=== PATIENT | female | born 1955 | race Caucasian/White ===

== ENCOUNTER → 2018-02-02 11:31 | Outpatient (CLI) | payer MEDICAID, SELFPAY ==
[2018-02-02 12:10] LABS: INR 3.7 (1.0-3.5); Prothrombin Time 34.6 sec (9.3-10.8)
== END ==
PROVIDERS: Nurse Practitioner Primary Care; PCP Family Medicine; Visit Provider Family Medicine
DX: I26.99 Other pulmonary embolism without acute cor pulmonale (principal); Z79.01 Long term (current) use of anticoagulants
CPT/HCPCS: 36415; 85610

== ENCOUNTER 2018-02-02 16:42 | Emergency (ER) | payer MEDICAID, SELFPAY ==
[2018-02-02] VITALS (24 sets, daily range): BP systolic 128–148; BP diastolic 64–92; PULSE 78–86; RESP 11–26; TEMP 36.6–36.7; O2SAT 91–96
--- NOTE | 2018-02-02 16:59 | NUR.NOTE ---
pt reports that she is allergic to all antibiotics attempted to clarify but pt continues to states she is allergic to everything. Nursing Note:
--- NOTE | 2018-02-02 17:20 | DI.REPORT_ITS ---
SYMPTOM/DIAGNOSIS: CHEST PAIN AP AND LATERAL CHEST: The heart is normal in size. The lungs are clear. The mediastinal structures and pleura appear intact. CONCLUSION: Normal chest. No evidence of acute pulmonary disease
[2018-02-02 17:44] LABS: Abs Immature Grans 0.08 k/cumm (0.0-0.09); Absolute Basophil Count 0.05 k/cumm (0.0-0.2); Absolute Eosinophil Count 0.24 k/cumm (0.0-0.7); Absolute Lymphocyte Count 3.17 k/cumm (1.2-3.4); Absolute Monocyte Count 0.64 k/cumm (0.11-0.7); Absolute Neutrophil Count 5.36 k/cumm (1.2-6.7); Basophils % 0.5; Eosinophils % 2.5; HCT 42.2 % (36.0-46.0); HGB 14.2 g/dL (12.0-15.5); Immature Grans % 0.8; Lymphocytes % 33.2; Mean Corp. HGB Concentration 33.6 g/dL (32.0-36.0); Mean Corpuscular Hemoglobin 29.3 pg (27.0-33.0); Mean Corpuscular Volume 87.2 fL (80-95); Mean Platelet Volume 10.3 fL (8.0-11.0); Monocytes % 6.7; Neutrophils % 56.3; Platelet Count 302 x1000/uL (130-400); RBC 4.84 m/cumm (4.00-5.20); RBC Distribution Width 14.1 % (11.7-14.6); White Blood Cell Count 9.54 k/cumm (4.4-10.8)
[2018-02-02 18:00] LABS: ALT 39 U/L (12-78); AST 27 U/L (15-37); Albumin 3.8 g/dL (3.4-5.0); Alkaline Phosphatase 127 U/L (46-116); Anion Gap 13.5 mmol/L (3-11); BUN 19 mg/dL (7-18); Bilirubin, Total 0.3 mg/dL (0.2-1.0); CO2 23.5 mmol/L (21.0-32.0); CREATININE 0.79 mg/dL (0.55-1.02); Calcium 9.2 mg/dL (8.5-10.1); Chloride 103 mmol/L (98-107); Glucose 81 mg/dL (70-100); Potassium 3.8 mmol/L (3.5-5.1); Sodium 140 mmol/L (136-145); Total Protein 8.6 g/dL (6.4-8.2)
[2018-02-02 18:01] LABS: Troponin I < 0.02 ng/mL (0.00-0.06)
[2018-02-02 18:07] LABS: INR 3.7 (1.0-3.5); PTT Activated 50.7 sec (21.0-31.4); Prothrombin Time 34.7 sec (9.3-10.8)
--- NOTE | 2018-02-02 18:19 | DI.VRAD_ITS ---
EXAM: XR Chest, 2 Views EXAM DATE/TIME: 02/02/2018 6:03 PM CLINICAL HISTORY: 63 years old, female; Pain; Chest pain; Type not specified TECHNIQUE: XR of the chest, 2 views. COMPARISON: [facility] - CHEST ONE VIEW IN RAD DEPT 2017-11-12 22:57 FINDINGS: Lungs: Unremarkable. No consolidation. Pleural space: Unremarkable. No pleural effusion. No pneumothorax. Heart/Mediastinum: Unremarkable. No cardiomegaly. Bones/joints: Unremarkable for patient's age. IMPRESSION: Normal AP and lateral chest examination. Dictated and Authenticated by: Christian Dooley MD. Ordering:GABY ROMO MD
[2018-02-02 20:27] LABS: Troponin I < 0.02 ng/mL (0.00-0.06)
--- NOTE | 2018-02-02 20:42 | ED.GENADUL_ITS ---
Disposition Clinical Impression: SOB (shortness of breath), Leg pain, right Disposition: HOME Condition: Good Instructions: Dyspnea (ED), Leg Pain (ED) Additional Instructions: Please return tomorrow morning for your ultrasound of your right lower extremity. If you notice any worsening of your symptoms, or any new symptoms such as vomiting, diarrhea, fever, chills, shortness of breath, chest pain, numbness, weakness, or fainting , please return immediately to the emergency department for reevaluation. Please follow up with your primary care provider as soon as possible for reassessment and reevaluation. As always, it was a pleasure participating in your medical care today. Medical Decision Making - Lab Data Laboratory Tests 02/02/18 02/02/18 02/02/18 17:05 17:05 17:05 WBC 9.54 RBC 4.84 Hgb 14.2 Hct 42.2 MCV 87.2 MCH 29.3 MCHC 33.6 RDW 14.1 Plt Count 302 MPV 10.3 Immature Gran % 0.8 Neutrophils % 56.3 Lymphocytes % 33.2 Monocytes % 6.7 Eosinophils % 2.5 Basophils % 0.5 Absolute Neutrophils 5.36 Absolute Lymphocytes 3.17 Absolute Monocytes 0.64 Absolute Eosinophils 0.24 Absolute Basophils 0.05 PT 34.7 H INR 3.7 H APTT 50.7 H Sodium 140 Potassium 3.8 Chloride 103 Carbon Dioxide 23.5 Anion Gap 13.5 H BUN 19 H Creatinine 0.79 Estimated GFR/1.73 m2 >= 60.00 Glucose 81 Calcium 9.2 Total Bilirubin 0.3 AST 27 ALT 39 Alkaline Phosphatase 127 H Troponin I < 0.02 Total Protein 8.6 H Albumin 3.8 02/02/18 19:53 WBC RBC Hgb Hct MCV MCH MCHC RDW Plt Count MPV Immature Gran % Neutrophils % Lymphocytes % Monocytes % Eosinophils % Basophils % Absolute Neutrophils Absolute Lymphocytes Absolute Monocytes Absolute Eosinophils Absolute Basophils PT INR APTT Sodium Potassium Chloride Carbon Dioxide Anion Gap BUN Creatinine Estimated GFR/1.73 m2 Glucose Calcium Total Bilirubin AST ALT Alkaline Phosphatase Troponin I < 0.02 Total Protein Albumin - Medical Decision Making This is a pleasant 63-year-old female with a history of pulmonary embolisms for which she is on Coumadin. She presents today for evaluation of very mild shortness of breath, as well as right leg pain. She described the symptoms to her PCP who recommended that she come in for further evaluation. Her Coumadin/ INR level is actually slightly supratherapeutic greater than 3. I feel pulmonary embolism is unlikely. Vital signs demonstrate no evidence of tachycardia, no hypoxemia, normal blood pressure. She has no severe pleuritic chest pain. There is no exertional component, radiation to her arms or neck. Because of the time that the patient came in, there was no ultrasound available for evaluation of DVT. Because the patient's Coumadin is supratherapeutic I feel it reasonable for discharge with close follow-up tomorrow, ultrasound in the morning for evaluation of DVT. Chest x-ray from [facility] demonstrates normal AP and lateral chest examination no consolidation or abnormality. EKG demonstrates time of 16: 52 rate of 84, QRS of 110, QTc 440, DE of 202. No ST elevations or depressions. No S1 Q3 T3. No Q waves. No inverted T waves. Serial troponins are negative. Laboratory workup is otherwise benign. Patient will be discharged home with ultrasound tomorrow and close follow-up. I have extensively reviewed the treatment plan and discharge instructions with the patient. I have addressed all patient concerns at this time. The patient was made aware of what symptoms to monitor for that would warrant a return to the emergency department. Discussed the plan with the patient, they demonstrate verbal understanding and agreement with our assessment and plan at this time. 02/03/18 11 AM The patient's ultrasound has returned negative. She has been sent home with close follow-up with her primary care provider. History of Present Illness - General Chief complaint: SOB Stated complaint: CALEX Time Seen by Provider: 02/02/18 17:18 - History of Present Illness Initial comments: This is a pleasant 63-year-old female who presents for evaluation of right lower extremity pain and mild shortness of breath. Patient has a history of pulmonary embolisms back in October, which was a saddle pulmonary emboli at that time. She also has a history of diabetes, hypertension, high cholesterol. She is on Coumadin for her pulmonary embolisms. She was recently here 7 days ago, and had a CT angiogram that was negative at that time. She was low on her INR at that time. She was eventually discharged home with a negative echocardiogram , and improvement of her symptoms, and negative serial troponins. The patient states that over the last 24 hours she has had mild pain in her right calf. She is also developed very mild shortness of breath. She denies any chest pressure or significant chest pain. She denies any pleuritic chest pain. She states that this is not feel like her previous pulmonary emboli. She denies any cough, arm pain neck pain, numbness tingling or weakness. She denies any recent trauma. She has been taking her Coumadin as directed. She denies any vomiting, nausea or diarrhea. She has no other complaints at this time. She denies any IV or illicit drug use. She denies any recent surgeries. She denies any pertinent family history. - Related Data Lancets [Onetouch Delica] 1 each MC BID #200 each 05/19/16 Amlodipine Besylate [Norvasc] 1 tab PO DAILY #90 tab-cap 11/25/16 Albuterol Sulfate [Proair Hfa] 2 puff IH Q6H PRN #1 inhaler 02/09/17 Empagliflozin [Jardiance] 10 mg PO QAM #30 tab 06/04/17 Multivit with Calcium,Iron,Min [One Daily Women's] 1 each PO DAILY #90 tab 06/08 Blood Sugar Diagnostic [Onetouch Ultra Blue Test Strp] 1 each MC six times a day #300 strip 06/29/17 Gemfibrozil [Lopid] 1 tab PO BID #180 tab-cap 06/29/17 [place], Insulin Disposable [Bd Ultra-Fine Pen Needle] 1 each MC BID #200 each 06/29/17 Allopurinol [Zyloprim] 2 tab PO DAILY #180 tab-cap 07/06/17 Venlafaxine HCl [Venlafaxine HCl ER] 150 mg PO DAILY #90 tab-cap 08/06/17 Losartan Potassium [Cozaar] 1 tab PO QAM #90 tab-cap 08/18/17 Blood-Glucose Meter [Blood Glucose Meter] 1 each MC ONCE #1 each 10/12/17 Bacitracin 30 gm TP DAILY #1 oint...g. 12/20/17 Insulin Glargine [Lantus Solostar] 90 units SC DAILY #4 box 01/10/18 Insulin Aspart [NovoLOG Flexpen] 3 - 12 unit SC Sliding scale #1 box 01/14/18 Sterile Water 300 ml AD DAILY #36 01/14/18 Warfarin Sodium 5 mg PO DAILY #180 tab-cap 01/31/18 Allergies Allergy/AdvReac Type Severity Reaction Status Date / Time sitagliptin phosphate Allergy Intermediate throat Unverified 02/02/18 16:57 [From Lianguvangela] swelling,H/As amoxicillin Allergy Mild THRUSH, Unverified 02/02/18 16:57 THROAT CLOSES Review of Systems Other: 10 point review of systems was performed, pertinent positives and negatives are noted in the history of present illness. Past Medical History - Past Medical History Medical history: asthma, CVA/TIA, diabetes, DVT, hyperlipidemia, hypertension Surgical history: cholecystectomy, hysterectomy, other (Foot surgery) Family history: CAD/NH (FATHER), cancer (FATHER SISTER) - Social History Alcohol use: none Drug use: none General Exam - Other Other exam information: 1.Const: Well-nourished, Well-developed, appearing stated age, morbidly obese 2.Eyes: PERRL, no conjunctival injection, and symmetrical lids. 3.ENT: Atraumatic external nose and ears. Moist MM. Neck: Symmetric, trachea midline, No thyromegaly. 4.CVS: +S1/S2, No murmurs or gallops. Peripheral pulses 2+ and equal in all extremities. Brisk capillary refill in all extremities. 5.RESP: Unlabored respiratory effort. Clear to auscultation bilaterally. No wheezes rales or rhonchi 6.GI: Soft, Nontender/Nondistended, No hepatosplenomegaly. No guarding or rebound. Obese 7.MSK: Normocephalic/Atraumatic, Extremities w/o deformity or ttp No cyanosis or clubbing, Normal movement of all extremities. Subjective mild generalized tenderness in the right calf, no unilateral swelling. Both calves are very large secondary to morbid obesity. Capillary refill is brisk, dorsalis pedis is +2 bilaterally. No evidence of trauma. 8.Skin: Warm, Dry. No rashes or lesions. 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 Sensation grossly intact, no focal neurologic deficits. 10.Psych: (AAO) x3. Appropriate mood and affect Course Vital Signs - 24 hr 02/02/18 02/02/18 02/02/18 16:51 16:58 17:15 Temperature 36.6 C Pulse 83 86 Respiratory 16 18 18 Rate Blood Pressure 136/76 143/85 Pulse Oximetry 95 96 02/02/18 02/02/18 02/02/18 17:30 18:00 18:15 Temperature Pulse 80 84 79 Respiratory 18 16 Rate Blood Pressure 148/84 133/92 144/84 Pulse Oximetry 93 L 93 L 95 02/02/18 02/02/18 02/02/18 18:30 18:45 18:47 Temperature Pulse 80 79 Respiratory 18 18 22 Rate Blood Pressure 141/85 146/90 Pulse Oximetry 93 L 94 L 93 L 02/02/18 02/02/18 02/02/18 18:50 19:00 19:10 Temperature Pulse Respiratory 21 25 H 18 Rate Blood Pressure Pulse Oximetry 93 L 91 L 93 L 02/02/18 02/02/18 02/02/18 19:20 19:30 19:40 Temperature Pulse Respiratory 15 17 21 Rate Blood Pressure Pulse Oximetry 93 L 94 L 94 L 02/02/18 02/02/18 02/02/18 19:50 20:00 20:10 Temperature Pulse Respiratory 23 21 25 H Rate Blood Pressure Pulse Oximetry 95 93 L 94 L 02/02/18 20:20 Temperature Pulse Respiratory 19 Rate Blood Pressure Pulse Oximetry 94 L
== END 2018-02-02 21:08 | disposition home or self-care (01) ==
PROVIDERS: Emergency Provider Student in an Organized Health Care Education/Training Program; PCP Family Medicine
DX: R06.02 Shortness of breath (principal); M79.604 Pain in right leg; Z79.01 Long term (current) use of anticoagulants; Z86.711 Personal history of pulmonary embolism; I10 Essential (primary) hypertension; E11.9 Type 2 diabetes mellitus without complications; Z79.4 Long term (current) use of insulin
CPT/HCPCS: 36415; 80053; 93005; 99285; 71046; 84484; 85025; 85610; 85730; 93010; 99284

== ENCOUNTER → 2018-02-03 09:59 | Outpatient (CLI) | payer MEDICAID, SELFPAY ==
--- NOTE | 2018-02-03 10:40 | DI.REPORT_ITS ---
SYMPTOM/DIAGNOSIS: H/O CLOTS , ON COUMADIN, ? DVT, RT LEG PAIN, DYSPNEA, SOB RIGHT LEG ULTRASOUND: The study was carried out according to the usual protocol. The superficial, femoral, popliteal and proximal trifurcation in the superior portion of the leg are well seen. Good compressibility is noted throughout. Flow is demonstrated and flow augmentation was easily elicited with calf compression. SUMMARY: There is no evidence of DVT.
== END ==
PROVIDERS: PCP Family Medicine; Visit Provider Student in an Organized Health Care Education/Training Program
DX: M79.604 Pain in right leg (principal); R06.09 Other forms of dyspnea; R06.02 Shortness of breath; Z79.01 Long term (current) use of anticoagulants; Z86.718 Personal history of other venous thrombosis and embolism
CPT/HCPCS: 93971

== ENCOUNTER → 2018-02-04 11:41 | Outpatient (CLI) | payer MEDICAID, SELFPAY ==
[2018-02-04 12:52] LABS: INR 2.1 (1.0-3.5); Prothrombin Time 19.9 sec (9.3-10.8)
== END ==
PROVIDERS: PCP Family Medicine; Visit Provider Family Medicine
DX: I26.99 Other pulmonary embolism without acute cor pulmonale (principal); Z79.01 Long term (current) use of anticoagulants
CPT/HCPCS: 36415; 85610

== ENCOUNTER → 2018-02-08 10:52 | Outpatient (CLI) | payer MEDICAID, SELFPAY ==
[2018-02-08 12:56] LABS: INR 1.9 (1.0-3.5); Prothrombin Time 18.2 sec (9.3-10.8)
== END ==
PROVIDERS: PCP Family Medicine; Visit Provider Family Medicine
DX: I26.99 Other pulmonary embolism without acute cor pulmonale (principal); Z79.01 Long term (current) use of anticoagulants
CPT/HCPCS: 36415; 85610

== ENCOUNTER → 2018-02-15 11:25 | Outpatient (CLI) | payer MEDICAID, SELFPAY ==
[2018-02-15 12:01] LABS: INR 1.7 (1.0-3.5); Prothrombin Time 16.7 sec (9.3-10.8)
== END ==
PROVIDERS: PCP Family Medicine; Visit Provider Family Medicine
DX: I26.99 Other pulmonary embolism without acute cor pulmonale (principal); Z79.01 Long term (current) use of anticoagulants
CPT/HCPCS: 36415; 85610

== ENCOUNTER → 2018-02-22 12:21 | Outpatient (CLI) | payer MEDICAID, SELFPAY ==
[2018-02-22 14:47] LABS: INR 1.5 (1.0-3.5); Prothrombin Time 14.7 sec (9.3-10.8)
== END ==
PROVIDERS: PCP Family Medicine; Visit Provider Family Medicine
DX: I26.99 Other pulmonary embolism without acute cor pulmonale (principal); Z79.01 Long term (current) use of anticoagulants
CPT/HCPCS: 36415; 85610

== ENCOUNTER 2018-02-25 12:53 | Outpatient (CLI) | payer MEDICAID, SELFPAY ==
[2018-02-25 13:38] LABS: INR 1.9 (1.0-3.5); Prothrombin Time 18.3 sec (9.3-10.8)
== END 2018-02-25 12:54 ==
PROVIDERS: PCP Family Medicine; Visit Provider Family Medicine
DX: I26.90 Septic pulmonary embolism without acute cor pulmonale (principal); Z79.01 Long term (current) use of anticoagulants
CPT/HCPCS: 36415; 85610

== ENCOUNTER 2018-03-04 12:46 | Outpatient (CLI) | payer MEDICAID, SELFPAY ==
[2018-03-04 13:22] LABS: INR 2.9 (1.0-3.5); Prothrombin Time 26.9 sec (9.3-10.8)
== END 2018-03-04 13:06 ==
PROVIDERS: PCP Family Medicine; Visit Provider Family Medicine
DX: I26.99 Other pulmonary embolism without acute cor pulmonale (principal); Z79.01 Long term (current) use of anticoagulants
CPT/HCPCS: 36415; 85610

== ENCOUNTER 2018-03-11 11:52 | Outpatient (CLI) | payer MEDICAID, SELFPAY ==
[2018-03-11 12:39] LABS: Prothrombin Time 37.7 sec (9.3-10.8)
[2018-03-11 12:53] LABS: INR 4.1 (1.0-3.5)
== END 2018-03-11 12:12 ==
LOC: LBN 11:53 → LBO 11:56
PROVIDERS: PCP Family Medicine; Visit Provider Family Medicine
DX: I26.99 Other pulmonary embolism without acute cor pulmonale (principal); Z79.01 Long term (current) use of anticoagulants
CPT/HCPCS: 36415; 85610

== ENCOUNTER 2018-03-18 13:54 | Outpatient (CLI) | payer MEDICAID, SELFPAY ==
[2018-03-18 14:31] LABS: INR 2.6 (1.0-3.5); Prothrombin Time 24.3 sec (9.3-10.8)
== END 2018-03-18 14:14 ==
PROVIDERS: PCP Family Medicine; Visit Provider Family Medicine
DX: I26.99 Other pulmonary embolism without acute cor pulmonale (principal); Z79.01 Long term (current) use of anticoagulants
CPT/HCPCS: 36415; 85610

== ENCOUNTER 2018-04-01 13:19 | Outpatient (CLI) | payer MEDICAID, SELFPAY ==
[2018-04-01 14:06] LABS: Hemoglobin A1C 6.3 % (4.5-6.2)
[2018-04-01 14:29] LABS: INR 3.3 (1.0-3.5); Prothrombin Time 30.9 sec (9.3-10.8)
== END 2018-04-01 13:39 ==
PROVIDERS: PCP Family Medicine; Visit Provider Family Medicine
DX: E11.9 Type 2 diabetes mellitus without complications (principal); I26.99 Other pulmonary embolism without acute cor pulmonale; Z79.01 Long term (current) use of anticoagulants
CPT/HCPCS: 36415; 83036; 85610

== ENCOUNTER 2018-04-14 15:37 | Outpatient (CLI) | payer MEDICAID, SELFPAY ==
[2018-04-14 16:26] LABS: INR 2.5 (1.0-3.5); Prothrombin Time 23.3 sec (9.3-10.8)
== END 2018-04-14 15:57 ==
PROVIDERS: PCP Family Medicine; Visit Provider Family Medicine
DX: I26.99 Other pulmonary embolism without acute cor pulmonale (principal); Z79.01 Long term (current) use of anticoagulants
CPT/HCPCS: 36415; 85610

== ENCOUNTER 2018-05-03 12:05 | Outpatient (CLI) | payer MEDICAID, SELFPAY ==
[2018-05-03 12:52] LABS: INR 3.3 (1.0-3.5); Prothrombin Time 30.8 sec (9.3-10.8)
== END 2018-05-03 12:25 ==
PROVIDERS: PCP Family Medicine; Visit Provider Family Medicine
DX: I26.99 Other pulmonary embolism without acute cor pulmonale (principal); Z79.01 Long term (current) use of anticoagulants
CPT/HCPCS: 36415; 85610

== ENCOUNTER 2018-05-11 10:11 | Outpatient (CLI) | payer MEDICAID, SELFPAY ==
[2018-05-11 11:06] LABS: INR 2.6 (1.0-3.5); Prothrombin Time 24.5 sec (9.3-10.8)
== END 2018-05-11 10:31 ==
PROVIDERS: PCP Family Medicine; Visit Provider Family Medicine
DX: I26.99 Other pulmonary embolism without acute cor pulmonale (principal); Z79.01 Long term (current) use of anticoagulants
CPT/HCPCS: 36415; 85610

== ENCOUNTER 2018-05-18 09:38 | Outpatient (CLI) | payer MEDICAID, SELFPAY ==
[2018-05-18 10:20] LABS: INR 1.5 (1.0-3.5); Prothrombin Time 14.2 sec (9.3-10.8)
== END 2018-05-18 09:58 ==
PROVIDERS: PCP Family Medicine; Visit Provider Family Medicine
DX: I26.99 Other pulmonary embolism without acute cor pulmonale (principal); Z79.01 Long term (current) use of anticoagulants
CPT/HCPCS: 36415; 85610

== ENCOUNTER 2018-05-25 11:17 | Outpatient (CLI) | payer MEDICAID, SELFPAY | END 2018-05-25 11:37 | PROVIDERS: PCP Family Medicine; Visit Provider Family Medicine | DX: I26.99 Other pulmonary embolism without acute cor pulmonale (principal); Z79.01 Long term (current) use of anticoagulants | CPT/HCPCS: 36415; 85610 ==

== ENCOUNTER 2018-05-31 11:01 | Outpatient (CLI) | payer MEDICAID, SELFPAY ==
[2018-05-31 11:45] LABS: INR 1.4 (1.0-3.5); Prothrombin Time 13.3 sec (9.3-10.8)
== END 2018-05-31 11:21 ==
PROVIDERS: PCP Family Medicine; Visit Provider Family Medicine
DX: I26.99 Other pulmonary embolism without acute cor pulmonale (principal); Z79.01 Long term (current) use of anticoagulants
CPT/HCPCS: 36415; 85610

== ENCOUNTER 2018-06-08 14:18 | Outpatient (CLI) | payer MEDICAID, SELFPAY ==
[2018-06-08 15:01] LABS: INR 2.3 (1.0-3.5); Prothrombin Time 22.1 sec (9.3-10.8)
== END 2018-06-08 14:38 ==
PROVIDERS: PCP Family Medicine; Visit Provider Family Medicine
DX: I26.99 Other pulmonary embolism without acute cor pulmonale (principal); Z79.01 Long term (current) use of anticoagulants
CPT/HCPCS: 36415; 85610

== ENCOUNTER 2018-06-15 13:50 | Outpatient (CLI) | payer MEDICAID, SELFPAY ==
[2018-06-15 14:35] LABS: INR 2.1 (1.0-3.5); Prothrombin Time 20.8 sec (9.3-11.0)
== END 2018-06-15 14:10 ==
PROVIDERS: PCP Family Medicine; Visit Provider Family Medicine
DX: I26.99 Other pulmonary embolism without acute cor pulmonale (principal); Z79.01 Long term (current) use of anticoagulants
CPT/HCPCS: 36415; 85610

== ENCOUNTER 2018-07-01 15:15 | Outpatient (CLI) | payer MEDICAID, SELFPAY ==
[2018-07-01 16:38] LABS: Prothrombin Time 30.6 sec (9.3-11.0)
== END 2018-07-01 15:35 ==
PROVIDERS: PCP Family Medicine; Visit Provider Family Medicine
DX: I26.99 Other pulmonary embolism without acute cor pulmonale (principal); Z79.01 Long term (current) use of anticoagulants
CPT/HCPCS: 36415; 85610

== ENCOUNTER 2018-07-12 09:27 | Outpatient (CLI) | payer MEDICAID, SELFPAY ==
[2018-07-12 10:00] LABS: INR 2.3 (0.9-1.1); Prothrombin Time 22.7 sec (9.3-11.0)
== END 2018-07-12 09:47 ==
PROVIDERS: PCP Family Medicine; Visit Provider Family Medicine
DX: I26.99 Other pulmonary embolism without acute cor pulmonale (principal); Z79.01 Long term (current) use of anticoagulants
CPT/HCPCS: 36415; 85610

== ENCOUNTER 2018-07-27 10:29 | Outpatient (CLI) | payer MEDICAID, SELFPAY ==
[2018-07-27 11:53] LABS: Hemoglobin A1C 7.4 % (4.5-6.2)
== END 2018-07-27 10:49 ==
PROVIDERS: PCP Family Medicine; Visit Provider Family Medicine
DX: E11.9 Type 2 diabetes mellitus without complications (principal)
CPT/HCPCS: 36415; 83036

== ENCOUNTER 2018-08-16 15:08 | Outpatient (CLI) | payer MEDICAID, SELFPAY ==
[2018-08-16 15:51] LABS: INR 2.5 (0.9-1.1); Prothrombin Time 25.6 sec (9.3-11.0)
== END 2018-08-16 15:28 ==
PROVIDERS: PCP Family Medicine; Visit Provider Family Medicine
DX: I26.99 Other pulmonary embolism without acute cor pulmonale (principal); Z79.01 Long term (current) use of anticoagulants
CPT/HCPCS: 36415; 85610

== ENCOUNTER 2018-08-25 14:43 | Emergency (ER) | payer MEDICAID, SELFPAY ==
[2018-08-25 14:46] VITALS: BP 185/101; PULSE 93; RESP 18; TEMP 36.4; O2SAT 97
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
--- NOTE | 2018-08-25 15:10 | DI.CT_ITS ---
SYMPTOM/DIAGNOSIS: LLQ ABD PAIN, ? DIVERTICULITIS ABDOMEN AND PELVIC CT: Comparison is made with 03/19/17. Images were performed from the lung bases through the ischial tuberosities after IV and without oral contrast. Dependent changes are seen at the lung bases. The liver shows diffuse fatty infiltration. The patient is status post cholecystectomy. The spleen, adrenals, pancreas and kidneys are unremarkable. Diverticulosis is noted of the lower descending and sigmoid colon. There is severe inflammatory changes surrounding the sigmoid consistent with diverticulitis. There is no evidence of abscess or fluid collection. There is a small amount of adjacent fluid, non drainable. There is no abnormal bowel dilatation. The appendix appears normal. The patient is status post hysterectomy. The bladder is unremarkable. IMPRESSION: Sigmoid diverticulitis. No evidence of abscess.
[2018-08-25 15:23] LABS: Abs Immature Grans 0.04 k/cumm (0.0-0.09); Absolute Basophil Count 0.05 k/cumm (0.0-0.2); Absolute Eosinophil Count 0.12 k/cumm (0.0-0.7); Absolute Lymphocyte Count 2.61 k/cumm (1.2-3.4); Absolute Monocyte Count 0.57 k/cumm (0.11-0.7); Basophils % 0.5; Eosinophils % 1.1; HCT 40.6 % (36.0-46.0); HGB 13.8 g/dL (12.0-15.5); Immature Grans % 0.4; Lymphocytes % 24.2; Mean Corpuscular Hemoglobin 30.1 pg (27.0-33.0); Mean Corpuscular Volume 88.5 fL (80-95); Mean Platelet Volume 10.5 fL (8.0-11.0); Monocytes % 5.3; Neutrophils % 68.5; Platelet Count 277 x1000/uL (130-400); RBC 4.59 m/cumm (4.00-5.20); RBC Distribution Width 14.6 % (11.7-14.6); White Blood Cell Count 10.79 k/cumm (4.4-10.8)
[2018-08-25] MEDS: Normal Saline 250 ML 500 ML IV (15:23)
[2018-08-25 15:45] LABS: ALT 34 U/L (12-78); AST 33 U/L (15-37); Albumin 3.5 g/dL (3.4-5.0); Alkaline Phosphatase 120 U/L (46-116); Anion Gap 11.6 mmol/L (3-11); BUN 12 mg/dL (7-18); Bilirubin, Total 0.6 mg/dL (0.2-1.0); CO2 25.4 mmol/L (21.0-32.0); CREATININE 0.76 mg/dL (0.55-1.02); Chloride 101 mmol/L (98-107); Glucose 167 mg/dL (70-100); Lipase 97 U/L (73-393); Potassium 3.5 mmol/L (3.5-5.1); Sodium 138 mmol/L (136-145); Total Protein 7.8 g/dL (6.4-8.2)
[2018-08-25 15:57] LABS: INR 3.1 (0.9-1.1); PTT Activated 43.8 sec (21.0-31.4); Prothrombin Time 31.6 sec (9.3-11.0)
[2018-08-25] MEDS: Omnipaque 350 MG/ML 100 ML BTL IJ (16:10)
[2018-08-25] MEDS: Normal Saline Flush 10 ML SYR IVP (16:39)
--- NOTE | 2018-08-25 16:54 | DI.VRAD_ITS ---
EXAM: CT Abdomen and Pelvis With Contrast EXAM DATE/TIME: 08/25/2018 3:12 PM CLINICAL HISTORY: 63 years old, female; Pain; Abdominal pain; Other: Llq pain; R/O diverticulitis TECHNIQUE: Axial computed tomography images of the abdomen and pelvis with intravenous contrast. All CT scans at this facility use at least one of these dose optimization techniques: automated exposure control; mA and/or kV adjustment per patient size (includes targeted exams where dose is matched to clinical indication); or iterative reconstruction. Coronal and sagittal reformatted images were created and reviewed. CONTRAST: Contrast Material: 100 ml of omnipaque 350; Contrast Route: iv COMPARISON: CT ABD PELVIS WITH CONTRAST 03/19/2017 4:29 PM FINDINGS: Lower thorax: Dependent changes within the lung bases, likely atelectasis. ABDOMEN: Liver: Diffuse fatty infiltration of the liver. Gallbladder and bile ducts: Status post cholecystectomy. Pancreas: Unremarkable. No ductal dilation. Spleen: Unremarkable. No splenomegaly. Adrenals: Normal. No mass. Kidneys and ureters: Unremarkable. No stones. No hydronephrosis. Stomach and bowel: Numerous diverticuli throughout the descending and sigmoid colon. Acute diverticulitis of the mid sigmoid colon. Appendix: No evidence of appendicitis. PELVIS: Bladder: Unremarkable as visualized. Reproductive: Unremarkable as visualized. ABDOMEN and PELVIS: Intraperitoneal space: No diverticular abscess or free intraperitoneal air. Trace ascites within the lower pelvis. Bones/joints: No acute fracture. Soft tissues: Unremarkable. Vasculature: Unremarkable. No abdominal aortic aneurysm. Lymph nodes: Unremarkable. No enlarged lymph nodes. IMPRESSION: Acute sigmoid diverticulitis. Dictated and Authenticated by: Fhaad Ndiaye MD. Ordering:NORMA Ziegler MD
[2018-08-25] MEDS: Ondansetron 4 MG/2 ML VIAL IVP (17:17)
[2018-08-25] MEDS: metroNIDAZOLE 500 MG TAB PO ×2 (17:18→18:53)
[2018-08-25] MEDS: Meclizine 25 MG TAB PO (17:19)
[2018-08-25] MEDS: Ciprofloxacin 500 MG TAB PO (17:19)
[2018-08-25] MEDS: Diazepam 5 MG TAB PO (18:01)
[2018-08-25] MEDS: Ciprofloxacin 250 MG TAB 500 MG PO (18:53)
[2018-08-25 18:55] VITALS: BP 154/86; PULSE 80; RESP 18; TEMP 36.8; O2SAT 97
== END 2018-08-25 18:55 | disposition home or self-care (01) ==
PROVIDERS: Emergency Provider Physician Assistant; PCP Family Medicine
DX: K57.30 Diverticulosis of large intestine without perforation or abscess without bleeding (principal); R79.1 Abnormal coagulation profile; T45.515A Adverse effect of anticoagulants, initial encounter; Z79.01 Long term (current) use of anticoagulants
CPT/HCPCS: 36415; 80053; 83690; 96374; 99285; 74177; 85025; 85610; 85730; 99284; J2405; J3490

== ENCOUNTER 2018-08-26 15:58 | Outpatient (CLI) | payer MEDICAID, SELFPAY ==
[2018-08-26 16:48] LABS: INR 3.4 (0.9-1.1); Prothrombin Time 34.7 sec (9.3-11.0)
== END 2018-08-26 16:18 ==
PROVIDERS: PCP Family Medicine; Visit Provider Family Medicine
DX: I26.99 Other pulmonary embolism without acute cor pulmonale (principal); Z79.01 Long term (current) use of anticoagulants
CPT/HCPCS: 36415; 85610

== ENCOUNTER 2018-09-02 15:51 | Outpatient (CLI) | payer MEDICAID, SELFPAY ==
[2018-09-02 16:32] LABS: INR 2.1 (0.9-1.1); Prothrombin Time 20.8 sec (9.3-11.0)
== END 2018-09-02 16:11 ==
PROVIDERS: PCP Family Medicine; Visit Provider Family Medicine
DX: I26.99 Other pulmonary embolism without acute cor pulmonale (principal); Z79.01 Long term (current) use of anticoagulants
CPT/HCPCS: 36415; 85610

== ENCOUNTER 2018-09-08 06:44 | Outpatient (CLI) | payer MEDICAID, SELFPAY ==
--- NOTE | 2018-09-08 15:00 | DI.MAMMO_ITS ---
SYMPTOMS/DIAGNOSIS: SCREENING, Z12.31 MAMMOGRAMS: Mammograms were interpreted according to the usual protocol including computer analysis with CAD system, tomosynthesis and C view imaging. Comparison is with the prior examinations. No suspicious masses or microcalcifications are seen. There is no definite evidence of malignancy. IMPRESSION: Negative mammogram. Routine screening is recommended. Category 1, breast density B. MQSA ASSESSMENT OF FINDINGS: Negative. Category 1. Patient will receive a letter notifying them of these results. BI-RADS category B. There are scattered areas of fibroglandular density.
== END 2018-09-08 07:04 ==
PROVIDERS: PCP Family Medicine; Visit Provider Nurse Practitioner Family
DX: Z12.31 Encounter for screening mammogram for malignant neoplasm of breast (principal)
CPT/HCPCS: 77063; 77067

== ENCOUNTER 2018-09-23 16:19 | Outpatient (CLI) | payer MEDICAID, SELFPAY ==
[2018-09-23 17:05] LABS: Prothrombin Time 20.6 sec (9.3-11.0)
== END 2018-09-23 16:39 ==
PROVIDERS: PCP Family Medicine; Visit Provider Family Medicine
DX: Z79.01 Long term (current) use of anticoagulants (principal)
CPT/HCPCS: 36415; 85610

== ENCOUNTER 2018-10-18 15:07 | Outpatient (CLI) | payer MEDICAID, SELFPAY ==
--- NOTE | 2018-10-18 11:07 | DI.RAD_ITS ---
SYMPTOMS/DIAGNOSIS: HEMOPTYSIS, R04.2 PA AND LATERAL CHEST: Comparison is made with 8Aug18. The heart size is normal. The aorta is mildly tortuous. The lungs appear clear. No infiltrate, effusion or mass is identified. IMPRESSION: Negative chest x-ray.
== END 2018-10-18 15:27 ==
PROVIDERS: PCP Family Medicine; Visit Provider Family Medicine
DX: R04.2 Hemoptysis (principal)
CPT/HCPCS: 71046

== ENCOUNTER 2018-10-31 11:35 | Outpatient (CLI) | payer MEDICAID, SELFPAY ==
[2018-10-31 12:29] LABS: Prothrombin Time 20.2 sec (9.3-11.0)
== END 2018-10-31 11:55 ==
PROVIDERS: PCP Family Medicine; Visit Provider Family Medicine
DX: I26.99 Other pulmonary embolism without acute cor pulmonale (principal); Z79.01 Long term (current) use of anticoagulants
CPT/HCPCS: 36415; 85610

== ENCOUNTER 2018-11-11 15:05 | Emergency (ER) | payer MEDICAID, SELFPAY ==
[2018-11-11 15:20] VITALS: BP 142/78; PULSE 81; RESP 16; TEMP 36.4; O2SAT 97
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
[2018-11-11 15:43] VITALS: BP 142/78; PULSE 81; RESP 16; TEMP 36.4; O2SAT 97
== END 2018-11-11 15:45 | disposition home or self-care (01) ==
PROVIDERS: Emergency Provider Emergency Medicine; PCP Family Medicine
DX: K08.89 Other specified disorders of teeth and supporting structures (principal); I10 Essential (primary) hypertension; E11.40 Type 2 diabetes mellitus with diabetic neuropathy, unspecified; Z79.01 Long term (current) use of anticoagulants
CPT/HCPCS: 99283

== ENCOUNTER 2018-11-25 14:24 | Outpatient (CLI) | payer MEDICAID, SELFPAY ==
[2018-11-25 16:32] LABS: INR 1.9 (0.9-1.1); Prothrombin Time 19.4 sec (9.3-11.0)
== END 2018-11-25 14:44 ==
PROVIDERS: PCP Family Medicine; Visit Provider Family Medicine
DX: I26.99 Other pulmonary embolism without acute cor pulmonale (principal); Z79.01 Long term (current) use of anticoagulants
CPT/HCPCS: 36415; 85610

== ENCOUNTER 2018-11-28 09:47 | Outpatient (CLI) | payer MEDICAID, SELFPAY ==
--- NOTE | 2018-11-28 14:00 | NS.NUTBLAN_ITS ---
DESCRIPTION: Shani Morrison presents for nutrition consult for bariatric surgery preparation. Shani has the co-morbidity of diabetes and states at times her blood sugars ar 400mg/dl. She describes co-morbidities of vision changes and difficulty with coherence when blood sugars are not in contol. Weight today: 346.2 Height: 68 BMI 54 Shani states she eats high carbohydrate foods by the middle of the month because she is unable to afford anything else. She has difficulty chewing and is limited to eating softer foods.She pas pepanut butter and banana when she gets up mid-late morning. Her partner cooks supper of sweet potato and chicken with shake and bake. She describes her 'cheat' as shake and bake. She snacks on cheese or cottage cheese at 1-2AM. She is physically unable to walk independently. She loves the pool and has plans to swim, but finds it difficult to make it to the pool. NUTRITION DIAGNOSIS: Obesity as a result of excess calories and physical inactivity. INTERVENTION: Reviewed chart to record food and she voices understanding. Discussed food sources for second half of month. Reviewed paperwork for surgery. PLAN She will attempt to go to the pool at least once in the next week. She will return in 1 month for follow up to monitor food and physical activity as well as her weight.
== END 2018-11-28 10:07 ==
PROVIDERS: PCP Family Medicine; Visit Provider Dietitian, Registered
DX: E11.9 Type 2 diabetes mellitus without complications (principal); Z79.4 Long term (current) use of insulin; Z71.3 Dietary counseling and surveillance; E66.09 Other obesity due to excess calories; Z68.43 Body mass index [BMI] 50.0-59.9, adult
CPT/HCPCS: 97802

== ENCOUNTER 2018-12-06 15:20 | Outpatient (CLI) | payer MEDICAID, SELFPAY ==
[2018-12-06 15:52] LABS: INR 1.5 (0.9-1.1); Prothrombin Time 15.1 sec (9.3-11.0)
[2018-12-06 16:30] LABS: Hemoglobin A1C 6.9 % (4.5-6.2)
== END 2018-12-06 15:40 ==
PROVIDERS: PCP Family Medicine; Visit Provider Family Medicine
DX: E11.9 Type 2 diabetes mellitus without complications (principal); I26.99 Other pulmonary embolism without acute cor pulmonale; Z79.01 Long term (current) use of anticoagulants
CPT/HCPCS: 36415; 83036; 85610

== ENCOUNTER 2018-12-06 20:34 | Emergency (ER) | payer MEDICAID, SELFPAY ==
[2018-12-06 20:42] VITALS: BP 155/75; PULSE 89; RESP 24; TEMP 36.7; O2SAT 96
--- NOTE | 2018-12-06 20:54 | ED.GENADUL_ITS ---
Discharge Plan Disposition Patient Disposition: HOME Condition: Stable Discharge Details Chief Complaint: SOB Clinical Impression: Shortness of breath Primary Care Provider: Zak Guy ED Provider: Fran Akins Home Meds and New Rx's Prescriptions: No Action meclizine 12.5 mg tablet 12.5 mg PO TID PRN (Reason: dizziness) Qty: 30 RF: 3 nystatin 100,000 unit/gram powder 1 applic TP BID Qty: 60 RF: 3 nystatin 100,000 unit/gram cream 1 applic TP BID Qty: 60 RF: 3 Jardiance 10 mg tablet 10 mg PO QAM Qty: 90 RF: 4 gemfibrozil [Lopid] 600 mg tablet 600 mg PO BID Qty: 180 RF: 4 Lantus Solostar U-100 Insulin 100 unit/mL (3 mL) insulin pen 90 unit Sub-Q DAILY Qty: 4 RF: 4 losartan [Cozaar] 100 mg tablet 100 mg PO QAM Qty: 90 RF: 4 venlafaxine 150 mg capsule,extended release 24hr 150 mg PO DAILY Qty: 90 RF: 4 enoxaparin 80 mg/0.8 mL syringe 80 mg SC Q12H Qty: 8 RF: 3 lancets [OneTouch Delica Lancets] 1 EACH misc 1 ea Miscellaneous BID Qty: 200 RF: 4 blood-glucose meter 1 EACH misc 1 ea Miscellaneous ONCE Qty: 1 RF: 0 Novolog Flexpen U-100 Insulin 100 UNIT/1 ML insulin pen 3 - 12 unit Sub-Q Sliding scale Qty: 1 RF: 5 Sterile water bottle .ROUTE .MEDSUPPLY Qty: 1 RF: 5 amlodipine [Norvasc] 10 MG tablet 1 tab PO DAILY Qty: 90 RF: 4 allopurinol [Zyloprim] 100 mg tablet 200 mg PO DAILY Qty: 180 RF: 4 One Daily Women's 27-0.4 mg tablet 1 tab PO DAILY Qty: 90 RF: 4 OneTouch Ultra Test strip 1 ea Miscellaneous six times a day Qty: 300 RF: 4 pen needle, diabetic [BD Ultra-Fine Aida Pen Needle] 32 gauge x 5/32 needle 1 ea Miscellaneous BID Qty: 200 RF: 4 warfarin [Coumadin] 5 mg tablet 5 mg PO DAILY RF: 0 fluconazole 150 mg tablet 150 mg PO ONCE PRN (Reason: thrush) Qty: 3 RF: 0 Discharge Instructions Instructions: Dyspnea (ED) Additional Instructions: Your blood work, ecg and cat scan did not show any concerning findings follow up with your primary care provider within a week if you have severe worsening symptoms or feel more ill return to the emergency department Medical Decision Making 63 yo female with hx of PE on coumadin, HLD, , depression, asthma, anxiety, htn, t2dm, who comes in with several days of chest burning and also some shortness of breath with ambulation. Dneies radiation of the pain, diaphoresis or n/v. She is in no distress speaking in full sentence son exam laughing intermittently with clear lungs, no calf pain or leg edema. Denies recent travel or surgeries. Wells score is moderate, will obtain CTA to eval for PE and also less likely etiologies of pna vs ptx. Heart score is 3, will send troponin. Has no tearing chest pain and normal vascular exam so doubt dissection labs and imaging unremarkable, inr is 1.5 and she already spoke with her pcp on adjusting warfaring dose. given heart score of 3 and symptoms over 4 hours feel she can f/u with pcp for further w/u, return precautions given Differential Diagnosis Pe, acs, anemia, anxiety Medical Records Medical records reviewed: Yes I reviewed the patient's medical records. Imaging Data Radiologic Study: Attestation: I personally reviewed and interpreted this imaging study as follows: Imaging: CT Scan Radiologist's impression: no acute findings Lab Data Lab results reviewed: Yes I reviewed the patient's lab results. ECG Data Attestation: I personally reviewed and interpreted this ECG (s) as follows: Prior ECG tracings: available for review Interpretation: sinus rhythm, rate of 78, qtc 435, no acute st t wave changes HPI General Mode of arrival: ambulatory . Date/Time Provider Initiated Documentation: 12/06/18 20:37 . Limitations to Documentation: no limitations . Information obtained by: patient . History of Present Illness 63 year old F presents to the emergency department with the chief complaint of shortness of breath, described as moderate, Patient reports no radiation. Patient started experiencing this day(s) (2) and it has been intermittent. Rest improves symptom(s), Movement worsens symptoms . Patient notes chest pain. Patient did receive the following treatments prior to arrival, none Related Data Home Medications Medication Instructions Recorded Confirmed lancets [OneTouch Delica Lancets] #200 ea 05/19/16 11/03/18 blood-glucose meter #1 ea 10/12/17 11/03/18 Novolog Flexpen U-100 Insulin 3 - 12 unit SUB-Q Sliding scale #1 01/14/18 11/03/18 box amlodipine [Norvasc] 1 tab PO DAILY #90 tab-cap 02/08/18 11/03/18 meclizine 12.5 mg tablet 12.5 mg PO TID PRN #30 tab 05/12/18 11/03/18 allopurinol 100 mg tablet 200 mg PO DAILY #180 tab-cap 07/12/18 11/03/18 zbptbhkufhdc-Xf-lmrx-minerals 27 1 tab PO DAILY #90 tab 07/12/18 11/03/18 mg-0.4 mg tablet empagliflozin 10 mg tablet 10 mg PO QAM #90 tab 07/19/18 11/03/18 gemfibrozil 600 mg tablet 600 mg PO BID #180 tab-cap 07/19/18 11/03/18 insulin glargine (U-100) 100 90 unit SUB-Q DAILY #4 ml 07/19/18 11/03/18 unit/mL (3 mL) subcutaneous pen losartan 100 mg tablet 100 mg PO QAM #90 tab-cap 07/19/18 11/03/18 venlafaxine ER 150 mg 150 mg PO DAILY #90 tab-cap 07/19/18 11/03/18 capsule,extended release 24 hr blood sugar diagnostic strips #300 strip 08/24/18 11/03/18 pen needle, diabetic 32 gauge x #200 ea 08/24/18 11/03/18 5/32 warfarin 5 mg tablet 5 mg PO DAILY 09/23/18 11/03/18 nystatin 100,000 unit/gram topical 1 applic TP BID #60 gm 09/27/18 11/03/18 cream nystatin 100,000 unit/gram topical 1 applic TP BID #60 gm 09/27/18 11/03/18 powder fluconazole 150 mg PO ONCE PRN #3 tab 11/11/18 enoxaparin 80 mg/0.8 mL 80 mg SC Q12H #8 ml 12/06/18 12/06/18 subcutaneous syringe Previous Rx's Medication Instructions Recorded blood-glucose meter #1 ea 10/12/17 Novolog Flexpen U-100 Insulin 3 - 12 unit SUB-Q Sliding scale #1 01/14/18 box amlodipine [Norvasc] 1 tab PO DAILY #90 tab-cap 02/08/18 meclizine 12.5 mg tablet 12.5 mg PO TID PRN #30 tab 05/12/18 allopurinol 100 mg tablet 200 mg PO DAILY #180 tab-cap 07/12/18 laecrqigdaza-Gg-nakd-minerals 27 1 tab PO DAILY #90 tab 07/12/18 mg-0.4 mg tablet empagliflozin 10 mg tablet 10 mg PO QAM #90 tab 07/19/18 gemfibrozil 600 mg tablet 600 mg PO BID #180 tab-cap 07/19/18 insulin glargine (U-100) 100 90 unit SUB-Q DAILY #4 ml 07/19/18 unit/mL (3 mL) subcutaneous pen losartan 100 mg tablet 100 mg PO QAM #90 tab-cap 07/19/18 venlafaxine ER 150 mg 150 mg PO DAILY #90 tab-cap 07/19/18 capsule,extended release 24 hr blood sugar diagnostic strips #300 strip 08/24/18 pen needle, diabetic 32 gauge x #200 ea 08/24/18 nystatin 100,000 unit/gram topical 1 applic TP BID #60 gm 09/27/18 cream nystatin 100,000 unit/gram topical 1 applic TP BID #60 gm 09/27/18 powder fluconazole 150 mg PO ONCE PRN #3 tab 11/11/18 enoxaparin 80 mg/0.8 mL 80 mg SC Q12H #8 ml 12/06/18 subcutaneous syringe Allergies Allergy/AdvReac Type Severity Reaction Status Date / Time sitagliptin phosphate Allergy Intermediate throat Verified 12/06/18 13:23 [From Charissa] swelling,H/As amoxicillin Allergy Mild THRUSH, Verified 12/06/18 13:23 THROAT CLOSES General Stated Complaint: SOB DEMETRA: 2 Review of Systems Review of Systems All systems reviewed & are unremarkable except as noted in HPI and below Constitutional Denies chills, Denies fever(s) and Denies weakness ENT Denies change in voice Cardiovascular Denies chest pain Respiratory Denies cough Gastrointestinal Denies abdominal pain, Denies nausea and Denies vomiting Musculoskeletal Denies joint swelling Neurologic Denies weakness PFSH Social History Smoking/Tobacco Use Status: Former Tobacco Use Alcohol Intake: never Drug use: Never Substance use type: does not use Household members: other Details: 3 What type of physical activity do you participate in: none Shaina/Gnosticism: Mu-Ism Agree to transfusion: No Seatbelt use: never Do you feel safe at home: Yes Do you feel safe in your relationship?: Yes Exam Const General: no acute distress Orientation: alert HENMT Head: normal to inspection Ears: external ears normal General nose exam: external nose normal Mouth: moist mucous membranes Eyes General: appearance normal, both eyes and all related structures Neck Neck: normal visual inspection Resp Effort & Inspection: normal respiratory effort and able to speak in complete sentences Cardio Rate: regular rate Skin General skin exam: no rashes or lesions noted Neuro General: alert and oriented x3 Extrem General: normal to inspection Psych Mental Status: mental status grossly normal Course Vital Signs Temperature 36.7 C 12/06/18 20:42 Pulse 89 12/06/18 20:42 Respiratory Rate 12/06/18 20:42 Blood Pressure 155/75 H 12/06/18 20:42 Pulse Oximetry 96 12/06/18 20:42 Temperature 36.7 C 12/06/18 20:42 Temperature Source Tympanic 12/06/18 20:42 Pulse 89 12/06/18 20:42 Respiratory Rate 24 12/06/18 20:42 Blood Pressure 155/75 H 12/06/18 20:42 Blood Pressure Position Sitting 12/06/18 20:42 Pulse Oximetry 96 12/06/18 20:42 Oxygen Delivery Method Room Air 12/06/18 20:42 Oxygen Flow Rate 0 12/06/18 20:42 Pain Level 5 12/06/18 20:42
[2018-12-06 21:02] VITALS: RESP 26
[2018-12-06 21:19] LABS: Abs Immature Grans 0.03 k/cumm (0.0-0.09); Absolute Basophil Count 0.05 k/cumm (0.0-0.2); Absolute Eosinophil Count 0.12 k/cumm (0.0-0.7); Absolute Lymphocyte Count 2.62 k/cumm (1.2-3.4); Absolute Monocyte Count 0.45 k/cumm (0.11-0.7); Absolute Neutrophil Count 3.98 k/cumm (1.2-6.7); Basophils % 0.7; Eosinophils % 1.7; HCT 38.9 % (36.0-46.0); HGB 13.5 g/dL (12.0-15.5); Immature Grans % 0.4; Lymphocytes % 36.1; Mean Corp. HGB Concentration 34.7 g/dL (32.0-36.0); Mean Corpuscular Hemoglobin 30.9 pg (27.0-33.0); Mean Platelet Volume 10.7 fL (8.0-11.0); Monocytes % 6.2; Neutrophils % 54.9; Platelet Count 269 x1000/uL (130-400); RBC 4.37 m/cumm (4.00-5.20); White Blood Cell Count 7.25 k/cumm (4.4-10.8)
[2018-12-06 21:33] LABS: INR 1.5 (0.9-1.1); PTT Activated 27.8 sec (21.0-31.4); Prothrombin Time 15.5 sec (9.3-11.0)
[2018-12-06 21:42] LABS: ALT 35 U/L (12-78); AST 29 U/L (15-37); Albumin 3.5 g/dL (3.4-5.0); Alkaline Phosphatase 105 U/L (46-116); Anion Gap 12.9 mmol/L (3-11); BUN 18 mg/dL (7-18); Bilirubin, Total 0.4 mg/dL (0.2-1.0); CO2 24.1 mmol/L (21.0-32.0); CREATININE 1.03 mg/dL (0.55-1.02); Calcium 9.5 mg/dL (8.5-10.1); Chloride 103 mmol/L (98-107); Glucose 172 mg/dL (70-100); Magnesium 1.9 mg/dL (1.8-2.4); NT-proBNP 57 pg/mL; Potassium 3.3 mmol/L (3.5-5.1); Sodium 140 mmol/L (136-145); Total Protein 7.4 g/dL (6.4-8.2); Troponin I < 0.02 ng/mL (0.00-0.06)
--- NOTE | 2018-12-06 21:45 | DI.CT_ITS ---
SYMPTOM/DIAGNOSIS: H/O PE, SOB, CHEST PAIN PE CHEST CT: CT angiography was performed with multi slice acquisition and multi planar and 3D reconstruction. Routine examination was performed. Comparison examination is 01/26/18. There is no evidence of a pulmonary embolus. The thoracic aorta is intact. No evidence of thoracic aortic dissection or aneurysm. Heart size is within normal limits. No significant pericardial effusion is seen. No significant thoracic adenopathy, effusion or pneumothorax is identified. Dependent atelectatic changes are seen in the lungs. No focal consolidating infiltrates are seen. The tracheobronchial tree is unremarkable. Degenerative changes are seen in the spine. IMPRESSION: No evidence of a pulmonary embolus, thoracic aortic dissection or aneurysm.
[2018-12-06] MEDS: Omnipaque 350 MG/ML 100 ML BTL IJ (21:49)
--- NOTE | 2018-12-06 21:57 | DI.VRAD_ITS ---
EXAM: CT Angiography Chest With Contrast EXAM DATE/TIME: 12/06/2018 8:50 PM CLINICAL HISTORY: 63 years old, female; Signs and symptoms; Shortness of breath; Prior surgery; Surgery date: 6+ months; Surgery type: Gallbladder removed; Patient HX: SOB, HX of pes TECHNIQUE: Imaging protocol: Axial computed tomographic angiography images of the chest with intravenous contrast using CT angiography protocol. 3D rendering: MIP reconstructed images were created and reviewed. Radiation optimization: All CT scans at this facility use at least one of these dose optimization techniques: automated exposure control; mA and/or kV adjustment per patient size (includes targeted exams where dose is matched to clinical indication); or iterative reconstruction. Contrast material: OMNIPAQUE 350; Contrast volume: 100 ml; Contrast route: IV; COMPARISON: CT CHEST FOR PULMONARY EMBOLUS 01/26/2018 5:26 PM FINDINGS: Pulmonary arteries: Unremarkable. No obvious pulmonary emboli. Aorta: Unremarkable. No aortic aneurysm. No aortic dissection. Lungs: Unremarkable. No consolidation. No masses. No suspicious nodules. Pleural space: Unremarkable. No pneumothorax. No pleural effusion. Heart: Unremarkable. No pericardial effusion. No obvious heart strain. Lymph nodes: Unremarkable. No enlarged lymph nodes. Bones/joints: Unremarkable. No acute fracture. Soft tissues: Unremarkable. IMPRESSION: No acute findings. Dictated and Authenticated by: Yayo Robledo MD. Ordering:ALLEN Peters MD
[2018-12-06 22:12] VITALS: BP 155/75; PULSE 89; RESP 26; O2SAT 96
== END 2018-12-06 22:14 | disposition home or self-care (01) ==
PROVIDERS: Emergency Provider Emergency Medicine; PCP Family Medicine
DX: R06.02 Shortness of breath (principal); E11.40 Type 2 diabetes mellitus with diabetic neuropathy, unspecified; I10 Essential (primary) hypertension; Z79.4 Long term (current) use of insulin; I26.99 Other pulmonary embolism without acute cor pulmonale; Z79.01 Long term (current) use of anticoagulants; E11.9 Type 2 diabetes mellitus without complications
CPT/HCPCS: 36415; 71275; 80053; 93005; 99285; 83036; 83735; 83880; 84484; 85025; 85610; 85730; 93010; J3490

== ENCOUNTER 2018-12-14 11:09 | Outpatient (CLI) | payer MEDICAID, SELFPAY ==
[2018-12-14 12:08] LABS: INR 2.1 (0.9-1.1)
== END 2018-12-14 11:29 ==
PROVIDERS: PCP Family Medicine; Visit Provider Family Medicine
DX: I26.99 Other pulmonary embolism without acute cor pulmonale (principal); Z79.01 Long term (current) use of anticoagulants
CPT/HCPCS: 36415; 85610

== ENCOUNTER 2019-01-02 01:26 | Outpatient (CLI) | payer MEDICAID, SELFPAY ==
--- NOTE | 2019-01-02 13:00 | NS.NUTBLAN_ITS ---
DESCRIPTION: Shani Morrison presents for her second nutrition consult for obesity in preparation for bariatric surgery. Shani did not bring in her food log and has requested more copies be made for her. She states she frequently feels sick to her stomach; reports irritable bowel syndrome. She has eggs, oliver, cheese for breakfast and missed supper but did go to the fish place for poutine including indonesian fries, cheese, gravy. She denies hunger but states she needs crunch, hence loves chips which do give her diarrhea. Suggested Veggie Van Go again but she does not like the vegetables and has difficulty chewing raw vegetables. She drinks 10 16oz bottles of water daily. She remains able to ambulate with cane assistance and has braces that she does not wear here because of getting weighed. SHe did not get to the pool. WEIGHT TODAY: 345.2 HEIGHT 68 BMI 52.5 INTERVENTION: Shani reminds me she has few options for food and a stressful life. She does not express interest in discussing possible food options to decrease intensity of caloric food at this time. The conversation frequently diverts to current events in her life. SHe is engaged in the conversation and will return in 1 month for her 3rd visit preparing for Bariatric Surgery. PLAN: She will document her food for 1 week.
== END 2019-01-02 01:46 ==
PROVIDERS: PCP Family Medicine; Visit Provider Dietitian, Registered
DX: E66.01 Morbid (severe) obesity due to excess calories (principal); E11.9 Type 2 diabetes mellitus without complications; Z68.43 Body mass index [BMI] 50.0-59.9, adult; Z71.3 Dietary counseling and surveillance
CPT/HCPCS: 97802; 97803

== ENCOUNTER 2019-01-19 13:09 | Outpatient (CLI) | payer MEDICAID, SELFPAY ==
[2019-01-19 13:57] LABS: INR 2.9 (0.9-1.1); Prothrombin Time 29.2 sec (9.3-11.0)
== END 2019-01-19 13:29 ==
PROVIDERS: PCP Family Medicine; Visit Provider Family Medicine
DX: I26.99 Other pulmonary embolism without acute cor pulmonale (principal); Z79.01 Long term (current) use of anticoagulants
CPT/HCPCS: 36415; 85610

== ENCOUNTER 2019-01-27 12:37 | Observation (INO) | payer MEDICAID, SELFPAY ==
[2019-01-27] VITALS (57 sets, daily range): BP systolic 121–173; BP diastolic 56–95; PULSE 70–92; RESP 10–32; TEMP 37–37.3; O2SAT 81–98
[2019-01-27 13:16] LABS: Abs Immature Grans 0.03 k/cumm (0.0-0.09); Absolute Basophil Count 0.03 k/cumm (0.0-0.2); Absolute Eosinophil Count 0.14 k/cumm (0.0-0.7); Absolute Lymphocyte Count 2.25 k/cumm (1.2-3.4); Absolute Monocyte Count 0.34 k/cumm (0.11-0.7); Absolute Neutrophil Count 3.43 k/cumm (1.2-6.7); Basophils % 0.5; Eosinophils % 2.3; HCT 39.3 % (36.0-46.0); HGB 13.5 g/dL (12.0-15.5); Immature Grans % 0.5; Lymphocytes % 36.2; Mean Corp. HGB Concentration 34.4 g/dL (32.0-36.0); Mean Corpuscular Hemoglobin 30.3 pg (27.0-33.0); Mean Corpuscular Volume 88.1 fL (80-95); Mean Platelet Volume 10.6 fL (8.0-11.0); Monocytes % 5.5; Platelet Count 225 x1000/uL (130-400); RBC 4.46 m/cumm (4.00-5.20); RBC Distribution Width 13.9 % (11.7-14.6); White Blood Cell Count 6.22 k/cumm (4.4-10.8)
[2019-01-27 13:33] LABS: ALT 36 U/L (12-78); AST 39 U/L (15-37); Albumin 3.5 g/dL (3.4-5.0); Alkaline Phosphatase 108 U/L (46-116); Anion Gap 12.7 mmol/L (3-11); BUN 12 mg/dL (7-18); Bilirubin, Total 0.4 mg/dL (0.2-1.0); CO2 23.3 mmol/L (21.0-32.0); CREATININE 0.67 mg/dL (0.55-1.02); Calcium 8.8 mg/dL (8.5-10.1); Chloride 104 mmol/L (98-107); Glucose 191 mg/dL (70-100); Potassium 3.6 mmol/L (3.5-5.1); Sodium 140 mmol/L (136-145); Total Protein 7.6 g/dL (6.4-8.2); Troponin I < 0.05 ng/mL (0.00-0.06)
--- NOTE | 2019-01-27 14:10 | DI.CT_ITS ---
SYMPTOMS/DIAGNOSIS: SHORTNESS OF BREATH, PALPITATIONS, H/O PE CT ANGIOGRAPHY OF THE CHEST: CT angiography was performed with multi slice acquisition and multi planar and 3D reconstruction. There is a filling defect seen in a branch of the pulmonary artery to the right upper lobe consistent with a pulmonary embolus. The remaining pulmonary arteries are unremarkable. The thoracic aorta is intact. No evidence of a thoracic aortic aneurysm or dissection. The heart size is within normal limits. No significant pericardial effusion is seen. No evidence of right ventricular dysfunction is seen. No significant thoracic adenopathy, pleural effusion or pneumothorax is identified. No focal consolidating infiltrates are seen. The tracheobronchial tree is unremarkable. No acute findings are seen in the upper abdomen. IMPRESSION: Findings of a pulmonary embolus within branches of the right upper lobe. The findings were discussed with Dr. Darnell of the Emergency Department on the date of the examination.
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
[2019-01-27 14:43] LABS: INR 2.2 (0.9-1.1); PTT Activated 40.6 sec (21.0-31.4); Prothrombin Time 21.7 sec (9.3-11.0)
[2019-01-27] MEDS: Normal Saline 1,000 ML 1000 ML IV (14:55)
[2019-01-27] MEDS: Omnipaque 350 MG/ML 100 ML BTL IJ (15:12)
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
--- NOTE | 2019-01-27 19:21 | NUR.NOTE ---
Nursing Note: Pt to MS floor at 1859. VSS, A&Ox3. Ambulated independently to BR and bed from stretcher. Telemetry ordered. Report given to oncoming RN. Pt oriented to MS floor, call delatorre, BR, etc. Call delatorre within reach. RN will continue to monitor.
[2019-01-27] MEDS: Insulin Glargine 300 UNITS/3 ML PEN 90 UNITS SC (21:39)
[2019-01-27] MEDS: Nystatin CREAM 15 GM TUBE TP (21:41)
[2019-01-27] MEDS: WARFARIN 5 MG, WARFARIN 2.5 MG 7.5 MG PO (21:54)
[2019-01-28 01:15] VITALS: PULSE 64
[2019-01-28 03:26] VITALS: BP 131/74; PULSE 62; RESP 20; TEMP 36.8; O2SAT 96
[2019-01-28 07:12] LABS: INR 2.3 (0.9-1.1)
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
[2019-01-28] MEDS: Venlafaxine 150 MG CAPCR PO (08:23)
[2019-01-28] MEDS: Losartan 50 MG TAB 100 MG PO (08:23)
[2019-01-28] MEDS: Gemfibrozil 600 MG TAB PO (08:24)
[2019-01-28] MEDS: Allopurinol 100 MG TAB 200 MG PO (08:24)
[2019-01-28] MEDS: amLODIPine 10 MG TAB PO (08:24)
[2019-01-28] MEDS: Insulin Aspart 300 UNITS/3 ML PEN SC ×3 (08:28→12:04)
[2019-01-28 08:32] VITALS: BP 108/72; PULSE 63; RESP 20; TEMP 36.6; O2SAT 98
[2019-01-28] MEDS: Nystatin CREAM 30 GM TUBE TP (09:17)
[2019-01-28 09:40] VITALS: PULSE 61
[2019-01-28] MEDS: Magnesium Oxide 400 MG TAB PO (11:19)
[2019-01-28] MEDS: Potassium Chloride 20 MEQ TABCR 40 MEQ PO (11:19)
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
[2019-01-28 12:38] VITALS: BP 159/89; PULSE 78; RESP 19; TEMP 36.3; O2SAT 97
== END 2019-01-28 13:41 | disposition home or self-care (01) ==
LOC: ER 18:25 → MS 18:54
PROVIDERS: Admitting Provider Internal Medicine; Emergency Provider Physician Assistant; PCP Family Medicine; Visit Provider Internal Medicine
DX: I26.99 Other pulmonary embolism without acute cor pulmonale (principal); G47.33 Obstructive sleep apnea (adult) (pediatric); I10 Essential (primary) hypertension; E11.42 Type 2 diabetes mellitus with diabetic polyneuropathy; F32.9 Major depressive disorder, single episode, unspecified; Z86.711 Personal history of pulmonary embolism; E66.01 Morbid (severe) obesity due to excess calories; Z68.43 Body mass index [BMI] 50.0-59.9, adult; Z79.01 Long term (current) use of anticoagulants; I69.364 Other paralytic syndrome following cerebral infarction affecting left non-dominant side
CPT/HCPCS: 36415; 71275; 80053; 93005; 99220; 99239; 99285; 84484; 85025; 85610; 85730; 93010; 99217; G0378; J1650; J3490

== ENCOUNTER 2019-01-29 13:59 | Emergency (ER) | payer MEDICAID, SELFPAY ==
[2019-01-29] VITALS (35 sets, daily range): BP systolic 99–161; BP diastolic 62–81; PULSE 69–96; RESP 14–27; TEMP 36.7; O2SAT 92–100
--- NOTE | 2019-01-29 15:19 | DI.RAD_ITS ---
SYMPTOMS/DIAGNOSIS: SHORTNESS OF BREATH, ? ACUTE DISEASE PA AND LATERAL CHEST: Comparison is made with [id number]. The heart size is normal. The lungs are clear. No infiltrate or effusion is seen. IMPRESSION: Negative chest x-ray.
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
[2019-01-29 17:08] LABS: Abs Immature Grans 0.04 k/cumm (0.0-0.09); Absolute Basophil Count 0.05 k/cumm (0.0-0.2); Absolute Eosinophil Count 0.13 k/cumm (0.0-0.7); Absolute Lymphocyte Count 2.48 k/cumm (1.2-3.4); Absolute Monocyte Count 0.36 k/cumm (0.11-0.7); Absolute Neutrophil Count 3.03 k/cumm (1.2-6.7); Basophils % 0.8; Eosinophils % 2.1; HCT 43.1 % (36.0-46.0); HGB 14.8 g/dL (12.0-15.5); Immature Grans % 0.7; Lymphocytes % 40.7; Mean Corp. HGB Concentration 34.3 g/dL (32.0-36.0); Mean Corpuscular Volume 87.4 fL (80-95); Mean Platelet Volume 10.7 fL (8.0-11.0); Monocytes % 5.9; Neutrophils % 49.8; Platelet Count 235 x1000/uL (130-400); RBC 4.93 m/cumm (4.00-5.20); White Blood Cell Count 6.09 k/cumm (4.4-10.8)
[2019-01-29 17:14] LABS: INR 2.9 (0.9-1.1); PTT Activated 40.7 sec (21.0-31.4); Prothrombin Time 29.6 sec (9.3-11.0)
[2019-01-29 17:15] LABS: ALT 35 U/L (12-78); AST 47 U/L (15-37); Albumin 3.7 g/dL (3.4-5.0); Alkaline Phosphatase 117 U/L (46-116); Anion Gap 12.8 mmol/L (3-11); BUN 12 mg/dL (7-18); Bilirubin, Total 0.5 mg/dL (0.2-1.0); CO2 23.2 mmol/L (21.0-32.0); Calcium 9.1 mg/dL (8.5-10.1); Chloride 104 mmol/L (98-107); Glucose 139 mg/dL (70-100); Potassium 3.5 mmol/L (3.5-5.1); Sodium 140 mmol/L (136-145); Total Protein 8.1 g/dL (6.4-8.2)
[2019-01-29 17:17] LABS: Troponin I < 0.05 ng/mL (0.00-0.06)
--- NOTE | 2019-01-29 17:40 | DI.VRAD_ITS ---
EXAM: XR Chest, 2 Views EXAM DATE/TIME: 01/29/2019 3:20 PM CLINICAL HISTORY: 64 years old, female; Shortness of breath; Patient HX: SOB, cough. TECHNIQUE: Imaging protocol: XR of the chest, 2 views. COMPARISON: CR XR CHEST 2V PA LATERAL 18/10/2018 11:04 FINDINGS: Lungs: Prominent central pulmonary vasculature similar to prior study. No focal infiltrate. Pleural space: No effusion or pneumothorax. Heart/Mediastinum: Mild cardiomegaly. Bones/joints: Mild degenerative changes of the thoracic spine. IMPRESSION: No acute cardiopulmonary disease. Dictated and Authenticated by: Mary Kate Crowell MD. Ordering:NORMA Ziegler MD
[2019-01-29] MEDS: Levalbuterol 1.25 MG/3 ML UPD VIAL (17:47)
== END 2019-01-29 19:10 | disposition home or self-care (01) ==
PROVIDERS: Emergency Provider Physician Assistant; PCP Family Medicine
DX: I26.99 Other pulmonary embolism without acute cor pulmonale (principal); Z79.01 Long term (current) use of anticoagulants; J04.0 Acute laryngitis; I10 Essential (primary) hypertension; E11.40 Type 2 diabetes mellitus with diabetic neuropathy, unspecified; Z79.4 Long term (current) use of insulin
CPT/HCPCS: 36415; 80053; 94640; 99285; 71046; 83735; 84484; 85025; 85610; 85730; J7614

== ENCOUNTER 2019-02-01 13:04 | Outpatient (CLI) | payer MEDICAID, SELFPAY ==
[2019-02-01 14:16] LABS: Prothrombin Time 33.9 sec (9.3-11.0)
[2019-02-01 14:18] LABS: INR 3.3 (0.9-1.1)
== END 2019-02-01 13:24 ==
PROVIDERS: PCP Family Medicine; Visit Provider Family Medicine
DX: I26.99 Other pulmonary embolism without acute cor pulmonale (principal); Z79.01 Long term (current) use of anticoagulants
CPT/HCPCS: 36415; 85610

== ENCOUNTER 2019-02-23 08:38 | Outpatient (CLI) | payer MEDICAID, SELFPAY ==
[2019-02-23 09:51] LABS: INR 2.3 (0.9-1.1); Prothrombin Time 22.8 sec (9.3-11.0)
== END 2019-02-23 08:58 ==
PROVIDERS: PCP Nurse Practitioner Family; Visit Provider Family Medicine
DX: I26.99 Other pulmonary embolism without acute cor pulmonale (principal); Z79.01 Long term (current) use of anticoagulants
CPT/HCPCS: 36415; 85610

== ENCOUNTER 2019-03-16 19:18 | Emergency (ER) | payer MEDICAID, SELFPAY ==
[2019-03-16] VITALS (35 sets, daily range): BP systolic 113–164; BP diastolic 54–80; PULSE 62–82; RESP 10–24; TEMP 36.8; O2SAT 93–100
[2019-03-16 20:23] LABS: Abs Immature Grans 0.02 k/cumm (0.0-0.09); Absolute Basophil Count 0.04 k/cumm (0.0-0.2); Absolute Eosinophil Count 0.13 k/cumm (0.0-0.7); Absolute Lymphocyte Count 3.18 k/cumm (1.2-3.4); Absolute Monocyte Count 0.56 k/cumm (0.11-0.7); Absolute Neutrophil Count 4.27 k/cumm (1.2-6.7); Basophils % 0.5; Eosinophils % 1.6; HCT 37.7 % (36.0-46.0); HGB 12.8 g/dL (12.0-15.5); Immature Grans % 0.2; Lymphocytes % 38.8; Mean Corpuscular Volume 88.5 fL (80-95); Mean Platelet Volume 10.2 fL (8.0-11.0); Monocytes % 6.8; Neutrophils % 52.1; Platelet Count 279 x1000/uL (130-400); RBC 4.26 m/cumm (4.00-5.20)
[2019-03-16 20:37] LABS: ALT 28 U/L (14-59); AST 32 U/L (15-37); Albumin 3.6 g/dL (3.4-5.0); Alkaline Phosphatase 111 U/L (46-116); Anion Gap 12.5 mmol/L (3-11); BUN 26 mg/dL (7-18); Bilirubin, Total 0.5 mg/dL (0.2-1.0); CO2 24.5 mmol/L (21.0-32.0); CREATININE 0.97 mg/dL (0.55-1.02); Calcium 9.1 mg/dL (8.5-10.1); Chloride 104 mmol/L (98-107); Glucose 111 mg/dL (70-100); Potassium 3.2 mmol/L (3.5-5.1); Sodium 141 mmol/L (136-145); Total Protein 7.5 g/dL (6.4-8.2); Troponin I < 0.05 ng/mL (0.00-0.06)
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
--- NOTE | 2019-03-16 22:02 | DI.RAD_ITS ---
EXAM: XR CHEST 2V PA LATERAL INDICATION: trauma, fall. COMPARISON: XR CHEST 2V PA LATERAL from 01/29/2019 TECHNIQUE: 2D digital imaging was performed. FINDINGS: The lungs are well expanded and free of infiltrate. There is no pleural effusion. The heart is top l imits of normal in size. The bony structures are intact. IMPRESSION: No evidence of acute cardiopulmonary disease
[2019-03-16 22:09] LABS: INR 1.3 (0.9-1.1); Prothrombin Time 13.3 sec (9.3-11.0)
--- NOTE | 2019-03-16 22:10 | DI.CT_ITS ---
EXAM: CT HEAD CERVICAL SPINE WO CLINICAL HISTORY: fall, trauma. TECHNIQUE: A noncontrast cranial and cervical spine CT was performed according to the usual protocol . COMPARISON: HEAD AND CSPINE W/O CONTRAST from 11/12/2017 FINDINGS: C SPINE: THERE IS NORMAL LORDOTIC CURVATURE. THERE IS NO EVIDENCE OF A FRACTURE OR SUBLUXATION. DEGEN ERATIVE DISC DISEASE IS IDENTIFIED AT C5-C6, C 6-C7 AND C7-T1. THERE IS NO EVIDENCE OF A PROTRUSION. THERE IS NO EVIDENCE OF SPINAL CANAL STENOSIS OR SIGNIFICANT FORAMINAL IMPINGEMENT. POSTERIOR ELEMENT S ARE INTACT WITH NOTE MADE OF FACET JOINT DJD. THE ODONTOID IS WELL-MAINTAINED AND IS CLOSELY APPLIE D TO THE ANTERIOR ARCH OF C1. PREVERTEBRAL SOFT TISSUES UNREMARKABLE. HEAD: There is no evidence of an intra or extra-axial hemorrhage. There is a 2.5 x 1.6 cm CSF density prominence in the right anterior temporal fossa possibly representing an arachnoid cyst. The courtney-wh ite matter differentiation is maintained throughout. The posterior fossa is unremarkable. The ventric les are normal. There is no skull fracture. The soft tissues are unremarkable. Mucosal thickening inv olving the ethmoid sinus is identified. There is no evidence of an air-fluid level. There is no evide nce of a mastoid effusion. IMPRESSION: NO EVIDENCE OF A FRACTURE OR SUBLUXATION. No evidence of an acute intracranial abnormality. 2.5 x 1.6 cm CSF prominence is identified in the an terior temporal fossa, findings consistent with an arachnoid cyst.
--- NOTE | 2019-03-16 22:15 | DI.RAD_ITS ---
EXAM: XR KNEE LT 4V AP,LAT,LIBBY,PAT INDICATION: pain, fall, ttp anterior. COMPARISON: RIGHT KNEE 3 VIEWS from 11/12/2017 TECHNIQUE: 2D digital imaging was performed. FINDINGS: Mild degenerative changes are identified. There is no evidence of a fracture or dislocation.
--- NOTE | 2019-03-16 22:18 | DI.RAD_ITS ---
EXAM: XR FEMUR RT INDICATION: fall, pain, ttp mid femur. COMPARISON: LEFT FEMUR from 11/12/2017 TECHNIQUE: 2D digital imaging was performed. FINDINGS: No abnormality involving the right femur is identified.
[2019-03-16] MEDS: Normal Saline 500 ML 1000 ML IV (22:36)
[2019-03-16] MEDS: Potassium Chloride 20 MEQ TABCR 40 MEQ PO (22:36)
--- NOTE | 2019-03-16 22:46 | DI.VRAD_ITS ---
PROCEDURE INFORMATION: Exam: XR Chest, 2 Views Exam date and time: 03/16/2019 7:45 PM Clinical history: 64 years old, female; Shortness of breath TECHNIQUE: Imaging protocol: XR of the chest Views: 2 views. COMPARISON: CR XR CHEST 2V PA LATERAL 10/03/2018 17:18 FINDINGS: Lungs: Pulmonary vascular congestion with redistribution to the apices. Pleural space: No evidence for pleural effusion. Heart/Mediastinum: Cardiomegaly. Bones/joints: Unremarkable for patient's age. IMPRESSION: Cardiomegaly. Pulmonary vascular congestion. Dictated and Authenticated by: Mary Kate Crowell MD. Ordering:CHEN Sanon MD
--- NOTE | 2019-03-16 22:49 | DI.VRAD_ITS ---
PROCEDURE INFORMATION: Exam: XR Left Knee Exam date and time: 03/16/2019 7:45 PM Clinical history: 64 years old, female; Pain; Knee; Left TECHNIQUE: Imaging protocol: XR Left knee. Views: 4 or more views. COMPARISON: CR LEFT FEMUR 12/11/2017 22:57 FINDINGS: Bones/joints: Narrowing of the medial femoral tibial joint. No fracture or or dislocation. Degenerative changes of the patellofemoral joint. Soft tissues: Unremarkable. IMPRESSION: Degenerative changes left knee. No evidence for acute bony injury. Dictated and Authenticated by: Mary Kate Crowell MD. Ordering:CHEN Sanon MD
--- NOTE | 2019-03-16 22:51 | DI.VRAD_ITS ---
PROCEDURE INFORMATION: Exam: XR Right Femur Exam date and time: 03/16/2019 7:45 PM Clinical history: 64 years old, female; Pain; Thigh; Right TECHNIQUE: Imaging protocol: XR Right femur. Views: 2 views. COMPARISON: CR RIGHT KNEE 3 VIEWS 12/11/2017 22:57 FINDINGS: Bones/joints: No fracture or dislocation. Soft tissues: Unremarkable. IMPRESSION: No acute findings. Dictated and Authenticated by: Mary Kate Crowell MD. Ordering:CHEN Sanon MD
--- NOTE | 2019-03-16 23:24 | DI.VRAD_ITS ---
PROCEDURE INFORMATION: Exam: CT Cervical Spine Without Contrast Exam date and time: 03/16/2019 10:18 PM Clinical history: 64 years old, female; Injury or trauma; Fall; Initial encounter; Blunt trauma (contusions or hematomas); Consciousness not specified; Injury date: 03/16/19 TECHNIQUE: Imaging protocol: Computed tomography images of the cervical spine without contrast. Radiation optimization: All CT scans at this facility use at least one of these dose optimization techniques: automated exposure control; mA and/or kV adjustment per patient size (includes targeted exams where dose is matched to clinical indication); or iterative reconstruction. COMPARISON: US CAROTID ULTRASOUND 05/28/2015 16:41 FINDINGS: Vertebrae: Straightening of the cervical curvature. C2-C3: No disc herniation. No spinal stenosis. No neural foraminal narrowing. C3-C4: Mild degenerative changes of the endplates. Asymmetric narrowing of the left neural foramen secondary to left uncovertebral joint degenerative changes. C4-C5: No disc herniation. No spinal stenosis. No neural foraminal narrowing. C5-C6: Disc space narrowing and degenerative changes of the endplates. Degenerative changes of the uncovertebral joints and facets with bilateral neural foraminal stenosis. C6-C7: Disc space narrowing and degenerative changes of the endplates. Next no C7-T1: No disc herniation. No spinal stenosis. No neural foraminal narrowing. Soft tissues: Unremarkable. Prevertebral Space: Prevertebral soft tissue swelling anterior to C4-5, C5-6, and C6-7. Lymph nodes: Cervical lymphadenopathy. Lungs: Lung apices are normal. IMPRESSION: Prominent prevertebral soft tissue anterior from C4 to C7. No evidence for acute bony injury. Multilevel degenerative changes of the cervical spine. Dictated and Authenticated by: Mary Kate Crowell MD. Ordering:CHEN Sanon MD
[2019-03-17 00:14] LABS: Troponin I < 0.05 ng/mL (0.00-0.06)
[2019-03-17 00:24] VITALS: BP 138/73; PULSE 75; RESP 15; O2SAT 97
[2019-03-17 00:25] VITALS: PULSE 74; RESP 14; O2SAT 96
[2019-03-17 00:30] VITALS: PULSE 74; RESP 19; O2SAT 96
[2019-03-17 00:31] VITALS: BP 135/81; PULSE 71; PULSE 75; RESP 16; O2SAT 96
[2019-03-17] MEDS: WARFARIN 5 MG, WARFARIN 2.5 MG 7.5 MG PO (00:39)
--- NOTE | 2019-03-17 02:56 | NUR.NOTE ---
03/17/19 @ 0100- per Dr Martinez, pt is ready for discharge. pt requires RTC for ride home with dispatch stating no waste collection driver will be available until approximately 0500. Pt advised that she is technically discharged but may remain in the exam room in the ED until 0500 when transportation will be available with pt voicing verbal understanding. aware and approved. Nursing Note:
--- NOTE | 2019-03-17 03:10 | NUR.NOTE ---
03/17/19 @ 0105-C collar cleared/removed by Dr Thomson Nursing Note:
[2019-03-17 05:04] VITALS: BP 129/54; PULSE 71; RESP 18; TEMP 36.8; O2SAT 96
== END 2019-03-17 05:15 | disposition home or self-care (01) ==
PROVIDERS: Emergency Provider Student in an Organized Health Care Education/Training Program; PCP Nurse Practitioner Family
DX: R51 Headache (principal); R07.81 Pleurodynia; M25.562 Pain in left knee; M79.651 Pain in right thigh; W01.0XXA Fall on same level from slipping, tripping and stumbling without subsequent striking against object, initial encounter; R79.1 Abnormal coagulation profile; T45.515A Adverse effect of anticoagulants, initial encounter; E87.2 Acidosis; E87.6 Hypokalemia; F41.9 Anxiety disorder, unspecified; I10 Essential (primary) hypertension; E11.40 Type 2 diabetes mellitus with diabetic neuropathy, unspecified; Z79.4 Long term (current) use of insulin
CPT/HCPCS: 36415; 73552; 80053; 93005; 96372; 99285; 70450; 71046; 72125; 73564; 84484; 85025; 85610; 93010; J1650; L0172

== ENCOUNTER 2019-03-17 12:47 | Emergency (ER) | payer MEDICAID, SELFPAY ==
[2019-03-17] VITALS (9 sets, daily range): BP systolic 134–153; BP diastolic 56–132; PULSE 66–73; RESP 17–30; TEMP 36.2–36.4; O2SAT 96–99
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
[2019-03-17] MEDS: Omnipaque 350 MG/ML 100 ML BTL IJ (13:54)
[2019-03-17] MEDS: Omnipaque 350 MG/ML 50 ML BTL 25 ML IJ (13:55)
[2019-03-17 13:56] LABS: ALT 32 U/L (14-59); AST 50 U/L (15-37); Albumin 3.2 g/dL (3.4-5.0); Alkaline Phosphatase 105 U/L (46-116); Anion Gap 11.1 mmol/L (3-11); BUN 16 mg/dL (7-18); Bilirubin, Total 0.4 mg/dL (0.2-1.0); CO2 22.9 mmol/L (21.0-32.0); CREATININE 0.78 mg/dL (0.55-1.02); Calcium 8.3 mg/dL (8.5-10.1); Chloride 108 mmol/L (98-107); Glucose 179 mg/dL (70-100); Potassium 3.3 mmol/L (3.5-5.1); Sodium 142 mmol/L (136-145); Total Protein 7.1 g/dL (6.4-8.2)
--- NOTE | 2019-03-17 14:00 | DI.CT_ITS ---
EXAM: CT CHEST PE CTA CLINICAL HISTORY: hx PE's, sub theraputic on INR, CP/SOB. TECHNIQUE: The CTA of the chest was carried out according to the usual protocol with intravenous adm inistration of 125 cc of Omnipaque 350. COMPARISON: CT CHEST PE CTA from 01/27/2019 FINDINGS: There is no evidence of pulmonary emboli. No pulmonary infiltrates are demonstrated. There is no ev idence of a pneumothorax or pleural effusion. The heart is enlarged. There is no pericardial effusio n. The aorta is unremarkable. . IMPRESSION: No evidence of pulmonary embolic disease. No evidence of acute cardiopulmonary disease
[2019-03-17 14:02] LABS: INR 1.5 (0.9-1.1); PTT Activated 31.6 sec (21.0-31.4); Prothrombin Time 14.8 sec (9.3-11.0)
[2019-03-17 14:18] LABS: Abs Immature Grans 0.01 k/cumm (0.0-0.09); Absolute Basophil Count 0.03 k/cumm (0.0-0.2); Absolute Lymphocyte Count 2.15 k/cumm (1.2-3.4); Absolute Monocyte Count 0.33 k/cumm (0.11-0.7); Absolute Neutrophil Count 2.97 k/cumm (1.2-6.7); Basophils % 0.5; Eosinophils % 1.8; HCT 38.3 % (36.0-46.0); HGB 12.8 g/dL (12.0-15.5); Immature Grans % 0.2; Lymphocytes % 38.5; Mean Corp. HGB Concentration 33.4 g/dL (32.0-36.0); Mean Corpuscular Hemoglobin 29.5 pg (27.0-33.0); Mean Corpuscular Volume 88.2 fL (80-95); Mean Platelet Volume 10.5 fL (8.0-11.0); Monocytes % 5.9; Neutrophils % 53.1; Platelet Count 252 x1000/uL (130-400); RBC 4.34 m/cumm (4.00-5.20); RBC Distribution Width 13.8 % (11.7-14.6); White Blood Cell Count 5.59 k/cumm (4.4-10.8)
[2019-03-17 14:27] LABS: NT-proBNP 66 pg/mL
[2019-03-17 14:28] LABS: Troponin I < 0.05 ng/mL (0.00-0.06)
[2019-03-17] MEDS: Normal Saline 500 ML 1000 ML IV (14:57)
== END 2019-03-17 15:56 | disposition home or self-care (01) ==
PROVIDERS: Emergency Provider Student in an Organized Health Care Education/Training Program; PCP Nurse Practitioner Family
DX: R07.89 Other chest pain (principal); R79.1 Abnormal coagulation profile; T45.515A Adverse effect of anticoagulants, initial encounter; Z79.01 Long term (current) use of anticoagulants
CPT/HCPCS: 71275; 80053; 93005; 96372; 99285; 83880; 84484; 85025; 85610; 85730; 93010; J1650; J3490; Q9967

== ENCOUNTER 2019-03-20 11:03 | Outpatient (REF) | payer MEDICAID, SELFPAY ==
[2019-03-20 18:21] LABS: Anion Gap 11.9 mmol/L (3-11); BUN 12 mg/dL (7-18); CO2 23.1 mmol/L (21.0-32.0); Calcium 8.4 mg/dL (8.5-10.1); Chloride 106 mmol/L (98-107); Glucose 161 mg/dL (70-100); Potassium 3.6 mmol/L (3.5-5.1); Sodium 141 mmol/L (136-145)
== END 2019-03-20 11:23 ==
LOC: NCHCN 11:03
PROVIDERS: PCP Nurse Practitioner Family; Visit Provider Nurse Practitioner Family
DX: E11.9 Type 2 diabetes mellitus without complications (principal)
CPT/HCPCS: 80048

== ENCOUNTER 2019-04-03 02:50 | Outpatient (CLI) | payer MEDICAID, SELFPAY ==
--- NOTE | 2019-04-03 | PFT_ITS ---
PULMONARY FUNCTION TEST REPORT Patient - Shani Morrison DATE OF SERVICE April 03, 2019 REQUESTING PROVIDER Reynaldo Welch NP INTERPRETATION OF STUDY Spirometry shows no evidence of obstructive airways disease. No bronchodilator testing was carried out. LUNG VOLUMES - Lung volumes show no evidence of restriction. DIFFUSION CAPACITY- Normal. AIRWAY RESISTANCE Normal. IMPRESSION Normal pulmonary function study. Clinical correlation recommended. When this study was compared to previous one from 08/02/2008 and 08/13/2010, the patient has an initial drop of 500 cc in FVC, but has been stable from 2010. FEV1 has had a gradual decline of an overall 460 cc and a total of 190 cc from 2010. Devorah Alvarez M.D. WILLIAM/ T- 04/05/2019
== END 2019-04-03 03:10 ==
PROVIDERS: PCP Nurse Practitioner Family; Visit Provider Nurse Practitioner Family
DX: R06.09 Other forms of dyspnea (principal); J45.909 Unspecified asthma, uncomplicated; Z86.711 Personal history of pulmonary embolism
CPT/HCPCS: 94150; 94726; 94729; 94010

== ENCOUNTER 2019-04-06 14:38 | Outpatient (CLI) | payer MEDICAID, SELFPAY ==
--- NOTE | 2019-04-06 15:15 | DI.RAD_ITS ---
EXAM: XR ABDOMEN FLAT UPRIGHT INDICATION: ABDOMINAL PAIN R10.84. COMPARISON: No exams were available for comparison TECHNIQUE: 2D digital imaging was performed. FINDINGS: Three views were obtained. The bowel gas pattern is unremarkable except for fairly large quantity of fecal material in a nondistended colon. There are multiple vascular clips in the right upper quadra nt consistent with prior cholecystectomy. No free air seen. IMPRESSION: Findings consistent with constipation.
== END 2019-04-06 14:58 ==
PROVIDERS: PCP Nurse Practitioner Family; Visit Provider Nurse Practitioner Family
DX: R10.11 Right upper quadrant pain (principal); K59.00 Constipation, unspecified; Z90.49 Acquired absence of other specified parts of digestive tract
CPT/HCPCS: 74019

== ENCOUNTER 2019-04-06 14:41 | Outpatient (REF) | payer MEDICAID, SELFPAY ==
[2019-04-06 18:51] LABS: Anion Gap 12.6 mmol/L (3-11); BUN 17 mg/dL (7-18); CO2 24.4 mmol/L (21.0-32.0); CREATININE 0.77 mg/dL (0.55-1.02); Chloride 105 mmol/L (98-107); Glucose 86 mg/dL (70-100); Potassium 3.4 mmol/L (3.5-5.1); Sodium 142 mmol/L (136-145)
[2019-04-06 18:53] LABS: Abs Immature Grans 0.01 k/cumm (0.0-0.09); Absolute Basophil Count 0.04 k/cumm (0.0-0.2); Absolute Eosinophil Count 0.13 k/cumm (0.0-0.7); Absolute Lymphocyte Count 2.04 k/cumm (1.2-3.4); Absolute Monocyte Count 0.42 k/cumm (0.11-0.7); Absolute Neutrophil Count 3.93 k/cumm (1.2-6.7); Basophils % 0.6; HCT 39.2 % (36.0-46.0); HGB 13.4 g/dL (12.0-15.5); Immature Grans % 0.2; Lymphocytes % 31.1; Mean Corp. HGB Concentration 34.2 g/dL (32.0-36.0); Mean Corpuscular Volume 87.7 fL (80-95); Mean Platelet Volume 10.8 fL (8.0-11.0); Monocytes % 6.4; Neutrophils % 59.7; Platelet Count 349 x1000/uL (130-400); RBC 4.47 m/cumm (4.00-5.20); RBC Distribution Width 13.7 % (11.7-14.6); White Blood Cell Count 6.57 k/cumm (4.4-10.8)
[2019-04-06 19:10] LABS: Bilirubin Negative (Negative); Blood Negative (Negative); Clarity Clear (Clear); Glucose Negative (Negative); Ketones Trace mg/dL (Negative); Leukocyte Esterase Negative (Negative); Nitrite Negative (Negative); Urobilinogen 0.2 EU/dL (Up TO 0.2); pH 5.5 (5-8)
[2019-04-06 20:14] LABS: Bacteria Negative HPF (Negative); Crystals Many Calcium Oxalate HPF (Negative); Epithelial Cells Few HPF (Negative); Mucus Negative (Negative); Other Cells Few Renal (Negative); RBC Negative (0-2); WBC 0-2 HPF (0-5)
[2019-04-06 20:15] LABS: C & S Indicated? No; Casts Negative LPF (Negative)
== END 2019-04-06 15:01 ==
LOC: NCHCN 14:41
PROVIDERS: PCP Nurse Practitioner Family; Visit Provider Nurse Practitioner Family
DX: E11.9 Type 2 diabetes mellitus without complications (principal); M54.5 Low back pain; K59.00 Constipation, unspecified; Z79.01 Long term (current) use of anticoagulants
CPT/HCPCS: 80048; 81003; 81015; 85025

== ENCOUNTER 2019-04-25 19:15 | Outpatient (REF) | payer MEDICAID, SELFPAY ==
[2019-04-25 20:07] LABS: Abs Immature Grans 0.01 k/cumm (0.0-0.09); Absolute Basophil Count 0.02 k/cumm (0.0-0.2); Absolute Eosinophil Count 0.12 k/cumm (0.0-0.7); Absolute Lymphocyte Count 1.38 k/cumm (1.2-3.4); Basophils % 0.4; Eosinophils % 2.4; HCT 38.8 % (36.0-46.0); HGB 12.9 g/dL (12.0-15.5); Immature Grans % 0.2; Lymphocytes % 27.4; Mean Corp. HGB Concentration 33.2 g/dL (32.0-36.0); Mean Corpuscular Hemoglobin 29.5 pg (27.0-33.0); Mean Corpuscular Volume 88.6 fL (80-95); Mean Platelet Volume 11.2 fL (8.0-11.0); Neutrophils % 61.6; Platelet Count 232 x1000/uL (130-400); RBC 4.38 m/cumm (4.00-5.20); RBC Distribution Width 13.5 % (11.7-14.6); White Blood Cell Count 5.03 k/cumm (4.4-10.8)
== END 2019-04-25 19:35 ==
LOC: NCHCN 19:15
PROVIDERS: PCP Nurse Practitioner Family; Visit Provider Nurse Practitioner Family
DX: E11.9 Type 2 diabetes mellitus without complications (principal)
CPT/HCPCS: 85025

== ENCOUNTER 2019-06-08 13:07 | Emergency (ER) | payer MEDICAID, SELFPAY ==
[2019-06-08 13:10] VITALS: BP 117/81; PULSE 82; RESP 16; RESP 20; TEMP 36.3
[2019-06-08 13:32] VITALS: PULSE 72; RESP 20
[2019-06-08 13:33] VITALS: PULSE 71; RESP 17
--- NOTE | 2019-06-08 13:37 | NUR.NOTE ---
Nursing Note: co2 level is 1 here. aware.
[2019-06-08 13:40] VITALS: PULSE 71; RESP 23
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
== END 2019-06-08 13:54 | disposition home or self-care (01) ==
PROVIDERS: Emergency Provider Student in an Organized Health Care Education/Training Program; PCP Nurse Practitioner Family
DX: Z76.89 Persons encountering health services in other specified circumstances (principal); Z86.711 Personal history of pulmonary embolism; Z79.01 Long term (current) use of anticoagulants; E11.9 Type 2 diabetes mellitus without complications; Z79.4 Long term (current) use of insulin
CPT/HCPCS: 93005; 99283; 82374; 93010

== ENCOUNTER 2019-09-07 02:05 | Outpatient (CLI) | payer MEDICAID, SELFPAY ==
--- NOTE | 2019-09-07 08:45 | DI.MRI_ITS ---
EXAM: MR BRAIN WO CLINICAL HISTORY: FREQUENT FALLS, R29.6, CVA, I63.9, HEADACHE PERSISTENT, R51. TECHNIQUE: Multiplanar multisequence MRI of the brain was performed. CONTRAST MATERIAL: Noncontrast COMPARISON: CT HEAD CERVICAL SPINE WO from 03/16/2019 FINDINGS: VENTRICLES AND EXTRA AXIAL SPACES: Ventricles normal in size and morphology for the patient's age. A gain noted is a right anterior temporal fossa arachnoid cyst. There is no evidence of mass-effect in this location. HEMORRHAGE: None. CEREBRAL PARENCHYMA: No focus of restricted diffusion to suggest acute infarct. No space-occupying le carlo identified. There are scattered foci of high signal in the white matter consistent with microva scular changes. MIDLINE SHIFT: None. BRAINSTEM/CEREBELLUM: Normal. The orbits and pituitary are unremarkable. VISUALIZED PARANASAL SINUSES/MASTOIDS: Clear. Vascular flow voids appear intact. IMPRESSION: Unremarkable MRI of the brain. DATA REPOSITORY:
== END 2019-09-07 02:25 ==
PROVIDERS: PCP Nurse Practitioner Family; Visit Provider Nurse Practitioner Family
DX: R51 Headache (principal); I63.89 Other cerebral infarction; R29.6 Repeated falls
CPT/HCPCS: 70551

== ENCOUNTER 2019-12-18 13:03 | Outpatient (REF) | payer MEDICAID, SELFPAY ==
[2019-12-18 17:02] LABS: Hemoglobin A1C 7.4 % (3.8-5.6)
[2019-12-18 17:11] LABS: ALT 40 U/L (14-59); AST 41 U/L (15-37); Albumin 3.9 g/dL (3.4-5.0); Alkaline Phosphatase 128 U/L (46-116); Anion Gap 15.8 mmol/L (3-11); BUN 18 mg/dL (7-18); Bilirubin, Total 0.5 mg/dL (0.2-1.0); CO2 21.2 mmol/L (21.0-32.0); CREATININE 0.96 mg/dL (0.55-1.02); Calcium 9.3 mg/dL (8.5-10.1); Chloride 102 mmol/L (98-107); Cholesterol 186 mg/dL (<200); Glucose 228 mg/dL (74-106); HDL Cholesterol 31 mg/dL (40-60); Sodium 139 mmol/L (136-145); Total Protein 7.7 g/dL (6.4-8.2); Triglyceride 560 mg/dL (<150)
[2019-12-18 17:22] LABS: LDL CHOLESTEROL 73 mg/dL (<100)
[2019-12-18 17:30] LABS: Uric Acid 7.7 mg/dL (2.6-6.0)
== END 2019-12-18 13:23 ==
LOC: NCHCN 13:03
PROVIDERS: PCP Nurse Practitioner Family; Visit Provider Nurse Practitioner Family
DX: E11.9 Type 2 diabetes mellitus without complications (principal); E78.00 Pure hypercholesterolemia, unspecified; M10.9 Gout, unspecified
CPT/HCPCS: 80053; 80061; 83721; 83036; 84550

== ENCOUNTER 2019-12-28 00:14 | Outpatient (CLI) | payer MEDICAID, SELFPAY ==
--- NOTE | 2019-12-28 11:30 | DI.MAMMO_ITS ---
EXAM: MG MAMMO SCREENING CLINICAL HISTORY: screening TECHNIQUE: Bilateral full field digital CC and MLO mammographic images were obtained with 3D tomosyn thesis and utilizing computer aided detection (CAD). COMPARISON: Available for comparison. FINDINGS: Masses/Architectural Distortion: There is a new small asymmetric density in the upper posterior right breast seen on the mediolateral oblique view. Microcalcifications: No suspicious pleomorphic-type are seen. Skin Thickening/Nipple Retraction: None. IMPRESSION: 1. Small asymmetric density in the upper posterior right breast on the MLO view. 2. Additional views and a right breast ultrasound are requested for further evaluation. BI-RADS Category 0 - Assessment Incomplete: Need additional imaging evaluation Breast Density - Category B - Scattered areas of fibroglandular density A negative radiographic report should not delay biopsy if a dominant or clinically suspicious mass is present. Up to ten percent of cancers are not identified on mammography. A negative report may reinforce clinical impression. Adenosis and dense breasts may obscure an underlying neoplasm. False positive reports average 6 to 10%. Patient will receive a letter notifying them of these results.
== END 2019-12-28 00:34 ==
PROVIDERS: PCP Nurse Practitioner Family; Visit Provider Nurse Practitioner Family
DX: Z12.31 Encounter for screening mammogram for malignant neoplasm of breast (principal); R92.8 Other abnormal and inconclusive findings on diagnostic imaging of breast
CPT/HCPCS: 77063; 77067

== ENCOUNTER 2020-01-09 00:57 | Outpatient (CLI) | payer MEDICAID, SELFPAY ==
--- NOTE | 2020-01-09 | DI.US_ITS ---
EXAM: MG MAMMO SCREEN CALL BACK UNI CLINICAL HISTORY: F/U ABNL MAMMO, ASYMMETRIC DENSITY UPPER POSTERIOR RT BREAST ON MLO TECHNIQUE: Mammograms were interpreted according to the usual protocol including computer analysis w ith CAD system, tomosynthesis and C-view imaging. COMPARISON: FINDINGS: Additional mammographic views of the right breast and right breast ultrasound are interpreted in conj unction. These examinations were obtained to evaluate a small focal area of questionable nodularity or asymmetric density of the upper outer quadrant of the right breast seen recent mammogram. Additio nal mammographic views fail to show a discrete mass. Breast ultrasound shows no evidence of a mass o r cyst. IMPRESSION: No specific evidence of malignancy at this time. Follow-up unilateral right breast mammogram recomme nded in 6 months. BI-RADS Category 3 - 6 month - Probably Benign Finding: Recommend follow-up mammography in 6 months Breast Density - Category B - Scattered areas of fibroglandular density
== END 2020-01-09 01:17 ==
PROVIDERS: PCP Nurse Practitioner Family; Visit Provider Nurse Practitioner Family
DX: Z12.31 Encounter for screening mammogram for malignant neoplasm of breast (principal); R92.8 Other abnormal and inconclusive findings on diagnostic imaging of breast; N64.59 Other signs and symptoms in breast
CPT/HCPCS: 76642; 77063; 77067

== ENCOUNTER 2020-07-16 00:43 | Outpatient (CLI) | payer MEDICAID, SELFPAY ==
--- NOTE | 2020-07-16 08:45 | DI.MAMMO_ITS ---
EXAM: MG MAMMO DIAGNOSTIC UNI CLINICAL HISTORY: F/U right breast mammogram,R92.8. TECHNIQUE: Craniocaudal and mediolateral oblique Full Field Digital Mammography views of the right b reast with Computer Aided Diagnosis followed by Tomosynthesis. COMPARISON: Priors available for comparison. FINDINGS: Mammography/Tomosynthesis: Masses/Architectural Distortion: None seen. Microcalcifictions: No suspicious pleomorphic-type are seen. Skin Thickening/Nipple Retraction: None. IMPRESSION: 1. No evidence of malignancy is noted. 2. Unless there is more urgent need, follow-up screening mammography is recommended, as per [employer] guidelines. 3. The findings were discussed with the patient on the date of the examination. BI-RADS Category 1 - Negative Breast Density - Category B - Scattered areas of fibroglandular density A negative radiographic report should not delay biopsy if a dominant or clinically suspicious mass is present. Up to ten percent of cancers are not identified on mammography. A negative report may reinforce clinical impression. Adenosis and dense breasts may obscure an underlying neoplasm. False positive reports average 6 to 10%. Patient will receive a letter notifying them of these results.
== END 2020-07-16 01:03 ==
PROVIDERS: PCP Nurse Practitioner Family; Visit Provider Nurse Practitioner Family
DX: R92.8 Other abnormal and inconclusive findings on diagnostic imaging of breast (principal)
CPT/HCPCS: 77061; 77065; G0279

== ENCOUNTER 2020-08-07 11:59 | Observation (INO) | payer MEDICAID, SELFPAY ==
[2020-08-07] VITALS (37 sets, daily range): BP systolic 112–144; BP diastolic 53–90; PULSE 68–93; RESP 12–27; TEMP 36.5–36.8; O2SAT 96–99
--- NOTE | 2020-08-07 07:00 | HOME_ITS ---
Home Ventilator Equipment Home care company Reason: Obstructive Sleep Apnea Make: Respironics Model: Dreamstation Mask type: Face mask Mask size: Medium Mode: BiPAP Settings: Auto-Bipap max IPAP 18/ min EPAP 12 PS min/max4 Oxygen bleed in (lpm): Condition: Good Date last checked: 08/07/20 Year of last sleep study: Compliance Daily Comments: machine on RA
--- NOTE | 2020-08-07 12:00 | RT.EKG_ITS ---
APPROVED REPORT Exam: Resting ECG Patient Location: E HR:86 bpm ECG Measurements Heart Rate [address] 206 P 4 QRSd 104 QRS -12 QT 376 T 25 QTc 451 Conclusion Sinus rhythm...normal P axis, V-rate 60- 99 I have reviewed and interpreted ECG and agree with software generated interpretation.
--- NOTE | 2020-08-07 12:15 | DI.CT_ITS ---
EXAM: CT CHEST PE CTA CLINICAL HISTORY: hx of PE, right leg pain, shortness of breath. TECHNIQUE: Imaging Protocol: Axial CT angiography was performed with multi-slice acquisition and mu lti-planar and/or 3D reconstructions. CONTRAST MATERIAL: Intravenous: Omnipaque 350 Contrast volume:100 ml COMPARISON: CT CT CHEST PE CTA from 01/27/[address] CHEST PE CTA from 01/27/[address] CHEST PE CTA from 03/17/2019 FINDINGS: The exam is is somewhat limited by patient body habitus, streak artifact and mild motion. Pulmonary Arteries: In a similar location seen on the as on seen on the previous CTs, there are fill ing defects a subsegmental right upper lobe pulmonary artery branch. There is mild dilatation of the main pulmonary arteries which appears unchanged. The right ventricle is not dilated. There is no s eptal bowing. The lungs appear clear. The aorta appears intact. Heart size appears normal. There are mild coronary artery calcifications. There are mild aortic calcifications. IMPRESSION: Findings consistent with chronic right upper lobe pulmonary embolism. No acute abnormality is identi fied. RADIATION DOSE DELIVERED: 695.82mGy.cm Total DLP DATA REPOSITORY: All CT scans at this facility are submitted to the National Radiology Data Registry (NRDR) Dose Index Registry (DIR) with the [employer] [place] [employer] (A[employer]). RADIATION OPTIMIZATION: All CT scans at this facility use at least one of these dose optimization te chniques: automated exposure control; mA and/or kV adjustment per patient size (includes targeted exa ms where dose is matched to clinical indication); or iterative reconstruction.
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
[2020-08-07 12:47] LABS: Abs Immature Grans 0.02 10^3/uL (0.0-0.06); Absolute Basophil Count 0.05 10^3/uL (0.0-0.2); Absolute Eosinophil Count 0.14 10^3/uL (0.0-0.7); Absolute Lymphocyte Count 2.13 10^3/uL (1.2-3.4); Absolute Monocyte Count 0.34 10^3/uL (0.1-0.8); Absolute Neutrophil Count 4.37 10^3/uL (1.2-6.7); Basophils % 0.7; HCT 33.7 % (36.0-46.0); HGB 11.4 g/dL (11.2-15.7); Immature Grans % 0.3; Lymphocytes % 30.2; MCH 30.2 pg (27.0-33.0); MCHC 33.8 % (32.0-36.0); MCV 89.2 fL (80-95); MPV 10.7 fL (8.0-11.0); Monocytes % 4.8; Nucleated RBC 0 %; Platelet Count 297 10^3/uL (130-400); RBC 3.78 10^6/uL (3.93-5.22); RDW 13.2 % (11.7-14.6); RDW-SD 42.8 fL; WBC 7.05 10^3/uL (4.4-10.8)
[2020-08-07 12:56] LABS: INR 2.3 (0.9-1.1)
[2020-08-07 12:58] LABS: ALT 23 U/L (14-59); AST 30 U/L (15-37); Albumin 3.3 g/dL (3.4-5.0); Alkaline Phosphatase 137 U/L (46-116); Anion Gap 11.7 mmol/L (3-11); BUN 20 mg/dL (7-18); Bilirubin, Total 0.6 mg/dL (0.2-1.0); CO2 26.3 mmol/L (21.0-32.0); Calcium 9.1 mg/dL (8.5-10.1); Chloride 102 mmol/L (98-107); Estimated GFR 55.82 (mL/min/1.73m2); Glucose 193 mg/dL (74-106); Potassium 3.6 mmol/L (3.5-5.1); Sodium 140 mmol/L (136-145); Total Protein 7.6 g/dL (6.4-8.2)
[2020-08-07 13:00] LABS: Troponin I < 0.05 ng/mL (<0.06)
[2020-08-07 13:05] LABS: NT-proBNP 55 pg/mL (<300)
[2020-08-07] MEDS: Omnipaque 350 MG/ML 100 ML BTL IJ (13:38)
--- NOTE | 2020-08-07 14:30 | DI.US_ITS ---
EXAM: US LOWER EXTREMITY VENOUS RT CLINICAL HISTORY: right leg swelling and tenderness. TECHNIQUE: Lower extremity venous ultrasound performed using grayscale, color-flow, and spectral Do ppler analysis. COMPARISON: No exams were available for comparison FINDINGS: The common femoral, femoral and popliteal veins demonstrate normal compressibility, augmentation, and color Doppler. The posterior tibial veins are patent. No saphenous vein thrombosis or other superfi cial venous thrombosis is seen. No hematoma or Mcdonnell's cyst is seen. IMPRESSION: Negative lower extremity ultrasound. No evidence of DVT. DATA REPOSITORY:
[2020-08-07 15:03] LABS: PTT Activated 42.9 sec (21.0-27.5)
[2020-08-07] MEDS: Normal Saline 1,000 ML 75 ML IV (15:39)
[2020-08-07 16:54] LABS: Troponin I < 0.05 ng/mL (<0.06)
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
[2020-08-07] MEDS: Aspirin 325 MG TAB PO (17:25)
[2020-08-07] MEDS: Gemfibrozil 600 MG TAB PO (19:53)
[2020-08-07] MEDS: amLODIPine 10 MG TAB PO (19:54)
[2020-08-07] MEDS: Allopurinol 100 MG TAB 200 MG PO (19:54)
[2020-08-07] MEDS: Insulin Glargine 300 UNITS/3 ML PEN 90 UNITS SC (22:06)
[2020-08-08] VITALS (9 sets, daily range): BP systolic 100–124; BP diastolic 60–76; PULSE 61–97; RESP 16–22; TEMP 36.3–36.8; O2SAT 94–98
--- NOTE | 2020-08-08 | DI.US_ITS ---
APPROVED REPORT EXAM: Comprehensive 2D, Doppler, and color-flow Echocardiogram Conclusion This is a technically limited study. Left Ventricle : The left ventricle is normal size. The left ventricular systolic function is normal. The left ventricular ejection fraction is within the normal range. There is normal left ventricular wall thickness. There is normal LV segmental wall motion. LVEF is 55-60%. Right Ventricle : The right ventricle appears normal in size and function. Atria: Both atria appear normal in size. Valves: There are no hemodynamically significant valvular lesions. Great Vessels : The aortic root is normal in size. The ascending aorta is mildly enlarged (3.8 cm) Es timated RVSP is 24 mmHg. Please see remainder of study for further details. Wall motion Left Ventricle The left ventricle is normal size. The left ventricular systolic function is normal. The left ventric ular ejection fraction is within the normal range. There is normal left ventricular wall thickness. T here is normal LV segmental wall motion. LVEF is 55-60%. Right Ventricle The right ventricle is not well visualized but appears normal in size The right ventricular systolic function appears normal. Atria The left atrium size is normal. The right atrium size is normal. Aortic Valve The aortic valve appears normal in structure. There is no aortic valvular stenosis. No aortic regurgi tation is present. Mitral Valve The mitral valve is normal in structure. No evidence of mitral valve stenosis. There is no mitral verónica ve regurgitation noted. Tricuspid Valve Tricuspid valves not well visualized Pulmonic Valve The pulmonic valve is not well-visualized Great Vessels The aortic root is normal in size. Estimated RVSP is 24 mmHg. The ascending aorta is mildly enlarged (3.8 cm) 2D Dimensions IVSD d PLAX 1.17 cm F: 0.6-1.0 LV Vol A2C d MOD 90.8 mL LVPW d PLAX 1.16 cm F: 0.6 - 1.0 LV Vol A4C d MOD 119.3 mL LVID d PLAX 5.43 cm F: 3.8 - 5.2 LA vol/ BSA A4C s A-L 20.0 mL/m2 LVDs 3.90 cm F: 2.2 - 3.5 LA Area A4C s MOD 19.02 cm2 Ao Root d 3.31 cm F: 2.7 - 3.3 LV EF A4C MOD 56.7 % Ao Asc Diam d 3.89 cm F: 2.3 - 3.1 LV EF A2C MOD 61.4 % LV EF Teichholz 54.0 % LV EF Biplane MOD 58.2 % LVEF (Conrad's) 58.22 % F: 54 - 74 SV 61.30 mL LV Volume 73.63 mL F: 46 - 106 SV Index 24.43 mL/m2 LV Volume Index 29.33 mL/m2 F: 29 - 61 LV Vol Biplane MOD 105.3 mL FS 28.20 % M-Mode TAPSE 2.41 cm (M/F) >1.7 LV Diastology MV E' medial 0.076 (>0.07 m/s) E/A Ratio 0.8 LV E/e MED 11.65 (<14) MV E Vmax 0.88 (0.4-1.3 m/s) MV E' lateral 0.101 (>0.1 m/s) MV A Vmax 1.15 (0.4-1.3 m/s) LV E/e LAT 8.70 (<14) MV E/A Ratio 0.75 MV E/E' medial 11.66 MV E/E' lateral 8.71 Aortic Valve LVOT Area 3.80 cm2 AoV Area Vmax 3.13 cm2 LVOT Vmax 1.39 m/s AoV Area/ BSA (Vmax) 1.25 cm2/m2 LVOT Mean Tato. 0.86 m/s RAUL Mean Tato. 2.92 cm2 LVOT Peak Grad 7.7 mmHg RAUL Mean Tato. Index 1.17 cm2/m2 LVOT Mean Grad 3.6 mmHg LVOT VTI 0.265 m LVOT Diam s 2.15 cm AoV Vmax 1.69 m/s Velocity Ratio 0.82 AoV Mean Tato. 1.12 m/s AoV Peak Grad 11.4 mmHg LVOT SV 100.78 mL AoV Mean Grad 5.8 mmHg AoV VTI 0.291 m AoV Area VTI 3.46 cm2 AoV Area/ BSA (VTI) 1.38 cm/m2 Mitral Valve MV DT 325 (160-240 msec) MV PHT 94 msec MV Area PHT 2.34 cm2 MV VTI 0.271 m MV Area VTI 3.72 (4.0-6.0 cm2) Pulmonary Valve PV Vmax 1.24 (0.5-1.5 m/s) RVOT Peak Gr. 3.15 mmHg PV Peak Grad 6.2 mmHg RVOT Mean Gr. 1.60 mmHg PV Mean Grad 3.3 mmHg RVOT VTI 0.175 m PV VTI 0.237 m RVOT Vmax 0.89 m/s Tricuspid Valve TR Peak Grad 21.1 mmHg TR Vmax 2.30 m/s RA Pressure 3.00 mmHg RVSP (TR) 24.1 mmHg
[2020-08-08 01:42] LABS: COVID-19 RT-PCR UVMMC Result Negative (Negative)
[2020-08-08 07:13] LABS: Abs Immature Grans 0.04 10^3/uL (0.0-0.06); Absolute Basophil Count 0.05 10^3/uL (0.0-0.2); Absolute Lymphocyte Count 3.16 10^3/uL (1.2-3.4); Absolute Neutrophil Count 3.27 10^3/uL (1.2-6.7); Basophils % 0.7; Eosinophils % 2.8; HCT 34.1 % (36.0-46.0); HGB 11.7 g/dL (11.2-15.7); Immature Grans % 0.6; Lymphocytes % 44.4; MCH 30.2 pg (27.0-33.0); MCHC 34.3 % (32.0-36.0); MCV 88.1 fL (80-95); MPV 11.3 fL (8.0-11.0); Monocytes % 5.6; Neutrophils % 45.9; Nucleated RBC 0 %; Platelet Count 265 10^3/uL (130-400); RBC 3.87 10^6/uL (3.93-5.22); RDW 13.6 % (11.7-14.6); RDW-SD 43.8 fL; WBC 7.12 10^3/uL (4.4-10.8)
[2020-08-08 07:20] LABS: Anion Gap 12.2 mmol/L (3-11); BUN 21 mg/dL (7-18); CO2 24.8 mmol/L (21.0-32.0); CREATININE 0.9 mg/dL (0.55-1.02); Calcium 9.3 mg/dL (8.5-10.1); Chloride 102 mmol/L (98-107); Glucose 95 mg/dL (74-106); Potassium 3.2 mmol/L (3.5-5.1); Sodium 139 mmol/L (136-145)
[2020-08-08 07:37] LABS: Cholesterol 159 mg/dL (<200); HDL Cholesterol 29 mg/dL (40-60); Triglyceride 426 mg/dL (<150)
[2020-08-08 07:47] LABS: LDL CHOLESTEROL 69 mg/dL (<100)
[2020-08-08 08:07] LABS: Procalcitonin < 0.1 ng/mL
[2020-08-08] MEDS: Gemfibrozil 600 MG TAB PO (09:01)
[2020-08-08] MEDS: Aspirin E.C. 81 MG TABEC PO (09:01)
[2020-08-08] MEDS: Venlafaxine 150 MG CAPCR PO (09:02)
[2020-08-08] MEDS: Normal Saline Flush 10 ML SYR IVP (09:13)
[2020-08-08 09:38] LABS: Hemoglobin A1C 6.3 % (<5.7)
[2020-08-08] MEDS: Potassium Chloride 20 MEQ TABCR 40 MEQ PO (11:13)
--- NOTE | 2020-08-08 11:15 | RT.EKG_ITS ---
APPROVED REPORT Exam: Resting ECG Patient Location: I HR:74 bpm ECG Measurements Heart Rate 74 AXIS IA 221 P 3 QRSd 103 QRS -5 QT 403 T 32 QTc 448 Conclusion Sinus rhythm...normal P axis, V-rate 60- 99 Prolonged IA interval...IA >220, V-rate 50- 90
[2020-08-08 11:29] LABS: Troponin I < 0.05 ng/mL (<0.06)
[2020-08-08 12:23] LABS: Troponin I < 0.05 ng/mL (<0.06)
--- NOTE | 2020-08-08 14:18 | CHAPLAIN ---
Shani and I remembered meeting the last time she was hospitalized. She told me about having chest pains at night which are scary for her because she lives alone. She has Reynaldo Welch, JOSE, as her PCP and very much like and trusts Reynaldo. Shani shared some personal history, telling me about her medical issues and diagnosis of Lupus. 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 I'll continue to visit.
[2020-08-08 15:18] LABS: Troponin I < 0.05 ng/mL (<0.06)
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
--- NOTE | 2020-08-08 18:49 | PDOC.CMDIS ---
- If Service Date Differs Date of service: 08/08/20 Time of Service: 18:49 LACE Index Scoring Tool - Questions: Length of Stay (in days): 2 Acuity (Admit via E.D.?): Yes Comorbidities: Diabetes w/o Complication E.D. Visits: 1 - Answers: Total Score: 7 Risk of Readmission: Low Risk Care Management Discharge Reason for Hospitalization: PE, Acute DVT Discharge Plan: Shani will return home with no additional services at this time. CM coordinated transportation home via [facility] private vehicle. She will follow up with her PCP and discharge plan of care. Patient/Family Education Needs: Review discharge instructions regarding activity levels and medications, discussion of self care needs including ask me three. Services Needed at Discharge: Transportation ([facility])
[2020-08-08 21:06] LABS: C Diff PCR Negative (Negative)
--- NOTE | 2020-08-09 11:13 | CMPROGNOTE_ITS ---
- If Service Date Differs Date of service: 08/09/20 Time of Service: 11:13 Care Management Progress Note VIVIANE was informed that when Shani was discharged late last evening (7:15pm) from /s, she was not given her home medications. CM discussed the delivery of her medications with Katarzyna and [facility] [employer], who did not have staff to send. VIVIANE then discussed it with Noemi Mederos, who recommended that CM call [email or web address] to ask for a med delivery. CM called [facility], who delivers medications for local pharmacies, and they were willing to deliver the meds. CM called Shani and left a voicemail stating that the medications will be delivered by 11am. VIVIANE later got a call from MICHELE Meier from [facility], who reported that Shani had called [facility] and was very upset. VIVIANE discussed Shani's hospital course with her RN, who then reached out to Shani.
--- NOTE | 2020-08-29 08:39 | W.ZIOMONITOR ---
Date of service: 08/29/20 Time of Service: 08:39 14 Day Database Marketing Specialist Referring Provider:: Cindy Indications:: Chest pain Note: This is a 14-day monitor ordered for indication of chest pain. The patient was in normal sinus rhythm for the majority of the recording with an average heart rate of 77 bpm. There were 7 episodes of SVT with the longest lasting 7 beats. There were rare PACs. There were no episodes of atrial fibrillation, no pauses greater than 3 seconds and no evidence of high degree heart block. There were no episodes of ventricular tachycardia and no PVCs. There were no patient triggered events.
== END 2020-08-08 19:20 | disposition home or self-care (01) ==
LOC: ER 15:37 → MS 16:25
PROVIDERS: Admitting Provider Internal Medicine; Emergency Provider Physician Assistant; PCP Nurse Practitioner Family; Visit Provider Internal Medicine
DX: R07.9 Chest pain, unspecified (principal); Z86.718 Personal history of other venous thrombosis and embolism; Z79.01 Long term (current) use of anticoagulants; I69.354 Hemiplegia and hemiparesis following cerebral infarction affecting left non-dominant side; I10 Essential (primary) hypertension; G47.33 Obstructive sleep apnea (adult) (pediatric); Z68.42 Body mass index [BMI] 45.0-49.9, adult; J45.20 Mild intermittent asthma, uncomplicated; E11.42 Type 2 diabetes mellitus with diabetic polyneuropathy; E78.00 Pure hypercholesterolemia, unspecified; E66.01 Morbid (severe) obesity due to excess calories; D68.62 Lupus anticoagulant syndrome; F41.9 Anxiety disorder, unspecified; E87.6 Hypokalemia; Z20.828 Contact with and (suspected) exposure to other viral communicable diseases; R19.7 Diarrhea, unspecified; Z86.711 Personal history of pulmonary embolism
CPT/HCPCS: 36415; 71275; 80048; 80053; 80061; 83721; 84145; 87493; 93005; 93246; 96372; 99217; 99220; 99285; U0003; 83036; 83735; 83880; 84484; 85025; 85610; 85730; 86140; 93010; 93306; 93971; G0378; J1650; J3490

== ENCOUNTER 2020-08-09 11:54 | Emergency (ER) | payer MEDICAID, SELFPAY ==
[2020-08-09 12:02] VITALS: BP 120/82; PULSE 96; RESP 18; TEMP 36.2; O2SAT 98
--- NOTE | 2020-08-09 12:30 | DI.RAD_ITS ---
EXAM: XR CHEST 2V PA LATERAL CLINICAL HISTORY: SOB, hx of PE TECHNIQUE: 2D digital imaging was performed. COMPARISON: CR,XR XR CHEST 2V PA LATERAL from 03/16/2019 FINDINGS: MEDIASTINUM: Normal. HEART: Normal. PULMONARY VASCULATURE: Normal. LUNGS: Clear. PLEURAL SPACE: No pleural effusion or pneumothorax. BONE:Normal. OTHER FINDINGS:Normal. IMPRESSION: No acute pulmonary findings. DATA REPOSITORY: RADIATION DOSE DELIVERED:
--- NOTE | 2020-08-09 12:30 | DI.US_ITS ---
EXAM: US LOWER EXTREMITY VENOUS RT CLINICAL HISTORY: swelling, hx DVTs. TECHNIQUE: Lower extremity venous ultrasound performed using grayscale, color-flow, and spectral Do ppler analysis. COMPARISON: No exams were available for comparison FINDINGS: The common femoral, femoral and popliteal veins demonstrate normal compressibility, augmentation, and color Doppler. The posterior tibial veins are patent. No saphenous vein thrombosis or other superfi cial venous thrombosis is seen. No hematoma or Mcdonnell's cyst is seen. IMPRESSION: Negative right lower extremity ultrasound. No evidence of DVT. DATA REPOSITORY:
--- NOTE | 2020-08-09 12:30 | DI.CT_ITS ---
EXAM: CT HEAD WO CLINICAL HISTORY: headache, R leg weakness. TECHNIQUE: Imaging Protocol: Axial computed tomography images with coronal and sagittal reformatted images were created and reviewed COMPARISON: MR MRI - BRAIN WO CONTRAST from 02/11/2012 MR MRI - BRAIN WO CONTRAST from 02/11/[address] HEAD CERVICAL SPINE WO from 03/16/2019 FINDINGS: Ventricles and Extra axial spaces: Normal in size and morphology for the patient's age. Stable CSF at tenuation areas in the anterior temporal fossa. Hemorrhage: None. Cerebral parenchyma: Normal. No evidence of acute infarct or mass. Midline shift: None. Brainstem/Cerebellum: Normal. Calvarium: Normal. Visualized Paranasal sinuses/Mastoids: Clear. Soft Tissues: Unremarkable. IMPRESSION: No acute intracranial process. RADIATION DOSE DELIVERED: 723.66mGy.cm Total DLP DATA REPOSITORY: All CT scans at this facility are submitted to the National Radiology Data Registry (NRDR) Dose Index Registry (DIR) with the [employer] (A[employer]). RADIATION OPTIMIZATION: All CT scans at this facility use at least one of these dose optimization te chniques: automated exposure control; mA and/or kV adjustment per patient size (includes targeted exa ms where dose is matched to clinical indication); or iterative reconstruction.
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
[2020-08-09 13:12] LABS: ALT 24 U/L (14-59); AST 27 U/L (15-37); Albumin 3.6 g/dL (3.4-5.0); Alkaline Phosphatase 149 U/L (46-116); BUN 21 mg/dL (7-18); Bilirubin, Total 0.6 mg/dL (0.2-1.0); Calcium 9.6 mg/dL (8.5-10.1); Chloride 101 mmol/L (98-107); Estimated GFR 55.82 (mL/min/1.73m2); Glucose 139 mg/dL (74-106); Potassium 3.6 mmol/L (3.5-5.1); Sodium 138 mmol/L (136-145); Total Protein 8.4 g/dL (6.4-8.2)
[2020-08-09 13:17] LABS: INR 1.8 (0.9-1.1); Prothrombin Time 17.9 sec (9.3-11.0)
[2020-08-09 13:18] LABS: Abs Immature Grans 0.03 10^3/uL (0.0-0.06); Absolute Basophil Count 0.04 10^3/uL (0.0-0.2); Absolute Eosinophil Count 0.12 10^3/uL (0.0-0.7); Absolute Lymphocyte Count 1.89 10^3/uL (1.2-3.4); Absolute Monocyte Count 0.37 10^3/uL (0.1-0.8); Absolute Neutrophil Count 3.95 10^3/uL (1.2-6.7); Basophils % 0.6; Eosinophils % 1.9; HCT 34.9 % (36.0-46.0); HGB 11.8 g/dL (11.2-15.7); Immature Grans % 0.5; Lymphocytes % 29.5; MCHC 33.8 % (32.0-36.0); MCV 88.8 fL (80-95); MPV 10.6 fL (8.0-11.0); Monocytes % 5.8; Neutrophils % 61.7; Nucleated RBC 0 %; Platelet Count 301 10^3/uL (130-400); RBC 3.93 10^6/uL (3.93-5.22); RDW 13.3 % (11.7-14.6); RDW-SD 43.5 fL
--- NOTE | 2020-08-09 15:30 | NUR.NOTE ---
Nursing Note: referal sent to [facility] to set [place] [facility] [place] [place] in two weeks ...crystal 08/09/20
[2020-08-09 15:32] VITALS: BP 129/71; PULSE 70; RESP 18; TEMP 36.6; O2SAT 98
--- NOTE | 2020-08-09 16:20 | NUR.NOTE ---
Nursing Note:Case Management to arrange for Home Health/PT.
--- NOTE | 2020-08-09 16:30 | PDOC.ERCMPRO ---
- If Service Date Differs Date of service: 08/09/20 Time of Service: 16:30 Care Management Progress Note Shani was seen in the ED today after being discharged from m/s yesterday. Per ED provider, she will benefit from services. VIVIANE sent a referral to for PT/OT. VIVIANE talked to CASSIE Nevarez, who reported that she would begin services on Wednesday, due to their schedule restrictions. VIVIANE coordinated transport home via [facility] private vehicle.
--- NOTE | 2020-08-13 14:12 | CMPROGNOTE_ITS ---
- If Service Date Differs Date of service: 08/13/20 Time of Service: 14:12 Care Management Progress Note Shani is seen in the ED on 08/09/2020 for right leg weakness and lymphedema. At the request of Dr. Dent, ED provider, VIVIANE coordinates a referral to [facility] [place] [facility] to assist Shani in obtaining an appointment. VIVIANE also contacts [facility], Shani's PCP's office, and confirms that Shani has a scheduled follow up appointment with her PCP, Reynaldo Welch, on 08/15/2020 at 11:00 am.
== END 2020-08-09 16:45 | disposition home or self-care (01) ==
PROVIDERS: Emergency Provider Emergency Medicine; PCP Nurse Practitioner Family
DX: I89.0 Lymphedema, not elsewhere classified (principal); Z86.711 Personal history of pulmonary embolism; E11.42 Type 2 diabetes mellitus with diabetic polyneuropathy; Z79.4 Long term (current) use of insulin; I10 Essential (primary) hypertension
CPT/HCPCS: 80053; 99284; 70450; 71046; 85025; 85610; 93971

== ENCOUNTER 2020-09-04 14:34 | Outpatient (REF) | payer MEDICAID, SELFPAY ==
[2020-09-05 17:27] LABS: COVID-19 RT-PCR Result Not Detected ((See Note))
== END 2020-09-04 14:35 | disposition home or self-care (01) ==
LOC: LBN 14:34
PROVIDERS: PCP Nurse Practitioner Family; Visit Provider Nurse Practitioner Adult Health
DX: Z20.822 Contact with and (suspected) exposure to COVID-19 (principal)
CPT/HCPCS: U0003

== ENCOUNTER 2020-09-09 14:10 | Outpatient (REF) | payer MEDICAID, SELFPAY ==
--- OUTSIDE RECORDS SUMMARY | 2020-09-10 14:17 | XMS_ITS ---
:1955 Author Organization [facility] Address [address] [place] [address] Care Team Providers Name Role Phone Loreaber Unavailable Unavailable PROBLEMS Type Condition ICD9-CM QPQ19-CT Onset Condition SNOMED Cod e Code Code Dates Status Problem Hammertoe of left M20.42 Active 10 [id number] foot Problem Non-pressure L97.509 Active 9182385 08 chronic ulcer of other part of unspecified foot with unspecified severity Problem Non-pressure L97.521 Active chronic ulcer of other part of left foot limited to breakdown of skin Problem Diabetic E11.42 Active 941421665 polyneuropathy associated with type 2 diabetes mellitus Problem Left foot pain M79.672 Active 74029 [id number] Problem Cellulitis of toe L03.032 Active 10 [id number] of left foot Problem Cellulitis of toe L03.031 Active 10 [id number] of right foot Problem Foot drop, left M21.372 Active 6077 001 Problem Ankle instability M25.373 Active 81 3001 Problem Diabetic E11.40 Active 1404117477 48005 neuropathy associated with type 2 diabetes mellitus Problem Pre-ulcerative L84 Active 76474 0000 calluses Problem Diabetic toe ulcer E11.621 Active Problem Difficulty walking R26.2 Active 2 64828127 due to ankle and foot joint Problem Blister of toe of S90.425A Active 54 984656 left foot Problem Hammertoe of M20.41 Active 1430511 854972129 second toe of right foot Problem Hammertoe M20.40 Active 554560991 Problem Toe ulcer due to E11.621 Active 152 5368860363 DM Problem Skin fissure R23.4 Active 6693826 9 Problem Encounter for E11.9 Active 305430 004 diabetic foot exam ALLERGIES Substance Reaction Event Type Date Status Bactrim DS stomach upset Drug Allergy Jan, Active Amoxicillin thrush, throat closes Drug Allergy Jan, Acti ve Augmentin Unknown Drug Allergy Jan, Active Ampicillin Unknown Drug Allergy Jan, Active ENCOUNTERS Encounter Location Date Diagnosis [facility] [address] Jan, [place] [address] exam E11.9 ; Diabetic toe ulcer E11.621 ; Cellulitis of toe of left f oot L03.032 and Blister of t oe of left foot S90.425A [facility] [address] Jan, Encounter [place] [address] exam E11.9 ; Diabetic toe ulcer E11.621 ; Cellulitis of toe of left f oot L03.032 and Blister of t oe of left foot S90.425A [facility] [address] 30 Dec, 2019 Encounter [place] [address] exam E11.9 ; Diabetic toe ulcer E11.621 ; Cellulitis of toe of left f oot L03.032 and Blister of t oe of left foot S90.425A [facility] [address] Dec, Encounter [place] [address] exam E11.9 ; Diabetic toe ulcer E11.621 an d Cellulitis of to e of left foot L03.032 [facility] [address] 16 Dec, 2019 Encounter [place] [address] exam E11.9 ; Diabetic toe ulcer E11.621 an d Cellulitis of to e of left foot L03.032 [facility] [address] Dec, Encounter [place] [address] exam E11.9 ; Diabetic toe ulcer E11.621 an d Cellulitis of to e of left foot L03.032 [facility] [address] Dec, Encounter [place] [address] exam E11.9 ; Diabetic toe ulcer E11.621 an d Cellulitis of to e of left foot L03.032 [facility] [address] Sep, [place] [address] [facility] [address] 07 Jul, 2019 Toe ulcer due to DM E11.621 [place] [address] ; Encounter for diabetic foot exam E11.9 ; Skin fissure R23.4 an d Diabetic neuropathy assoc iated with type 2 diabetes mellitus E11.40 [facility] [address] 16 Jun, 2019 Toe ulcer due to DM E11.621 [place] [address] ; Skin fiss ure R23.4 and Diabetic neuropa thy associated with type 2 diabetes mellitu s E11.40 [facility] [address] 07 Jun, 2019 Toe ulcer due to DM E11.621 [place] [address] ; Skin fiss ure R23.4 and Diabetic neuropa thy associated with type 2 diabetes mellitu s E11.40 [facility] [address] May, [place] [address] [facility] [address] Apr, Toe ulcer due to DM E11.621 [place] [address] ; Pre-ulcer ative calluses L84 ; Hammertoe M20.40 and Diabetic neuropa thy associated with type 2 diabetes mellitu s E11.40 [facility] [address] 15 Apr, 2019 Toe ulcer due to DM E11.621 [place] [address] ; Pre-ulcer ative calluses L84 ; Hammertoe M20.40 and Diabetic neuropa thy associated with type 2 diabetes mellitu s E11.40 [facility] [address] 12 Apr, 2019 [place] [address] [facility] [address] 04 Apr, 2019 Toe ulcer due to DM E11.621 [place] [address] ; Pre-ulcer ative calluses L84 ; Hammertoe M20.40 and Diabetic neuropa thy associated with type 2 diabetes mellitu s E11.40 [facility] [address] Mar, [place] [address] [facility] [address] Mar, [place] [address] [facility] [address] Mar, Toe ulcer due to DM E11.621 [place] [address] ; Pre-ulcer ative calluses L84 ; Hammertoe M20.40 and Diabetic neuropa thy associated with type 2 diabetes mellitu s E11.40 [facility] [address] Mar, [place] [address] [facility] [address] 30 Feb, 2019 Type 2 [place] [address] with foot u lcer E11.621 ; Encounter for di abetic foot exam E11.9 ; Luz betic polyneuropathy a ssociated with type 2 diab etes mellitus E11.42 ; Ankle instability M25. 373 and Difficulty walki ng due to ankle and foot j oint R26.2 [facility] [address] [facility] Aug, Type 2 diabet es mellitus [address], with foot ul cer E11.621 ; [place] [address] Encounter for di abetic foot exam E11.9 and D iabetic polyneuropathy a ssociated with type 2 diab etes mellitus E11.42 [facility] [address] [facility] May, [place] [address] [facility] [address] [facility] May, Type 2 diabet es mellitus [address], with foot ul cer E11.621 ; [place] [address] Encounter for di abetic foot exam E11.9 and D iabetic polyneuropathy a ssociated with type 2 diab etes mellitus E11.42 [facility] [address] Feb, Type 2 diabetes mellitus [facility] [place] [address] with foot u lcer E11.621 and Diabetic polyneu ropathy associated with type 2 diabetes mellitu s E11.42 [facility] [address] Feb, [facility] [address] [facility] [facility] [address] [facility] Jan, OFFICE [place] [address] [facility] Jan, [place] [address] [facility] Jan, [place] [address] [facility] [address] [facility] Jan, Chest disc omfort R07.89 [place] [address] [facility] Jan, [place] [address] [facility] [address] Dec, [place] [address] [facility] [facility] [address] [facility] Dec, OFFICE [place] [address] [facility] Dec, [place] [address] [facility] Dec, [place] [address] [facility] Dec, Anticoagula sri on Coumadin [place] Z51.81 [facility] Dec, [place] [address] [facility] [address] [facility] Dec, [place] [address] [facility] Nov, [place] [address] [facility] Nov, [place] [address] CASE MANAG[facility] Nov, [place] [address] [facility] Nov, [place] [address] xxEMERGENCY ROOM [address] [facility] Nov, [place] [address] [facility] Nov, Type 2 [place] [address] with foot ul cer E11.621 [facility] [address] [facility] Nov, Type 2 [place] [address] with foot ul cer E11.621 [facility] [address] Nov, [place] [address] xxOFFICE NON CLINICAL [address] [facility] Nov, [place] [address] [facility] [address] October, [place] [address] [facility] October, Non-pressure chronic ulcer [address], of other par [place] [address] unspecified foot with unspecified kolby rity L97.509 ; Encoun ter for diabetic foot ex am E11.9 ; Type 2 diabetes mellitus with foot ulcer E11.621 ; Diabetic polyneu ropathy associated with type 2 diabetes mellitu s E11.42 ; Hammertoe of sec ond toe of right foot M20.4 1 and Cellulitis of to e of right foot L03.031 [facility] [address] [facility] Sep, Encounter for diabetic foot [address], exam E11.9 ; [place] [address] chronic ulcer of other part of unspecified f oot with unspecified kolby rity L97.509 ; Type 2 diabetes mellitus with fo ot ulcer E11.621 ; Diabet ic polyneuropathy a ssociated with type 2 diab etes mellitus E11.42 ; Hammertoe of second toe of right foot M20.41 and Cellu litis of toe of right delicia t L03.031 [facility] [address] [facility] Sep, Non-pressure chronic ulcer [address], of other par [place] [address] unspecified foot with unspecified kolby rity L97.509 ; Type 2 diabetes mellitus with fo ot ulcer E11.621 ; Diabet ic polyneuropathy a ssociated with type 2 diab etes mellitus E11.42 ; Hammertoe of second toe of right foot M20.41 and Cellu litis of toe of right delicia t L03.031 [facility] [address] Sep, Non-[place] [address] of other pa rt of unspecified foot with unspecified kolby rity L97.509 ; Type 2 diabetes mellitus with fo ot ulcer E11.621 ; Diabet ic polyneuropathy a ssociated with type 2 diab etes mellitus E11.42 ; Hammertoe of second toe of right foot M20.41 and Cellu litis of toe of right delicia t L03.031 [facility] [address] [facility] Sep, [place] [address] [facility] [address] Dec, Non-[place] [address] of other pa rt of unspecified foot with unspecified kolby rity L97.509 ; Type 2 diabetes mellitus with fo ot ulcer E11.621 ; Cellul itis of toe of left foot L03 .032 ; Diabetic polyneu ropathy associated with type 2 diabetes mellitu s E11.42 ; Hammertoe of lef t foot M20.42 and Foot drop, left M21.372 [facility] [address] Nov, [place] [address] [facility] Sep, Non-pressure chronic ulcer [address], [place] [address] unspecified foot with unspecified kolby rity L97.509 ; Type 2 diabetes mellitus with fo ot ulcer E11.621 ; Cellul itis of toe of left foot L03 .032 ; Diabetic polyneu ropathy associated with type 2 diabetes mellitu s E11.42 and Hammertoe of left foot M20.42 [facility] [address] Sep, [place] [address] of other pa rt of unspecified foot with unspecified kolby rity L97.509 ; Type 2 diabetes mellitus with fo ot ulcer E11.621 ; Cellul itis of toe of left foot L03 .032 ; Diabetic polyneu ropathy associated with type 2 diabetes mellitu s E11.42 and Hammertoe of left foot M20.42 [facility] [address] 13 Sep, 2016 [place] [address] [facility] [address] Sep, Cellulitis of to e of left [facility] [place] [address] foot L03.03 2 [facility] [address] 10 Sep, 2016 Type 2 [place] [address] with foot u lcer E11.621 ; Non-pressure chr onic ulcer of other part of left foot limited to break down of skin L97.521 ; C ellulitis of toe of left f oot L03.032 ; Left foot pain M79.672 and Foot drop, l eft M21.372 [facility] [address] Sep, Type 2 [place] [address] with foot u lcer E11.621 ; Non-pressure chr onic ulcer of other part of left foot limited to break down of skin L97.521 ; H ammertoe of left foot M20.42 and Diabetic polyneu ropathy associated with type 2 diabetes mellitu s E11.42 [facility] [address] Sep, [place] [address] of other pa rt of unspecified foot with unspecified kolby rity L97.509 ; Type 2 diabetes mellitus with fo ot ulcer E11.621 ; Cellul itis of toe of left foot L03 .032 ; Diabetic polyneu ropathy associated with type 2 diabetes mellitu s E11.42 and Hammertoe of left foot M20.42 [facility] [address] Aug, Non-[place] [address] of other pa rt of unspecified foot with unspecified kolby rity L97.509 ; Type 2 diabetes mellitus with fo ot ulcer E11.621 ; Cellul itis of toe of left foot L03 .032 ; Diabetic polyneu ropathy associated with type 2 diabetes mellitu s E11.42 and Hammertoe of left foot M20.42 [facility] [address] Aug, [facility] [place] [address] [facility] [address] Aug, [place] [address] [facility] [address] Aug, Non-[place] [address] of other pa rt of unspecified foot with unspecified kolby rity L97.509 ; Type 2 diabetes mellitus with fo ot ulcer E11.621 ; Cellul itis of toe of left foot L03 .032 ; Diabetic polyneu ropathy associated with type 2 diabetes mellitu s E11.42 and Hammertoe of left foot M20.42 [facility] [address] Aug, [place] [address] [facility] [address] [address] Feb, Hyperkeratosis 7 01.1 ; [place] [address] Onychodystr ophy 703.8 ; Foot drop, left 736.79 ; Controlled type 2 diabetes with neuropathy 250.60 ; Toe ulcer 707.15 and Contusion toe 92 4.3 [facility] [address] [place] [address] Jan, [place] [address] [address] Jan, Hyperkeratosis 7 01.1 ; [place] [address] Onychodystr ophy 703.8 ; Foot drop, left 736.79 ; Controlled type 2 diabetes with neuropathy 250.60 ; Toe ulcer 707.15 and Contusion toe 92 4.3 [facility] [address] [address] Nov, Abscess of toe N OS 681.10 ; [place] [address] Hyperkerato sis 701.1 ; Onychodystrophy 703.8 ; Foot drop, left 736.79 ; Controlled type 2 diabetes with neuropathy 250.60 and Toe ulcer 707.15 [facility] October, Abscess of to e NOS 681.10 ; [address], Hyperkeratos is 701.1 ; [place] [address] Onychodystrophy 703.8 ; Foot drop, left 736.79 ; Controlled type 2 diabetes with neuropathy 250.60 and Toe ulcer 707.15 [facility] Sep, Abscess of to e NOS 681.10 ; [address], Hyperkeratos is 701.1 ; [place] [address] Cellulitis and a bscess of foot 682.7 ; Onychodystrophy 703.8 ; Foot drop, left 736.79 and Controlled type 2 diabetes with neuropathy 250.60 [facility] [address] [address] Sep, [place] [address] [facility] [place] Aug, Abscess of toe N OS 681.10 ; [place] [address] Hyperkerato sis 701.1 ; Cellulitis and a bscess of foot 682.7 ; Onychodystrophy 703.8 and Foot drop, left 736.79 [facility] 24 Jul, 2014 Abscess of to e NOS 681.10 ; [address], Hyperkeratos is 701.1 ; [place] [address] Cellulitis and a bscess of foot 682.7 ; Onychodystrophy 703.8 and Foot drop, left 736.79 IMMUNIZATIONS No Known Immunizations SOCIAL HISTORY Qualifiers Date Never Smoker REASON FOR REFERRAL FUNCTIONAL STATUS PLAN OF CARE Activity Details Follow Up prn Reason: Future Test PT/INR 20180109 Future Test X Foot R 3V [id number] VITAL SIGNS Height 68.5 in 2020-02-15 Weight 338.8 lbs 2020-02-15 BMI 50.76 kg/m2 2020-02-15 Temperature 98.2 degrees Fahrenheit 2020-02-15 Heart Rate 93 /min 2020-02-15 Respiratory Rate 20 /min 2020-02-15 Oximetry 97 % 2020-02-15 Blood pressure systolic 118 mm Hg 2020-02-15 Blood pressure diastolic 66 mm Hg 2020-02-15 MEDICATIONS Medication Instructions Dosage Frequency Start End Duration Statu s Date Date Warfarin Sodium orally once a 1 tab(s) 24h 30 day(s) Active 5 mg day AmLODIPine orally once a 1 tab(s) 24h Active Besylate 10 mg day WALKER Active HM Medicated Externally 1 pad to 12h Active Cooling 50 % Twice a day affected area OneTouch Ultra Active Mini Bactrim DS Orally Twice a 1 tablet 12h 10 day(s) Not -Taki 800-160 MG day ng Nystatin - as directed Active Venlafaxine HCl Orally Once a 1 tablet with 24h 30 d ay(s) Active ER 150 MG day food ProAir Inhalation 2 puffs as 6h Active RespiClick 108 every 6 hrs needed (90 Base) MCG/ACT Diflucan 200 MG Orally 1 1 tablet Mar, 1 days Active 2019 NOVASUS Not-Taki ng Meclizine HCl Orally Once a 2 tablets as 24h 30 day( s) Active 12.5 MG day needed Venlafaxine HCl Orally Once a 1 capsule with 24h 30 day(s) Active ER 75 MG day food MetFORMIN HCl Orally Once a 1 tablet with 24h 30 day (s) Active 500 MG day a meal NOVOLIN N 0 Not-Taki PENFILL human ng recombinant 100 units/mL Womens One as directed Active Daily - Analpram HC Rectal Three 1 application 8h 30 day(s) Active 2.5-1 % times a day to affected area PredniSONE 20 Orally Once a 2 tablets 24h Ac tive MG day OneTouch Ultra as directed Activ e Blue - VENLAFAXINE 150 orally once a 1 tab(s) 24h N ot-Taki mg day ng BD Pen Needle Active Aida U/F Doxycycline Orally every 12 1 tablet 12h 10 day(s) A ctive Hyclate 50 MG hrs LANCETS Not-Taki ng Mupirocin 2 % Externally 1 application 12h Apr, 14 days A ctive Twice a day 2018 Meclizine HCl orally 3 times 1 tab(s) 8h No t-Taki 25 mg a day ng Lantus 100 0 Active units/mL Gemfibrozil 600 orally 1 times 1 tab(s) Active mg a day Allopurinol 100 orally once a 2 tab(s) 24h A ctive mg day Losartan orally once a 1 tab(s) 24h Active Potassium 100 day mg MULTIVITAMIN orally once a 1 tab(s) 24h Not- Taki Multiple day ng Vitamins Jardiance 10 mg orally once a 1 tab(s) N ot-Taki day (in the ng morning) OneTouch Delica as directed Acti ve Lancets Fine - NovoLOG FlexPen 3-12 units Activ e 100 UNIT/ML Minocycline HCl Orally every 12 1 capsule 12h Mar, day (s) Active 100 MG hrs 2019 PROCEDURES Procedure Date Ordered Result Body Site zzPREV: DIABETES foot exam 2017-10-19 See progress notes RESULTS Name Result Date Reference Range HEMOGLOBIN A1C 2019-12-18 HGA1C 7.4 CALC. MEAN GLUC HB2 reviously reported u CBC WITH AUTO DIFF 2019-04-25 CORRECT ANC WBC 5.03 HGB 12.9 HCT 38.8 PLATELET 232 RBC 4.38 MCV 88.6 MCH 29.5 MCHC 33.2 RDW MPV 11.2 ANC 3.10 #IG #LYMPH 1.38 #EOS 0.12 #MONO 0.40 #BASO 0.02 NEUTROPHIL % IG% 0.2 LYMPHOCYTE % 27.4 MONOCYTE % 8.0 EOSINOPHIL % 2.4 BASOPHIL % 0.4 ATYP LYMPH PLT MORPH PROMYELO MACRO MICRO NRBC HYPO BLAST ANISO BAND BASO EOS LYMPH META MONO MYELO POIK RBC MORPH SEG MANUAL DIFF #IMM GRAN %IMM GRAN HEMOGLOBIN A1C 2018-07-27 HGA1C 7.4 CALC. MEAN GLUC HB2 reviously reported u EKG #1-IN OFFICE TODAY 2018-01-26 D-DIMER 2018-01-26 DDIM 698 <=500 GLUCOSE POINT OF CARE 2018-01-07 GLUCOSE 79 74-118 COMMENT1 GLUCOSE POINT OF CARE 2018-01-07 GLUCOSE 103 74-118 COMMENT1 PT/INR 2018-01-07 PT 16.0 9.3-11.4 INR 1.6 GLUCOSE POINT OF CARE 2018-01-06 GLUCOSE 144 74-118 COMMENT1 GLUCOSE POINT OF CARE 2018-01-06 GLUCOSE 95 74-118 COMMENT1 Notify Nurse GLUCOSE POINT OF CARE 2018-01-06 GLUCOSE 143 74-118 COMMENT1 Notify Nurse PT/INR 2018-01-06 PT 15.8 9.3-11.4 INR 1.6 GLUCOSE POINT OF CARE 2018-01-06 GLUCOSE 94 74-118 COMMENT1 Notify Nurse GLUCOSE POINT OF CARE 2018-01-05 GLUCOSE 109 74-118 COMMENT1 GLUCOSE POINT OF CARE 2018-01-05 GLUCOSE 101 74-118 COMMENT1 Notify Nurse GLUCOSE POINT OF CARE 2018-01-05 GLUCOSE 135 74-118 COMMENT1 GLUCOSE POINT OF CARE 2018-01-05 GLUCOSE 97 74-118 COMMENT1 Notify Nurse GLUCOSE POINT OF CARE 2018-01-05 GLUCOSE 91 74-118 COMMENT1 Notify Nurse GLUCOSE POINT OF CARE 2018-01-04 GLUCOSE 95 74-118 COMMENT1 Notify Nurse GLUCOSE POINT OF CARE 2018-01-04 GLUCOSE 79 74-118 COMMENT1 Notify Nurse GLUCOSE POINT OF CARE 2018-01-04 GLUCOSE 91 74-118 COMMENT1 Notify Nurse GLUCOSE POINT OF CARE 2018-01-04 GLUCOSE 89 74-118 COMMENT1 Notify Nurse GLUCOSE POINT OF CARE 2018-01-03 GLUCOSE 105 74-118 COMMENT1 Notify Nurse GLUCOSE POINT OF CARE 2018-01-03 GLUCOSE 99 74-118 COMMENT1 GLUCOSE POINT OF CARE 2018-01-03 GLUCOSE 92 74-118 COMMENT1 GLUCOSE POINT OF CARE 2018-01-03 GLUCOSE 95 74-118 COMMENT1 PT/INR 2018-01-03 PT 17.2 9.3-11.4 INR 1.7 GLUCOSE POINT OF CARE 2018-01-03 GLUCOSE 110 74-118 COMMENT1 GLUCOSE POINT OF CARE 2018-01-02 GLUCOSE 116 74-118 COMMENT1 GLUCOSE POINT OF CARE 2018-01-02 GLUCOSE 90 74-118 COMMENT1 Notify Nurse GLUCOSE POINT OF CARE 2018-01-02 GLUCOSE 106 74-118 COMMENT1 Notify Nurse GLUCOSE POINT OF CARE 2018-01-02 GLUCOSE 95 74-118 COMMENT1 Notify Nurse GLUCOSE POINT OF CARE 2018-01-01 GLUCOSE 129 74-118 COMMENT1 GLUCOSE POINT OF CARE 2018-01-01 GLUCOSE 93 74-118 COMMENT1 GLUCOSE POINT OF CARE 2018-01-01 GLUCOSE 118 74-118 COMMENT1 VANCOMYCIN TROUGH 2018-01-01 VANCT 22 5-10 GLUCOSE POINT OF CARE 2018-01-01 GLUCOSE 112 74-118 COMMENT1 Notify Nurse GLUCOSE POINT OF CARE 2017-12-31 GLUCOSE 105 74-118 COMMENT1 GLUCOSE POINT OF CARE 2017-12-31 GLUCOSE 106 74-118 COMMENT1 Notify Nurse GLUCOSE POINT OF CARE 2017-12-31 GLUCOSE 93 74-118 COMMENT1 Notify Nurse PT/INR 2017-12-31 PT 20.0 9.3-11.4 INR 2.0 GLUCOSE POINT OF CARE 2017-12-31 GLUCOSE 90 74-118 COMMENT1 Notify Nurse GLUCOSE POINT OF CARE 2017-12-30 GLUCOSE 101 74-118 COMMENT1 GLUCOSE POINT OF CARE 2017-12-30 GLUCOSE 92 74-118 COMMENT1 Notify Nurse GLUCOSE POINT OF CARE 2017-12-30 GLUCOSE 119 74-118 COMMENT1 Notify Nurse CBC WITH AUTO DIFF 2017-12-30 WBC 7.3 4.0-12.0 RBC 4.5 4.5-6.0 HGB 13.1 12.5-16.0 HCT 39.8 37.0-47.0 MCV 89 78-100 MCH 29.4 27.0-32.0 MCHC 32.9 32.0-36.0 RDW 14.0 11.0-14.0 PLT 307 140-440 MPV 10.4 7.4-11.0 ANC# 4.0 1.4-7.9 IG# 0.0 0.0-0.1 LY# 2.6 1.5-4.0 MO# 0.5 0.2-0.8 EO# 0.2 0.0-0.7 BA# 0.0 0.0-0.2 NE% 54.5 IG% 0.5 0.0-1.0 LY% 35.2 MO% 6.8 EO% 3.0 BA% 0.5 PT/INR 2017-12-30 PT 20.0 9.3-11.4 INR 2.0 GLUCOSE POINT OF CARE 2017-12-30 GLUCOSE 94 74-118 COMMENT1 Notify Nurse GLUCOSE POINT OF CARE 2017-12-29 GLUCOSE 100 74-118 COMMENT1 GLUCOSE POINT OF CARE 2017-12-29 GLUCOSE 86 74-118 COMMENT1 Notify Nurse GLUCOSE POINT OF CARE 2017-12-29 GLUCOSE 116 74-118 COMMENT1 Notify Nurse CBC WITH AUTO DIFF 2017-12-29 WBC 6.4 4.0-12.0 RBC 4.4 4.5-6.0 HGB 13.1 12.5-16.0 HCT 39.4 37.0-47.0 MCV 89 78-100 MCH 29.5 27.0-32.0 MCHC 33.2 32.0-36.0 RDW 14.0 11.0-14.0 PLT 286 140-440 MPV 9.8 7.4-11.0 ANC# 3.7 1.4-7.9 IG# 0.0 0.0-0.1 LY# 2.1 1.5-4.0 MO# 0.4 0.2-0.8 EO# 0.2 0.0-0.7 BA# 0.0 0.0-0.2 NE% 57.9 IG% 0.5 0.0-1.0 LY% 33.4 MO% 5.5 EO% 2.7 BA% 0.5 VANCOMYCIN TROUGH 2017-12-29 VANCT 18 5-10 PT/INR 2017-12-29 PT 19.8 9.3-11.4 INR 2.0 GLUCOSE POINT OF CARE 2017-12-29 GLUCOSE 104 74-118 COMMENT1 Notify Nurse GLUCOSE POINT OF CARE 2017-12-28 GLUCOSE 108 74-118 COMMENT1 Notify Nurse GLUCOSE POINT OF CARE 2017-12-28 GLUCOSE 115 74-118 COMMENT1 GLUCOSE POINT OF CARE 2017-12-28 GLUCOSE 110 74-118 COMMENT1 Notify Nurse CBC WITH AUTO DIFF 2017-12-28 WBC 7.7 4.0-12.0 RBC 4.3 4.5-6.0 HGB 12.7 12.5-16.0 HCT 39.0 37.0-47.0 MCV 90 78-100 MCH 29.4 27.0-32.0 MCHC 32.6 32.0-36.0 RDW 14.0 11.0-14.0 PLT 310 140-440 MPV 10.9 7.4-11.0 ANC# 4.1 1.4-7.9 IG# 0.0 0.0-0.1 LY# 2.9 1.5-4.0 MO# 0.5 0.2-0.8 EO# 0.2 0.0-0.7 BA# 0.0 0.0-0.2 NE% 52.5 IG% 0.5 0.0-1.0 LY% 37.7 MO% 6.8 EO% 2.6 BA% 0.4 PT/INR 2017-12-28 PT 19.7 9.3-11.4 INR 2.0 GLUCOSE POINT OF CARE 2017-12-28 GLUCOSE 109 74-118 COMMENT1 GLUCOSE POINT OF CARE 2017-12-27 GLUCOSE 130 74-118 COMMENT1 GLUCOSE POINT OF CARE 2017-12-27 GLUCOSE 102 74-118 COMMENT1 GLUCOSE POINT OF CARE 2017-12-27 GLUCOSE 160 74-118 COMMENT1 CBC WITH AUTO DIFF 2017-12-27 WBC 6.8 4.0-12.0 RBC 4.4 4.5-6.0 HGB 13.1 12.5-16.0 HCT 39.3 37.0-47.0 MCV 90 78-100 MCH 29.8 27.0-32.0 MCHC 33.3 32.0-36.0 RDW 14.0 11.0-14.0 PLT 300 140-440 MPV 9.9 7.4-11.0 ANC# 3.5 1.4-7.9 IG# 0.0 0.0-0.1 LY# 2.5 1.5-4.0 MO# 0.4 0.2-0.8 EO# 0.2 0.0-0.7 BA# 0.0 0.0-0.2 NE% 51.8 IG% 0.6 0.0-1.0 LY% 37.6 MO% 6.4 EO% 3.6 BA% 0.6 VANCOMYCIN TROUGH 2017-12-27 VANCT 21 5-10 PT/INR 2017-12-27 PT 21.2 9.3-11.4 INR 2.1 GLUCOSE POINT OF CARE 2017-12-27 GLUCOSE 107 74-118 COMMENT1 GLUCOSE POINT OF CARE 2017-12-26 GLUCOSE 135 74-118 COMMENT1 GLUCOSE POINT OF CARE 2017-12-26 GLUCOSE 100 74-118 COMMENT1 Notify Nurse GLUCOSE POINT OF CARE 2017-12-26 GLUCOSE 176 74-118 COMMENT1 Notify Nurse CBC WITH AUTO DIFF 2017-12-26 WBC 7.3 4.0-12.0 RBC 4.4 4.5-6.0 HGB 12.8 12.5-16.0 HCT 39.0 37.0-47.0 MCV 89 78-100 MCH 29.4 27.0-32.0 MCHC 32.8 32.0-36.0 RDW 14.2 11.0-14.0 PLT 295 140-440 MPV 10.4 7.4-11.0 ANC# 3.7 1.4-7.9 IG# 0.0 0.0-0.1 LY# 2.8 1.5-4.0 MO# 0.5 0.2-0.8 EO# 0.2 0.0-0.7 BA# 0.1 0.0-0.2 NE% 50.7 IG% 0.5 0.0-1.0 LY% 38.0 MO% 7.3 EO% 3.3 BA% 0.7 PT/INR 2017-12-26 PT 22.7 9.3-11.4 INR 2.3 GLUCOSE POINT OF CARE 2017-12-26 GLUCOSE 107 74-118 COMMENT1 Notify Nurse GLUCOSE POINT OF CARE 2017-12-25 GLUCOSE 122 74-118 COMMENT1 GLUCOSE POINT OF CARE 2017-12-25 GLUCOSE 123 74-118 COMMENT1 Notify Nurse GLUCOSE POINT OF CARE 2017-12-25 GLUCOSE 117 74-118 COMMENT1 GLUCOSE POINT OF CARE 2017-12-25 GLUCOSE 136 74-118 COMMENT1 Notify Nurse CBC WITH AUTO DIFF 2017-12-25 WBC 6.5 4.0-12.0 RBC 4.4 4.5-6.0 HGB 13.1 12.5-16.0 HCT 39.7 37.0-47.0 MCV 89 78-100 MCH 29.5 27.0-32.0 MCHC 33.0 32.0-36.0 RDW 14.1 11.0-14.0 PLT 324 140-440 MPV 10.1 7.4-11.0 ANC# 3.2 1.4-7.9 IG# 0.0 0.0-0.1 LY# 2.6 1.5-4.0 MO# 0.4 0.2-0.8 EO# 0.2 0.0-0.7 BA# 0.1 0.0-0.2 NE% 49.3 IG% 0.5 0.0-1.0 LY% 40.2 MO% 6.6 EO% 3.1 BA% 0.8 PT/INR 2017-12-25 PT 30.4 9.3-11.4 INR 3.1 GLUCOSE POINT OF CARE 2017-12-25 GLUCOSE 134 74-118 COMMENT1 GLUCOSE POINT OF CARE 2017-12-24 GLUCOSE 123 74-118 COMMENT1 Notify Nurse GLUCOSE POINT OF CARE 2017-12-24 GLUCOSE 105 74-118 COMMENT1 GLUCOSE POINT OF CARE 2017-12-24 GLUCOSE 132 74-118 COMMENT1 VANCOMYCIN TROUGH 2017-12-24 VANCT 18 5-10 PT/INR 2017-12-24 PT 26.3 9.3-11.4 INR 2.7 GLUCOSE POINT OF CARE 2017-12-24 GLUCOSE 129 74-118 COMMENT1 GLUCOSE POINT OF CARE 2017-12-23 GLUCOSE 131 74-118 COMMENT1 GLUCOSE POINT OF CARE 2017-12-23 GLUCOSE 114 74-118 COMMENT1 Notify Nurse GLUCOSE POINT OF CARE 2017-12-23 GLUCOSE 135 74-118 COMMENT1 Notify Nurse BASEMET 2017-12-23 GLUC 124 74-106 BUN 13 7-25 CREATS 0.61 0.60-1.20 EGFR >60 >=60 NA 135 136-144 K+ 3.5 3.5-5.1 CL 103 98-108 CO2 20 22-32 CA 9.2 8.6-10.3 CBC WITH AUTO DIFF 2017-12-23 WBC 6.8 4.0-12.0 RBC 4.4 4.5-6.0 HGB 13.0 12.5-16.0 HCT 39.3 37.0-47.0 MCV 90 78-100 MCH 29.6 27.0-32.0 MCHC 33.1 32.0-36.0 RDW 14.2 11.0-14.0 PLT 280 140-440 MPV 10.3 7.4-11.0 ANC# 3.5 1.4-7.9 IG# 0.0 0.0-0.1 LY# 2.7 1.5-4.0 MO# 0.3 0.2-0.8 EO# 0.2 0.0-0.7 BA# 0.1 0.0-0.2 NE% 52.0 IG% 0.6 0.0-1.0 LY% 38.9 MO% 5.0 EO% 3.4 BA%

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
[2020-09-11 14:07] LABS: COVID-19 RT-PCR Result Not Detected ((See Note))
== END 2020-09-09 14:11 | disposition home or self-care (01) ==
LOC: LBN 14:10
PROVIDERS: PCP Nurse Practitioner Family; Visit Provider Nurse Practitioner Adult Health
DX: Z20.822 Contact with and (suspected) exposure to COVID-19 (principal)
CPT/HCPCS: U0003

== ENCOUNTER → 2021-02-03 13:00 | Outpatient (BNVA) | payer MEDICARE, MEDICAID, SELFPAY | PROVIDERS: PCP Nurse Practitioner Family; Referring Provider Nurse Practitioner Family; Visit Provider Surgery | DX: K59.00 Constipation, unspecified (principal); E66.01 Morbid (severe) obesity due to excess calories; K52.9 Noninfective gastroenteritis and colitis, unspecified; G47.33 Obstructive sleep apnea (adult) (pediatric); E11.40 Type 2 diabetes mellitus with diabetic neuropathy, unspecified; Z79.4 Long term (current) use of insulin; R63.4 Abnormal weight loss | CPT/HCPCS: 99213 ==

== ENCOUNTER → 2021-02-24 08:11 | Outpatient (BNVA) | payer MEDICARE, MEDICAID, SELFPAY | PROVIDERS: PCP Physician Assistant; Referring Provider Nurse Practitioner Family; Visit Provider Psychiatry & Neurology Neurology | DX: R41.3 Other amnesia (principal); E11.40 Type 2 diabetes mellitus with diabetic neuropathy, unspecified; Z79.4 Long term (current) use of insulin | CPT/HCPCS: 99215; G2212 ==

== ENCOUNTER 2021-03-14 09:48 | Emergency (ER) | payer MEDICARE, MEDICAID, SELFPAY ==
[2021-03-14 10:00] VITALS: BP 139/57; PULSE 70; RESP 18; TEMP 36.7; O2SAT 99
--- NOTE | 2021-03-14 10:00 | DI.CT_ITS ---
Exam(s) CT HEAD WO EXAM: CT HEAD WO CLINICAL HISTORY: fall, on coumadin. TECHNIQUE: Imaging Protocol: Axial computed tomography images with coronal and sagittal reformatted images were created and reviewed COMPARISON: CT CT HEAD WO from 08/09/2020 FINDINGS: Ventricles and Extra axial spaces: Normal in size and morphology for the patient's age. Hemorrhage: None. Cerebral parenchyma: Normal. Midline shift: None. Brainstem/Cerebellum: Normal. Calvarium: Normal. Visualized Paranasal sinuses/Mastoids: Clear. Soft Tissues: Unremarkable. IMPRESSION: 1. No acute intracranial process. 2. Results of this exam have been verbally communicated with provider. RADIATION DOSE DELIVERED: 744.18mGy.cm Total DLP DATA REPOSITORY: All CT scans at this facility are submitted to the National Radiology Data Registry (NRDR) Dose Index Registry (DIR) with the [employer] (ACR). RADIATION OPTIMIZATION: All CT scans at this facility use at least one of these dose optimization te chniques: automated exposure control; mA and/or kV adjustment per patient size (includes targeted exa ms where dose is matched to clinical indication); or iterative reconstruction.
--- NOTE | 2021-03-14 10:00 | DI.RAD_ITS ---
Exam(s) XR TIB/FIB LT EXAM: XR TIB/FIB LT CLINICAL HISTORY: pain s/p fall. TECHNIQUE: 2D digital imaging was performed of the tibia and fibula. Four images were obtained. AP and lateral views were obtained. COMPARISON: No exams were available for comparison FINDINGS: BONES: No acute fracture is present. No bony destructive lesion is seen. Visualized portion of knee a nd ankle joints are unremarkable. There is a moderate calcaneal spur at the plantar surface. There is a small enthesophyte at the posterior calcaneus. SOFT TISSUE: Normal. IMPRESSION: No acute fracture or dislocation. DATA REPOSITORY: RADIATION DOSE DELIVERED:
--- NOTE | 2021-03-14 10:00 | DI.RAD_ITS ---
Exam(s) XR SACRUM COCCYX EXAM: XR SACRUM COCCYX CLINICAL HISTORY: pain s/p fall. TECHNIQUE: 2D digital imaging was performed. COMPARISON: No exams were available for comparison FINDINGS: BONES: No acute fracture is present. No bony destructive lesion is seen. JOINTS: No dislocation present. SOFT TISSUE: Normal. IMPRESSION: No acute fracture or dislocation. DATA REPOSITORY: RADIATION DOSE DELIVERED:
--- NOTE | 2021-03-14 10:00 | DI.RAD_ITS ---
Exam(s) XR WRIST RT COMPLETE EXAM: XR WRIST RT COMPLETE CLINICAL HISTORY: pain s/p fall. TECHNIQUE: 2D digital imaging was performed of the right wrist. Three views were obtained. PA, lat eral and oblique views were obtained. COMPARISON: No exams were available for comparison FINDINGS: BONES: No acute fracture is present. No bony destructive lesion is seen. JOINTS: The carpal bones are normally aligned. SOFT TISSUE: Normal. IMPRESSION: No acute fracture or dislocation. DATA REPOSITORY: RADIATION DOSE DELIVERED:
--- NOTE | 2021-03-14 10:00 | DI.RAD_ITS ---
Exam(s) XR WRIST LT COMPLETE EXAM: XR WRIST LT COMPLETE CLINICAL HISTORY: pain s/p fall. TECHNIQUE: 2D digital imaging was performed of the left wrist. Five image were obtained. PA, obliq ue and lateral views were obtained. COMPARISON: No exams were available for comparison FINDINGS: BONES: No acute fracture is present. No bony destructive lesion is seen. JOINTS: The carpal bones are normally aligned. SOFT TISSUE: Normal. IMPRESSION: No acute fracture or dislocation. DATA REPOSITORY: RADIATION DOSE DELIVERED:
--- NOTE | 2021-03-14 10:00 | DI.RAD_ITS ---
Exam(s) XR ELBOW LT COMPLETE EXAM: XR ELBOW LT COMPLETE CLINICAL HISTORY: pain s/p fall. TECHNIQUE: 2D digital imaging was performed of the left elbow. Three views were obtained. AP, late ral and oblique views were obtained. COMPARISON: No exams were available for comparison FINDINGS: BONES: No acute fracture is present. No bony destructive lesion is seen. JOINTS: The elbow is normally aligned. No joint effusion is seen. SOFT TISSUE: Normal. IMPRESSION: No acute fracture or dislocation. DATA REPOSITORY: RADIATION DOSE DELIVERED:
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
[2021-03-14 11:59] VITALS: BP 122/59; PULSE 65; TEMP 36.8; O2SAT 99
[2021-03-14 14:22] VITALS: BP 130/61; PULSE 71; RESP 17; TEMP 36.3; O2SAT 100
== END 2021-03-14 14:10 | disposition home or self-care (01) ==
PROVIDERS: Emergency Provider Emergency Medicine; PCP Physician Assistant
DX: S30.0XXA Contusion of lower back and pelvis, initial encounter (principal); S80.12XA Contusion of left lower leg, initial encounter; S63.592A Other specified sprain of left wrist, initial encounter; S63.591A Other specified sprain of right wrist, initial encounter; S09.8XXA Other specified injuries of head, initial encounter; W01.198A Fall on same level from slipping, tripping and stumbling with subsequent striking against other object, initial encounter; Z79.01 Long term (current) use of anticoagulants
CPT/HCPCS: 99284; 70450; 72220; 73080; 73110; 73590; 99285

== ENCOUNTER 2021-04-04 11:25 | Emergency (ER) | payer MEDICARE, MEDICAID, SELFPAY ==
--- NOTE | 2021-04-04 11:30 | RT.EKG_ITS ---
APPROVED REPORT Exam: Resting ECG Reason for Exam: sob Patient Location: E HR:72 bpm ECG Measurements Heart Rate 72 AXIS MT 213 P 27 QRSd 110 QRS 3 QT 408 T 25 QTc 448 Conclusion Sinus rhythm...normal P axis, V-rate 60- 99 Borderline prolonged MT interval.
[2021-04-04 11:33] VITALS: BP 157/74; PULSE 86; RESP 18; TEMP 35.8; O2SAT 96
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
[2021-04-04 11:45] VITALS: BP 136/77; PULSE 81; RESP 21; O2SAT 96
--- NOTE | 2021-04-04 11:45 | DI.CT_ITS ---
Exam(s) CT HEAD WO EXAM: CT HEAD WO CLINICAL HISTORY: fall injury, anticoagulated. TECHNIQUE: Imaging Protocol: Axial computed tomography images with coronal and sagittal reformatted images were created and reviewed COMPARISON: MR MR BRAIN WO from 09/07/[address] HEAD WO from 03/14/2021 FINDINGS: There is mild generalized cerebral atrophy and there is apparent atrophy of the frontal aspects of b oth temporal lobes. Alternatively, this finding could be due to middle fossa arachnoid cyst. Prior MR study of August 2019 showed similar findings, the findings were thought to be due to arachnoid cyst a t that time. No evidence of acute intracranial hemorrhage, mass effect, or midline shift. The orbital structures are unremarkable. The temporal bone structures appear intact. Calvarium: Normal. Visualized Paranasal sinuses/Mastoids: Clear. IMPRESSION: No evidence of acute intracranial process. RADIATION DOSE DELIVERED: 803.05mGy.cm Total DLP 803.05mGy.cm Total DLP CTDIvol DATA REPOSITORY: All CT scans at this facility are submitted to the National Radiology Data Registry (NRDR) Dose Index Registry (DIR) with the [employer] (A[employer]). RADIATION OPTIMIZATION: All CT scans at this facility use at least one of these dose optimization te chniques: automated exposure control; mA and/or kV adjustment per patient size (includes targeted exa ms where dose is matched to clinical indication); or iterative reconstruction.
[2021-04-04 12:00] VITALS: BP 146/56; PULSE 75; RESP 17; O2SAT 96
[2021-04-04 12:15] LABS: Source Nasal/Nares
[2021-04-04 12:37] LABS: Abs Immature Grans 0.03 10^3/uL (0.0-0.06); Absolute Basophil Count 0.06 10^3/uL (0.0-0.2); Absolute Eosinophil Count 0.13 10^3/uL (0.0-0.7); Absolute Lymphocyte Count 2.35 10^3/uL (1.2-3.4); Absolute Neutrophil Count 4.82 10^3/uL (1.2-6.7); Basophils % 0.8; Eosinophils % 1.7; HGB 11.2 g/dL (11.2-15.7); Immature Grans % 0.4; Lymphocytes % 30.2; MCH 29.9 pg (27.0-33.0); MCHC 33.9 % (32.0-36.0); MCV 88.2 fL (80-95); MPV 10.7 fL (8.0-11.0); Monocytes % 5.1; Neutrophils % 61.8; Nucleated RBC 0 %; Platelet Count 210 10^3/uL (130-400); RBC 3.74 10^6/uL (3.93-5.22); RDW 13.5 % (11.7-14.6); RDW-SD 43.9 fL; WBC 7.79 10^3/uL (4.4-10.8)
[2021-04-04 12:54] LABS: ALT 38 U/L (14-59); AST 26 U/L (15-37); Albumin 3.3 g/dL (3.4-5.0); Alkaline Phosphatase 154 U/L (46-116); Anion Gap 8.5 mmol/L (3-11); BUN 15 mg/dL (7-18); Bilirubin, Total 0.5 mg/dL (0.2-1.0); CO2 27.5 mmol/L (21.0-32.0); Calcium 8.4 mg/dL (8.5-10.1); Chloride 103 mmol/L (98-107); Estimated GFR 55.64 (mL/min/1.73m2); Glucose 199 mg/dL (74-106); Potassium 3.2 mmol/L (3.5-5.1); Sodium 139 mmol/L (136-145); Total Protein 7.1 g/dL (6.4-8.2)
[2021-04-04 12:55] LABS: Troponin I < 0.05 ng/mL (<0.06)
[2021-04-04 13:00] LABS: Magnesium 1.6 mg/dL (1.8-2.4); NT-proBNP 93 pg/mL (<300)
[2021-04-04 13:06] LABS: INR 2.3 (0.9-1.1); PTT Activated 36.5 sec (21.0-27.5); Prothrombin Time 22.6 sec (9.3-11.0)
[2021-04-04 13:07] LABS: COVID-19 PCR Negative (Negative)
--- NOTE | 2021-04-04 13:41 | DI.CT_ITS ---
Exam(s) CT CHEST PE CTA EXAM: CT CHEST PE CTA CLINICAL HISTORY: sob, hx of pe. TECHNIQUE: Imaging Protocol: Axial CT angiography was performed with multi-slice acquisition and mu lti-planar and/or 3D reconstructions. CONTRAST MATERIAL: Intravenous: Omnipaque 350 Contrast volume:structured data in ml COMPARISON: CT CT CHEST PE CTA from 08/07/2020 FINDINGS: CT angiography of the chest was performed with intravenous infusion of 100 cc of Omnipaque 350. The lungs are clear. No pleural effusion. Tracheobronchial tree appears intact. There is limited visualization of branch pulmonary arterial circulation secondary to motion artifact. However no major pulmonary embolism is identified. Thoracic aorta is of normal diameter, no thorac ic aortic aneurysm or dissection, major branch vessels appear intact. No mediastinal or hilar adenopathy. Images obtained through the upper abdomen show unremarkable appearance of the visualized portions of the liver, or spleen. IMPRESSION: Somewhat limited scan shows no evidence of pulmonary embolic disease. RADIATION DOSE DELIVERED: 677.07mGy.cm Total DLP 677.07mGy.cm Total DLP CTDIvol DATA REPOSITORY: All CT scans at this facility are submitted to the National Radiology Data Registry (NRDR) Dose Index Registry (DIR) with the [employer] (ACR). RADIATION OPTIMIZATION: All CT scans at this facility use at least one of these dose optimization te chniques: automated exposure control; mA and/or kV adjustment per patient size (includes targeted exa ms where dose is matched to clinical indication); or iterative reconstruction.
[2021-04-04] MEDS: Normal Saline - Diluent 50 ML VIAL IV (13:46)
[2021-04-04] MEDS: Omnipaque 350 MG/ML 100 ML BTL IJ (13:47)
[2021-04-04] MEDS: MAGNESIUM SULFATE 1 GM/100 ML BAG IVPB (13:49)
[2021-04-04] MEDS: Potassium Chloride 20 MEQ TABCR 40 MEQ PO (13:50)
== END 2021-04-04 14:53 | disposition home or self-care (01) ==
PROVIDERS: Emergency Provider Physician Assistant; PCP Physician Assistant
DX: R06.00 Dyspnea, unspecified (principal); E87.6 Hypokalemia; E83.42 Hypomagnesemia; R06.02 Shortness of breath
CPT/HCPCS: 36415; 71275; 80053; 87635; 93005; 96365; 99285; 70450; 83735; 83880; 84484; 85025; 85610; 85730; 93010; 99284; J3475; J3490

== ENCOUNTER 2021-04-18 01:03 | Outpatient (CLI) | payer MEDICARE, MEDICAID, SELFPAY ==
--- NOTE | 2021-04-18 | DI.RAD_ITS ---
Exam(s) XR HIP RT COMPLETE AP PELVIS EXAM: XR HIP RT COMPLETE AP PELVIS CLINICAL HISTORY: RT HIP PAIN, M25.551. TECHNIQUE: 2D digital imaging was performed of the right hip. Three images were obtained. AP pelvis and lateral right hip views were obtained. COMPARISON: No exams were available for comparison FINDINGS: BONES: No acute fracture is present. No bony destructive lesion is seen. JOINTS: No dislocation present. There are mild degenerative changes of the right hip with periarticul ar spurring and joint space narrowing. The sacroiliac joints and symphysis pubis are unremarkable. SOFT TISSUE: Normal. IMPRESSION: Mild degenerative changes of the right hip. DATA REPOSITORY: RADIATION DOSE DELIVERED:
== END 2021-04-18 01:23 ==
PROVIDERS: PCP Physician Assistant; Visit Provider Physician Assistant
DX: M25.551 Pain in right hip (principal); M16.11 Unilateral primary osteoarthritis, right hip
CPT/HCPCS: 73502

== ENCOUNTER 2021-05-09 13:08 | Outpatient (REF) | payer MEDICARE, MEDICAID, SELFPAY ==
[2021-05-09 15:15] LABS: HCT 35.9 % (36.0-46.0); HGB 12.2 g/dL (11.2-15.7); MCH 29.7 pg (27.0-33.0); MCV 87.3 fL (80-95); MPV 11.7 fL (8.0-11.0); Platelet Count 272 10^3/uL (130-400); RBC 4.11 10^6/uL (3.93-5.22); RDW 13.5 % (11.7-14.6); RDW-SD 43.3 fL; WBC 8.53 10^3/uL (4.4-10.8)
[2021-05-09 16:08] LABS: BUN 16 mg/dL (7-18); CREATININE 0.9 mg/dL (0.55-1.02); Calcium 8.4 mg/dL (8.5-10.1); Glucose 178 mg/dL (74-106)
[2021-05-09 16:09] LABS: ALT 40 U/L (14-59); AST 36 U/L (15-37); Albumin 3.7 g/dL (3.4-5.0); Alkaline Phosphatase 143 U/L (46-116); Bilirubin, Total 0.4 mg/dL (0.2-1.0); Chloride 103 mmol/L (98-107); Cholesterol 146 mg/dL (<200); HDL Cholesterol 29 mg/dL (40-60); Potassium 3.5 mmol/L (3.5-5.1); Sodium 140 mmol/L (136-145); Total Protein 7.1 g/dL (6.4-8.2); Triglyceride 675 mg/dL (<150)
[2021-05-09 17:00] LABS: LDL CHOLESTEROL 38 mg/dL (<100)
[2021-05-09 17:01] LABS: COMMENT (LAB VIEW ONLY) 193.71 mg/dL; Microalb ug/mg Crea 160.3 ug/mg Cr
== END 2021-05-09 13:09 | disposition home or self-care (01) ==
LOC: NCHCN 13:08
PROVIDERS: PCP Physician Assistant; Visit Provider Physician Assistant
DX: E11.9 Type 2 diabetes mellitus without complications (principal); Z51.81 Encounter for therapeutic drug level monitoring
CPT/HCPCS: 80053; 80061; 83721; 85027; 82043; 82570; 83036

== ENCOUNTER 2021-07-03 18:37 | Outpatient (REF) | payer MEDICARE, MEDICAID, SELFPAY ==
[2021-07-03 15:39] LABS: INR 2.3 (0.9-1.1); Prothrombin Time 22.5 sec (9.3-11.0)
== END 2021-07-03 18:38 | disposition home or self-care (01) ==
LOC: NCHCN 18:37
PROVIDERS: PCP Physician Assistant; Visit Provider Family Medicine
DX: Z51.81 Encounter for therapeutic drug level monitoring (principal)
CPT/HCPCS: 85610

== ENCOUNTER 2021-07-10 10:09 | Outpatient (CLI) | payer MEDICARE, MEDICAID, SELFPAY ==
--- NOTE | 2021-07-10 10:00 | RT.EKG_ITS ---
APPROVED REPORT Exam: Resting ECG Reason for Exam: Patient Location: O HR:90 bpm ECG Measurements Heart Rate 90 AXIS TN 191 P -1 QRSd 101 QRS -16 QT 383 T 8 QTc 469 Conclusion Sinus rhythm...normal P axis, V-rate 50- 99 Left atrial enlargement...P, P'>60mS, <-0.15mV V1 Late transition
== END 2021-07-10 10:10 | disposition home or self-care (01) ==
LOC: DI.CARD 10:10
PROVIDERS: PCP Physician Assistant; Visit Provider Internal Medicine Cardiovascular Disease
DX: R07.9 Chest pain, unspecified (principal); I51.7 Cardiomegaly
CPT/HCPCS: 93010

== ENCOUNTER → 2021-07-10 13:37 | Outpatient (BNVA) | payer MEDICARE, MEDICAID, SELFPAY | PROVIDERS: PCP Physician Assistant; Referring Provider Physician Assistant; Visit Provider Internal Medicine Cardiovascular Disease | DX: R07.9 Chest pain, unspecified (principal); Z79.01 Long term (current) use of anticoagulants; Z86.711 Personal history of pulmonary embolism; R22.41 Localized swelling, mass and lump, right lower limb; E11.40 Type 2 diabetes mellitus with diabetic neuropathy, unspecified; Z79.4 Long term (current) use of insulin; G47.33 Obstructive sleep apnea (adult) (pediatric); I26.99 Other pulmonary embolism without acute cor pulmonale; E78.1 Pure hyperglyceridemia; I10 Essential (primary) hypertension | CPT/HCPCS: 36415; 80048; 80061; 85027; 93005; 99205; 99215; 82607; 84439; 84443; 85610; 85730 ==

== ENCOUNTER 2021-07-10 14:59 | Outpatient (CLI) | payer MEDICARE, MEDICAID, SELFPAY ==
[2021-07-10 14:53] LABS: HGB 12.4 g/dL (11.2-15.7); MCHC 34.4 % (32.0-36.0); MPV 10.4 fL (8.0-11.0); Platelet Count 224 10^3/uL (130-400); RBC 4.14 10^6/uL (3.93-5.22); RDW 13.5 % (11.7-14.6); RDW-SD 42.6 fL; WBC 6.18 10^3/uL (4.4-10.8)
[2021-07-10 15:07] LABS: PTT Activated 30.1 sec (21.0-27.5); Prothrombin Time 14.4 sec (9.3-11.0)
[2021-07-10 15:08] LABS: INR 1.4 (0.9-1.1)
[2021-07-10 16:35] LABS: Anion Gap 15.6 mmol/L (3-11); BUN 13 mg/dL (7-18); CO2 21.4 mmol/L (21.0-32.0); CREATININE 0.9 mg/dL (0.55-1.02); Calcium 8.3 mg/dL (8.5-10.1); Calculated LDL 0 mg/dL (<100); Chloride 99 mmol/L (98-107); Cholesterol 104 mg/dL (<200); Glucose 184 mg/dL (74-106); HDL Cholesterol 30 mg/dL (40-60); Potassium 3.7 mmol/L (3.5-5.1); Sodium 136 mmol/L (136-145); Triglyceride 372 mg/dL (<150)
[2021-07-10 16:50] LABS: Vitamin B12 303 pg/mL (193-986)
[2021-07-10 16:52] LABS: FREE T4 0.98 ng/dL (0.76-1.46)
== END 2021-07-10 15:00 | disposition home or self-care (01) ==
LOC: LBO 15:07
PROVIDERS: Psychiatry & Neurology Neurology; PCP Physician Assistant; Visit Provider Internal Medicine Cardiovascular Disease
DX: R22.41 Localized swelling, mass and lump, right lower limb (principal); M47.816 Spondylosis without myelopathy or radiculopathy, lumbar region; Z79.01 Long term (current) use of anticoagulants; Z86.711 Personal history of pulmonary embolism; E11.40 Type 2 diabetes mellitus with diabetic neuropathy, unspecified; Z79.4 Long term (current) use of insulin; G62.9 Polyneuropathy, unspecified; R41.3 Other amnesia
CPT/HCPCS: 36415; 80048; 80061; 85027; 82607; 84439; 84443; 85610; 85730

== ENCOUNTER 2021-07-17 15:38 | Emergency (ER) | payer MEDICARE, MEDICAID, SELFPAY ==
[2021-07-17] VITALS (32 sets, daily range): BP systolic 127–154; BP diastolic 45–126; PULSE 68–98; RESP 15–25; TEMP 36.4–37; O2SAT 92–97
--- NOTE | 2021-07-17 15:45 | RT.EKG_ITS ---
APPROVED REPORT Exam: Resting ECG Reason for Exam: chest discomfort Patient Location: E HR:89 bpm ECG Measurements Heart Rate 89 AXIS WV 205 P 8 QRSd 107 QRS 6 QT 380 T 12 QTc 464 Conclusion Sinus rhythm...normal P axis, V-rate 60- 99
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
[2021-07-17] MEDS: Normal Saline 250 ML 30 ML IV (17:04)
[2021-07-17 17:06] LABS: Abs Immature Grans 0.02 10^3/uL (0.0-0.06); Absolute Basophil Count 0.03 10^3/uL (0.0-0.2); Absolute Lymphocyte Count 2.56 10^3/uL (1.2-3.4); Absolute Monocyte Count 0.36 10^3/uL (0.1-0.8); Absolute Neutrophil Count 3.36 10^3/uL (1.2-6.7); Basophils % 0.5; Eosinophils % 1.6; HCT 37.2 % (36.0-46.0); HGB 12.5 g/dL (11.2-15.7); Immature Grans % 0.3; Lymphocytes % 39.8; MCH 29.5 pg (27.0-33.0); MCHC 33.6 % (32.0-36.0); MCV 87.7 fL (80-95); MPV 10.6 fL (8.0-11.0); Monocytes % 5.6; Neutrophils % 52.2; Nucleated RBC 0 %; Platelet Count 230 10^3/uL (130-400); RBC 4.24 10^6/uL (3.93-5.22); RDW 13.3 % (11.7-14.6); RDW-SD 42.8 fL; WBC 6.43 10^3/uL (4.4-10.8)
[2021-07-17] MEDS: WARFARIN 5 MG, WARFARIN 2.5 MG 7.5 MG PO (17:17)
[2021-07-17 17:23] LABS: ALT 32 U/L (14-59); AST 34 U/L (15-37); Albumin 3.4 g/dL (3.4-5.0); Alkaline Phosphatase 165 U/L (46-116); Anion Gap 13.7 mmol/L (3-11); BUN 21 mg/dL (7-18); Bilirubin, Total 0.5 mg/dL (0.2-1.0); CO2 22.3 mmol/L (21.0-32.0); Chloride 104 mmol/L (98-107); Estimated GFR 55.64 (mL/min/1.73m2); Glucose 180 mg/dL (74-106); Magnesium 1.7 mg/dL (1.8-2.4); Sodium 140 mmol/L (136-145); Total Protein 7.6 g/dL (6.4-8.2); Troponin I < 50 ng/L (<or=60)
[2021-07-17] MEDS: Potassium Chloride 20 MEQ TABCR PO (17:56)
== END 2021-07-17 19:15 | disposition home or self-care (01) ==
PROVIDERS: Emergency Provider Emergency Medicine; PCP Physician Assistant
DX: U07.1 COVID-19 (principal); E87.6 Hypokalemia; Z86.711 Personal history of pulmonary embolism; Z90.11 Acquired absence of right breast and nipple
CPT/HCPCS: 80053; 93005; 96360; 96361; 96365; 99284; Q0047; 83735; 84484; 85025; 93010

== ENCOUNTER → 2021-08-12 13:57 | Outpatient (BNVA) | payer MEDICARE, MEDICAID, SELFPAY | PROVIDERS: PCP Physician Assistant; Referring Provider Physician Assistant; Visit Provider Internal Medicine Cardiovascular Disease | DX: G47.33 Obstructive sleep apnea (adult) (pediatric) (principal); I10 Essential (primary) hypertension; Z51.81 Encounter for therapeutic drug level monitoring; Z79.01 Long term (current) use of anticoagulants; R07.9 Chest pain, unspecified; E66.9 Obesity, unspecified | CPT/HCPCS: 99213 ==

== ENCOUNTER 2021-09-12 10:14 | Emergency (ER) | payer MEDICARE, MEDICAID, SELFPAY ==
[2021-09-12] VITALS (47 sets, daily range): BP systolic 105–159; BP diastolic 51–96; PULSE 71–110; RESP 11–34; TEMP 36.7; O2SAT 92–99
--- NOTE | 2021-09-12 10:00 | RT.EKG_ITS ---
APPROVED REPORT Exam: Resting ECG Reason for Exam: chest pressure Patient Location: E HR:77 bpm ECG Measurements Heart Rate 77 AXIS ND 210 P 0 QRSd 107 QRS 15 QT 402 T 48 QTc 456 Conclusion Sinus rhythm...normal P axis, V-rate 60- 99 normal sinus rhythm, normal axis, non ischemic
--- NOTE | 2021-09-12 10:30 | DI.RAD_ITS ---
Exam(s) XR PORTABLE CHEST AP EXAM: XR PORTABLE CHEST AP CLINICAL HISTORY: cough, recent cardiac cath. TECHNIQUE: 2D digital imaging was performed. COMPARISON: CR XR CHEST 2V PA LATERAL from 08/09/2020 FINDINGS: LUNGS: Clear. No pleural abnormality seen. HEART: Normal. MEDIASTINUM: Normal. OTHER FINDINGS: None. IMPRESSION: No acute pulmonary findings. DATA REPOSITORY: RADIATION DOSE DELIVERED: Total DLP
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
[2021-09-12] MEDS: Aspirin 325 MG TAB PO (11:01)
[2021-09-12] MEDS: Dexamethasone 10 MG/ML VIAL IVP (11:03)
[2021-09-12] MEDS: Albuterol 2.5 MG/3 ML INH SOLN VIAL UPD (11:13)
[2021-09-12 11:19] LABS: Source Nasal/Nares
[2021-09-12 11:22] LABS: Abs Immature Grans 0.03 10^3/uL (0.0-0.06); Absolute Basophil Count 0.06 10^3/uL (0.0-0.2); Absolute Eosinophil Count 0.15 10^3/uL (0.0-0.7); Absolute Lymphocyte Count 2.52 10^3/uL (1.2-3.4); Absolute Neutrophil Count 4.43 10^3/uL (1.2-6.7); Basophils % 0.8; HCT 37.2 % (36.0-46.0); HGB 12.6 g/dL (11.2-15.7); Immature Grans % 0.4; Lymphocytes % 33.2; MCH 29.3 pg (27.0-33.0); MCHC 33.9 % (32.0-36.0); MCV 86.5 fL (80-95); MPV 10.5 fL (8.0-11.0); Monocytes % 5.3; Neutrophils % 58.3; Nucleated RBC 0 %; Platelet Count 260 10^3/uL (130-400); RDW 13.2 % (11.7-14.6); RDW-SD 41.2 fL; WBC 7.59 10^3/uL (4.4-10.8)
[2021-09-12 11:34] LABS: INR 1.2 (0.9-1.1); PTT Activated 25.9 sec (21.0-27.5)
[2021-09-12 11:43] LABS: ALT 37 U/L (14-59); AST 34 U/L (15-37); Albumin 3.5 g/dL (3.4-5.0); Alkaline Phosphatase 141 U/L (46-116); Anion Gap 13.5 mmol/L (3-11); BUN 16 mg/dL (7-18); Bilirubin, Total 0.6 mg/dL (0.2-1.0); CO2 25.5 mmol/L (21.0-32.0); CREATININE 0.9 mg/dL (0.55-1.02); Calcium 8.9 mg/dL (8.5-10.1); Chloride 103 mmol/L (98-107); Glucose 186 mg/dL (74-106); NT-proBNP 95 pg/mL (<300); Potassium 3.1 mmol/L (3.5-5.1); Sodium 142 mmol/L (136-145); Total Protein 7.7 g/dL (6.4-8.2); Troponin I < 50 ng/L (<or=60)
[2021-09-12 12:25] LABS: BE (Venous) 2 mmol/L (-2-3); HCO3 (Venous) 26 mmol/L (23-28); O2 Sat (Venous) 87 %; TCO2 (Venous) 24 mmol/L (24-29); pCO2 (Venous) 41 mmHg (41-51); pH (Venous) 7.41 (7.31-7.41); pO2 (Venous) 49 mmHg
[2021-09-12 13:45] LABS: COVID-19 PCR Negative (Negative)
[2021-09-12 14:07] LABS: Troponin I < 50 ng/L (<or=60)
--- NOTE | 2021-09-12 16:35 | NUR.NOTE ---
I agree with George Clark's assessment, treatment and documentation
== END 2021-09-12 14:42 | disposition home or self-care (01) ==
PROVIDERS: Emergency Provider Emergency Medicine; PCP Physician Assistant
DX: R05.1 Acute cough (principal); R07.9 Chest pain, unspecified; R07.89 Other chest pain; I10 Essential (primary) hypertension; Z79.01 Long term (current) use of anticoagulants; R06.00 Dyspnea, unspecified; Z20.822 Contact with and (suspected) exposure to COVID-19
CPT/HCPCS: 36415; 36416; 80053; 82805; 82962; 87635; 93005; 96374; 99284; U0005; 71045; 83880; 84484; 85025; 85610; 85730; 93010; J1100; J7613

== ENCOUNTER 2022-01-30 13:50 | Emergency (ER) | payer MEDICARE, MEDICAID, SELFPAY ==
--- NOTE | 2022-01-30 13:45 | RT.EKG_ITS ---
APPROVED REPORT Exam: Resting ECG Reason for Exam: SOB Patient Location: E HR:80 bpm ECG Measurements Heart Rate 80 AXIS MI 222 P 16 QRSd 106 QRS -5 QT 419 T 30 QTc 484 Conclusion Sinus rhythm...normal P axis, V-rate 60- 99 Prolonged MI interval...MI >220, V-rate 50- 90 Probable left atrial enlargement...P >50mS, <-0.10mV V1. Sinus. No STEMI. I have reviewed and interpreted ECG and agree with software generated interpretation.
[2022-01-30 14:26] VITALS: BP 139/85; PULSE 74; TEMP 36.6; O2SAT 96
--- NOTE | 2022-01-30 14:30 | DI.CT_ITS ---
Exam(s) CT CHEST PE CTA EXAM: CT CHEST PE CTA CLINICAL HISTORY: Shortness of breath, low INR, history of PE. TECHNIQUE: Imaging Protocol: Axial CT angiography was performed with multi-slice acquisition and mu lti-planar and/or 3D reconstructions. CONTRAST MATERIAL: Intravenous: Omnipaque 350 contrast volume:100 mL COMPARISON: CT CT CHEST PE CTA from 04/04/2021 FINDINGS: Tracheobronchial tree: Patent where visualized. Pulmonary parenchyma: No consolidation or dominant measurable mass. No architectural distortion. Pulmonary Arteries: There is suboptimal opacification of the peripheral pulmonary arteries. No large central pulmonary embolus is identified. Mediastinum and Myla: No dominant adenopathy or fluid collection. The esophagus is unremarkable. Visualized thyroid gland: Unremarkable. Pleura: No effusion or pneumothorax. Heart: Mild cardiomegaly. Mild coronary artery calcification. No evidence of right heart strain. N o pericardial effusion. Aorta: Thoracic aorta non-dilated. No evidence of dissection. Upper abdomen: Unremarkable. Soft tissues: Unremarkable. Bones: Within normal limits for the patient's age. IMPRESSION: 1. Examination is suboptimal for pulmonary emboli evaluation due to poor opacification. No large emb olus is seen in the main or right or left pulmonary arteries. If there is continued concern, a repea t examination should be considered. 2. No evidence of thoracic aortic aneurysm or dissection. 3. No evidence of right heart strain. 4. Results of this exam have been verbally communicated with provider. RADIATION DOSE DELIVERED: 612.5mGy.cm Total DLP DATA REPOSITORY: All CT scans at this facility are submitted to the National Radiology Data Registry (NRDR) Dose Index Registry (DIR) with the [employer] (A[employer]). RADIATION OPTIMIZATION: All CT scans at this facility use at least one of these dose optimization te chniques: automated exposure control; mA and/or kV adjustment per patient size (includes targeted exa ms where dose is matched to clinical indication); or iterative reconstruction.
--- NOTE | 2022-01-30 14:30 | DI.US_ITS ---
Exam(s) US EXTREMITY VENOUS BI EXAM: US EXTREMITY VENOUS BI CLINICAL HISTORY: arm pain hx of PE. TECHNIQUE: Ultrasound examination of the Bilateral upper extremity venous system(s) is performed usi ng grayscale, color-flow, and spectral Doppler analysis. COMPARISON: No exams were available for comparison FINDINGS: The Bilateral internal jugular, axillary, subclavian, cephalic, basilic, brachial, radial, median cub ital and ulnar veins are patent without evidence of thrombosis. IMPRESSION: 1. Right: Negative for DVT. 2. Left: Negative for DVT. 3. Results of this exam have been verbally communicated with provider. DATA REPOSITORY:
--- NOTE | 2022-01-30 14:30 | DI.US_ITS ---
Exam(s) US LOWER EXTREMITY VENOUS LT EXAM: US LOWER EXTREMITY VENOUS LT CLINICAL HISTORY: calf pain TECHNIQUE: Left lower extremity venous ultrasound performed using grayscale, color-flow, and spectra l Doppler analysis. COMPARISON: No exams were available for comparison FINDINGS: The left common femoral, femoral and popliteal veins demonstrate normal compressibility, augmentation , and color Doppler. The posterior tibial veins are patent. The saphenofemoral junction is unremarka ble. There is no evidence of a Mcdonnell cyst. The soft tissues are unremarkable. IMPRESSION: 1. No evidence of a left lower extremity DVT. 2. Results of this exam have been verbally communicated with provider. DATA REPOSITORY:
[2022-01-30 14:53] LABS: Abs Immature Grans 0.02 10^3/uL (0.0-0.06); Absolute Eosinophil Count 0.13 10^3/uL (0.0-0.7); Absolute Lymphocyte Count 2.35 10^3/uL (1.2-3.4); Absolute Monocyte Count 0.35 10^3/uL (0.1-0.8); Absolute Neutrophil Count 3.77 10^3/uL (1.2-6.7); Basophils % 1.5; Eosinophils % 1.9; HCT 38.5 % (36.0-46.0); HGB 13.2 g/dL (11.2-15.7); Immature Grans % 0.3; MCH 29.5 pg (27.0-33.0); MCHC 34.3 % (32.0-36.0); MCV 86 fL (80-95); MPV 10.8 fL (8.0-11.0); Monocytes % 5.2; Neutrophils % 56.1; Platelet Count 220 10^3/uL (130-400); RBC 4.47 10^6/uL (3.93-5.22); RDW-SD 40.3 fL; WBC 6.72 10^3/uL (4.4-10.8)
[2022-01-30 15:07] LABS: INR 2.2 (0.9-1.1); PTT Activated 34.3 sec (21.0-27.5); Prothrombin Time 20.7 sec (9.3-11.0)
[2022-01-30 15:15] LABS: ALT 38 U/L (14-59); AST 37 U/L (15-37); Albumin 3.6 g/dL (3.4-5.0); Alkaline Phosphatase 123 U/L (46-116); Anion Gap 12.2 mmol/L (3-11); BUN 16 mg/dL (7-18); Bilirubin, Total 0.6 mg/dL (0.2-1.0); CO2 25.8 mmol/L (21.0-32.0); Calcium 8.8 mg/dL (8.5-10.1); Chloride 101 mmol/L (98-107); Estimated GFR 55.47 (mL/min/1.73m2); Glucose 159 mg/dL (74-106); Magnesium 1.7 mg/dL (1.8-2.4); NT-proBNP 129 pg/mL (<300); Potassium 3.2 mmol/L (3.5-5.1); Sodium 139 mmol/L (136-145); Total Protein 7.5 g/dL (6.4-8.2); Troponin I < 50 ng/L (<or=60)
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
[2022-01-30] MEDS: Omnipaque 350 MG/ML 100 ML BTL IJ (16:23)
[2022-01-30] MEDS: POTASSIUM CHLORIDE 20 MEQ, POTASSIUM CHLORIDE 10 MEQ 30 MEQ PO (16:36)
[2022-01-30] MEDS: Magnesium Oxide 400 MG TAB PO (16:36)
[2022-01-30 16:38] LABS: Source Nasal/Nares
[2022-01-30 17:30] LABS: COVID-19 PCR Negative (Negative)
[2022-01-30] MEDS: Albuterol HFA 8 GM 60 PUFF INH IH (17:35)
[2022-01-30 17:55] VITALS: BP 142/94; PULSE 74; RESP 18; TEMP 36.5; O2SAT 94
== END 2022-01-30 17:56 | disposition home or self-care (01) ==
PROVIDERS: Nurse Practitioner Family; Emergency Provider Physician Assistant; PCP Physician Assistant
DX: R06.00 Dyspnea, unspecified (principal); R79.1 Abnormal coagulation profile; E66.01 Morbid (severe) obesity due to excess calories; E87.6 Hypokalemia; E83.42 Hypomagnesemia; E11.9 Type 2 diabetes mellitus without complications; G47.00 Insomnia, unspecified; Z20.822 Contact with and (suspected) exposure to COVID-19; Z68.43 Body mass index [BMI] 50.0-59.9, adult; Z79.4 Long term (current) use of insulin; Z86.73 Personal history of transient ischemic attack (TIA), and cerebral infarction without residual deficits; Z86.711 Personal history of pulmonary embolism; Z87.891 Personal history of nicotine dependence; Z79.01 Long term (current) use of anticoagulants
CPT/HCPCS: 36415; 71275; 80053; 87635; 93005; 99285; 83735; 83880; 84484; 85025; 85610; 85730; 87081; 93010; 93970; 93971; J3490

== ENCOUNTER 2022-02-05 15:52 | Outpatient (REF) | payer MEDICARE, MEDICAID, SELFPAY ==
[2022-02-05 16:55] LABS: ALT 37 U/L (14-59); AST 45 U/L (15-37); Albumin 3.8 g/dL (3.4-5.0); Alkaline Phosphatase 129 U/L (46-116); Anion Gap 10.9 mmol/L (3-11); BUN 18 mg/dL (7-18); Bilirubin, Total 0.7 mg/dL (0.2-1.0); CO2 26.1 mmol/L (21.0-32.0); CREATININE 0.9 mg/dL (0.55-1.02); Calcium 9.4 mg/dL (8.5-10.1); Chloride 103 mmol/L (98-107); Glucose 159 mg/dL (74-106); Potassium 3.5 mmol/L (3.5-5.1); Sodium 140 mmol/L (136-145)
[2022-02-05 17:20] LABS: D-Dimer 186 ng/mlFEU (<500)
== END 2022-02-05 15:53 | disposition home or self-care (01) ==
LOC: NCHCN 15:52
PROVIDERS: PCP Physician Assistant; Visit Provider Nurse Practitioner Family
DX: R06.09 Other forms of dyspnea (principal); Z86.711 Personal history of pulmonary embolism
CPT/HCPCS: 80053; 85379

== ENCOUNTER 2022-02-16 09:23 | Emergency (ER) | payer MEDICARE, MEDICAID, SELFPAY ==
[2022-02-16] VITALS (16 sets, daily range): BP systolic 164; BP diastolic 104; PULSE 85; RESP 16; TEMP 36; O2SAT 95–97
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
[2022-02-16 10:08] LABS: Abs Immature Grans 0.02 10^3/uL (0.0-0.06); Absolute Basophil Count 0.06 10^3/uL (0.0-0.2); Absolute Eosinophil Count 0.11 10^3/uL (0.0-0.7); Absolute Monocyte Count 0.36 10^3/uL (0.1-0.8); Absolute Neutrophil Count 3.11 10^3/uL (1.2-6.7); Basophils % 1.1; Eosinophils % 1.9; HCT 39.6 % (36.0-46.0); HGB 13.5 g/dL (11.2-15.7); Immature Grans % 0.4; Lymphocytes % 35.3; MCH 29.5 pg (27.0-33.0); MCHC 34.1 % (32.0-36.0); MCV 87 fL (80-95); MPV 10.8 fL (8.0-11.0); Monocytes % 6.4; Neutrophils % 54.9; Platelet Count 209 10^3/uL (130-400); RBC 4.58 10^6/uL (3.93-5.22); RDW 13.2 % (11.7-14.6); WBC 5.66 10^3/uL (4.4-10.8)
[2022-02-16 10:22] LABS: ALT 33 U/L (14-59); AST 35 U/L (15-37); Albumin 3.4 g/dL (3.4-5.0); Alkaline Phosphatase 118 U/L (46-116); Anion Gap 13.4 mmol/L (3-11); BUN 15 mg/dL (7-18); Bilirubin, Total 0.7 mg/dL (0.2-1.0); CO2 23.6 mmol/L (21.0-32.0); Calcium 8.3 mg/dL (8.5-10.1); Chloride 103 mmol/L (98-107); Estimated GFR 55.47 (mL/min/1.73m2); Glucose 196 mg/dL (74-106); Magnesium 1.6 mg/dL (1.8-2.4); Potassium 3.1 mmol/L (3.5-5.1); Sodium 140 mmol/L (136-145); Total Protein 7.5 g/dL (6.4-8.2)
[2022-02-16 10:24] LABS: INR 2.8 (0.9-1.1); PTT Activated 39.9 sec (21.0-27.5); Prothrombin Time 26.7 sec (9.3-11.0)
[2022-02-16 10:42] LABS: D-Dimer 251 ng/mlFEU (<500)
[2022-02-16] MEDS: Potassium Chloride Liquid 20 MEQ PKT PO (10:54)
--- NOTE | 2022-02-16 11:00 | DI.RAD_ITS ---
Exam(s) XR CHEST 1V IN DI DEPT EXAM: XR CHEST 1V IN DI DEPT CLINICAL HISTORY: Cough TECHNIQUE: 2D digital imaging was performed of the chest. One image was obtained. An AP view was ob tained. COMPARISON: CR XR PORTABLE CHEST AP from 09/12/2021 FINDINGS: MEDIASTINUM: Normal. HEART: Normal. PULMONARY VASCULATURE: Normal. LUNGS: Clear. PLEURAL SPACE: No pleural effusion or pneumothorax. BONE:Within normal limits for the patient's age. OTHER FINDINGS:Normal. IMPRESSION: No acute pulmonary findings. DATA REPOSITORY: RADIATION DOSE DELIVERED:
--- NOTE | 2022-02-16 11:35 | NUR.NOTE ---
Nursing Note: patient informed provider that she will have her daughter get the restaurant district manager to amanda if she dies of a P.E. if we do not work her up for one.
--- NOTE | 2022-02-16 11:52 | DI.CT_ITS ---
Exam(s) CT HEAD WO EXAM: CT HEAD WO CLINICAL HISTORY: HEadache, forgetful. TECHNIQUE: Imaging Protocol: Axial computed tomography images with coronal and sagittal reformatted images were created and reviewed COMPARISON: CT CT HEAD WO from 04/04/2021 FINDINGS: Ventricles and Extra axial spaces: Normal in size and morphology for the patient's age. Hemorrhage: None. Cerebral parenchyma: Normal. Stable appearance of the middle cranial fossa bilaterally. These areas may represent small unchanged arachnoid cysts. Midline shift: None. Brainstem/Cerebellum: Normal. Calvarium: Normal. Visualized Paranasal sinuses/Mastoids: Clear. Soft Tissues: Unremarkable. IMPRESSION: 1. No acute intracranial process. 2. Results of this exam have been verbally communicated with provider. RADIATION DOSE DELIVERED: 796.13mGy.cm Total DLP DATA REPOSITORY: All CT scans at this facility are submitted to the National Radiology Data Registry (NRDR) Dose Index Registry (DIR) with the [employer] (ACR). RADIATION OPTIMIZATION: All CT scans at this facility use at least one of these dose optimization te chniques: automated exposure control; mA and/or kV adjustment per patient size (includes targeted exa ms where dose is matched to clinical indication); or iterative reconstruction.
--- NOTE | 2022-02-16 13:07 | NUR.NOTE ---
Nursing Note: Referral faxed to [facility] for hoarseness voice for weeks; to be seen in 3 to 4 weeks.
--- NOTE | 2022-02-17 09:09 | PDOC.ERCMACT ---
- If Service Date Differs Date of service: 02/17/22 Time of Service: 09:09 Care Management Activity Note Shani is seen in the ED for voice hoarseness. At the request of ED provider, VIVIANE coordinates a referral to otolaryngology to assist Shani in obtaining a follow up visit in 3 - 4 weeks for further evaluation and treatment.
[2022-02-18 15:09] LABS: COVID-19 RT-PCR UVMMC Result Presumptive Positive (Negative)
== END 2022-02-16 13:30 | disposition home or self-care (01) ==
PROVIDERS: Emergency Provider Emergency Medicine; PCP Physician Assistant
DX: R49.0 Dysphonia (principal); U07.1 COVID-19; R51.9 Headache, unspecified; I26.99 Other pulmonary embolism without acute cor pulmonale; E87.6 Hypokalemia; E11.9 Type 2 diabetes mellitus without complications; Z79.4 Long term (current) use of insulin; Z86.73 Personal history of transient ischemic attack (TIA), and cerebral infarction without residual deficits; Z87.891 Personal history of nicotine dependence
CPT/HCPCS: 80053; 99284; U0003; 70450; 71045; 83735; 85025; 85379; 85610; 85730; 87081

== ENCOUNTER 2022-05-26 13:47 | Outpatient (REF) | payer MEDICARE, MEDICAID, SELFPAY ==
[2022-05-26 15:43] LABS: Anion Gap 13.3 mmol/L (3-11); BUN 17 mg/dL (7-18); CO2 22.7 mmol/L (21.0-32.0); Calcium 8.7 mg/dL (8.5-10.1); Chloride 100 mmol/L (98-107); Estimated GFR 62.13 (mL/min/1.73m2); Glucose 170 mg/dL (74-106); Magnesium 1.7 mg/dL (1.8-2.4); Potassium 3.4 mmol/L (3.5-5.1); Sodium 136 mmol/L (136-145)
== END 2022-05-26 13:48 | disposition home or self-care (01) ==
LOC: NCHCN 13:47
PROVIDERS: PCP Physician Assistant; Visit Provider Physician Assistant
DX: I10 Essential (primary) hypertension (principal); E87.6 Hypokalemia
CPT/HCPCS: 80048; 83735

== ENCOUNTER 2022-06-30 12:16 | Emergency (ER) | payer MEDICARE, MEDICAID, SELFPAY ==
[2022-06-30] VITALS (57 sets, daily range): BP systolic 111–163; BP diastolic 77–138; PULSE 66–95; RESP 13–27; TEMP 36.7; O2SAT 92–98
--- NOTE | 2022-06-30 12:15 | DI.RAD_ITS ---
Exam(s) XR PORTABLE CHEST AP EXAM: XR PORTABLE CHEST AP CLINICAL HISTORY: chest pain/sob. TECHNIQUE: 2D digital imaging was performed. COMPARISON: CR XR CHEST 1V IN DI DEPT from 02/16/2022 FINDINGS: Single AP portable view. Heart size is upper normal. The mediastinum is not widened. Lungs are clear. No infiltrates nor obvious pleural effusions. IMPRESSION: No acute pulmonary findings on this single AP portable view of the chest. DATA REPOSITORY: RADIATION DOSE DELIVERED:
--- NOTE | 2022-06-30 12:15 | RT.EKG_ITS ---
APPROVED REPORT Exam: Resting ECG Reason for Exam: chest pain Patient Location: E HR:82 bpm ECG Measurements Heart Rate 82 AXIS ID 202 P 6 QRSd 106 QRS -1 QT 393 T 32 QTc 459 Conclusion Sinus rhythm...normal P axis, V-rate 60- 99
[2022-06-30 12:57] LABS: Abs Immature Grans 0.01 10^3/uL (0.0-0.06); Absolute Basophil Count 0.08 10^3/uL (0.0-0.2); Absolute Eosinophil Count 0.14 10^3/uL (0.0-0.7); Absolute Lymphocyte Count 2.51 10^3/uL (1.2-3.4); Absolute Monocyte Count 0.34 10^3/uL (0.1-0.8); Absolute Neutrophil Count 4.27 10^3/uL (1.2-6.7); Basophils % 1.1; Eosinophils % 1.9; HCT 45.2 % (36.0-46.0); HGB 15.5 g/dL (11.2-15.7); Immature Grans % 0.1; Lymphocytes % 34.1; MCH 29.8 pg (27.0-33.0); MCHC 34.3 % (32.0-36.0); MCV 87 fL (80-95); MPV 10.2 fL (8.0-11.0); Monocytes % 4.6; Neutrophils % 58.2; Platelet Count 263 10^3/uL (130-400); RBC 5.21 10^6/uL (3.93-5.22); RDW 13.4 % (11.7-14.6); RDW-SD 42.5 fL; WBC 7.35 10^3/uL (4.4-10.8)
[2022-06-30] MEDS: Normal Saline Flush 10 ML SYR IVP (12:57)
[2022-06-30 13:18] LABS: ALT 45 U/L (14-59); AST 44 U/L (15-37); Albumin 4.1 g/dL (3.4-5.0); Alkaline Phosphatase 168 U/L (46-116); Anion Gap 8.3 mmol/L (3-11); BUN 14 mg/dL (7-18); Bilirubin, Total 0.7 mg/dL (0.2-1.0); CO2 24.7 mmol/L (21.0-32.0); CREATININE 1.1 mg/dL (0.55-1.02); Calcium 9.1 mg/dL (8.5-10.1); Chloride 105 mmol/L (98-107); Estimated GFR 55.42 (mL/min/1.73m2); Glucose 185 mg/dL (74-106); Magnesium 1.9 mg/dL (1.8-2.4); NT-proBNP 44 pg/mL (<300); Sodium 138 mmol/L (136-145); Total Protein 8.6 g/dL (6.4-8.2); Troponin I < 50 ng/L (<or=60)
[2022-06-30 13:24] LABS: PTT Activated 47.3 sec (21.0-27.5); Prothrombin Time 40.2 sec (9.3-11.0)
[2022-06-30 13:40] LABS: INR 4.4 (0.9-1.1)
--- NOTE | 2022-06-30 13:45 | RT.EKG_ITS ---
APPROVED REPORT Exam: Resting ECG Reason for Exam: chest pain Patient Location: E HR:81 bpm ECG Measurements Heart Rate 81 AXIS CO 210 P -5 QRSd 108 QRS -13 QT 404 T 17 QTc 468 Conclusion Sinus rhythm. Probable left ventricular hypertrophy
[2022-06-30 14:02] LABS: COVID-19 PCR Negative (Negative); Influenza A PCR Negative (Negative); Influenza B PCR Negative (Negative); RSV PCR Negative (Negative)
[2022-06-30 14:03] LABS: Source Nasopharynx
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
[2022-06-30 14:21] LABS: D-Dimer 185 ng/mlFEU (<500)
[2022-06-30 16:38] LABS: Troponin I < 50 ng/L (<or=60)
== END 2022-06-30 18:24 | disposition home or self-care (01) ==
PROVIDERS: Nurse Practitioner Family; Emergency Provider Physician Assistant; PCP Physician Assistant
DX: R07.9 Chest pain, unspecified (principal); R06.02 Shortness of breath; R79.89 Other specified abnormal findings of blood chemistry; E11.9 Type 2 diabetes mellitus without complications; Z86.73 Personal history of transient ischemic attack (TIA), and cerebral infarction without residual deficits; Z86.711 Personal history of pulmonary embolism; Z79.01 Long term (current) use of anticoagulants; Z79.4 Long term (current) use of insulin; Z20.822 Contact with and (suspected) exposure to COVID-19
CPT/HCPCS: 80053; 87637; 93005; 94640; 99283; 99284; 71045; 83735; 83880; 84484; 85025; 85379; 85610; 85730; 93010; J3490

== ENCOUNTER 2022-07-10 00:46 | Outpatient (CLI) | payer MEDICARE, MEDICAID, SELFPAY ==
--- NOTE | 2022-07-10 | DI.MAMMO_ITS ---
Exam(s) MAMMO SCREENING EXAM: MAMMO SCREENING CLINICAL HISTORY: SCREENING, Z12.39 TECHNIQUE: Bilateral full field digital CC and MLO mammographic images were obtained with 3D tomosyn thesis and utilizing computer aided detection (CAD). COMPARISON: Available for comparison. FINDINGS: Masses/Architectural Distortion: None seen. Microcalcifications: No suspicious pleomorphic-type are seen. Skin Thickening/Nipple Retraction: None. IMPRESSION: 1. No significant interval change with no specific features of malignancy noted. 2. Unless there is more urgent need, screening mammography is recommended, as per [employer] guidelines. BI-RADS Category 1 - Negative Breast Density - Category B - Scattered areas of fibroglandular density Breast density category C or D implies that the patient has dense breast tissue. Dense breast tissue is very common and is not abnormal but dense breast tissue can make it harder to find cancer on a ma mmogram. Also, dense breast tissue may increase their breast cancer risk. This information about the result of the mammogram report was provided to the patient to raise their awareness. Use this report when you speak with the patient about their risks for breast cancer, which includes their family hist ory. At that time, you may recommend for more screening tests (Ultrasound or MRI) as they might be us eful based on their risk. A negative radiographic report should not delay biopsy if a dominant or clinically suspicious mass is present. Up to ten percent of cancers are not identified on mammography. A negative report may reinforce clinical impression. Adenosis and dense breasts may obscure an underlying neoplasm. False positive reports average 6 to 10%. Patient will receive a letter notifying them of these results.
--- OUTSIDE RECORDS SUMMARY | 2022-07-10 00:50 | XMS_ITS ---
:1955 Author Organization [facility] Address [address] [place] [address] Care Team Providers Name Role Phone Thomas Mejia Unavailable Unavailable PROBLEMS Type Condition ICD9-CM [id number] Onset Condition SNOMED Cod e Code Code Dates Status Problem Hammertoe of left M20.42 Active 10 [id number] foot Problem Non-pressure L97.509 Active 3347995 08 chronic ulcer of other part of unspecified foot with unspecified severity Problem Non-pressure L97.521 Active chronic ulcer of other part of left foot limited to breakdown of skin Problem Diabetic E11.42 Active 274991779 polyneuropathy associated with type 2 diabetes mellitus Problem Left foot pain M79.672 Active 41581 3023197201 Problem Cellulitis of toe L03.032 Active 10 [id number] of left foot Problem Cellulitis of toe L03.031 Active 10 [id number] of right foot Problem Foot drop, left M21.372 Active 6077 001 Problem Ankle instability M25.373 Active 81 3001 Problem Diabetic E11.40 Active 4536339543 35935 neuropathy associated with type 2 diabetes mellitus Problem Pre-ulcerative L84 Active 02257 0000 calluses Problem Diabetic toe ulcer E11.621 Active Problem Difficulty walking R26.2 Active 2 09628547 due to ankle and foot joint Problem Blister of toe of S90.425A Active 54 591454 left foot Problem Hammertoe of M20.41 Active 4604565 346581264 second toe of right foot Problem Hammertoe M20.40 Active 513101377 Problem Toe ulcer due to E11.621 Active 152 0784364915 DM Problem Skin fissure R23.4 Active 9339305 9 Problem Encounter for E11.9 Active 801536 004 diabetic foot exam ALLERGIES Substance Reaction Event Type Date Status Bactrim DS stomach upset Drug Allergy Jan, Active Ampicillin Unknown Drug Allergy Jan, Active Augmentin Unknown Drug Allergy Jan, Active Amoxicillin thrush, throat closes Drug Allergy Jan, Acti ve ENCOUNTERS Encounter Location Date Diagnosis [facility] [address] Jan, [place] [address] exam E11.9 ; Diabetic toe ulcer E11.621 ; Cellulitis of toe of left f oot L03.032 and Blister of t oe of left foot S90.425A [facility] [address] Jan, [place] [address] exam E11.9 ; Diabetic toe ulcer E11.621 ; Cellulitis of toe of left f oot L03.032 and Blister of t oe of left foot S90.425A [facility] [address] Dec, [place] [address] exam E11.9 ; Diabetic toe ulcer E11.621 ; Cellulitis of toe of left f oot L03.032 and Blister of t oe of left foot S90.425A [facility] [address] Dec, [place] [address] exam E11.9 ; Diabetic toe ulcer E11.621 an d Cellulitis of to e of left foot L03.032 [facility] [address] Dec, [place] [address] exam E11.9 ; Diabetic toe ulcer E11.621 an d Cellulitis of to e of left foot L03.032 [facility] [address] Dec, [place]counter [place] [address] exam E11.9 ; Diabetic toe ulcer E11.621 an d Cellulitis of to e of left foot L03.032 [facility] [address] Dec, [place]counter [place] [address] exam E11.9 ; Diabetic toe ulcer E11.621 an d Cellulitis of to e of left foot L03.032 [facility] [address] Sep, [place] [address] [facility] [address] 07 Jul, 2019 Toe ulcer due to DM E11.621 [place] [address] ; Encounter for diabetic foot exam E11.9 ; Skin fissure R23.4 an d Diabetic neuropathy assoc iated with type 2 diabetes mellitus E11.40 [facility] [address] 16 Jun, 2019 Toe ulcer due to DM E11.621 [place] [address] ; Skin fiss ure R23.4 and Diabetic neuropa thy associated with type 2 diabetes mellitu s E11.40 [facility] [address] 07 Jun, 2019 Toe ulcer due to DM E11.621 [place] [address] ; Skin fiss ure R23.4 and Diabetic neuropa thy associated with type 2 diabetes mellitu s E11.40 [facility] [address] May, [place] [address] [facility] [address] Apr, Toe ulcer due to DM E11.621 [place] [address] ; Pre-ulcer ative calluses L84 ; Hammertoe M20.40 and Diabetic neuropa thy associated with type 2 diabetes mellitu s E11.40 [facility] [address] 15 Apr, 2019 Toe ulcer due to DM E11.621 [place] [address] ; Pre-ulcer ative calluses L84 ; Hammertoe M20.40 and Diabetic neuropa thy associated with type 2 diabetes mellitu s E11.40 [facility] [address] 12 Apr, 2019 [place] [address] [facility] [address] 04 Apr, 2019 Toe ulcer due to DM E11.621 [place] [address] ; Pre-ulcer ative calluses L84 ; Hammertoe M20.40 and Diabetic neuropa thy associated with type 2 diabetes mellitu s E11.40 [facility] [address] Mar, [place] [address] [facility] [address] Mar, [place] [address] [facility] [address] Mar, Toe ulcer due to DM E11.621 [place] [address] ; Pre-ulcer ative calluses L84 ; Hammertoe M20.40 and Diabetic neuropa thy associated with type 2 diabetes mellitu s E11.40 [facility] [address] Mar, [place] [address] [facility] [address] 30 Feb, 2019 Type 2 [place] [address] with foot u lcer E11.621 ; Encounter for di abetic foot exam E11.9 ; Luz betic polyneuropathy a ssociated with type 2 diab etes mellitus E11.42 ; Ankle instability M25. 373 and Difficulty walki due to ankle and foot j oint R26.2 [facility] Aug, Type 2 diabet es mellitus [address] [place] with foot ulcer E11.621 ; [address] Encounter for di abetic foot exam E11.9 and D iabetic polyneuropathy a ssociated with type 2 diab etes mellitus E11.42 [facility] [address] [facility] May, [place] [id number] [facility] [address] [facility] May, Type 2 diabet es mellitus [address] [place] with foot ulcer E11.621 ; [address] Encounter for di abetic foot exam E11.9 and D iabetic polyneuropathy a ssociated with type 2 diab etes mellitus E11.42 [facility] [address] Feb, Type 2 [place] [address] with foot u lcer E11.621 and Diabetic polyneu ropathy associated with type 2 diabetes mellitu s E11.42 [facility] [address] Feb, [place] [id number] [place] [facility] [address] [facility] Jan, [place] [id number] [facility] Jan, [place] [id number] [facility] Jan, [place] [id number] [facility] [facility] [address] [facility] Jan, Chest disc omfort R07.89 [place] [id number] [facility] Jan, [place] [id number] [facility] [address] Dec, [facility] [place] [id number] [address] [facility] [place] [place], [place] [id number] [facility] [address] [facility] Dec, [place] [id number] [facility] Dec, [place] [id number] [facility] [address] [facility] Dec, [place] [id number] Z51.81 [facility] [address] [facility] Dec, [place] [address] [facility] [address] [facility] Dec, [place] [address] [facility] Nov, [place] [id number] [facility] Nov, [place] [id number] CASE MANAGEMENT [address] [facility] Nov[place] [id number] [facility] Nov, [place] [id number] xxEMERGENCY ROOM [address] [facility] Nov, [place] [id number] [facility] [address] [facility] Nov, Type 2 [place] [address] with foot ul cer E11.621 [facility] Nov, Type 2 [place] [address] with foot ul cer E11.621 [facility] [address] Nov, [place] [address] xxOFFICE NON CLINICAL [address] [facility] Nov, [place] [id number] [facility] [address] October, [place] [address] [facility] October, Non-pressure chronic ulcer [address] [place] [address] unspecified foot with unspecified kolby rity L97.509 ; Encoun ter for diabetic foot ex am E11.9 ; Type 2 diabetes mellitus with foot ulcer E11.621 ; Diabetic polyneu ropathy associated with type 2 diabetes mellitu s E11.42 ; Hammertoe of sec ond toe of right foot M20.4 1 and Cellulitis of to e of right foot L03.031 [facility] Sep, Encounter for diabetic foot [address] [place] exam E11.9 ; Non-pressure [address] chronic ulcer of other part of unspecified f oot with unspecified kolby rity L97.509 ; Type 2 diabetes mellitus with fo ot ulcer E11.621 ; Diabet ic polyneuropathy a ssociated with type 2 diab etes mellitus E11.42 ; Hammertoe of second toe of right foot M20.41 and Cellu litis of toe of right delicia t L03.031 [facility] Sep, Non-pressure chronic ulcer [address] [place] [address] unspecified foot with unspecified kolby rity L97.509 ; Type 2 diabetes mellitus with fo ot ulcer E11.621 ; Diabet ic polyneuropathy a ssociated with type 2 diab etes mellitus E11.42 ; Hammertoe of second toe of right foot M20.41 and Cellu litis of toe of right delicia t L03.031 [facility] [address] Sep, [place] [address] of other pa rt of unspecified foot with unspecified kolby rity L97.509 ; Type 2 diabetes mellitus with fo ot ulcer E11.621 ; Diabet ic polyneuropathy a ssociated with type 2 diab etes mellitus E11.42 ; Hammertoe of second toe of right foot M20.41 and Cellu litis of toe of right delicia t L03.031 [place] [facility] [address] [facility] Sep, [place] [address] [facility] [address] Dec, [place] [address] of other pa rt of unspecified foot with unspecified kolby rity L97.509 ; Type 2 diabetes mellitus with fo ot ulcer E11.621 ; Cellul itis of toe of left foot L03 .032 ; Diabetic polyneu ropathy associated with type 2 diabetes mellitu s E11.42 ; Hammertoe of lef t foot M20.42 and Foot drop, left M21.372 [facility] [address] Nov, [place] [address] [facility] Sep, Non-pressure chronic ulcer [address] [place] [address] unspecified foot with unspecified kolby rity L97.509 ; Type 2 diabetes mellitus with fo ot ulcer E11.621 ; Cellul itis of toe of left foot L03 .032 ; Diabetic polyneu ropathy associated with type 2 diabetes mellitu s E11.42 and Hammertoe of left foot M20.42 [facility] [address] Sep, [place] [address] of other pa rt of unspecified foot with unspecified kolby rity L97.509 ; Type 2 diabetes mellitus with fo ot ulcer E11.621 ; Cellul itis of toe of left foot L03 .032 ; Diabetic polyneu ropathy associated with type 2 diabetes mellitu s E11.42 and Hammertoe of left foot M20.42 [facility] [address] 13 Sep, 2016 [place] [id number] [facility] [address] Sep, Cellulitis [place] [id number] foot L03.03 2 [facility] [address] 10 Sep, 2016 Type 2 [place] [address] with foot u lcer E11.621 ; Non-pressure chr onic ulcer of other part of left foot limited to break down of skin L97.521 ; C ellulitis of toe of left f oot L03.032 ; Left foot pain M79.672 and Foot drop, l eft M21.372 [facility] [address] Sep, Type 2 [place] [address] with foot u lcer E11.621 ; Non-pressure chr onic ulcer of other part of left foot limited to break down of skin L97.521 ; H ammertoe of left foot M20.42 and Diabetic polyneu ropathy associated with type 2 diabetes mellitu s E11.42 [facility] [address] Sep, [place] [address] of other pa rt of unspecified foot with unspecified kolby rity L97.509 ; Type 2 diabetes mellitus with fo ot ulcer E11.621 ; Cellul itis of toe of left foot L03 .032 ; Diabetic polyneu ropathy associated with type 2 diabetes mellitu s E11.42 and Hammertoe of left foot M20.42 [facility] [address] Aug, [place] [address] of other pa rt of unspecified foot with unspecified kolby rity L97.509 ; Type 2 diabetes mellitus with fo ot ulcer E11.621 ; Cellul itis of toe of left foot L03 .032 ; Diabetic polyneu ropathy associated with type 2 diabetes mellitu s E11.42 and Hammertoe of left foot M20.42 [facility] [address] Aug, [place] [id number] [facility] [address] Aug, [place] [address] [facility] [address] Aug, [place] [address] of other pa rt of unspecified foot with unspecified kolby rity L97.509 ; Type 2 diabetes mellitus with fo ot ulcer E11.621 ; Cellul itis of toe of left foot L03 .032 ; Diabetic polyneu ropathy associated with type 2 diabetes mellitu s E11.42 and Hammertoe of left foot M20.42 [facility] [address] [address] Aug, [place] [address] [facility] [place] Feb, Hyperkeratosis 7 01.1 ; [place] [address] Onychodystr ophy 703.8 ; Foot drop, left 736.79 ; Controlled type 2 diabetes with neuropathy 250.60 ; Toe ulcer 707.15 and Contusion toe 92 4.3 [facility] [facility] [address] [place] [address] Jan, [place] [address] [facility] Jan, Hyperkeratosis 7 01.1 ; [place] [address] Onychodystr ophy 703.8 ; Foot drop, left 736.79 ; Controlled type 2 diabetes with neuropathy 250.60 ; Toe ulcer 707.15 and Contusion toe 92 4.3 [facility] [place] Nov, Abscess of toe N OS 681.10 ; [place] [address] Hyperkerato sis 701.1 ; Onychodystrophy 703.8 ; Foot drop, left 736.79 ; Controlled type 2 diabetes with neuropathy 250.60 and Toe ulcer 707.15 [facility] October, Abscess of to e NOS 681.10 ; [place] Hyperkerat osis 701.1 ; [address] Onychodystrophy 703.8 ; Foot drop, left 736.79 ; Controlled type 2 diabetes with neuropathy 250.60 and Toe ulcer 707.15 [facility] Sep, Abscess of to e NOS 681.10 ; [place], [place] Hyperkerat osis 701.1 ; [address] Cellulitis and a bscess of foot 682.7 ; Onychodystrophy 703.8 ; Foot drop, left 736.79 and Controlled type 2 diabetes with neuropathy 250.60 [facility] [place] Sep, [place] [address] [facility] [address] [address] Aug, 2014 Abscess of toe N OS 681.10 ; [place] [address] Hyperkerato sis 701.1 ; Cellulitis and a bscess of foot 682.7 ; Onychodystrophy 703.8 and Foot drop, left 736.79 [facility] [address] [facility] 24 Jul, 2014 Abscess of to e NOS 681.10 ; [address] [place] Hyperkerat osis 701.1 ; [address] Cellulitis and a bscess of foot 682.7 ; Onychodystrophy 703.8 and Foot drop, left 736.79 IMMUNIZATIONS No Known Immunizations SOCIAL HISTORY Qualifiers Date Never Smoker REASON FOR REFERRAL FUNCTIONAL STATUS PLAN OF CARE Activity Details Follow Up prn Reason: Future Test PT/INR 20180109 Future Test X Foot R 3V [id number] VITAL SIGNS Height 68.5 in 2020-02-15 Height 68.5 in 2020-02-01 Height 68.5 in 2020-01-25 Height 68.5 in 2020-01-18 Height 68.5 in 2020 Height 68.5 in 2020-01-04 Height 68.5 in 2019-12-28 Height 68.5 in 2019-08-04 Height 68.5 in 2019-07-13 Height 68.5 in 2019-07-04 Height 68.5 in 2019-05-18 Height 68.5 in 2019-05-12 Height 68.5 in 2019-05-01 Height 68.5 in 2019-04-20 Height 68.5 in 2019-03-27 Height 68.5 in 2018-09-06 Height 68.5 in 2018-06-07 Height 68.5 in 2018-03-21 Height 68.5 in 2018-01-26 Height 68.5 in 2017-12-21 Height 68.5 in 2017-10-19 Height 68.5 in 2017-10-05 Height 68.5 in 2017-09-30 Height 68.5 in 2017-01-18 Height 68.5 in 2016-10-20 Height 68.5 in 2016-10-15 Height 68.5 in 2016-10-05 Height 68.5 in 2016-10-01 Height 68.5 in 2016-09-29 Height 68.5 in 2016-09-15 Height 68.5 in 2016-08-31 Height 68.5 in 2015-03-27 Height 68.5 in 2015-02-20 Height 68.5 in 2014-12-25 Height 68.5 in 2014-11-20 Height 68.5 in 2014-10-09 Height 68.5 in 2014-08-28 Height 68.5 in 2014-08-21 Weight 338.8 lbs 2020-02-15 Weight 338 lbs 2020-02-01 Weight 340.0 lbs 2020-01-18 Weight 340 lbs 2020 Weight 341.0 lbs 2019-08-04 Weight 336 lbs 2019-07-04 Weight 340 lbs 2019-05-18 Weight 334.6 lbs 2019-05-12 Weight 338.0 lbs 2019-05-01 Weight 334.5 lbs 2019-04-20 Weight 344.2 lbs 2019-03-27 Weight 346.0 lbs 2018-09-06 Weight 347.6 lbs 2018-06-07 Weight 356 lbs 2018-01-26 Weight 354.4 lbs 2017-12-21 Weight 352 lbs 2017-10-19 Weight 344 lbs 2017-10-05 Weight 344 lbs 2016-10-20 Weight 343 lbs 2016-09-15 Weight 348 lbs 2015-03-27 Weight 349.8 lbs 2015-02-20 Weight 352.8 lbs 2014-12-25 Weight 352.3 lbs 2014-11-20 Weight 352.5 lbs 2014-10-09 Weight 352.2 lbs 2014-08-21 BMI 50.76 kg/m2 2020-02-15 BMI 50.64 kg/m2 2020-02-01 BMI 50.94 kg/m2 2020-01-18 BMI 50.94 kg/m2 2020 BMI 51.09 kg/m2 2019-08-04 BMI 50.34 kg/m2 2019-07-04 BMI 50.94 kg/m2 2019-05-18 BMI 50.13 kg/m2 2019-05-12 BMI 50.64 kg/m2 2019-05-01 BMI 50.12 kg/m2 2019-04-20 BMI 51.57 kg/m2 2019-03-27 BMI 51.84 kg/m2 2018-09-06 BMI 52.08 kg/m2 2018-06-07 BMI 53.34 kg/m2 2018-01-26 BMI 53.10 kg/m2 2017-12-21 BMI 52.74 kg/m2 2017-10-19 BMI 51.54 kg/m2 2017-10-05 BMI 51.54 kg/m2 2016-10-20 BMI 51.39 kg/m2 2016-09-15 BMI 52.14 kg/m2 2015-03-27 BMI 52.41 kg/m2 2015-02-20 BMI 52.86 kg/m2 2014-12-25 BMI 52.78 kg/m2 2014-11-20 BMI 52.81 kg/m2 2014-10-09 BMI 52.77 kg/m2 2014-08-21 Temperature 98.2 degrees Fahrenheit 2020-02-15 Temperature 97.2 degrees Fahrenheit 2020-02-01 Temperature 96.4 degrees Fahrenheit 2020-01-25 Temperature 97.5 degrees Fahrenheit 2020-01-18 Temperature 97.0 degrees Fahrenheit 2020 Temperature 96.9 degrees Fahrenheit 2020-01-04 Temperature 98.0 degrees Fahrenheit 2019-12-28 Temperature 97.5 degrees Fahrenheit 2019-08-04 Temperature 99.0 degrees Fahrenheit 2019-07-13 Temperature 97.9 degrees Fahrenheit 2019-07-04 Temperature 97.7 degrees Fahrenheit 2019-05-18 Temperature 98.2 degrees Fahrenheit 2019-05-12 Temperature 97.7 degrees Fahrenheit 2019-04-20 Temperature 97.6 degrees Fahrenheit 2019-03-27 Temperature 96.9 degrees Fahrenheit 2018-09-06 Temperature 97.5 degrees Fahrenheit 2018-06-07 Temperature 98.1 degrees Fahrenheit 2018-03-21 Temperature 98.8 degrees Fahrenheit 2018-01-26 Temperature 97.8 degrees Fahrenheit 2017-12-21 Temperature 98 degrees Fahrenheit 2017-10-19 Temperature 99.2 degrees Fahrenheit 2017-10-05 Temperature 97.9 degrees Fahrenheit 2017-09-30 Temperature 97.8 degrees Fahrenheit 2017-01-18 Temperature 97.9 degrees Fahrenheit 2016-10-20 Temperature 97.7 degrees Fahrenheit 2016-10-15 Temperature 97.8 degrees Fahrenheit 2016-10-05 Temperature 98.2 degrees Fahrenheit 2016-10-01 Temperature 97.1 degrees Fahrenheit 2016-09-29 Temperature 98.3 degrees Fahrenheit 2016-09-15 Temperature 97.9 degrees Fahrenheit 2016-08-31 Temperature 98.6 degrees Fahrenheit 2015-03-27 Temperature 98.2 degrees Fahrenheit 2015-02-20 Temperature 99.9 degrees Fahrenheit 2014-12-25 Temperature 98.6 degrees Fahrenheit 2014-11-20 Temperature 99.1 degrees Fahrenheit 2014-10-09 Temperature 101.1 degrees Fahrenheit 2014-08-28 Temperature 99.9 degrees Fahrenheit 2014-08-21 Heart Rate 93 /min 2020-02-15 Heart Rate 97 /min 2020-02-01 Heart Rate 80 /min 2020-01-25 Heart Rate 86 /min 2020-01-18 Heart Rate 97 /min 2020 Heart Rate 97 /min 2020-01-04 Heart Rate 96 /min 2019-12-28 Heart Rate 66 /min 2019-08-04 Heart Rate 67 /min 2019-07-13 Heart Rate 80 /min 2019-07-04 Heart Rate 84 /min 2019-05-18 Heart Rate 82 /min 2019-05-12 Heart Rate 70 /min 2019-05-01 Heart Rate 77 /min 2019-04-20 Heart Rate 78 /min 2019-03-27 Heart Rate 93 /min 2018-09-06 Heart Rate 95 /min 2018-06-07 Heart Rate 94 /min 2018-03-21 Heart Rate 78 /min 2018-01-26 Heart Rate 94 /min 2017-12-21 Heart Rate 89 /min 2017-10-19 Heart Rate 90 /min 2017-10-05 Heart Rate 84 /min 2017-09-30 Heart Rate 86 /min 2017-01-18 Heart Rate 88 /min 2016-10-15 Heart Rate 76 /min 2016-10-05 Heart Rate 86 /min 2016-10-01 Heart Rate 89 /min 2016-09-29 Heart Rate 84 /min 2016-09-15 Heart Rate 81 /min 2016-08-31 Heart Rate 96 /min 2015-03-27 Heart Rate 88 /min 2015-02-20 Heart Rate 88 /min 2014-12-25 Heart Rate 84 /min 2014-11-20 Heart Rate 104 /min 2014-10-09 Heart Rate 85 /min 2014-08-28 Heart Rate 96 /min 2014-08-21 Respiratory Rate 20 /min 2020-02-15 Respiratory Rate 20 /min 2020-02-01 Respiratory Rate 20 /min 2020-01-25 Respiratory Rate 18 /min 2020-01-18 Respiratory Rate 20 /min 2020 Respiratory Rate 20 /min 2020-01-04 Respiratory Rate 18 /min 2019-12-28 Respiratory Rate 18 /min 2019-08-04 Respiratory Rate 18 /min 2019-07-13 Respiratory Rate 18 /min 2019-07-04 Respiratory Rate 18 /min 2019-05-18 Respiratory Rate 18 /min 2019-05-12 Respiratory Rate 18 /min 2019-05-01 Respiratory Rate 18 /min 2019-04-20 Respiratory Rate 18 /min 2019-03-27 Respiratory Rate 18 /min 2018-09-06 Respiratory Rate 18 /min 2018-06-07 Respiratory Rate 20 /min 2018-03-21 Respiratory Rate 18 /min 2018-01-26 Respiratory Rate 18 /min 2017-12-21 Respiratory Rate 17 /min 2017-10-19 Respiratory Rate 20 /min 2017-10-05 Respiratory Rate 18 /min 2017-09-30 Respiratory Rate 20 /min 2017-01-18 Respiratory Rate 20 /min 2016-10-20 Respiratory Rate 20 /min 2016-10-15 Respiratory Rate 16 /min 2016-10-05 Respiratory Rate 20 /min 2016-10-01 Respiratory Rate 18 /min 2016-09-29 Respiratory Rate 20 /min 2016-09-15 Respiratory Rate 16 /min 2016-08-31 Respiratory Rate 18 /min 2015-03-27 Respiratory Rate 18 /min 2015-02-20 Respiratory Rate 18 /min 2014-12-25 Respiratory Rate 18 /min 2014-11-20 Respiratory Rate 20 /min 2014-10-09 Respiratory Rate 18 /min 2014-08-28 Respiratory Rate 18 /min 2014-08-21 Oximetry 97 % 2020-02-15 Oximetry 96 % 2020-02-01 Oximetry 97 % 2020-01-25 Oximetry 98 % 2020-01-18 Oximetry 98 % 2020 Oximetry 96 % 2020-01-04 Oximetry 92 % 2019-12-28 Oximetry 96 % 2019-08-04 Oximetry 97 % 2019-07-13 Oximetry 93 % 2019-07-04 Oximetry 96 % 2019-05-18 Oximetry 95 % 2019-05-12 Oximetry 97 % 2019-05-01 Oximetry 97 % 2019-04-20 Oximetry 97 % 2019-03-27 Oximetry 97 % 2018-09-06 Oximetry 95 % 2018-06-07 Oximetry 98 % 2018-03-21 Oximetry 98 % 2018-01-26 Oximetry 94 % 2017-12-21 Oximetry 95 % 2017-10-19 Oximetry 97 % 2017-10-05 Oximetry 96 % 2017-09-30 Oximetry 96 % 2017-01-18 Oximetry 98 % 2016-10-15 Oximetry 98 % 2016-10-05 Oximetry 97 % 2016-10-01 Oximetry 97 % 2016-09-29 Oximetry 96 % 2016-09-15 Oximetry 98 % 2016-08-31 Oximetry 96 % 2015-03-27 Oximetry 97 % 2015-02-20 Oximetry 96 % 2014-12-25 Oximetry 95 % 2014-11-20 Oximetry 98 % 2014-10-09 Oximetry 98 % 2014-08-28 Oximetry 96 % 2014-08-21 Blood pressure systolic 118 mm Hg 2020-02-15 Blood pressure diastolic 66 mm Hg 2020-02-15 MEDICATIONS Medication Instructions Dosage Frequency Start End Duration Statu s Date Date Lantus 100 0 Active units/mL MULTIVITAMIN orally once a 1 tab(s) 24h Not- Taki Multiple day ng Vitamins OneTouch Ultra Active Mini Venlafaxine HCl Orally Once a 1 tablet with 24h 30 d ay(s) Active ER 150 MG day food VENLAFAXINE 150 orally once a 1 tab(s) 24h N ot-Taki mg day ng Womens One as directed Active Daily - NOVASUS Not-Taki ng Warfarin Sodium orally once a 1 tab(s) 24h 30 day(s) Active 5 mg day Venlafaxine HCl Orally Once a 1 capsule with 24h 30 day(s) Active ER 75 MG day food Jardiance 10 mg orally once a 1 tab(s) N ot-Taki day (in the morning) Minocycline HCl Orally every 12 1 capsule 12h Mar, day (s) Active 100 MG hrs 2018 Meclizine HCl orally 3 times 1 tab(s) 8h No t-Taki 25 mg a day ng OneTouch Delica as directed Acti ve Lancets Fine - BD Pen Needle Active Aida U/F Losartan orally once a 1 tab(s) 24h Active Potassium 100 day mg HM Medicated Externally 1 pad to 12h Active Cooling 50 % Twice a day affected area Allopurinol 100 orally once a 2 tab(s) 24h A ctive mg day ProAir Inhalation 2 puffs as 6h Active RespiClick 108 every 6 hrs needed (90 Base) MCG/ACT predniSONE 20 Orally Once a 2 tablets 24h Ac tive MG day amLODIPine orally once a 1 tab(s) 24h Active Besylate 10 mg day Gemfibrozil 600 orally 1 times 1 tab(s) Active mg a day Analpram HC Rectal Three 1 application 8h 30 day(s) Active 2.5-1 % times a day to affected area Meclizine HCl Orally Once a 2 tablets as 24h 30 day( s) Active 12.5 MG day needed LANCETS Not-Taki ng Mupirocin 2 % Externally 1 application 12h Apr, 14 days A ctive Twice a day 2019 Doxycycline Orally every 12 1 tablet 12h 10 day(s) A ctive Hyclate 50 MG hrs Bactrim DS Orally Twice a 1 tablet 12h 10 day(s) Not -Taki 800-160 MG day ng metFORMIN HCl Orally Once a 1 tablet with 24h 30 day (s) Active 500 MG day a meal WALKER Active Nystatin - as directed Active OneTouch Ultra as directed Activ e Blue - NOVOLIN N 0 Not-Taki PENFILL human ng recombinant 100 units/mL Diflucan 200 MG Orally 1 1 tablet Mar, 1 days Active 2019 NovoLOG FlexPen 3-12 units Activ e 100 UNIT/ML PROCEDURES Procedure Date Ordered Result Body Site INTERP TOE(S), MIN 2 VIEWS September 30, 2017 MEPILEX BORDER,3X3,4X4,6X6(12103) December 21, 2017 INCISION OF TOE TENDON October 15, 2016 AIRCAST WALKER ([id number]) October 05, 2016 COBAN TAPE ([id number]) October 01, 2016 POD-xray foot, 3 views October 05, 2016 POD-xray toe(s), 2 views Mar 21, 2018 SURGICAL SHOE ([id number]) Aug 21, 2014 STERILE TRAY October 01, 2016 POD-xray toe(s), 2 views September 30, 2017 Iodosorb (Cadexomer Iodine) [id number] May 12, 2019 INCISION OF TOE TENDON May 12, 2019 CONFORM,2in sterile,(38527) December 21, 2017 INCISION OF TOE TENDON Apr 20, 2019 SURGICAL SHOE ([id number]) August 31, 2016 zzPREV: DIABETES foot exam 2017-10-19 See progress notes COBAN TAPE ([id number]) October 15, 2016 STERILE TRAY May 12, 2019 I&D ABCESS/ERIK.CYST(01887) Aug 21, 2014 INCISION OF TOE TENDON September 30, 2017 SURGICAL SHOE ([id number]) August 28, 2014 INTERP TOE(S), MIN 2 VIEWS Mar 21, 2018 COBAN TAPE ([id number]) May 12, 2019 STERILE TRAY Apr 20, 2019 DEBRIDE NAIL, 1-5 Feb 20, 2015 INCISION OF TOE TENDON October 01, 2016 STERILE TRAY October 15, 2016 INTERP FOOT, 3 VIEWS October 05, 2016 RESULTS Name Result Date Reference Range HEMOGLOBIN [...] OF CARE 2018-01-03 GLUCOSE 95 74-118 COMMENT1 GLUCOSE POINT OF CARE 2018-01-03 GLUCOSE 110 74-118 COMMENT1 PT/INR 2018-01-03 PT 17.2 9.3-11.4 INR 1.7 GLUCOSE POINT OF CARE 2018-01-02 GLUCOSE 116 [...] 2017-12-30 GLUCOSE 119 74-118 COMMENT1 Notify Nurse PT/INR 2017-12-30 PT 20.0 9.3-11.4 INR 2.0 GLUCOSE POINT OF CARE 2017-12-30 GLUCOSE 94 74-118 COMMENT1 Notify Nurse CBC WITH AUTO [...] 35.2 MO% 6.8 EO% 3.0 BA% 0.5 GLUCOSE POINT OF CARE 2017-12-29 GLUCOSE 100 [...] OF CARE 2017-12-27 GLUCOSE 160 74-118 COMMENT1 GLUCOSE POINT OF CARE 2017-12-27 GLUCOSE 107 74-118 COMMENT1 VANCOMYCIN TROUGH 2017-12-27 VANCT 21 5-10 CBC WITH AUTO DIFF 2017-12-27 WBC 6.8 [...] 37.6 MO% 6.4 EO% 3.6 BA% 0.6 PT/INR 2017-12-27 PT 21.2 9.3-11.4 INR 2.1 GLUCOSE POINT OF CARE 2017-12-26 GLUCOSE 135 [...] KG - scheduled 07/03 watch for PM 1/2, toe ulcer f/u, referral done, 2 WK F/U, referral done, patient last seen by WS on 05/12/2019 for flexor tenotomy 4th right toe - cp, pt states she is here for f/u flexor tenotomy 4th right toe, pt states she has a blister or bubble on one of her toes she had the same procedure on , pt statesone of her other toes is still swollen that she had the same procedure on, L foot issues, referral done, last seen by WS on 04/20/19 for Dm toe ulcer-KG, flexor tenotomy done at last visit, pt last seen on 05/01/19 toe ulcer right foot due to DM mrr, pt states that she has three toes on the right footthat are bleeding , pt states that she [...] seen by WS on 03/27/19 for Dm footcare-KG, AFO braces ordered at last visit, pt states that she is here lacerations on her toes , chart update, DM footcare f/u, referral done, pt states that [...] about area between 4th + 5th toes, Kt , wound clin est, wound clin est, sent from hospital, Wound CTR-follow up, Mechanical lounger chair, dressing change frequency, Wound CTR-follow up, Wound CTR-follow up, Not doing well at home, Wound CTR-follow up, Wound CTR-follow up, F/U, Per AR last note: was seen at [facility] for wounds ofboth feet, lateral aspect at base of fifth metatarsals, and for cellulitis , Refused to take Cephalexin 500mg because of loose stools. , Still waiting on information from PCP. AB requested them 12/23 ,Inpatient, Inpatient consult, D/C Planning, consult, Positive Blood Cx, FYI , blood draw, ER f/u, referral done. Seen [facility] 12/20/2017., DM neuropathy pain under toes., DFU bilateral noticed 12/20. Patient states feet were swollen and she walked around the store and noticed ulcers., Patient was discharged from [facility] 12/01/17 for rehab from [facility] admission for fall and PE., ER f/u, appt with WS, In Rehab, 2 week f/u , Pt last seen by WS 11/02/17, Per last note- Xrays today R foot [id number] toe elevated- Check with WS to make sure. , No need for DM template- Done at last visit, 2 week follow up , R 2nd toe f/u , Pt states she noticed Wednesday the toe was red and swollen, Pt states shetried to clean the toe , pt wanted to be called if appt became available in the am, left message asked pt to call with which appt she would marisa , 2 week f/u, Referral Done, pt states she had to stop bactrim due to dry dry heave and nausea, pt states things are going better with her 2nd R toe , took dressing off. , follow up , pt is here for a flexor tenotomy f/u 2nd right toe, New problem with foot,referral pending, pt states last A1C: 5.7, drawn in August, [facility], Pt states this happend 2 weeks ago, pt states two toe nails have fallen off, one on each foot., Pts states right second toe has no feeling, problem with toe/foot, middle toe on left foot referral done, Pt states here for nailcare, Third toe on left foot toenail has a black spot from toenail split , middle toeon left foot , toe injury, F/U Flexor [...] fall down 2 steps today, pt having painup the middle part of her L foot., [...] Inputting information, ER f/u, Referral Done, Pt states she was seen in [facility] ED last week, Pt states she thought she had black lint on her toe. She went to pick it off and her skin came off with it, Pt states her sugar levels have been in the 390's , ER f/u, 3mo f/u, referral done, 1 month f/u., Referral Done, she states that her right 2nd toe nail is still black but has no fallen off yet, she [...] today and is a diabetic Insurance Providers [facility] Health Member Patient Patient Patient Patient Patient Subscriber Subscriber Subscriber Group Insurance Plan Plan Plan Plan ID Relationship Address Phone Name Date of ID Name Date of No Type Insurance Insurance Insurance Coverage to Subscriber Address Phone Name Dates SELF PAY [address] ST[address] SELF PAY self LANA [id number] NO [employer] NO EVERLY INSURANCE MEDICAID EDS MEDICAID self [place]NA [id number] [facility] [id number] MEDICAID EDS MEDICAID self LANA [id number] [facility] [id number]
== END 2022-07-10 01:06 ==
LOC: DI 00:46
PROVIDERS: PCP Physician Assistant; Visit Provider Physician Assistant
DX: Z12.31 Encounter for screening mammogram for malignant neoplasm of breast (principal)
CPT/HCPCS: 77063; 77067

== ENCOUNTER 2022-11-05 01:14 | Outpatient (CLI) | payer MEDICARE, MEDICAID, SELFPAY ==
--- NOTE | 2022-11-05 09:00 | DI.DEXA_ITS ---
Exam(s) XR DEXA BONE DENSITY W/WO JOSE EXAM: XR DEXA BONE DENSITY W/WO JOSE CLINICAL HISTORY: POSTMENOPAUSAL STATE, Z78.0 TECHNIQUE: Routine DEXA evaluation of the lumbar spine, hip, or forearm. COMPARISON: No exams were available for comparison FINDINGS: Performed on a Hologic unit. Lateral image: No compression fracture evident. Lumbar Spine total T-score: -0.6 Hip total T-score:-0.4 Independent reading at the level of the femoral neck yields T-score of -1.0 Forearm total T-score: -1.4 IMPRESSION: Bone mineral density measures in the osteopenia range. Fracture risk is moderate. Note: Any spine fracture indicates 5x risk for subsequent spine fracture and 2x risk for subsequent h ip fracture. World Health Organization criteria for BMD interpretation classify patients: Normal...... T- Score at or above -1.0 Osteopenic... T- Score between -1.0 and -2.5 Osteoporosis... T-Score at or below -2.5
== END 2022-11-05 01:34 ==
LOC: DI 01:14
PROVIDERS: PCP Physician Assistant; Visit Provider Physician Assistant
DX: Z78.0 Asymptomatic menopausal state (principal); M81.0 Age-related osteoporosis without current pathological fracture
CPT/HCPCS: 77080

== ENCOUNTER 2022-12-30 16:49 | Outpatient (REF) | payer MEDICARE, MEDICAID, SELFPAY ==
[2022-12-30 15:59] LABS: Prothrombin Time 20.1 sec (9.3-11.0)
[2022-12-30 16:09] LABS: Hemoglobin A1C 6.3 % (<5.7)
[2022-12-30 16:18] LABS: ALT 34 U/L (14-59); AST 30 U/L (15-37); Albumin 3.7 g/dL (3.4-5.0); Alkaline Phosphatase 147 U/L (46-116); BUN 16 mg/dL (7-18); Bilirubin, Total 0.9 mg/dL (0.2-1.0); CREATININE 0.9 mg/dL (0.55-1.02); Calcium 8.8 mg/dL (8.5-10.1); Calculated LDL 36 mg/dL (<100); Chloride 107 mmol/L (98-107); Cholesterol 149 mg/dL (<200); Estimated GFR 70.51 (mL/min/1.73m2); Glucose 144 mg/dL (74-106); HDL Cholesterol 36 mg/dL (40-60); Magnesium 1.7 mg/dL (1.8-2.4); Potassium 3.3 mmol/L (3.5-5.1); Sodium 144 mmol/L (136-145); TSH 1.81 uIU/mL (0.36-3.74); Total Protein 7.2 g/dL (6.4-8.2); Triglyceride 387 mg/dL (<150)
[2022-12-30 16:27] LABS: Vitamin D 25 Total 22.2 ng/mL (30-100)
[2022-12-30 17:12] LABS: FREE T4 0.85 ng/dL (0.76-1.46)
== END 2022-12-30 16:50 | disposition home or self-care (01) ==
LOC: NCHCN 16:49
PROVIDERS: PCP Physician Assistant; Visit Provider Physician Assistant
DX: E11.9 Type 2 diabetes mellitus without complications (principal); E55.9 Vitamin D deficiency, unspecified
CPT/HCPCS: 80053; 80061; 82306; 83036; 83735; 84439; 84443; 85610

== ENCOUNTER 2022-12-31 13:27 | Emergency (ER) | payer MEDICARE, MEDICAID, SELFPAY ==
[2022-12-31] VITALS (10 sets, daily range): BP systolic 143–174; BP diastolic 87–109; PULSE 64–78; RESP 12–26; TEMP 36.6; O2SAT 98
--- OUTSIDE RECORDS SUMMARY | 2022-12-31 13:49 | XMS_ITS ---
Author Name Thomas Mejia Address [address] [place] [address] Organization [facility] Address [address] [place] [address] Care Team Providers Care Underwriting Service Representative Name Role Phone MarilynnngaThomas huang Unavailable [phone] PROBLEMS Type Condition ICD9-CM Code SPG26-II Code Onset Dates Condition Status SNOMED Code Problem Hammertoe of left foot M20.42 Active 444911919822474 3 Problem Non-pressure chronic ulcer of other part of unspecified foot with unspecified severity L97.509 Active 568433402 Problem Non-pressure chronic ulcer of other part of left foot limited to breakdown of skin L97.521 Active Problem Diabetic polyneuropathy associated with type 2 diabetes mellitus E11.42 Active 897020262 Problem Left foot pain M79.672 Active 407716205 371373 Problem Cellulitis of toe of left foot L03.032 Active 084143692574741 05 Problem Cellulitis of toe of right foot L03.031 Active 95689955441930 106 Problem Foot drop, left M21.372 Active 1692215 Problem Ankle instability M25.373 Active 591237 Problem Diabetic neuropathy associated with type 2 diabetes mellitus E11.40 Active 529359204072824 Problem Pre-ulcerative calluses L84 Active 702909139 Problem Diabetic toe ulcer E11.621 Active Problem Difficulty walking due to ankle and foot joint R26.2 Active 034924419 Problem Blister of toe of left foot S90.425A Active 06580564 Problem Hammertoe of second toe of right foot M20.41 Active 447111489348558 5 Problem Hammertoe M20.40 Active 370206908 Problem Toe ulcer due to DM E11.621 Active 4104514954735 Problem Skin fissure R23.4 Active 19133000 Problem Encounter for diabetic foot exam E11.9 Active 481199956 ALLERGIES Substance Reaction Event Type Date Status Bactrim DS stomach upset Drug Allergy Jan, Active Ampicillin Unknown Drug Allergy Jan, Active Augmentin Unknown Drug Allergy Jan, Active Amoxicillin thrush, throat closes Drug Allergy Jan, 020 Active ENCOUNTERS Encounter Location Date Diagnosis [facility] [address] Jan, Encounter for diabetic foot exam E11.9 ; Diabetic toe ulcer E11.621 ; Cellulitis of toe of left foot L03.032 and Blister of toe of left foot S90.425A [facility] [address] Jan, Encounter for diabetic foot exam E11.9 ; Diabetic toe ulcer E11.621 ; Cellulitis of toe of left foot L03.032 and Blister of toe of left foot S90.425A [facility] [address] Dec, Encounter for diabetic foot exam E11.9 ; Diabetic toe ulcer E11.621 ; Cellulitis of toe of left foot L03.032 and Blister of toe of left foot S90.425A [facility] [address] Dec, Encounter for diabetic foot exam E11.9 ; Diabetic toe ulcer E11.621 and Cellulitis of toe of left foot L03.032 [facility] [address] 16 Dec, 2019 Encounter for diabetic foot exam E11.9 ; Diabetic toe ulcer E11.621 and Cellulitis of toe of left foot L03.032 [facility] [address] 09 Dec, 2019 Encounter for diabetic foot exam E11.9 ; Diabetic toe ulcer E11.621 and Cellulitis of toe of left foot L03.032 [facility] [address] Dec, Encounter for diabetic foot exam E11.9 ; Diabetic toe ulcer E11.621 and Cellulitis of toe of left foot L03.032 [facility] [place] [address] 09 Sep, [address] [facility] [address] 07 Jul, 2019 Toe ulcer due to DM E11.621 ; Encounter for diabetic foot exam E11.9 ; Skin fissure R23.4 and Diabetic neuropathy associated with type 2 diabetes mellitus E11.[address] [address] 16 Jun, 2019 Toe ulcer due to DM E11.621 ; Skin fissure R23.4 and Diabetic neuropathy associated with type 2 diabetes mellitus E11.40 [facility] [address] 07 Jun, 2019 Toe ulcer due to DM E11.621 ; Skin fissure R23.4 and Diabetic neuropathy associated with type 2 diabetes mellitus E11.40 [facility] [address] May, [facility] [address] Apr, Toe ulcer due to DM E11.621 ; Pre-ulcerative calluses L84 ; Hammertoe M20.40 and Diabetic neuropathy associated with type 2 diabetes mellitus E11.40 [facility] [address] 15 Apr, 2019 Toe ulcer due to DM E11.621 ; Pre-ulcerative calluses L84 ; Hammertoe M20.40 and Diabetic neuropathy associated with type 2 diabetes mellitus E11.40 [facility] [address] Apr, [facility] [address] Apr, Toe ulcer due to DM E11.621 ; Pre-ulcerative calluses L84 ; Hammertoe M20.40 and Diabetic neuropathy associated with type 2 diabetes mellitus E11.40 [facility] [address] Mar, [facility] [address] Mar, [facility] [address] Mar, Toe ulcer due to DM E11.621 ; Pre-ulcerative calluses L84 ; Hammertoe M20.40 and Diabetic neuropathy associated with type 2 diabetes mellitus E11.40 [facility] [address] Mar, [facility] [address] Feb, Type 2 diabetes mellitus with foot ulcer E11.621 ; Encounter for diabetic foot exam E11.9 ; Diabetic polyneuropathy associated with type 2 diabetes mellitus E11.42 ; Ankle instability M25.373 and Difficulty walking due to ankle and foot joint R26.2 [facility] [address] [place] [address] Aug, Type 2 diabetes mellitus with foot ulcer E11.621 ; Encounter for diabetic foot exam E11.9 and Diabetic polyneuropathy associated with type 2 diabetes mellitus E11.42 [facility] [address] [place] [address] May, [facility] [address] [place] [address] May, Type 2 diabetes mellitus with foot ulcer E11.621 ; Encounter for diabetic foot exam E11.9 and Diabetic polyneuropathy associated with type 2 diabetes mellitus E11.42 [facility] [address] [place] [address] Feb, Type 2 diabetes mellitus with foot ulcer E11.621 and Diabetic polyneuropathy associated with type 2 diabetes mellitus E11.42 [facility] [address] [place] [address] Feb, [facility] [address] [place] [address] Jan, [facility] [address] [place] [address] Jan, [facility] [address] [place] [address] Jan, [facility] [address] [place] [address] Jan, Chest discomfort R07.89 [facility] [address] [place] [address] Jan, [facility] [address] [place] [address] Dec, [facility] [address] [place] [address] Dec, [facility] [address] [place] [address] Dec, [facility] [address] [place] [address] Dec, [facility] [address] [place] [address] Dec, Anticoagulated on Coumadin Z51.81 [facility] [address] [place] [address] Dec, [facility] [address] [place] [address] Dec, [facility] [address] [place] [address] Nov, [facility] [address] [place] [address] Nov, [facility] [address] [place] [address] Nov, [facility] [address] [place] [address] Nov, [facility] [address] [place] [address] Nov, [facility] [address] [place] [address] Nov, Type 2 diabetes mellitus with foot ulcer E11.621 [facility] [address] [place] [address] Nov, Type 2 diabetes mellitus with foot ulcer E11.621 [facility] [address] [place] [address] Nov, xxOFFICE NON CLINICAL [address] [place] [address] Nov, [facility] [address] [place] [address] October, [facility] [address] [place] [address] October, Non-pressure chronic ulcer of other part of unspecified foot with unspecified severity L97.509 ; Encounter for diabetic foot exam E11.9 ; Type 2 diabetes mellitus with foot ulcer E11.621 ; Diabetic polyneuropathy associated with type 2 diabetes mellitus E11.42 ; Hammertoe of second toe of right foot M20.41 and Cellulitis of toe of right foot L03.031 [facility] [address] [place] [address] Sep, Encounter for diabetic foot exam E11.9 ; Non-pressure chronic ulcer of other part of unspecified foot with unspecified severity L97.509 ; Type 2 diabetes mellitus with foot ulcer E11.621 ; Diabetic polyneuropathy associated with type 2 diabetes mellitus E11.42 ; Hammertoe of second toe of right foot M20.41 and Cellulitis of toe of right foot L03.031 [facility] [address] [place] [address] Sep, Non-pressure chronic ulcer of other part of unspecified foot with unspecified severity L97.509 ; Type 2 diabetes mellitus with foot ulcer E11.621 ; Diabetic polyneuropathy associated with type 2 diabetes mellitus E11.42 ; Hammertoe of second toe of right foot M20.41 and Cellulitis of toe of right foot L03.031 [facility] [address] [place] [address] Sep, Non-pressure chronic ulcer of other part of unspecified foot with unspecified severity L97.509 ; Type 2 diabetes mellitus with foot ulcer E11.621 ; Diabetic polyneuropathy associated with type 2 diabetes mellitus E11.42 ; Hammertoe of second toe of right foot M20.41 and Cellulitis of toe of right foot L03.031 [facility] [address] [place] [address] Sep, [facility] [address] [place] [address] Dec, Non-pressure chronic ulcer of other part of unspecified foot with unspecified severity L97.509 ; Type 2 diabetes mellitus with foot ulcer E11.621 ; Cellulitis of toe of left foot L03.032 ; Diabetic polyneuropathy associated with type 2 diabetes mellitus E11.42 ; Hammertoe of left foot M20.42 and Foot drop, left M21.372 [facility] [address] Nov, [facility] [address] [facility] [place] [address] Sep, Non-pressure chronic ulcer of other part of unspecified foot with unspecified severity L97.509 ; Type 2 diabetes mellitus with foot ulcer E11.621 ; Cellulitis of toe of left foot L03.032 ; Diabetic polyneuropathy associated with type 2 diabetes mellitus E11.42 and Hammertoe of left foot M20.42 [facility] [address] Sep, Non-pressure chronic ulcer of other part of unspecified foot with unspecified severity L97.509 ; Type 2 diabetes mellitus with foot ulcer E11.621 ; Cellulitis of toe of left foot L03.032 ; Diabetic polyneuropathy associated with type 2 diabetes mellitus E11.42 and Hammertoe of left foot M20.42 [facility] [address] [place] [address] Sep, [facility] [address] [place] [address] Sep, Cellulitis of toe of left foot L03.032 [facility] [address] Sep, Type 2 diabetes mellitus with foot ulcer E11.621 ; Non-pressure chronic ulcer of other part of left foot limited to breakdown of skin L97.521 ; Cellulitis of toe of left foot L03.032 ; Left foot pain M79.672 and Foot drop, left M21.372 [facility] [address] [place] [address] Sep, Type 2 diabetes mellitus with foot ulcer E11.621 ; Non-pressure chronic ulcer of other part of left foot limited to breakdown of skin L97.521 ; Hammertoe of left foot M20.42 and Diabetic polyneuropathy associated with type 2 diabetes mellitus E11.42 [facility] [address] Sep, Non-pressure chronic ulcer of other part of unspecified foot with unspecified severity L97.509 ; Type 2 diabetes mellitus with foot ulcer E11.621 ; Cellulitis of toe of left foot L03.032 ; Diabetic polyneuropathy associated with type 2 diabetes mellitus E11.42 and Hammertoe of left foot M20.42 [facility] [address] Aug, Non-pressure chronic ulcer of other part of unspecified foot with unspecified severity L97.509 ; Type 2 diabetes mellitus with foot ulcer E11.621 ; Cellulitis of toe of left foot L03.032 ; Diabetic polyneuropathy associated with type 2 diabetes mellitus E11.42 and Hammertoe of left foot M20.42 [facility] [address] Aug, [facility] [address] Aug, [facility] [address] Aug, Non-pressure chronic ulcer of other part of unspecified foot with unspecified severity L97.509 ; Type 2 diabetes mellitus with foot ulcer E11.621 ; Cellulitis of toe of left foot L03.032 ; Diabetic polyneuropathy associated with type 2 diabetes mellitus E11.42 and Hammertoe of left foot M20.42 [facility] [address] Aug, [facility] [address] Feb, Hyperkeratosis 701.1 ; Onychodystrophy 703.8 ; Foot drop, left 736.79 ; Controlled type 2 diabetes with neuropathy 250.60 ; Toe ulcer 707.15 and Contusion toe 924.3 [facility] [address] [place] [address] Jan, [facility] [address] Jan, Hyperkeratosis 701.1 ; Onychodystrophy 703.8 ; Foot drop, left 736.79 ; Controlled type 2 diabetes with neuropathy 250.60 ; Toe ulcer 707.15 and Contusion toe 924.3 [facility] [address] Nov, Abscess of toe NOS 681.10 ; Hyperkeratosis 701.1 ; Onychodystrophy 703.8 ; Foot drop, left 736.79 ; Controlled type 2 diabetes with neuropathy 250.60 and Toe ulcer 707.15 [facility] [address] October, Abscess of toe NOS 681.10 ; Hyperkeratosis 701.1 ; Onychodystrophy 703.8 ; Foot drop, left 736.79 ; Controlled type 2 diabetes with neuropathy 250.60 and Toe ulcer 707.15 [facility] [address] Sep, Abscess of toe NOS 681.10 ; Hyperkeratosis 701.1 ; Cellulitis and abscess of foot 682.7 ; Onychodystrophy 703.8 ; Foot drop, left 736.79 and Controlled type 2 diabetes with neuropathy 250.60 [facility] [address] Sep, [facility] [address] Aug, Abscess of toe NOS 681.10 ; Hyperkeratosis 701.1 ; Cellulitis and abscess of foot 682.7 ; Onychodystrophy 703.8 and Foot drop, left 736.79 [facility] [address] Jul, Abscess of toe NOS 681.10 ; Hyperkeratosis 701.1 ; Cellulitis and abscess of foot 682.7 ; Onychodystrophy 703.8 and Foot drop, left 736.79 IMMUNIZATIONS No Known Immunizations SOCIAL HISTORY Qualifiers Date Never Smoker REASON FOR REFERRAL FUNCTIONAL STATUS PLAN OF CARE Activity Details VITAL SIGNS Height 68.5 in 2020-02-15 Height [...] 52.77 kg/m2 2014-08-21 Temperature 98.2 degrees Fahrenheit Temperature 97.2 degrees Fahrenheit Temperature 96.4 degrees Fahrenheit Temperature 97.5 degrees Fahrenheit Temperature 97.0 degrees Fahrenheit Temperature 96.9 degrees Fahrenheit Temperature 98.0 degrees Fahrenheit Temperature 97.5 degrees Fahrenheit Temperature 99.0 degrees Fahrenheit Temperature 97.9 degrees Fahrenheit Temperature 97.7 degrees Fahrenheit Temperature 98.2 degrees Fahrenheit Temperature 97.7 degrees Fahrenheit Temperature 97.6 degrees Fahrenheit Temperature 96.9 degrees Fahrenheit Temperature 97.5 degrees Fahrenheit Temperature 98.1 degrees Fahrenheit Temperature 98.8 degrees Fahrenheit Temperature 97.8 degrees Fahrenheit Temperature 98 degrees Fahrenheit 2017-10-19 Temperature 99.2 degrees Fahrenheit Temperature 97.9 degrees Fahrenheit Temperature 97.8 degrees Fahrenheit Temperature 97.9 degrees Fahrenheit Temperature 97.7 degrees Fahrenheit Temperature 97.8 degrees Fahrenheit Temperature 98.2 degrees Fahrenheit Temperature 97.1 degrees Fahrenheit Temperature 98.3 degrees Fahrenheit Temperature 97.9 degrees Fahrenheit Temperature 98.6 degrees Fahrenheit Temperature 98.2 degrees Fahrenheit Temperature 99.9 degrees Fahrenheit Temperature 98.6 degrees Fahrenheit Temperature 99.1 degrees Fahrenheit Temperature 101.1 degrees Fahrenheit 2014-08 Temperature 99.9 degrees Fahrenheit Heart Rate 93 /min 2020-02-15 Heart Rate [...] 2014-08-21 Blood pressure systolic 118 mm Hg Blood pressure diastolic 66 mm Hg 2020-01 MEDICATIONS Medication Instructions Dosage Frequency Start Date End Date Duration Status Lantus 100 units/mL 0 Active MULTIVITAMIN Multiple Vitamins orally once a day 1 tab(s) 24h Not-amrita zion OneTouch Ultra Mini Active Venlafaxine HCl ER 150 MG Orally Once a day 1 tablet with food 24h 30 day(s) Active VENLAFAXINE 150 mg orally once a day 1 tab(s) 24h Not-Keamrita zion Womens One Daily - as directed Active NOVASUS Not-Reji zion Warfarin Sodium 5 mg orally once a day 1 tab(s) 24h 30 day(s) Active Venlafaxine HCl ER 75 MG Orally Once a day 1 capsule with food 24h 30 day(s) Active Jardiance 10 mg orally once a day (in the morning) 1 tab(s) Not-amrita zion Minocycline HCl 100 MG Orally every 12 hrs 1 capsule 12h Mar, 10 day(s) Active Meclizine HCl 25 mg orally 3 times a day 1 tab(s) 8h Not-Reji donovan [email or web address] Delica Lancets Fine - as directed Act cristhian BD Pen Needle Aida U/F Active Losartan Potassium 100 mg orally once a day 1 tab(s) 24h Active HM Medicated Cooling 50 % Externally Twice a day 1 pad to affected area 12h Active Allopurinol 100 mg orally once a day 2 tab(s) 24h Active ProAir RespiClick 108 (90 Base) MCG/ACT Inhalation every 6 hrs 2 puffs as needed 6h Active predniSONE 20 MG Orally Once a day 2 tablets 24h Active amLODIPine Besylate 10 mg orally once a day 1 tab(s) 24h Active Gemfibrozil 600 mg orally 1 times a day 1 tab(s) Active Analpram HC 2.5-1 % Rectal Three times a day 1 application to affected area 8h 30 day(s) Active Meclizine HCl 12.5 MG Orally Once a day 2 tablets as needed 24h 30 day(s) Active LANCETS Not-Reji donovan Mupirocin 2 % Externally Twice a day 1 application 12h Apr, 14 days Active Doxycycline Hyclate 50 MG Orally every 12 hrs 1 tablet 12h 10 day(s) Active Bactrim DS 800-160 MG Orally Twice a day 1 tablet 12h 10 day(s) Not-Reji zion metFORMIN HCl 500 MG Orally Once a day 1 tablet with a meal 24h 30 day(s) Active WALKER Active Nystatin - as directed A ctive OneTouch Ultra Blue - as directed Active NOVOLIN N PENFILL human recombinant 100 units/mL 0 Not-Taki ng Diflucan 200 MG Orally 1 1 tablet Mar, 1 days Active NovoLOG FlexPen 100 UNIT/ML 3-12 units Active PROCEDURES Procedure Date Ordered Result Body Site INTERP TOE(S), MIN 2 VIEWS September 30, 2017 INTERP TOE(S), MIN 2 VIEWS Mar 21, 2018 CONFORM,2in sterile,(82425) December 21, 2017 SURGICAL SHOE ([id number]) Aug 21, 2014 [facility]-x[facility] toe(s), 2 views Mar 21, 2018 I&D ABCESS/ERIK.CYST(06407) Aug 21, 2014 [facility]-x[facility] toe(s), 2 views September 30, 2017 Iodosorb (Cadexomer Iodine) [address] May 12, 2019 COBAN TAPE (52494) October 15, 2016 SURGICAL SHOE (46234) August 31, 2016 [facility]-x[facility] foot, 3 views October 05, 2016 INCISION OF TOE TENDON October 15, 2016 AIRCAST WALKER (32975) October 05, 2016 zzPREV: DIABETES foot exam 2017-10-19 See progress n otes COBAN TAPE (31433) October 01, 2016 COBAN TAPE (41621) May 12, 2019 STERILE TRAY October 01, 2016 INTERP FOOT, 3 VIEWS October 05, 2016 STERILE TRAY May 12, 2019 INCISION OF TOE TENDON September 30, 2017 STERILE TRAY Apr 20, 2019 INCISION OF TOE TENDON October 01, 2016 INCISION OF TOE TENDON Apr 20, 2019 SURGICAL SHOE (96136) August 28, 2014 DEBRIDE NAIL, 1-5 Feb 20, 2015 STERILE TRAY October 15, 2016 INCISION OF TOE TENDON May 12, 2019 MEPILEX BORDER,3X3,4X4,6X6(18347) December 21, 2017 RESULTS Name Result Date Reference Range HEMOGLOBIN [...] 698 <=500 GLUCOSE POINT OF CARE 2018-01-07 COMMENT1 GLUCOSE 79 74-118 GLUCOSE POINT OF CARE 2018-01-07 COMMENT1 GLUCOSE 103 74-118 PT/INR 2018-01-07 INR 1.6 PT 16.0 9.3-11.4 GLUCOSE POINT OF CARE 2018-01-06 COMMENT1 GLUCOSE 144 74-118 GLUCOSE POINT OF CARE 2018-01-06 COMMENT1 Notify Nurse GLUCOSE 95 74-118 GLUCOSE POINT OF CARE 2018-01-06 COMMENT1 Notify Nurse GLUCOSE 143 74-118 PT/INR 2018-01-06 INR 1.6 PT 15.8 9.3-11.4 GLUCOSE POINT OF CARE 2018-01-06 COMMENT1 Notify Nurse GLUCOSE 94 74-118 GLUCOSE POINT OF CARE 2018-01-05 COMMENT1 GLUCOSE 109 74-118 GLUCOSE POINT OF CARE 2018-01-05 COMMENT1 Notify Nurse GLUCOSE 101 74-118 GLUCOSE POINT OF CARE 2018-01-05 COMMENT1 GLUCOSE 135 74-118 GLUCOSE POINT OF CARE 2018-01-05 COMMENT1 Notify Nurse GLUCOSE 97 74-118 GLUCOSE POINT OF CARE 2018-01-05 COMMENT1 Notify Nurse GLUCOSE 91 74-118 GLUCOSE POINT OF CARE 2018-01-04 COMMENT1 Notify Nurse GLUCOSE 95 74-118 GLUCOSE POINT OF CARE 2018-01-04 COMMENT1 Notify Nurse GLUCOSE 79 74-118 GLUCOSE POINT OF CARE 2018-01-04 COMMENT1 Notify Nurse GLUCOSE 91 74-118 GLUCOSE POINT OF CARE 2018-01-04 COMMENT1 Notify Nurse GLUCOSE 89 74-118 GLUCOSE POINT OF CARE 2018-01-03 COMMENT1 Notify Nurse GLUCOSE 105 74-118 GLUCOSE POINT OF CARE 2018-01-03 COMMENT1 GLUCOSE 99 74-118 GLUCOSE POINT OF CARE 2018-01-03 COMMENT1 GLUCOSE 92 74-118 GLUCOSE POINT OF CARE 2018-01-03 COMMENT1 GLUCOSE 95 74-118 PT/INR 2018-01-03 INR 1.7 PT 17.2 9.3-11.4 GLUCOSE POINT OF CARE 2018-01-03 COMMENT1 GLUCOSE 110 74-118 GLUCOSE POINT OF CARE 2018-01-02 COMMENT1 GLUCOSE 116 74-118 GLUCOSE POINT OF CARE 2018-01-02 COMMENT1 Notify Nurse GLUCOSE 90 74-118 GLUCOSE POINT OF CARE 2018-01-02 COMMENT1 Notify Nurse GLUCOSE 106 74-118 GLUCOSE POINT OF CARE 2018-01-02 COMMENT1 Notify Nurse GLUCOSE 95 74-118 GLUCOSE POINT OF CARE 2018-01-01 COMMENT1 GLUCOSE 129 74-118 GLUCOSE POINT OF CARE 2018-01-01 COMMENT1 GLUCOSE 93 74-118 GLUCOSE POINT OF CARE 2018-01-01 COMMENT1 GLUCOSE 118 74-118 VANCOMYCIN TROUGH 2018-01-01 VANCT 22 5-10 GLUCOSE POINT OF CARE 2018-01-01 COMMENT1 Notify Nurse GLUCOSE 112 74-118 GLUCOSE POINT OF CARE 2017-12-31 COMMENT1 GLUCOSE 105 74-118 GLUCOSE POINT OF CARE 2017-12-31 COMMENT1 Notify Nurse GLUCOSE 106 74-118 GLUCOSE POINT OF CARE 2017-12-31 COMMENT1 Notify Nurse GLUCOSE 93 74-118 PT/INR 2017-12-31 INR 2.0 PT 20.0 9.3-11.4 GLUCOSE POINT OF CARE 2017-12-31 COMMENT1 Notify Nurse GLUCOSE 90 74-118 GLUCOSE POINT OF CARE 2017-12-30 COMMENT1 GLUCOSE 101 74-118 GLUCOSE POINT OF CARE 2017-12-30 COMMENT1 Notify Nurse GLUCOSE 92 74-118 GLUCOSE POINT OF CARE 2017-12-30 COMMENT1 Notify Nurse GLUCOSE 119 74-118 CBC WITH AUTO DIFF 2017-12-30 BA# 0.0 0.0-0.2 EO# 0.2 0.0-0.7 IG# 0.0 0.0-0.1 LY# 2.6 1.5-4.0 MO# 0.5 0.2-0.8 ANC# 4.0 1.4-7.9 BA% 0.5 EO% 3.0 HCT 39.8 37.0-47.0 HGB 13.1 12.5-16.0 IG% 0.5 0.0-1.0 LY% 35.2 MCH 29.4 27.0-32.0 MCHC 32.9 32.0-36.0 MCV 89 78-100 MO% 6.8 MPV 10.4 7.4-11.0 NE% 54.5 PLT 307 140-440 RBC 4.5 4.5-6.0 RDW 14.0 11.0-14.0 WBC 7.3 4.0-12.0 PT/INR 2017-12-30 INR 2.0 PT 20.0 9.3-11.4 GLUCOSE POINT OF CARE 2017-12-30 COMMENT1 Notify Nurse GLUCOSE 94 74-118 GLUCOSE POINT OF CARE 2017-12-29 COMMENT1 GLUCOSE 100 74-118 GLUCOSE POINT OF CARE 2017-12-29 COMMENT1 Notify Nurse GLUCOSE 86 74-118 GLUCOSE POINT OF CARE 2017-12-29 COMMENT1 Notify Nurse GLUCOSE 116 74-118 CBC WITH AUTO DIFF 2017-12-29 BA# 0.0 0.0-0.2 EO# 0.2 0.0-0.7 IG# 0.0 0.0-0.1 LY# 2.1 1.5-4.0 MO# 0.4 0.2-0.8 ANC# 3.7 1.4-7.9 BA% 0.5 EO% 2.7 HCT 39.4 37.0-47.0 HGB 13.1 12.5-16.0 IG% 0.5 0.0-1.0 LY% 33.4 MCH 29.5 27.0-32.0 MCHC 33.2 32.0-36.0 MCV 89 78-100 MO% 5.5 MPV 9.8 7.4-11.0 NE% 57.9 PLT 286 140-440 RBC 4.4 4.5-6.0 RDW 14.0 11.0-14.0 WBC 6.4 4.0-12.0 VANCOMYCIN TROUGH 2017-12-29 VANCT 18 5-10 PT/INR 2017-12-29 INR 2.0 PT 19.8 9.3-11.4 GLUCOSE POINT OF CARE 2017-12-29 COMMENT1 Notify Nurse GLUCOSE 104 74-118 GLUCOSE POINT OF CARE 2017-12-28 COMMENT1 Notify Nurse GLUCOSE 108 74-118 GLUCOSE POINT OF CARE 2017-12-28 COMMENT1 GLUCOSE 115 74-118 GLUCOSE POINT OF CARE 2017-12-28 COMMENT1 Notify Nurse GLUCOSE 110 74-118 CBC WITH AUTO DIFF 2017-12-28 BA# 0.0 0.0-0.2 EO# 0.2 0.0-0.7 IG# 0.0 0.0-0.1 LY# 2.9 1.5-4.0 MO# 0.5 0.2-0.8 ANC# 4.1 1.4-7.9 BA% 0.4 EO% 2.6 HCT 39.0 37.0-47.0 HGB 12.7 12.5-16.0 IG% 0.5 0.0-1.0 LY% 37.7 MCH 29.4 27.0-32.0 MCHC 32.6 32.0-36.0 MCV 90 78-100 MO% 6.8 MPV 10.9 7.4-11.0 NE% 52.5 PLT 310 140-440 RBC 4.3 4.5-6.0 RDW 14.0 11.0-14.0 WBC 7.7 4.0-12.0 PT/INR 2017-12-28 INR 2.0 PT 19.7 9.3-11.4 GLUCOSE POINT OF CARE 2017-12-28 COMMENT1 GLUCOSE 109 74-118 GLUCOSE POINT OF CARE 2017-12-27 COMMENT1 GLUCOSE 130 74-118 GLUCOSE POINT OF CARE 2017-12-27 COMMENT1 GLUCOSE 102 74-118 GLUCOSE POINT OF CARE 2017-12-27 COMMENT1 GLUCOSE 160 74-118 CBC WITH AUTO DIFF 2017-12-27 BA# 0.0 0.0-0.2 EO# 0.2 0.0-0.7 IG# 0.0 0.0-0.1 LY# 2.5 1.5-4.0 MO# 0.4 0.2-0.8 ANC# 3.5 1.4-7.9 BA% 0.6 EO% 3.6 HCT 39.3 37.0-47.0 HGB 13.1 12.5-16.0 IG% 0.6 0.0-1.0 LY% 37.6 MCH 29.8 27.0-32.0 MCHC 33.3 32.0-36.0 MCV 90 78-100 MO% 6.4 MPV 9.9 7.4-11.0 NE% 51.8 PLT 300 140-440 RBC 4.4 4.5-6.0 RDW 14.0 11.0-14.0 WBC 6.8 4.0-12.0 VANCOMYCIN TROUGH 2017-12-27 VANCT 21 5-10 PT/INR 2017-12-27 INR 2.1 PT 21.2 9.3-11.4 GLUCOSE POINT OF CARE 2017-12-27 COMMENT1 GLUCOSE 107 74-118 GLUCOSE POINT OF CARE 2017-12-26 COMMENT1 GLUCOSE 135 74-118 GLUCOSE POINT OF CARE 2017-12-26 COMMENT1 Notify Nurse GLUCOSE 100 74-118 GLUCOSE POINT OF CARE 2017-12-26 COMMENT1 Notify Nurse GLUCOSE 176 74-118 CBC WITH AUTO DIFF 2017-12-26 BA# 0.1 0.0-0.2 EO# 0.2 0.0-0.7 IG# 0.0 0.0-0.1 LY# 2.8 1.5-4.0 MO# 0.5 0.2-0.8 ANC# 3.7 1.4-7.9 BA% 0.7 EO% 3.3 HCT 39.0 37.0-47.0 HGB 12.8 12.5-16.0 IG% 0.5 0.0-1.0 LY% 38.0 MCH 29.4 27.0-32.0 MCHC 32.8 32.0-36.0 MCV 89 78-100 MO% 7.3 MPV 10.4 7.4-11.0 NE% 50.7 PLT 295 140-440 RBC 4.4 4.5-6.0 RDW 14.2 11.0-14.0 WBC 7.3 4.0-12.0 PT/INR 2017-12-26 INR 2.3 PT 22.7 9.3-11.4 GLUCOSE POINT OF CARE 2017-12-26 COMMENT1 Notify Nurse GLUCOSE 107 74-118 GLUCOSE POINT OF CARE 2017-12-25 COMMENT1 GLUCOSE 122 74-118 GLUCOSE POINT OF CARE 2017-12-25 COMMENT1 Notify Nurse GLUCOSE 123 74-118 GLUCOSE POINT OF CARE 2017-12-25 COMMENT1 GLUCOSE 117 74-118 GLUCOSE POINT OF CARE 2017-12-25 COMMENT1 Notify Nurse GLUCOSE 136 74-118 CBC WITH AUTO DIFF 2017-12-25 BA# 0.1 0.0-0.2 EO# 0.2 0.0-0.7 IG# 0.0 0.0-0.1 LY# 2.6 1.5-4.0 MO# 0.4 0.2-0.8 ANC# 3.2 1.4-7.9 BA% 0.8 EO% 3.1 HCT 39.7 37.0-47.0 HGB 13.1 12.5-16.0 IG% 0.5 0.0-1.0 LY% 40.2 MCH 29.5 27.0-32.0 MCHC 33.0 32.0-36.0 MCV 89 78-100 MO% 6.6 MPV 10.1 7.4-11.0 NE% 49.3 PLT 324 140-440 RBC 4.4 4.5-6.0 RDW 14.1 11.0-14.0 WBC 6.5 4.0-12.0 PT/INR 2017-12-25 INR 3.1 PT 30.4 9.3-11.4 GLUCOSE POINT OF CARE 2017-12-25 COMMENT1 GLUCOSE 134 74-118 GLUCOSE POINT OF CARE 2017-12-24 COMMENT1 Notify Nurse GLUCOSE 123 74-118 GLUCOSE POINT OF CARE 2017-12-24 COMMENT1 GLUCOSE 105 74-118 GLUCOSE POINT OF CARE 2017-12-24 COMMENT1 GLUCOSE 132 74-118 VANCOMYCIN TROUGH 2017-12-24 VANCT 18 5-10 PT/INR 2017-12-24 INR 2.7 PT 26.3 9.3-11.4 GLUCOSE POINT OF CARE 2017-12-24 COMMENT1 GLUCOSE 129 74-118 GLUCOSE POINT OF CARE 2017-12-23 COMMENT1 GLUCOSE 131 74-118 GLUCOSE POINT OF CARE 2017-12-23 COMMENT1 Notify Nurse GLUCOSE 114 74-118 GLUCOSE POINT OF CARE 2017-12-23 COMMENT1 Notify Nurse GLUCOSE 135 74-118 BASEMET 2017-12-23 BUN 13 7-25 CA 9.2 8.6-10.3 CO2 20 22-32 CL 103 98-108 CREATS 0.61 0.60-1.20 EGFR >60 >=60 GLUC 124 74-106 K+ 3.5 3.5-5.1 NA 135 136-144 CBC WITH AUTO DIFF 2017-12-23 BA# 0.1 0.0-0.2 EO# 0.2 0.0-0.7 IG# 0.0 0.0-0.1 LY# 2.7 1.5-4.0 MO# 0.3 0.2-0.8 ANC# 3.5 1.4-7.9 BA% 0.7 EO% 3.4 HCT 39.3 37.0-47.0 HGB 13.0 12.5-16.0 IG% 0.6 0.0-1.0 LY% 38.9 MCH 29.6 27.0-32.0 MCHC 33.1 32.0-36.0 MCV 90 78-100 MO% 5.0 MPV 10.3 7.4-11.0 NE% 52.0 PLT 280 140-440 RBC 4.4 4.5-6.0 RDW 14.2 11.0-14.0 WBC 6.8 4.0-12.0 PT/INR 2017-12-23 INR 3.1 PT 30.6 9.3-11.4 GLUCOSE POINT OF CARE 2017-12-23 COMMENT1 Notify Nurse GLUCOSE 118 74-118 GLUCOSE POINT OF CARE 2017-12-22 COMMENT1 GLUCOSE 108 74-118 BASEMET 2017-12-22 BUN 16 7-18 CA 9.6 8.5-10.1 CO2 24 22-32 CL 103 98-108 CREATS 0.85 0.55-1.30 EGFR >60 >=60 GLUC 121 74-106 K+ 3.6 3.7-5.0 NA 139 136-144 CBC WITH AUTO DIFF 2017-12-22 BA# 0.1 0.0-0.2 EO# 0.3 0.0-0.7 IG# 0.0 0.0-0.1 LY# 2.6 1.5-4.0 MO# 0.5 0.2-0.8 ANC# 4.0 1.4-7.9 BA% 0.7 EO% 3.5 HCT 40.4 37.0-47.0 HGB 13.4 12.5-16.0 IG% 0.5 0.0-1.0 LY% 35.2 MCH 29.7 27.0-32.0 MCHC 33.2 32.0-36.0 MCV 90 78-100 MO% 6.4 MPV 10.2 7.4-11.0 NE% 54.2 PLT 290 140-440 RBC 4.5 4.5-6.0 RDW 14.4 11.0-14.0 WBC 7.4 4.0-12.0 MAGNESIUM 2017-12-22 MG 1.9 1.9-2.7 PT/INR 2017-12-22 INR 3.2 PT 31.8 9.3-11.4 GLUCOSE POINT OF CARE 2017-12-22 COMMENT1 GLUCOSE 104 74-118 CREATININE W EGFR 2017-12-21 CREATS 0.84 0.55-1.30 EGFR >60 >=60 CBC WITH AUTO DIFF 2017-12-22 BA# 0.1 0.0-0.2 EO# 0.2 0.0-0.7 IG# 0.1 0.0-0.1 LY# 2.3 1.5-4.0 MO# 0.6 0.2-0.8 ANC# 4.0 1.4-7.9 BA% 0.7 EO% 2.7 HCT 40.6 37.0-47.0 HGB 13.1 12.5-16.0 IG% 0.9 0.0-1.0 LY% 32.1 MCH 29.6 27.0-32.0 MCHC 32.3 32.0-36.0 MCV 92 78-100 MO% 8.4 MPV 11.5 7.4-11.0 NE% 56.1 PLT 314 140-440 RBC 4.4 4.5-6.0 RDW 14.4 11.0-14.0 WBC 7.1 4.0-12.0 COMPMET 2017-12-22 ALB 3.6 3.4-5.0 ALKP 110 46-116 ALT 32 13-78 AST 37 15-37 BUN 16 7-18 CA 8.5-10.1 CO2 19 22-32 CL 104 98-108 CREATS 0.81 0.55-1.30 DBIL 0.0 0.0-0.2 EGFR >60 >=60 GLUC 158 74-106 K+ 4.0 3.7-5.0 NA 140 136-144 TBIL 0.3 0.3-1.2 TP 7.7 6.5-8.1 CRP-INFLAM 2017-12-22 CRP 1.1 0.0-0.9 SED RATE 2017-12-22 ESR 59 0-30 GLUCOSE POINT OF CARE 2017-09-30 COMMENT1 Provider Notified GLUCOSE POINT OF CARE 2017-09-30 GLUCOSE COMMENT #1 COMMENT #2 Time last ate? POD Toe(s), R min 2V (POD12) 2017-09-30 X Foot L 3V 2016-08-26 Image Accessible GLUCOSE POINT OF CARE 2015-03-27 COMMENT1 Provider Notified X Foot R 3V [...] F/U, Last seen by Ws on 01/11/20 forToe Ulcer -HL , patient states she is here for follow up L hallux ulcer-KG, 1 WK F/U, Last seen by Ws on 01/04/20 for left hallux wound , pt states that she is here for f/u on her left great toe , pt states that she feels like the outside of toe has a new blister forming , pt states that her toe is looking bright red now , 1 WK F/U, pt states she is here for f/u (L) hallux laceration, pt states toelooks the same as last week, has not started the antibiotic yet, Medications reviewed w/pt,med. list is correct - cp, big toe on left foot,swollen and red referral done, last seen by WS on 08/04/2019 for follow up appointment -HL , pt states that she fell down a couple weeks ago and cut open her leftgreat toe , pt states that she needs some nail care today , pt states that it feels like she has glass in the bottom of her feet , 6 week f/u, [...] and prior history of foot infection requiring hospi talization. JL, pt states her R toe is doing well. Has callus type skin on it- KG, referral done, last seen by WS on 07/04/18 for toe discoloration and swollen foot -HL [...] KG - scheduled 07/03 watch for PM 1, toe ulcer f/u, referral done, 2 WK [...] she has three toes on the right foot that are bleeding , pt states that [...] wound was dry yesterday , 2 WK F/U,toe/foot worse, 5th toe laceration, infection, on antibiotics,, [...] change frequency, Wound CTR- follow up, Wound CTR-followup, Not doing well at home, Wound CTR-follow up, Wound CTR-follow up, F/U, Per AR last note: was seen at [facility] for wounds of both feet, lateral aspect at base of fifth metatarsals, and for cellulitis , Refused to take Cephalexin 500mg because of loose stools. , Still waiting on information from PCP. AB requested them 12/23 , Inpatient, Inpatient consult, D/C Planning, consult, Positive Blood Cx, FYI , blood draw, ER f/u, referral done. Seen [facility] 12/20/2017., DM neuropathy pain under toes., DFU bilateral noticed 12/20. Patient states feet were swollen and she walked around the store and noticed ulcers., Patient was discharged from [facility] 12/01/17 for rehab from [facility] [place] for [place] and PE., ER f/u, appt with WS, In Rehab, 2 week f/u , Pt last seen by WS11/02/17, Per last note- Xrays today R foot with 2nd toe elevated- Check with WS to make sure. , Noneed for DM template- Done at last visit, 2 week follow up , R 2nd toe f/u , Pt states she noticed Wednesday the toe was red and swollen, Pt states she tried to clean the toe , pt wanted to be called if appt became available in the am, left message asked pt to call with which appt she would marisa , 2week f/u, Referral Done, pt states she had [...] Done, Pt states she was seen in [facility] ED last week, Pt states she [...] 1 month f/u, Referral Done, pt states thather toes are not good, hit left 3rd toe and it is cut/bruised, 5th right toe has a problem as well,Update, follow up, Referral Done, Pt states 4th Right Toe is still a little swollen and the rednessis travelling up toe. JV, Cellulitis toe, Referral Done, pt states that her 4th right toe is purple. Does not know what happened. Been like that since April, pt would also like nailcare today and is a diabetic Insurance Providers Health Insurance Type Health Plan Insurance Address Health Plan Insurance Phone Health Plan Insurance Name Health Plan Coverage Dates Member ID Patient Relationship to Subscriber Patient Address Patient Phone Patient Name Patient Date of Subscriber ID Subscriber Name Subscriber Date of Group No SELF PAY NO INSURANCE ANY [address] [facility] [id number] SELF PAY NO INSURANCE self [place] [id number] [place]ID [place] [facility] [id number] [place] [id number] [place] [facility] [id number] [place] [id number]
--- NOTE | 2022-12-31 15:30 | RT.EKG_ITS ---
APPROVED REPORT Exam: Resting ECG Reason for Exam: sob Patient Location: E HR:67 bpm ECG Measurements Heart Rate 67 AXIS MO 232 P -1 QRSd 108 QRS -14 QT 427 T 9 QTc 451 Conclusion Sinus rhythm...normal P axis, V-rate 60- 99 Prolonged MO interval...MO >220, V-rate 50- 90 Probable left ventricular hypertrophy...multiple LVH criteria sinus rhythm, left axis, non ischemic
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
[2022-12-31 16:22] LABS: Abs Immature Grans 0.03 10^3/uL (0.0-0.06); Absolute Basophil Count 0.09 10^3/uL (0.0-0.2); Absolute Eosinophil Count 0.18 10^3/uL (0.0-0.7); Absolute Lymphocyte Count 3.31 10^3/uL (1.2-3.4); Absolute Monocyte Count 0.47 10^3/uL (0.1-0.8); Absolute Neutrophil Count 3.98 10^3/uL (1.2-6.7); Basophils % 1.1; Eosinophils % 2.2; HCT 39.3 % (36.0-46.0); HGB 13.8 g/dL (11.2-15.7); Immature Grans % 0.4; Lymphocytes % 41.1; MCH 29.9 pg (27.0-33.0); MCHC 35.1 % (32.0-36.0); MCV 85 fL (80-95); MPV 10.3 fL (8.0-11.0); Monocytes % 5.8; Neutrophils % 49.4; Platelet Count 230 10^3/uL (130-400); RBC 4.61 10^6/uL (3.93-5.22); RDW 13.5 % (11.7-14.6); RDW-SD 41.7 fL; WBC 8.06 10^3/uL (4.4-10.8)
[2022-12-31 16:39] LABS: ALT 32 U/L (14-59); AST 27 U/L (15-37); Albumin 3.7 g/dL (3.4-5.0); Alkaline Phosphatase 145 U/L (46-116); Anion Gap 12.7 mmol/L (3-11); BUN 19 mg/dL (7-18); Bilirubin, Total 0.9 mg/dL (0.2-1.0); CO2 24.3 mmol/L (21.0-32.0); CREATININE 0.9 mg/dL (0.55-1.02); Calcium 9.1 mg/dL (8.5-10.1); Chloride 108 mmol/L (98-107); Estimated GFR 70.51 (mL/min/1.73m2); Glucose 101 mg/dL (74-106); Potassium 3.3 mmol/L (3.5-5.1); Sodium 145 mmol/L (136-145); Total Protein 7.7 g/dL (6.4-8.2)
[2022-12-31 16:53] LABS: D-Dimer 229 ng/mlFEU (<500)
== END 2022-12-31 17:51 | disposition home or self-care (01) ==
PROVIDERS: Emergency Provider Emergency Medicine; PCP Physician Assistant
DX: R06.02 Shortness of breath (principal); E11.9 Type 2 diabetes mellitus without complications
CPT/HCPCS: 36416; 80053; 82962; 93005; 99283; 85025; 85379; 93010

== ENCOUNTER 2023-01-26 13:01 | Outpatient (CLI) | payer MEDICARE, MEDICAID, SELFPAY ==
[2023-01-26 12:01] LABS: INR 2.1 (0.9-1.1)
[2023-01-26 12:24] LABS: D-Dimer 223 ng/mlFEU (<500)
== END 2023-01-26 13:02 | disposition home or self-care (01) ==
LOC: LBO 13:01
PROVIDERS: PCP Physician Assistant; Visit Provider Nurse Practitioner Family
DX: Z86.711 Personal history of pulmonary embolism; Z79.01 Long term (current) use of anticoagulants; R79.1 Abnormal coagulation profile
CPT/HCPCS: 36415; 85379; 85610

== ENCOUNTER 2023-02-02 10:22 | Outpatient (REF) | payer MEDICARE, MEDICAID, SELFPAY ==
[2023-02-06 15:39] LABS: Calprotectin <50.0 mcg/g
== END 2023-02-02 10:23 | disposition home or self-care (01) ==
LOC: LBN 10:22
PROVIDERS: PCP Physician Assistant; Visit Provider Family Medicine
DX: K52.9 Noninfective gastroenteritis and colitis, unspecified (principal)
CPT/HCPCS: 87329; 83993

== ENCOUNTER 2023-06-02 12:00 | Outpatient (REF) | payer MEDICARE, MEDICAID, SELFPAY ==
[2023-06-03 15:08] LABS: C Diff PCR Negative (Negative)
[2023-06-04 12:33] LABS: Campylobacter PCR Negative (Negative); Salmonella PCR Negative (Negative); Shiga Toxin PCR Negative (Negative); Shigella/Enteroinvasive Ecoli Negative (Negative)
[2023-06-04 12:52] LABS: Helicobacter pylori Ag, Feces Negative (Negative)
[2023-06-05 19:35] LABS: Calprotectin <50.0 mcg/g
== END 2023-06-02 12:01 | disposition home or self-care (01) ==
LOC: LBN 12:00
PROVIDERS: PCP Physician Assistant; Visit Provider Nurse Practitioner Acute Care
DX: R19.7 Diarrhea, unspecified (principal)
CPT/HCPCS: 87329; 87338; 87493; 87505; 83993

== ENCOUNTER 2023-06-03 04:45 | Outpatient (CLI) | payer MEDICARE, MEDICAID, SELFPAY ==
--- OUTSIDE RECORDS SUMMARY | 2023-06-03 04:47 | XMS_ITS | Continuity of Care Document ---
Author Name Unknown Organization [facility] Address [address] [place] [address] Encounter LTTL_AL FIN NBR [id number] Date(s): 02/10/23 - 02/10/23 [facility] [address] [place] [address]- Encounter Diagnosis Unspecified fracture of right foot, initial encounter for closed fracture(Final) - Discharge Disposition: Home or Self Care Attending Physician: CAMRON PRATER DPM Admitting Physician: CAMRON PRATER DPM
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
[2023-06-03 10:52] LABS: Abs Immature Grans 0.02 10^3/uL (0.0-0.06); Absolute Basophil Count 0.09 10^3/uL (0.0-0.2); Absolute Eosinophil Count 0.18 10^3/uL (0.0-0.7); Absolute Lymphocyte Count 2.49 10^3/uL (1.2-3.4); Absolute Monocyte Count 0.36 10^3/uL (0.1-0.8); Basophils % 1.2; Eosinophils % 2.4; HCT 40.2 % (36.0-46.0); Immature Grans % 0.3; Lymphocytes % 33.5; MCH 29.9 pg (27.0-33.0); MCHC 34.8 % (32.0-36.0); MCV 86 fL (80-95); MPV 10.6 fL (8.0-11.0); Monocytes % 4.8; Neutrophils % 57.8; Platelet Count 292 10^3/uL (130-400); RBC 4.68 10^6/uL (3.93-5.22); RDW 13.5 % (11.7-14.6); RDW-SD 42.5 fL; WBC 7.44 10^3/uL (4.4-10.8)
[2023-06-03 11:50] LABS: ALT 28 U/L (14-59); AST 23 U/L (15-37); Albumin 3.6 g/dL (3.4-5.0); Alkaline Phosphatase 125 U/L (46-116); Anion Gap 14.8 mmol/L (3-11); BUN 17 mg/dL (7-18); Bilirubin, Total 0.8 mg/dL (0.2-1.0); CO2 21.2 mmol/L (21.0-32.0); Calcium 9.3 mg/dL (8.5-10.1); Chloride 105 mmol/L (98-107); Estimated GFR 61.75 (mL/min/1.73m2); Glucose 146 mg/dL (74-106); Sodium 141 mmol/L (136-145); TSH 1.41 uIU/mL (0.36-3.74); Total Protein 7.7 g/dL (6.4-8.2)
== END 2023-06-03 04:46 | disposition home or self-care (01) ==
LOC: LBO 04:45
PROVIDERS: PCP Physician Assistant; Visit Provider Physician Assistant
DX: R63.4 Abnormal weight loss; R19.7 Diarrhea, unspecified; R10.9 Unspecified abdominal pain; R73.9 Hyperglycemia, unspecified
CPT/HCPCS: 36415; 80053; 82784; 83036; 84443; 85025

== ENCOUNTER 2023-06-19 12:07 | Emergency (ER) | payer MEDICARE, MEDICAID, SELFPAY ==
[2023-06-19] VITALS (30 sets, daily range): BP systolic 134–164; BP diastolic 60–103; PULSE 64–80; RESP 12–20; TEMP 36.4; O2SAT 94–98
--- NOTE | 2023-06-19 12:00 | RT.EKG_ITS ---
APPROVED REPORT Exam: Resting ECG Reason for Exam: chest pain Patient Location: E HR:70 bpm ECG Measurements Heart Rate 70 AXIS IA 215 P -13 QRSd 108 QRS -16 QT 420 T 35 QTc 455 Conclusion Sinus rhythm...normal P axis, V-rate 60- 99 Borderline prolonged IA interval...IA >212, V-rate 50- 90 Probable lateral infarct, old...Q>35mS, abnormal ST-T, V5-6 I aVL
[2023-06-19 12:40] LABS: Abs Immature Grans 0.02 10^3/uL (0.0-0.06); Absolute Basophil Count 0.06 10^3/uL (0.0-0.2); Absolute Eosinophil Count 0.17 10^3/uL (0.0-0.7); Absolute Lymphocyte Count 2.98 10^3/uL (1.2-3.4); Absolute Monocyte Count 0.33 10^3/uL (0.1-0.8); Basophils % 0.9; Eosinophils % 2.5; HCT 39.1 % (36.0-46.0); HGB 13.5 g/dL (11.2-15.7); Immature Grans % 0.3; Lymphocytes % 44.1; MCH 29.8 pg (27.0-33.0); MCHC 34.5 % (32.0-36.0); MCV 86 fL (80-95); MPV 10.1 fL (8.0-11.0); Monocytes % 4.9; Neutrophils % 47.3; Platelet Count 268 10^3/uL (130-400); RBC 4.53 10^6/uL (3.93-5.22); RDW 12.7 % (11.7-14.6); RDW-SD 40.1 fL; WBC 6.76 10^3/uL (4.4-10.8)
--- NOTE | 2023-06-19 12:45 | DI.CT_ITS ---
Exam(s) CT CHEST PE CTA EXAM: CT CHEST PE CTA CLINICAL HISTORY: h/o PEs, off coumadin, chest pain. TECHNIQUE: Imaging Protocol: CT angiography of the chest was performed using pulmonary embolus elise col. Multi planar reconstructions were performed. CONTRAST MATERIAL: Intravenous: Omnipaque 350 Contrast volume: 100 cc COMPARISON: CT CT CHEST PE CTA from 01/30/2022 FINDINGS: CHEST: PULMONARY ARTERIES: There are no intraluminal filling defects to suggest acute pulmonary emboli. LUNGS: There are no infiltrates nor evidence of pulmonary infarction.. There are no pleural effusions . MEDIASTINUM: There is no hilar nor mediastinal adenopathy. Visualized thyroid unremarkable. CARDIAC: Heart size is upper normal. There is no pericardial effusion.Caliber of the thoracic aorta is within normal limits. There is no significant shift of the interventricular septum. PARTIALLY VISUALIZED UPPERMOST ABDOMEN: Hepatic steatosis. Somewhat cirrhotic appearing liver. Prio r cholecystectomy. OSSEOUS: No significant osseous lesions.. IMPRESSION: 1. No evidence of acute pulmonary emboli. No evidence of pulmonary infarction.No pleural effusions. No lung infiltrates. 2. No evidence of aortic dissection nor pericardial effusion. 3. Fatty and cirrhotic appearing liver noted. RADIATION DOSE DELIVERED: Total DLP DATA REPOSITORY: All CT scans at this facility are submitted to the National Radiology Data Registry (NRDR) Dose Index Registry (DIR) with the [employer] (A[employer]). RADIATION OPTIMIZATION: All CT scans at this facility use at least one of these dose optimization te chniques: automated exposure control; mA and/or kV adjustment per patient size (includes targeted exa ms where dose is matched to clinical indication); or iterative reconstruction.
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
[2023-06-19 12:54] LABS: INR 1.8 (0.9-1.1); PTT Activated 35.8 sec (23.6-32.8)
[2023-06-19 12:58] LABS: ALT 26 U/L (14-59); AST 25 U/L (15-37); Albumin 3.5 g/dL (3.4-5.0); Alkaline Phosphatase 124 U/L (46-116); Anion Gap 10.8 mmol/L (3-11); BUN 11 mg/dL (7-18); Bilirubin, Total 0.8 mg/dL (0.2-1.0); CO2 26.2 mmol/L (21.0-32.0); CREATININE 1.1 mg/dL (0.55-1.02); Calcium 8.9 mg/dL (8.5-10.1); Chloride 103 mmol/L (98-107); Estimated GFR 55.07 (mL/min/1.73m2); Glucose 139 mg/dL (74-106); Magnesium 1.5 mg/dL (1.8-2.4); Potassium 3.8 mmol/L (3.5-5.1); Sodium 140 mmol/L (136-145); Total Protein 7.6 g/dL (6.4-8.2); Troponin I < 50 ng/L (<or=60)
[2023-06-19] MEDS: Lactated Ringers 500 ML 1000 ML IV (13:35)
[2023-06-19] MEDS: Normal Saline - Diluent 50 ML VIAL IJ (13:40)
[2023-06-19] MEDS: Omnipaque 350 MG/ML 100 ML BTL IJ (13:41)
[2023-06-19] MEDS: Normal Saline Flush 10 ML SYR IVP (13:42)
--- NOTE | 2023-06-19 14:25 | DI.VRAD_ITS ---
PROCEDURE INFORMATION: Exam: CTA Chest With Contrast Exam date and time: 06/19/2023 1:17 PM Age: 68 years old Clinical indication: Other: H/o pes, off coumadin, chest pain TECHNIQUE: Imaging protocol: Computed tomographic angiography of the chest with contrast. Exam focused on the arteries. 3D rendering (Not supervised by radiologist): MIP and/or 3D reconstructed images were created by the technologist. Contrast material: OIPAQUE 350; Contrast volume: 100 ml; Contrast route: INTRAVENOUS (IV); COMPARISON: CT CHEST PE CTA 01/30/2022 4:16 PM FINDINGS: Pulmonary arteries: Negative for acute pulmonary embolism. Aorta: Unremarkable. No aortic aneurysm. No aortic dissection. Lungs: Unremarkable. No consolidation. No masses. Pleural spaces: Unremarkable. No pneumothorax. No pleural effusion. Heart: Unremarkable. No cardiomegaly. No pericardial effusion. Lymph nodes: Unremarkable. No enlarged lymph nodes. Bones/joints: Unremarkable. No acute fracture. Soft tissues: Unremarkable. IMPRESSION: Negative for acute pulmonary embolism. Dictated and Authenticated by: Starla Gregory MD. Ordering:CHEN Sanon MD
[2023-06-19 15:40] LABS: Troponin I < 50 ng/L (<or=60)
[2023-06-19] MEDS: Magnesium Oxide 400 MG TAB 800 MG PO (16:37)
--- NOTE | 2023-06-19 17:58 | NUR.NOTE ---
Referral faxed to PCP for chest pain, to be seen next week. Nursing Note:
== END 2023-06-19 16:53 | disposition home or self-care (01) ==
PROVIDERS: Emergency Provider Student in an Organized Health Care Education/Training Program; PCP Physician Assistant
DX: E83.42 Hypomagnesemia (principal); F41.9 Anxiety disorder, unspecified; R51.9 Headache, unspecified; I10 Essential (primary) hypertension; E11.42 Type 2 diabetes mellitus with diabetic polyneuropathy; E78.00 Pure hypercholesterolemia, unspecified; D68.62 Lupus anticoagulant syndrome; R94.31 Abnormal electrocardiogram [ECG] [EKG]; Z79.4 Long term (current) use of insulin; Z79.01 Long term (current) use of anticoagulants; Z86.711 Personal history of pulmonary embolism; Z87.891 Personal history of nicotine dependence
CPT/HCPCS: 71275; 80053; 93005; 99285; 83735; 84484; 85025; 85610; 85730; 93010; 99284; J3490

== ENCOUNTER 2023-06-25 16:39 | Outpatient (REF) | payer MEDICARE, MEDICAID, SELFPAY ==
--- OUTSIDE RECORDS SUMMARY | 2023-06-25 16:50 | XMS_ITS | Patient Health Record ---
Author Name Unknown [facility] Address [address] [place] [address] Care Team Providers Care Secretarial Teacher Name Role Phone [facility] Primary Care Prov ider Unavailable Thomas Mejia Unavailable [phone] ALLERGIES Allergen (clinical drug ingredient) Drug/Non Drug [...] ulcer due to type 2 diabetes mellitus (0760880257940) Nicely improved Problem Hammertoe (M20.40) Active confirmed Hammer toe (232216442) The fourth right toe is anatomic after flexor tenotomy procedure Problem Pre-ulcerative calluses (L84) Active confirmed Callosity (478344694) Problem Diabetic toe ulcer (E11.621) Active confirmed Foot ulcer d ue to type 2 diabetes mellitus (2913000004351) Resolved Problem Cellulitis of toe of right foot (L03.031) Active confirmed [id number] Loo ks to be resolved Problem Foot drop, left (M21.372) Active confirmed 186303221994642 Problem Left foot pain (M79.672) Active confirmed 46800455 Problem Ankle instability (M25.373) Active confirmed Ankle instabili ty (191638) Problem Skin fissure (R23.4) Active confirmed Skin fissure (26671036) Basically resolved Problem Non-pressure chronic ulcer of other part of unspecified foot with unspecified severity (L97.509) Active confirmed 457761650 Improving Problem Non-pressure chronic ulcer of other part of left foot limited to breakdown of skin (L97.521) Active confirmed 077426311 Problem Diabetic neuropathy associated with type 2 diabetes mellitus (E11.40) Active confirmed Neuropathy due to type 2 diabetes mellitus (783470206805378) Problem Cellulitis of toe of left foot (L03.032) Active confirmed 13579409656364249 Resolve d Problem Blister of toe of left foot (S90.425A) Active confirmed Blister of toe without infection (54476323) Resolved Problem Diabetic polyneuropathy associated with type 2 diabetes mellitus (E11.42) Active confirmed 19361102 Problem Hammertoe of left foot (M20.42) Active confirmed 130537896 Problem Difficulty walking due to ankle and foot joint (R26.2) Active confirmed Walking disabi lity (398844164) Problem Hammertoe of second toe of right foot (M20.41) Active confirmed 516896198 Problem Encounter for diabetic foot exam (E11.9) Active confirmed Type II diabete s mellitus without complication (814905150) PLAN OF TREATMENT No Information Insurance Providers Payer Name Payer Address Payer Phone Subscriber Number Group Number Insured Name Patient Relationship to Insured Coverage Start Date Coverage End Date [place] [employer] [place], [place] [id number] [place] Self - patient is the insured SELF [place]Y [place] [address] [place] [address] LANA PENNINGTON Self - patient is the [...]
[2023-06-25 18:24] LABS: Anion Gap 12.9 mmol/L (3-11); BUN 16 mg/dL (7-18); CO2 22.1 mmol/L (21.0-32.0); CREATININE 1.2 mg/dL (0.55-1.02); Chloride 108 mmol/L (98-107); Estimated GFR 49.61 (mL/min/1.73m2); Glucose 147 mg/dL (74-106); Magnesium 1.8 mg/dL (1.8-2.4); Potassium 3.7 mmol/L (3.5-5.1); Sodium 143 mmol/L (136-145)
== END 2023-06-25 16:40 | disposition home or self-care (01) ==
LOC: NCHCN 16:39
PROVIDERS: PCP Physician Assistant; Visit Provider Nurse Practitioner Family
DX: E83.42 Hypomagnesemia (principal)
CPT/HCPCS: 80048; 83735

== ENCOUNTER → 2023-08-16 01:38 | Outpatient (CLI) | payer MEDICARE, MEDICAID, SELFPAY ==
--- OUTSIDE RECORDS SUMMARY | 2023-08-16 01:40 | XMS_ITS | Patient Health Record ---
Author Name Unknown [facility] Address [address] [place] [address] Care Team Providers Care Field Service Representative Name Role Phone [facility] Primary Care Prov ider Unavailable Thomas Mejia Unavailable [phone] ALLERGIES Allergen (clinical drug ingredient) Drug/Non Drug [...] ulcer due to type 2 diabetes mellitus (4671799587460) Nicely improved Problem Hammertoe (M20.40) Active confirmed Hammer toe (871899825) The fourth right toe is anatomic after flexor tenotomy procedure Problem Pre-ulcerative calluses (L84) Active confirmed Callosity (923364590) Problem Diabetic toe ulcer (E11.621) Active confirmed Foot ulcer d ue to type 2 diabetes mellitus (2093958588558) Resolved Problem Cellulitis of toe of right foot (L03.031) Active confirmed [id number] Loo ks to be resolved Problem Foot drop, left (M21.372) Active confirmed 210985997570129 Problem Left foot pain (M79.672) Active confirmed 80344676 Problem Ankle instability (M25.373) Active confirmed Ankle instabili ty (130205) Problem Skin fissure (R23.4) Active confirmed Skin fissure (71252367) Basically resolved Problem Non-pressure chronic ulcer of other part of unspecified foot with unspecified severity (L97.509) Active confirmed 759186168 Improving Problem Non-pressure chronic ulcer of other part of left foot limited to breakdown of skin (L97.521) Active confirmed 368900930 Problem Diabetic neuropathy associated with type 2 diabetes mellitus (E11.40) Active confirmed Neuropathy due to type 2 diabetes mellitus (714100289227326) Problem Cellulitis of toe of left foot (L03.032) Active confirmed 40513097239145038 Resolve d Problem Blister of toe of left foot (S90.425A) Active confirmed Blister of toe without infection (73101487) Resolved Problem Diabetic polyneuropathy associated with type 2 diabetes mellitus (E11.42) Active confirmed 65630763 Problem Hammertoe of left foot (M20.42) Active confirmed 042145281 Problem Difficulty walking due to ankle and foot joint (R26.2) Active confirmed Walking disabi lity (091937361) Problem Hammertoe of second toe of right foot (M20.41) Active confirmed 799660162 Problem Encounter for diabetic foot exam (E11.9) Active confirmed Type II diabete s mellitus without complication (042856993) PLAN OF TREATMENT No Information Insurance Providers Payer Name Payer Address Payer Phone Subscriber Number Group Number Insured Name Patient Relationship to Insured Coverage Start Date Coverage End Date [place]ICAID [place] [employer] [place], [place] [id number] PENN[place]LANA SANTA Self - patient is the insured SELF PAY [place] [address] [address] LANA PENNINGTON Self - patient is the [...]
--- NOTE | 2023-08-16 11:10 | DI.RAD_ITS ---
Exam(s) XR KNEE LT 3V AP,LAT,LIBBY EXAM: XR KNEE LT 3V AP,LAT,LIBBY CLINICAL HISTORY: M25.562 Pain in left knee,s/p fall,3 days ago. TECHNIQUE: 2D digital imaging was performed of the left knee. Three images were obtained. AP, late ral and PA tunnel views were obtained. COMPARISON: CR,XR XR KNEE LT 4V AP,LAT,LIBBY,PAT from 03/16/2019 FINDINGS: BONES: No acute fracture is present. No bony destructive lesion is seen. There is a small enthesophy te at the superior patella. JOINTS: The knee is normally aligned. There does appear to be a small joint effusion. No loose body. SOFT TISSUE: Normal. IMPRESSION: No acute fracture or dislocation. DATA REPOSITORY: RADIATION DOSE DELIVERED:
== END ==
PROVIDERS: PCP Physician Assistant; Visit Provider Physician Assistant
DX: M25.562 Pain in left knee (principal)
CPT/HCPCS: 73562

== ENCOUNTER 2023-08-18 11:12 | Emergency (ER) | payer MEDICARE, MEDICAID, SELFPAY ==
--- OUTSIDE RECORDS SUMMARY | 2023-08-18 11:38 | XMS_ITS | Patient Health Record ---
Author Name Unknown [facility] Address [address] [place] [address] Care Team Providers Care Equipment Service Associate Name Role Phone [facility] Primary Care Prov ider Unavailable Thomas Mejia Unavailable [phone] ALLERGIES Allergen (clinical drug ingredient) Drug/Non Drug [...] ulcer due to type 2 diabetes mellitus (3581736258141) Nicely improved Problem Hammertoe (M20.40) Active confirmed Hammer toe (052717995) The fourth right toe is anatomic after flexor tenotomy procedure Problem Pre-ulcerative calluses (L84) Active confirmed Callosity (513788283) Problem Diabetic toe ulcer (E11.621) Active confirmed Foot ulcer d ue to type 2 diabetes mellitus (7755330050611) Resolved Problem Cellulitis of toe of right foot (L03.031) Active confirmed 37692593051368600 Loo ks to be resolved Problem Foot drop, left (M21.372) Active confirmed 799396147333700 Problem Left foot pain (M79.672) Active confirmed 40013775 Problem Ankle instability (M25.373) Active confirmed Ankle instabili ty (468278) Problem Skin fissure (R23.4) Active confirmed Skin fissure (03235286) Basically resolved Problem Non-pressure chronic ulcer of other part of unspecified foot with unspecified severity (L97.509) Active confirmed 872709960 Improving Problem Non-pressure chronic ulcer of other part of left foot limited to breakdown of skin (L97.521) Active confirmed 328157069 Problem Diabetic neuropathy associated with type 2 diabetes mellitus (E11.40) Active confirmed Neuropathy due to type 2 diabetes mellitus (189166082594010) Problem Cellulitis of toe of left foot (L03.032) Active confirmed 16716212647464157 Resolve d Problem Blister of toe of left foot (S90.425A) Active confirmed Blister of toe without infection (79530241) Resolved Problem Diabetic polyneuropathy associated with type 2 diabetes mellitus (E11.42) Active confirmed 73283455 Problem Hammertoe of left foot (M20.42) Active confirmed 986299147 Problem Difficulty walking due to ankle and foot joint (R26.2) Active confirmed Walking disabi lity (995028852) Problem Hammertoe of second toe of right foot (M20.41) Active confirmed 805732558 Problem Encounter for diabetic foot exam (E11.9) Active confirmed Type II diabete s mellitus without complication (345494565) PLAN OF TREATMENT No Information Insurance Providers Payer Name Payer Address Payer Phone Subscriber Number Group Number Insured Name Patient Relationship to Insured Coverage Start Date Coverage End Date [place] [employer] [place], [place] [id number] P[place] SANTA Self - patient is the insured SELF PAY [place] [address] LANA PENNINGTON Self - patient is the [...]
[2023-08-18 11:51] VITALS: BP 161/90; PULSE 97; RESP 18; TEMP 36.6; O2SAT 97
--- NOTE | 2023-08-18 14:15 | DI.CT_ITS ---
Exam(s) CT CERVICAL SPINE WO EXAM: CT CERVICAL SPINE WO CLINICAL HISTORY: injury, pain. TECHNIQUE: Imaging Protocol: Axial computed tomography images with coronal and sagittal reformatted images were created and reviewed COMPARISON: CT CT HEAD CERVICAL SPINE WO from 03/16/2019 FINDINGS: CERVICAL SPINE: There is no evidence of acute fracture. No significant prevertebral soft tissue swelling. No significant listhesis. There is multilevel disc space narrowing at C3-4, C5-6 and C6-7 levels. There is mild facet arthropa thy No facet joint malalignment. No significant osseous lesions evident. IMPRESSION: No evidence of cervical spine fracture, malalignment, nor acute compromise of the cervical spinal can al. Degenerative changes as described above. RADIATION DOSE DELIVERED: 537.83mGy.cm Total DLP DATA REPOSITORY: All CT scans at this facility are submitted to the National Radiology Data Registry (NRDR) Dose Index Registry (DIR) with the [employer] (ACR). RADIATION OPTIMIZATION: All CT scans at this facility use at least one of these dose optimization te chniques: automated exposure control; mA and/or kV adjustment per patient size (includes targeted exa ms where dose is matched to clinical indication); or iterative reconstruction.
--- NOTE | 2023-08-18 14:24 | DI.CT_ITS ---
Exam(s) CT LUMBAR SPINE WO EXAM: CT LUMBAR SPINE WO CLINICAL HISTORY: injury pain. TECHNIQUE: Imaging Protocol: Axial computed tomography images with coronal and sagittal reformatted images were created and reviewed COMPARISON: No exams were available for comparison FINDINGS: Bones: There are no acute fractures, listhesis, nor pars defects. Schmorl's node invagination in th e superior endplate L1 noted. There is some degenerative change in the facet joints lower 3 levels. No facet malalignment.Incidentally noted are Tarlov intra sacral cysts in the sacral canal. No sacral fracture evident. PARASPINAL SOFT TISSUES: Visualized paraspinal tissues appear unremarkable. IMPRESSION: 1. No acute fractures evident. Schmorl's node invagination in the superior endplate of L1 noted. 2. Multilevel facet arthropathy. 3. Tarlov intra sacral cysts incidentally noted in the sacrum. Called to ER. RADIATION DOSE DELIVERED: 1,135.67mGy.cm Total DLP DATA REPOSITORY: All CT scans at this facility are submitted to the National Radiology Data Registry (NRDR) Dose Index Registry (DIR) with the [employer] (ACR). RADIATION OPTIMIZATION: All CT scans at this facility use at least one of these dose optimization te chniques: automated exposure control; mA and/or kV adjustment per patient size (includes targeted exa ms where dose is matched to clinical indication); or iterative reconstruction.
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
== END 2023-08-18 16:19 | disposition home or self-care (01) ==
PROVIDERS: Emergency Provider Physician Assistant; PCP Physician Assistant
DX: S13.4XXA Sprain of ligaments of cervical spine, initial encounter (principal); S39.012A Strain of muscle, fascia and tendon of lower back, initial encounter; I10 Essential (primary) hypertension; E11.610 Type 2 diabetes mellitus with diabetic neuropathic arthropathy; D68.62 Lupus anticoagulant syndrome; Z86.73 Personal history of transient ischemic attack (TIA), and cerebral infarction without residual deficits; Z79.85 Long-term (current) use of injectable non-insulin antidiabetic drugs; Z79.01 Long term (current) use of anticoagulants; Z87.891 Personal history of nicotine dependence; X50.0XXA Overexertion from strenuous movement or load, initial encounter; Y93.89 Activity, other specified; Y92.811 Bus as the place of occurrence of the external cause
CPT/HCPCS: 99284; 72125; 72131

== ENCOUNTER → 2023-09-03 00:57 | Outpatient (CLI) | payer MEDICARE, MEDICAID, SELFPAY ==
--- NOTE | 2023-09-03 11:50 | DI.MAMMO_ITS ---
Exam(s) MG MAMMO SCREENING 60 MIN DUR EXAM: MG MAMMO SCREENING 60 MIN DUR CLINICAL HISTORY: SCREENING MAMMO FOR BREAST CANCER Z12.31 TECHNIQUE: Bilateral full field digital CC and MLO mammographic images were obtained with 3D tomosyn thesis and utilizing computer aided detection (CAD). COMPARISON: Available for comparison. FINDINGS: Masses/Architectural Distortion: None seen. Microcalcifications: No suspicious pleomorphic-type are seen. Skin Thickening/Nipple Retraction: None. IMPRESSION: 1. No significant interval change with no specific features of malignancy noted. 2. Unless there is more urgent need, screening mammography is recommended, as per [employer] guidelines. BI-RADS Category 1 - Negative Breast Density - Category B - Scattered areas of fibroglandular density Breast density category C or D implies that the patient has dense breast tissue. Dense breast tissue is very common and is not abnormal but dense breast tissue can make it harder to find cancer on a ma mmogram. Also, dense breast tissue may increase their breast cancer risk. This information about the result of the mammogram report was provided to the patient to raise their awareness. Use this report when you speak with the patient about their risks for breast cancer, which includes their family hist ory. At that time, you may recommend for more screening tests (Ultrasound or MRI) as they might be us eful based on their risk. A negative radiographic report should not delay biopsy if a dominant or clinically suspicious mass is present. Up to ten percent of cancers are not identified on mammography. A negative report may reinforce clinical impression. Adenosis and dense breasts may obscure an underlying neoplasm. False positive reports average 6 to 10%. Patient will receive a letter notifying them of these results.
== END ==
PROVIDERS: PCP Physician Assistant; Visit Provider Physician Assistant
DX: Z12.31 Encounter for screening mammogram for malignant neoplasm of breast (principal)
CPT/HCPCS: 77063; 77067

== ENCOUNTER 2023-09-08 13:17 | Emergency (ER) | payer MEDICARE, MEDICAID, SELFPAY ==
[2023-09-08] VITALS (115 sets, daily range): BP systolic 132–169; BP diastolic 67–107; PULSE 71–104; RESP 12–31; TEMP 36.8; O2SAT 94–98
--- NOTE | 2023-09-08 13:15 | RT.EKG_ITS ---
APPROVED REPORT Exam: Resting ECG Reason for Exam: sob Patient Location: E HR:82 bpm ECG Measurements Heart Rate 82 AXIS DE 200 P -14 QRSd 105 QRS -23 QT 405 T 67 QTc 475 Conclusion Sinus rhythm...normal P axis, V-rate 60- 99 Physician: no stemi
--- NOTE | 2023-09-08 13:30 | DI.CT_ITS ---
Exam(s) CT CHEST PE CTA EXAM: CT CHEST PE CTA CLINICAL HISTORY: hx of pe, lupus, subtherap inr. TECHNIQUE: Imaging Protocol: CT angiography of the chest was performed using pulmonary embolus elise col. Multi planar reconstructions were performed. CONTRAST MATERIAL: Intravenous: Omnipaque 350 Contrast volume: 100 cc COMPARISON: Prior CT scan 06/19/2023. FINDINGS: CHEST: PULMONARY ARTERIES: There are no intraluminal filling defects to suggest acute pulmonary emboli. LUNGS: Minimal subpleural markings in the right lower lobe. No confluent infiltrates nor pleural eff usions. There are no ominous pulmonary nodules. No focal findings in the trachea and mainstem bronc hi.. MEDIASTINUM: There is no hilar nor mediastinal adenopathy. Visualized thyroid unremarkable. CARDIAC: Heart size is upper normal. There is no pericardial effusion.Caliber of the thoracic aorta is within normal limits. There is no significant shift of the interventricular septum. PARTIALLY VISUALIZED UPPERMOST ABDOMEN: Fatty liver again noted. Cholecystectomy again noted. OSSEOUS: No significant osseous lesions.. IMPRESSION: 1. No evidence of acute pulmonary emboli. No evidence of pulmonary infarction.No pleural effusions. 2. No evidence of aortic dissection nor pericardial effusion. 3. No significant change compared to 06/19/2023. Called by myself to ER provider. RADIATION DOSE DELIVERED: Total DLP DATA REPOSITORY: All CT scans at this facility are submitted to the National Radiology Data Registry (NRDR) Dose Index Registry (DIR) with the [employer] (ACR). RADIATION OPTIMIZATION: All CT scans at this facility use at least one of these dose optimization te chniques: automated exposure control; mA and/or kV adjustment per patient size (includes targeted exa ms where dose is matched to clinical indication); or iterative reconstruction.
[2023-09-08 14:16] LABS: BE (Venous) -5 mmol/L (-2-3); HCO3 (Venous) 20 mmol/L (23-28); O2 Sat (Venous) 92 %; TCO2 (Venous) 18 mmol/L (24-29); pCO2 (Venous) 31 mmHg (41-51); pH (Venous) 7.42 (7.31-7.41); pO2 (Venous) 55 mmHg
[2023-09-08 14:18] LABS: Abs Immature Grans 0.02 10^3/uL (0.0-0.06); Absolute Eosinophil Count 0.23 10^3/uL (0.0-0.7); Absolute Lymphocyte Count 3.33 10^3/uL (1.2-3.4); Basophils % 1.1; Eosinophils % 2.5; HCT 42.4 % (36.0-46.0); HGB 14.3 g/dL (11.2-15.7); Immature Grans % 0.2; Lymphocytes % 36.7; MCH 29.2 pg (27.0-33.0); MCHC 33.7 % (32.0-36.0); MCV 87 fL (80-95); MPV 10.6 fL (8.0-11.0); Monocytes % 5.5; Platelet Count 258 10^3/uL (130-400); RDW 13.3 % (11.7-14.6); RDW-SD 41.5 fL; WBC 9.08 10^3/uL (4.4-10.8)
[2023-09-08 14:34] LABS: INR 1.4 (0.9-1.1); Prothrombin Time 13.4 sec (9.1-11.1)
[2023-09-08 15:11] LABS: ALT 26 U/L (14-59); AST 27 U/L (15-37); Albumin 3.7 g/dL (3.4-5.0); Alkaline Phosphatase 124 U/L (46-116); Anion Gap 12.9 mmol/L (3-11); BUN 20 mg/dL (7-18); Bilirubin, Total 1.1 mg/dL (0.2-1.0); CO2 21.1 mmol/L (21.0-32.0); CREATININE 1.2 mg/dL (0.55-1.02); Chloride 104 mmol/L (98-107); Estimated GFR 49.61 (mL/min/1.73m2); Glucose 146 mg/dL (74-106); NT-proBNP 52 pg/mL (<300); Potassium 3.9 mmol/L (3.5-5.1); Sodium 138 mmol/L (136-145); Total Protein 7.4 g/dL (6.4-8.2); Troponin I < 50 ng/L (< or =60)
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
[2023-09-08] MEDS: Normal Saline - Diluent 50 ML VIAL IJ (15:48)
[2023-09-08] MEDS: Omnipaque 350 MG/ML 100 ML BTL IJ (15:48)
[2023-09-08 17:35] LABS: Troponin I < 50 ng/L (< or =60)
== END 2023-09-08 18:46 | disposition home or self-care (01) ==
PROVIDERS: Physician Assistant; Emergency Provider Registered Nurse Emergency; PCP Physician Assistant
DX: R06.09 Other forms of dyspnea (principal); I10 Essential (primary) hypertension; J45.909 Unspecified asthma, uncomplicated; M32.9 Systemic lupus erythematosus, unspecified; Z86.73 Personal history of transient ischemic attack (TIA), and cerebral infarction without residual deficits; Z86.711 Personal history of pulmonary embolism; Z79.01 Long term (current) use of anticoagulants; Z87.891 Personal history of nicotine dependence; E11.9 Type 2 diabetes mellitus without complications; Z79.85 Long-term (current) use of injectable non-insulin antidiabetic drugs
CPT/HCPCS: 36415; 71275; 80053; 82805; 82962; 93005; 99285; 83880; 84484; 85025; 85610; 93010; 99284; J3490

== ENCOUNTER 2023-11-18 05:19 | Outpatient (CLI) | payer MEDICARE, MEDICAID, SELFPAY ==
--- NOTE | 2023-11-23 09:52 | TELEFU_ITS ---
Date of service: 11/18/23 Time of Service: 10:00 Nutrition Note NOTE: Shani comes in for nutrition referral regarding unspecified nutritional deficiency with suspect diabetic gastroparesis. The appointment today did not go in a linear, ore sampler fashion. Shani was distracted often, going off on tangents and explaining parts of her life that really don't affect what we are trying to accomplish with nutrition today. I gathered what I could and tried to give some guidance, but Shani often interrupted. I asked her about how much water she drank and she gave me a whole history of how she can't drink certain bottled water and can't drink tap water. Some water she needs to boil and always uses a specific filter for her water and went on and on about all kinds of things related to water, except for coming anywhere near answering the question. She gave me information about her la n[place], complained about providers and her family, etc.... but could not stay focused to make any headway in our appt. She did mention that she was on 1 different meds and recently stopped taking all that said diarrhea on them as she battles diarrhea often. She said I stopped taking my crazy pills too. What I did gather was that she rarely eats before late afternoon. She comes in today without eating anything since yesterday at 3pm when she recall having a banana and a yogurt. She related having a hx of bulima and anorexia from ages [age] - denies purging/inducing vomiting but states she would get so stressed it would cause her to vomit. She states she has a history of large amount of diverticulae and 21 polyps with GI scar tissue. Does not sleep well and has high amount of stress. Tried making recommedation for low fiber diet and increasing slowly as tolerated. Encouraged her to consider OTC digestive enzymes before eating, chewing food well, drinking lots of fluids and avoiding any trigger foods for GI complaints. She does report decreasing her soda habit, which was 6-9 bottles per day and now 2-3. Encouraged 40g limit on added sugars and reading labels for this cagtegory. We tried to review tips from [facility] on Gasroparesis to see what she is doing well now and what she could work on for better management of sx. There were 14 tips and we were able to review two of them between Shani getting distracted. I gave Shani the tip sheet on gastroparesis, low fiber diet guidelines and high fiber diet guidelines with instructions to go low fiber (13g) and start increasing fiber choices slowly as tolerated. Gave her my contact info to reach out with any questions. Time Spent in Nutritional Counseling and Treatment: 45 minutes
== END 2023-11-18 05:20 | disposition home or self-care (01) ==
LOC: DS 05:19
PROVIDERS: PCP Physician Assistant; Visit Provider Dietitian, Registered
DX: E63.9 Nutritional deficiency, unspecified (principal); Z71.3 Dietary counseling and surveillance
CPT/HCPCS: 00123; 97802

== ENCOUNTER 2023-12-07 15:37 | Outpatient (CLI) | payer MEDICARE, MEDICAID, SELFPAY ==
--- NOTE | 2023-12-07 13:00 | DI.RAD_ITS ---
Exam(s) XR SHOULDER LT COMPLETE 2+V EXAM: XR SHOULDER LT COMPLETE 2+V CLINICAL HISTORY: LEFT SHOULDER PAIN. TECHNIQUE: 2D digital imaging was performed of the left shoulder. Two images were obtained. Axilla ry and Grashey views were obtained. COMPARISON: CR LEFT SHOULDER COMPLETE from 11/12/2017 FINDINGS: BONES: No acute fracture is present. No bony destructive lesion is seen. JOINTS: No dislocation present. Mild degenerative changes are seen at the acromioclavicular joint. T he glenohumeral joint is well maintained. SOFT TISSUE: Normal. IMPRESSION: Degenerative changes seen at the AC joint. DATA REPOSITORY: RADIATION DOSE DELIVERED:
== END 2023-12-07 15:38 | disposition home or self-care (01) ==
LOC: DIORS 15:37
PROVIDERS: PCP Physician Assistant; Referring Provider Physician Assistant; Visit Provider Student in an Organized Health Care Education/Training Program
DX: M75.102 Unspecified rotator cuff tear or rupture of left shoulder, not specified as traumatic
CPT/HCPCS: 99214; 73030

== ENCOUNTER 2023-12-08 09:19 | Emergency (ER) | payer MEDICARE, MEDICAID, SELFPAY ==
[2023-12-08] VITALS (42 sets, daily range): BP systolic 142–170; BP diastolic 79–102; PULSE 65–79; RESP 10–22; O2SAT 96–97
--- NOTE | 2023-12-08 09:15 | RT.EKG_ITS ---
APPROVED REPORT Exam: Resting ECG Reason for Exam: difficulty breathing Patient Location: E HR:70 bpm ECG Measurements Heart Rate 70 AXIS TN 239 P 3 QRSd 98 QRS -8 QT 430 T 57 QTc 465 Conclusion Sinus rhythm...normal P axis, V-rate 60- 99 Prolonged TN interval...TN >220, V-rate 50- 90 Physician: no stemi
--- NOTE | 2023-12-08 09:45 | DI.RAD_ITS ---
Exam(s) XR PORTABLE CHEST AP EXAM: XR PORTABLE CHEST AP CLINICAL HISTORY: Dyspnea, chest pain. TECHNIQUE: 2D digital imaging was performed. COMPARISON: No exams were available for comparison FINDINGS: Single AP portable view. Heart size is upper normal. The mediastinum is not widened. Right lung is clear. There is subsegmental platelike atelectasis in the left hilar region. No pleural effusions. IMPRESSION: There is platelike atelectasis in the left hilar region, not previously present on image of 3. DATA REPOSITORY: RADIATION DOSE DELIVERED:
[2023-12-08 09:49] LABS: Abs Immature Grans 0.01 10^3/uL (0.0-0.06); Absolute Basophil Count 0.08 10^3/uL (0.0-0.2); Absolute Eosinophil Count 0.21 10^3/uL (0.0-0.7); Absolute Lymphocyte Count 2.73 10^3/uL (1.2-3.4); Absolute Monocyte Count 0.35 10^3/uL (0.1-0.8); Absolute Neutrophil Count 3.76 10^3/uL (1.2-6.7); Basophils % 1.1 %; Eosinophils % 2.9 %; HCT 42.3 % (36.0-46.0); HGB 14.5 g/dL (11.2-15.7); Immature Grans % 0.1 %; Lymphocytes % 38.2 %; MCH 29.4 pg (27.0-33.0); MCHC 34.3 % (32.0-36.0); MCV 86 fL (80-95); MPV 10.3 fL (8.0-11.0); Monocytes % 4.9 %; Neutrophils % 52.8 %; Platelet Count 229 10^3/uL (130-400); RBC 4.93 10^6/uL (3.93-5.22); RDW 13.8 % (11.7-14.6); RDW-SD 42.8 fL; WBC 7.14 10^3/uL (4.4-10.8)
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
[2023-12-08 10:12] LABS: ALT 31 U/L (14-59); AST 26 U/L (15-37); Albumin 3.4 g/dL (3.4-5.0); Alkaline Phosphatase 104 U/L (46-116); Anion Gap 13.1 mmol/L (3-11); BUN 14 mg/dL (7-18); Bilirubin, Total 0.9 mg/dL (0.2-1.0); CO2 22.9 mmol/L (21.0-32.0); CREATININE 1.2 mg/dL (0.55-1.02); Chloride 107 mmol/L (98-107); Estimated GFR 49.61 (mL/min/1.73m2); Glucose 154 mg/dL (74-106); Magnesium 1.7 mg/dL (1.8-2.4); NT-proBNP 101 pg/mL (<300); Potassium 3.5 mmol/L (3.5-5.1); Sodium 143 mmol/L (136-145); Total Protein 7.1 g/dL (6.4-8.2); Troponin I < 50 ng/L (< or =60)
[2023-12-08 10:38] LABS: INR 2.7 (0.9-1.1); PTT Activated 36.8 sec (23.6-32.8); Prothrombin Time 24.7 sec (9.1-11.1)
--- NOTE | 2023-12-08 13:00 | DI.CT_ITS ---
Exam(s) CT CHEST PE CTA EXAM: CT CHEST PE CTA CLINICAL HISTORY: Chest Heaviness, Hx of PE. TECHNIQUE: Imaging Protocol: CT angiography of the chest was performed using pulmonary embolus elise col. Multi planar reconstructions were performed. CONTRAST MATERIAL: Intravenous: Omnipaque 350 Contrast volume: 100 cc COMPARISON: CT CT CHEST PE CTA from 09/08/2023 FINDINGS: CHEST: PULMONARY ARTERIES: There are no intraluminal filling defects to suggest acute pulmonary emboli. LUNGS: There are no infiltrates nor evidence of pulmonary infarction.. There are no pleural effusions . No significant pulmonary nodules. MEDIASTINUM: There is no hilar nor mediastinal adenopathy. Visualized thyroid unremarkable. CARDIAC: Heart size is upper normal. There is no pericardial effusion.Caliber of the thoracic aorta is within normal limits. No evidence of dissection. There is no significant shift of the interventri cular septum. PARTIALLY VISUALIZED UPPERMOST ABDOMEN: No obvious findings OSSEOUS: No significant osseous lesions.. IMPRESSION: 1. No evidence of acute pulmonary emboli. No evidence of pulmonary infarction.No pleural effusions. 2. No evidence of aortic dissection nor pericardial effusion. Normal heart size. Called by myself to ER physician. RADIATION DOSE DELIVERED: 546.43mGy.cm Total DLP DATA REPOSITORY: All CT scans at this facility are submitted to the National Radiology Data Registry (NRDR) Dose Index Registry (DIR) with the [employer] (ACR). RADIATION OPTIMIZATION: All CT scans at this facility use at least one of these dose optimization te chniques: automated exposure control; mA and/or kV adjustment per patient size (includes targeted exa ms where dose is matched to clinical indication); or iterative reconstruction.
[2023-12-08 13:08] LABS: Troponin I < 50 ng/L (< or =60)
[2023-12-08] MEDS: Omnipaque 350 MG/ML 500 ML BTL-Imaging package 100 ML IJ (13:28)
[2023-12-08] MEDS: Normal Saline - Diluent 50 ML VIAL IJ (13:29)
== END 2023-12-08 15:10 | disposition home or self-care (01) ==
PROVIDERS: Emergency Provider Registered Nurse Emergency; PCP Physician Assistant
DX: R06.09 Other forms of dyspnea (principal); R07.9 Chest pain, unspecified; R94.31 Abnormal electrocardiogram [ECG] [EKG]; I10 Essential (primary) hypertension; J45.909 Unspecified asthma, uncomplicated; D68.62 Lupus anticoagulant syndrome; Z79.01 Long term (current) use of anticoagulants; Z79.85 Long-term (current) use of injectable non-insulin antidiabetic drugs; Z86.711 Personal history of pulmonary embolism; Z86.73 Personal history of transient ischemic attack (TIA), and cerebral infarction without residual deficits; E11.40 Type 2 diabetes mellitus with diabetic neuropathy, unspecified; Z87.891 Personal history of nicotine dependence
CPT/HCPCS: 36415; 71275; 80053; 82962; 93005; 99285; 71045; 83735; 83880; 84484; 85025; 85610; 85730; 93010; 99284

== ENCOUNTER → 2023-12-28 01:52 | Outpatient (CLI) | payer MEDICARE, MEDICAID, SELFPAY ==
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
--- OUTSIDE RECORDS SUMMARY | 2023-12-28 01:55 | XMS_ITS | Patient Health Record ---
Author Name Unknown [facility] Address [address] [place] [address] Care Team Providers Care Rehab Director Occupational Therapist Name Role Phone [facility] Primary Care Prov ider Unavailable Thomas Mejia Unavailable [phone] ALLERGIES Allergen (clinical drug ingredient) Drug/Non Drug [...] ulcer due to type 2 diabetes mellitus (8819513797582) Nicely improved Problem Hammertoe (M20.40) Active confirmed Hammer toe (610780879) The fourth right toe is anatomic after flexor tenotomy procedure Problem Pre-ulcerative calluses (L84) Active confirmed Callosity (555287777) Problem Diabetic toe ulcer (E11.621) Active confirmed Foot ulcer d ue to type 2 diabetes mellitus (9620666523454) Resolved Problem Cellulitis of toe of right foot (L03.031) Active confirmed [id number] Loo ks to be resolved Problem Foot drop, left (M21.372) Active confirmed 751259370541813 Problem Left foot pain (M79.672) Active confirmed 99996863 Problem Ankle instability (M25.373) Active confirmed Ankle instabili ty (292204) Problem Skin fissure (R23.4) Active confirmed Skin fissure (98480268) Basically resolved Problem Non-pressure chronic ulcer of other part of unspecified foot with unspecified severity (L97.509) Active confirmed 147828215 Improving Problem Non-pressure chronic ulcer of other part of left foot limited to breakdown of skin (L97.521) Active confirmed 291547772 Problem Diabetic neuropathy associated with type 2 diabetes mellitus (E11.40) Active confirmed Neuropathy due to type 2 diabetes mellitus (273721733314062) Problem Cellulitis of toe of left foot (L03.032) Active confirmed 16787128965270242 Resolve d Problem Blister of toe of left foot (S90.425A) Active confirmed Blister of toe without infection (13975767) Resolved Problem Diabetic polyneuropathy associated with type 2 diabetes mellitus (E11.42) Active confirmed 81609425 Problem Hammertoe of left foot (M20.42) Active confirmed 714915917 Problem Difficulty walking due to ankle and foot joint (R26.2) Active confirmed Walking disabi lity (559417825) Problem Hammertoe of second toe of right foot (M20.41) Active confirmed 949553739 Problem Encounter for diabetic foot exam (E11.9) Active confirmed Type II diabete s mellitus without complication (404780544) PLAN OF TREATMENT No Information Insurance Providers Payer Name Payer Address Payer Phone Subscriber Number Group Number Insured Name Patient Relationship to Insured Coverage Start Date Coverage End Date [place] [employer] [place], [place] [id number] [place] Self - patient is the insured SELF PAY NO INS[place] [address] [address] LANA PENNINGTON Self - patient is the [...]
--- NOTE | 2023-12-28 07:15 | DI.MRI_ITS ---
Exam(s) MR UPPER JOINT LT WO EXAM: MR UPPER JOINT LT WO CLINICAL HISTORY: L SHOULDER PAIN,LT ROTATOR CUFF TEAR,M75.102 TECHNIQUE: Multiplanar multisequence MRI of the shoulder was performed. COMPARISON: MR MR upper joint LT wo from 01/17/2018 CR XR SHOULDER LT COMPLETE 2+V from 12/07/2023 FINDINGS: MARROW:There is no evidence of fracture, Hill-Sachs deformity, nor ominous osseous lesions. There is slight prominence of the lesser tuberosity on the anterior aspect the humeral head and this appears t o have been a site of prior fracture on the 2018 study. There are presently no loose fragments eviden t at this level. GLENOHUMERAL JOINT: No joint effusion nor obvious loose intra-articular bodies. No large chondral de fects. No osteophytes. No degenerative subarticular cysts. Inferior glenohumeral ligament appears intact ROTATOR CUFF MECHANISM: AC JOINT/ACROMIUM: Moderate degenerative change noted in the AC joint.. There is no evidence of os acromiale. Supraspinatus: Unremarkable. No obvious tendinitis nor tear. No atrophy. Infraspinatus: Intact. No evidence of tear nor muscle atrophy. Teres Minor: Intact. No evidence of tear nor muscle atrophy. Subscapularis/anterior cuff: Mild signal abnormality at the insertional tendon level but no high-grad e tear. No atrophy. BICEPS TENDON: Exhibits normal position within the intertubercular groove. No evidence of tear this level nor tenosynovitis.. Intra-articular aspect of the biceps tendon appears attenuated. LABRUM: No labral tear identified. No evidence of paralabral cyst. QUADRILATERAL SPACE: No evidence of mass in the region of the axillary nerve and dorsal circumflex hu meral vessels. Visualized triceps muscle at this level appears unremarkable. IMPRESSION: 1. There is slight prominence of the lesser tuberosity on the anterior aspect of the humeral head whi ch appears to represent a healed fracture site at this level; see 2018 study. There is no abnormal in traosseous signal evident at this level. 2. There moderate degenerative changes in the acromioclavicular joint with some impingement at this l evel but no evidence of significant rotator cuff pathology. No prominent tendinitis signal and no kiel dence of partial-thickness nor full-thickness tears of the supra and infraspinatus. Mild insertional signal abnormality in the anterior cuff-subscapularis tendon but no high-grade tear. There is no evid ence of muscle atrophy of the rotator cuff musculature. 3. Intra-articular aspect of the biceps tendon appears attenuated. Tendon appears normal within the i ntertubercular groove. 4. No obvious labral tears evident on this non arthrogram study. DATA REPOSITORY:
== END ==
PROVIDERS: PCP Physician Assistant; Visit Provider Student in an Organized Health Care Education/Training Program
DX: M75.102 Unspecified rotator cuff tear or rupture of left shoulder, not specified as traumatic (principal)
CPT/HCPCS: 73221

== ENCOUNTER 2024-01-05 15:43 | Outpatient (REF) | payer MEDICARE, MEDICAID, SELFPAY ==
[2024-01-05 17:15] LABS: HCT 41.3 % (36.0-46.0); HGB 13.9 g/dL (11.2-15.7); MCH 29.6 pg (27.0-33.0); MCHC 33.7 % (32.0-36.0); MCV 88 fL (80-95); MPV 11.6 fL (8.0-11.0); Platelet Count 274 10^3/uL (130-400); RBC 4.69 10^6/uL (3.93-5.22); RDW 14.3 % (11.7-14.6); RDW-SD 45.1 fL; WBC 6.98 10^3/uL (4.4-10.8)
[2024-01-05 18:38] LABS: INR 1.3 (0.9-1.1)
[2024-01-05 18:55] LABS: ALT 26 U/L (14-59); AST 27 U/L (15-37); Albumin 3.7 g/dL (3.4-5.0); Alkaline Phosphatase 117 U/L (46-116); Anion Gap 13.8 mmol/L (3-11); BUN 17 mg/dL (7-18); Bilirubin, Total 0.85 mg/dL (0.2-1.0); CO2 22.2 mmol/L (21.0-32.0); CREATININE 1.1 mg/dL (0.55-1.02); Calcium 9.3 mg/dL (8.5-10.1); Calculated LDL 66 mg/dL (<100); Chloride 108 mmol/L (98-107); Cholesterol 176 mg/dL (<200); Estimated GFR 55.07 (mL/min/1.73m2); Glucose 181 mg/dL (74-106); HDL Cholesterol 38 mg/dL (40-60); Potassium 4.1 mmol/L (3.5-5.1); Sodium 144 mmol/L (136-145); Total Protein 7.1 g/dL (6.4-8.2); Triglyceride 362 mg/dL (<150); Vitamin B12 198 pg/mL (193-986)
== END 2024-01-05 15:44 | disposition home or self-care (01) ==
LOC: NCHCN 15:43
PROVIDERS: PCP Physician Assistant; Visit Provider Physician Assistant
DX: E78.5 Hyperlipidemia, unspecified (principal); I10 Essential (primary) hypertension; Z79.01 Long term (current) use of anticoagulants; G62.9 Polyneuropathy, unspecified
CPT/HCPCS: 80053; 80061; 85027; 82607; 85610

== ENCOUNTER → 2024-01-11 12:53 | Outpatient (BNVA) | payer MEDICARE, MEDICAID, SELFPAY | PROVIDERS: PCP Physician Assistant; Referring Provider Physician Assistant; Visit Provider Student in an Organized Health Care Education/Training Program | DX: M75.102 Unspecified rotator cuff tear or rupture of left shoulder, not specified as traumatic (principal) | CPT/HCPCS: 99213 ==

== ENCOUNTER 2024-01-17 12:37 | Emergency (ER) | payer MEDICARE, MEDICAID, SELFPAY ==
[2024-01-17] VITALS (107 sets, daily range): BP systolic 121–181; BP diastolic 61–149; PULSE 66–86; RESP 12–22; TEMP 36.2; O2SAT 94–100
[2024-01-17 12:48] LABS: Abs Immature Grans 0.07 10^3/uL (0.0-0.06); Absolute Eosinophil Count 0.08 10^3/uL (0.0-0.7); Absolute Lymphocyte Count 1.34 10^3/uL (1.2-3.4); Eosinophils % 0.8 %; HCT 40.6 % (36.0-46.0); HGB 13.8 g/dL (11.2-15.7); Immature Grans % 0.7 %; Lymphocytes % 13.2 %; MCH 29.6 pg (27.0-33.0); MCV 87 fL (80-95); MPV 10.3 fL (8.0-11.0); Monocytes % 3.9 %; Neutrophils % 80.4 %; Platelet Count 225 10^3/uL (130-400); RBC 4.66 10^6/uL (3.93-5.22); RDW 13.8 % (11.7-14.6); RDW-SD 43.4 fL; WBC 10.19 10^3/uL (4.4-10.8)
[2024-01-17] MEDS: Normal Saline 1,000 ML 1000 ML IV (12:48)
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
[2024-01-17 13:08] LABS: INR 1.1 (0.9-1.1); PTT Activated 25.4 sec (23.6-32.8); Prothrombin Time 11.2 sec (9.1-11.1)
[2024-01-17 13:15] LABS: ALT 28 U/L (14-59); AST 25 U/L (15-37); Albumin 3.6 g/dL (3.4-5.0); Alkaline Phosphatase 128 U/L (46-116); BUN 21 mg/dL (7-18); Bilirubin, Total 1.01 mg/dL (0.2-1.0); CREATININE 1.2 mg/dL (0.55-1.02); Calcium 8.8 mg/dL (8.5-10.1); Chloride 105 mmol/L (98-107); Estimated GFR 49.31 (mL/min/1.73m2); Glucose 182 mg/dL (74-106); Lipase 60 U/L (16-77); Magnesium 1.7 mg/dL (1.8-2.4); Potassium 4.3 mmol/L (3.5-5.1); Sodium 141 mmol/L (136-145); Total Protein 7.5 g/dL (6.4-8.2)
[2024-01-17 13:43] LABS: Bilirubin Negative (Negative); Blood Moderate (Negative); Clarity Clear (Clear); Glucose 100 mg/dL (Negative); Ketones Negative (Negative); Leukocyte Esterase Negative (Negative); Nitrite Negative (Negative); Specific Gravity 1.025 (1.005-1.025); Urobilinogen 0.2 mg/dL (Up to 0.2); pH 5.5 (5-8)
[2024-01-17] MEDS: Normal Saline - Diluent 50 ML VIAL IJ (13:48)
[2024-01-17] MEDS: Omnipaque 350 MG/ML 100 ML BTL IJ (13:49)
--- NOTE | 2024-01-17 13:50 | DI.CT_ITS ---
Exam(s) CT ABDOMEN PELVIS W EXAM: CT ABDOMEN PELVIS W CLINICAL HISTORY: lower abdominal pain, n/v. TECHNIQUE: Imaging Protocol: Axial computed tomography images with coronal and sagittal reformatted images were created and reviewed CONTRAST MATERIAL: Intravenous: Omnipaque-350 100cc Oral: None COMPARISON: CT CT ABDOMEN PELVIS W from 08/25/[address] CHEST PE CTA from 12/08/2023 FINDINGS: VISUALIZED LUNG BASES: No nodules nor pleural effusions evident. ABDOMEN: There is no ascites. LIVER: There are no focal hepatic lesions evident. No dilated intrahepatic ducts. GALLBLADDER/BILIARY: The gallbladder surgically absent. CBD is not dilated. PANCREAS: No evidence of pancreatic mass nor dilatation of the pancreatic duct. SPLEEN: Spleen is not enlarged. No obvious intrasplenic lesions. Splenic and portal veins are paten t. ADRENALS: There are no significant adrenal masses. KIDNEYS:Left kidney unremarkable. There calculi within the right kidney there is also hydronephrosis of the right kidney and ipsilateral hydroureter with the right ureter dilated to 10 mm. This appear s to be related to a large calculus at the right ureterovesical junction measuring 1.2 x 0.7 cm. The re are no calculi within the nondistended urinary bladder lumen. There is a small calcification asso ciated with the lower left ureter measuring 2-3 millimeters. Difficult to determine if this is a low er left ureter calculus or phlebolith. ABDOMINAL AORTA: Abdominal aorta is not enlarged. LYMPH NODES:There is no retroperitoneal nor paraaortic adenopathy. ABDOMINAL WALL: No evidence of significant anterior abdominal wall nor inguinal hernia. GI: There is no evidence of bowel obstruction, free air, nor abscess. PELVIS: GI: No evidence of appendicitis.There is diverticulosis of the sigmoid. No obvious acute diverticuli tis. LYMPH NODES: There is no intrapelvic nor inguinal adenopathy. REPRODUCTIVE: Uterus surgically absent. No abnormal adnexal masses. URINARY BLADDER: As above. OSSEOUS: No fractures and no significant osseous lesions. IMPRESSION: 1. The main acute finding is an obstructing calculus in the lower right ureter at the ureterovesical junction, this calculus measuring 12 x 7 mm. There is moderate hydronephrosis and hydroureter above this level. There are smaller calculi also seen within the lower and mid pole levels of the right ki dney. No calculi seen in the left kidney. Calcification associated with the lower left ureter measu ring 3 mm but possibly just a phlebolith. 2. Previous cholecystectomy and hysterectomy.. No bowel obstruction. Report called by myself to ER physician 01/17/2024 14:20 p.m. RADIATION DOSE DELIVERED: Total DLP DATA REPOSITORY: All CT scans at this facility are submitted to the National Radiology Data Registry (NRDR) Dose Index Registry (DIR) with the [employer] (ACR). RADIATION OPTIMIZATION: All CT scans at this facility use at least one of these dose optimization te chniques: automated exposure control; mA and/or kV adjustment per patient size (includes targeted exa ms where dose is matched to clinical indication); or iterative reconstruction.
[2024-01-17 13:53] LABS: Bacteria Few HPF (Negative); C & S Indicated? No; Crystals Negative HPF (Negative); Epithelial Cells Moderate HPF (Negative); Mucus Moderate (Negative); WBC 0-2 HPF (0-5)
[2024-01-17] MEDS: ACETAMINOPHEN 1,000 MG/100 ML BTL 400 MG IVPB (15:38)
[2024-01-17] MEDS: Ketorolac 15 MG/ML VIAL IVP (15:39)
[2024-01-17] MEDS: Ondansetron 4 MG/2 ML VIAL IVP (15:39)
[2024-01-17] MEDS: HYDROmorphone 2 MG/ML SYR 1 MG IVP ×2 (15:43→22:51)
[2024-01-17] MEDS: Normal Saline 1,000 ML 125 ML IV (16:48)
--- NOTE | 2024-01-17 19:14 | NUR.NOTE ---
Nursing Note: placed another external cath attached to continuous wall suction
--- NOTE | 2024-01-17 22:24 | NUR.NOTE ---
Nursing Note: Hand off report to Zahira Morales
--- NOTE | 2024-01-18 12:42 | NUR.NOTE ---
Nursing Note: Received call from patient that she is [place] [facility] [place] and wondering what she got for pain medication here because it worked well. Pt was updated on all the medications she was given while in the ER yesterday.
== END 2024-01-17 22:48 | disposition short-term general hospital (02) ==
PROVIDERS: Emergency Provider Emergency Medicine; PCP Physician Assistant
DX: R10.31 Right lower quadrant pain (principal); N20.1 Calculus of ureter; E11.9 Type 2 diabetes mellitus without complications; Z79.4 Long term (current) use of insulin
CPT/HCPCS: 36415; 36416; 80053; 82962; 83690; 96361; 96365; 96375; 96376; 99285; 74177; 81003; 81015; 83735; 85025; 85610; 85730; J0131; J1170; J1885; J2405; J3490

== ENCOUNTER 2024-02-01 16:22 | Outpatient (REF) | payer MEDICARE, MEDICAID, SELFPAY ==
[2024-02-01 16:56] LABS: ALT 33 U/L (14-59); AST 28 U/L (15-37); Albumin 3.7 g/dL (3.4-5.0); Alkaline Phosphatase 131 U/L (46-116); Anion Gap 14.4 mmol/L (3-11); BUN 18 mg/dL (7-18); Bilirubin, Total 0.87 mg/dL (0.2-1.0); CO2 19.6 mmol/L (21.0-32.0); CREATININE 1.1 mg/dL (0.55-1.02); Chloride 106 mmol/L (98-107); Estimated GFR 54.73 (mL/min/1.73m2); Glucose 131 mg/dL (74-106); Potassium 4.1 mmol/L (3.5-5.1); Sodium 140 mmol/L (136-145); Total Protein 7.3 g/dL (6.4-8.2)
[2024-02-01 19:33] LABS: Bacteria Few HPF (Negative); C & S Indicated? C&S Done As Ordered; Casts Negative LPF (Negative); Crystals Negative HPF (Negative); Epithelial Cells Few HPF (Negative); Mucus Trace (Negative); Other Cells Few Renal (Negative); RBC >50 HPF (0-2)
== END 2024-02-01 16:23 | disposition home or self-care (01) ==
LOC: LBN 16:22
PROVIDERS: PCP Physician Assistant; Visit Provider Nurse Practitioner Family
DX: Z87.442 Personal history of urinary calculi (principal)
CPT/HCPCS: 80053; 81015; 87086

== ENCOUNTER 2024-02-25 13:20 | Emergency (ER) | payer MEDICARE, MEDICAID, SELFPAY ==
[2024-02-25 13:24] VITALS: BP 133/94; PULSE 87; RESP 18; TEMP 36; O2SAT 97
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
[2024-02-25] MEDS: Normal Saline 1,000 ML 1000 ML IV (14:03)
[2024-02-25 14:04] LABS: Bilirubin Small (Negative); Blood Large (Negative); Clarity Sl Cloudy (Clear); Glucose 100 mg/dL (Negative); Ketones Trace mg/dL (Negative); Leukocyte Esterase Small (Negative); Nitrite Negative (Negative); Specific Gravity >= 1.030 (1.005-1.025); Urobilinogen 0.2 mg/dL (Up to 0.2); pH 5.5 (5-8)
[2024-02-25 14:07] LABS: Abs Immature Grans 0.03 10^3/uL (0.0-0.06); Absolute Eosinophil Count 0.23 10^3/uL (0.0-0.7); Absolute Monocyte Count 0.43 10^3/uL (0.1-0.8); Basophils % 1.2 %; Eosinophils % 2.7 %; HCT 39.8 % (36.0-46.0); HGB 13.8 g/dL (11.2-15.7); Immature Grans % 0.4 %; MCH 29.9 pg (27.0-33.0); MCHC 34.7 % (32.0-36.0); MCV 86 fL (80-95); MPV 10.4 fL (8.0-11.0); Monocytes % 5.1 %; Neutrophils % 57.6 %; Platelet Count 287 10^3/uL (130-400); RBC 4.61 10^6/uL (3.93-5.22); RDW 13.5 % (11.7-14.6); RDW-SD 42.3 fL; WBC 8.49 10^3/uL (4.4-10.8)
[2024-02-25] MEDS: Ketorolac 15 MG/ML VIAL IVP (14:20)
[2024-02-25 14:21] LABS: ALT 15 U/L (14-59); AST 20 U/L (15-37); Albumin 3.6 g/dL (3.4-5.0); Alkaline Phosphatase 136 U/L (46-116); BUN 13 mg/dL (7-18); Bilirubin, Direct 0.2 mg/dL (0.0-0.2); Bilirubin, Total 0.89 mg/dL (0.2-1.0); CREATININE 1.1 mg/dL (0.55-1.02); Calcium 9.5 mg/dL (8.5-10.1); Chloride 104 mmol/L (98-107); Estimated GFR 54.73 (mL/min/1.73m2); Glucose 131 mg/dL (74-106); Lipase 44 U/L (16-77); Magnesium 1.6 mg/dL (1.8-2.4); Potassium 3.7 mmol/L (3.5-5.1); Sodium 140 mmol/L (136-145)
--- NOTE | 2024-02-25 14:34 | DI.CT_ITS ---
Exam(s) CT RENAL COLIC WO EXAM: CT RENAL COLIC WO CLINICAL HISTORY: left flank pain. TECHNIQUE: Imaging Protocol: Axial computed tomography images with coronal and sagittal reformatted images were created and reviewed CONTRAST MATERIAL: Intravenous: none Oral: None COMPARISON: CT CT ABDOMEN PELVIS W from 01/17/2024 FINDINGS: VISUALIZED LUNG BASES: No nodules nor pleural effusions evident. ABDOMEN: There is no ascites. LIVER: There are no obvious focal hepatic lesions evident of this noninfused study. GALLBLADDER/BILIARY: The gallbladder is again noted be surgically absent. CBD is not dilated. PANCREAS: No evidence of pancreatic mass nor dilatation of the pancreatic duct. SPLEEN: Spleen is not enlarged. No obvious intrasplenic lesions. ADRENALS: There are no significant adrenal masses. KIDNEYS:There has been interval placement of a double pigtail stent on the right side. The superior aspect the stent is in the right renal pelvis and the inferior pigtail aspect of the stent is in the urinary bladder lumen. The previously described calculus at the right ureterovesical junction is aga in evident and has not yet passed into the urinary bladder. There are no other calculi seen along th e course of the right ureteral stent. Are 3 small remaining calculi in the right kidney which measur es approximately 3 mm each. No other significant right kidney findings. In the left kidney there is a tiny punctate nonobstructive 1 millimeter calculus. No hydronephrosis. No hydroureter. Tiny seth cification in the left side of the pelvis intimately associated with the left ureter again noted whic h is either a 2 millimeter calculus or phlebolith. There is no dilatation left collecting system abo ve this level. ABDOMINAL AORTA: Abdominal aorta is not enlarged. LYMPH NODES: There is no retroperitoneal nor paraaortic adenopathy. ABDOMINAL WALL: Fat only containing anterior abdominal wall para umbilical hernia. GI: There is no evidence of bowel obstruction, free air, nor abscess. PELVIS: LYMPH NODES: There is no intrapelvic nor inguinal adenopathy. GI: No evidence of appendicitis.Sigmoid diverticulosis noted. There is some mild streaking in this r egion but this is between the urinary bladder and the the sigmoid. Cannot exclude subtle diverticuli tis of the sigmoid. There is no gas within the nondistended urinary bladder lumen. URINARY BLADDER: Partially collapsed. Right ureteral stent in place with distal pigtail within the u rinary bladder lumen. No radiopaque calculi in the bladder lumen. The calculus at the right UVJ is again noted. It measures approximately 8 x 5 mm on today's study. REPRODUCTIVE: Uterus is again noted to be surgically absent. No abnormal adnexal masses. OSSEOUS: There are Tarlov intra sacral cysts noted in the sacral canal. No fractures. No significan t osseous lesions. Schmorl's node invagination in the superior endplate of L1 is again noted. IMPRESSION: 1. Compared to CT scan of 01/17/2024 there has been interval urologic procedure with placement of mikael ble pigtail right ureteral stent which appears to be in satisfactory position. The previously descri bed large calculus at the right ureterovesical junction is again noted but has decreased in size, pro bably related to intervention. It presently measures approximately 8 x 5 mm and has not yet passed i nto the urinary bladder lumen. Smaller nonobstructive calculi are also noted in the ipsilateral-righ t kidney. 2. There is a small 2 millimeter calcification again noted to be intimately associated with the lower left ureter. Difficult to determine if this is a nonobstructive calculus in the lower left ureter o r a phlebolith. The ipsilateral ureter is not dilated. 3. Sigmoid diverticulosis. There is some mild streaking in this region. Cannot exclude subtle diver ticulitis of the sigmoid. No evidence of abscess. 4. Gallbladder and uterus are again noted to be surgically absent. Report called to ER physician 02/25/2024 at 3 p.m. RADIATION DOSE DELIVERED: 1,431.23mGy.cm Total DLP DATA REPOSITORY: All CT scans at this facility are submitted to the National Radiology Data Registry (NRDR) Dose Index Registry (DIR) with the [employer] (ACR). RADIATION OPTIMIZATION: All CT scans at this facility use at least one of these dose optimization te chniques: automated exposure control; mA and/or kV adjustment per patient size (includes targeted exa ms where dose is matched to clinical indication); or iterative reconstruction.
[2024-02-25] MEDS: Ciprofloxacin 500 MG TAB PO (15:53)
[2024-02-25] MEDS: metroNIDAZOLE 500 MG TAB PO (15:53)
[2024-02-25] MEDS: metroNIDAZOLE 500 MG TAB, 3 TABS/BTL PO ×2 (16:15)
[2024-02-25 16:16] VITALS: BP 133/94; PULSE 82; RESP 18; TEMP 36.6; O2SAT 97
[2024-02-25 16:19] VITALS: BP 134/82; PULSE 82; RESP 18; TEMP 36.6; O2SAT 97
--- NOTE | 2024-02-26 07:14 | NUR.NOTE ---
patient called to ask about her urine results from the previous day's visit. dr patel reviewed her lab work and stated that the current rxs would cover her. patient stated she was going to let her urologist at [facility] [place] know of her dx and tx plan. Nursing Note:
== END 2024-02-25 16:05 | disposition home or self-care (01) ==
PROVIDERS: Emergency Provider Emergency Medicine; PCP Physician Assistant
DX: R31.9 Hematuria, unspecified (principal); N20.2 Calculus of kidney with calculus of ureter; I10 Essential (primary) hypertension; E11.40 Type 2 diabetes mellitus with diabetic neuropathy, unspecified; D68.62 Lupus anticoagulant syndrome; Z90.49 Acquired absence of other specified parts of digestive tract; Z90.710 Acquired absence of both cervix and uterus; Z86.73 Personal history of transient ischemic attack (TIA), and cerebral infarction without residual deficits; Z86.711 Personal history of pulmonary embolism; Z79.84 Long term (current) use of oral hypoglycemic drugs; Z79.85 Long-term (current) use of injectable non-insulin antidiabetic drugs; Z79.01 Long term (current) use of anticoagulants; Z87.891 Personal history of nicotine dependence
CPT/HCPCS: 36415; 80053; 83690; 96361; 96374; 99285; 74176; 81003; 82248; 83735; 85025; 99284; J1885

== ENCOUNTER 2024-02-29 16:48 | Emergency (ER) | payer MEDICARE, MEDICAID, SELFPAY ==
[2024-02-29 16:51] VITALS: BP 144/94; PULSE 90; RESP 22; TEMP 36.6; O2SAT 96
--- NOTE | 2024-02-29 17:08 | DI.CT_ITS ---
Exam(s) CT ABDOMEN PELVIS W EXAM: CT ABDOMEN PELVIS W CLINICAL HISTORY: b/l flank pain, stent, eval stone, diverticulitis TECHNIQUE: Imaging Protocol: Axial computed tomography images with coronal and sagittal reformatted images were created and reviewed. CONTRAST MATERIAL: Intravenous: Omnipaque 350 Contrast volume:100 mL Oral: No COMPARISON: CT CT RENAL COLIC WO from 02/25/2024 FINDINGS: ABDOMEN: Lung Bases: Coronary artery calcifications are present. Atelectatic changes are seen in the lung bas es. Liver: Normal density. No measurable mass. Portal, Superior Mesenteric, and Splenic Veins: Unremarkable. Gallbladder and Biliary Tract: Status post cholecystectomy. There is no significant biliary ductal d ilatation. Pancreas: Normal density, no abnormal calcifications or inflammatory process. Spleen: Normal. Adrenals: No masses seen. Kidneys: Normal size, contour and axis. There are nonobstructing stones seen in the right kidney. Th ere is a right nephroureteral stent. There is a 7 mm stone adjacent to the stent in the distal right ureter. There is no hydronephrosis. No masses seen. Abdominal Aorta: Abdominal portion non-dilated. Atherosclerotic calcification is present. Bowel: There is diverticulosis of the colon. There is mild wall thickening seen in the mid sigmoid c olon (series 9, image 82). This may represent focal acute diverticulitis. This has shown slight imp rovement compared to the prior examination. No evidence of appendicitis. Peritoneal Cavity: No ascites, collection or mesenteric inflammatory response. No free air. Lymph Nodes: Within normal limits. Bones: Within normal limits for the patient's age. Soft Tissues: There is a small fat containing umbilical hernia. PELVIS: Bladder: The urinary bladder is incompletely distended but grossly unremarkable. Reproductive Organs: The uterus is absent. Lymph Nodes: Within normal limits. Bones: Within normal limits for the patient's age. IMPRESSION: 1. Colonic diverticulosis with thickening of a short segment of sigmoid colon suggesting acute divert iculitis. Please correlate clinically. A follow-up examination, such as a barium enema or colonosco py, should be considered to exclude neoplasm. 2. Right nephrolithiasis. No hydronephrosis. 3. There is again seen a 7 mm stone in the distal right ureter adjacent to the right nephroureteral s tent. RADIATION DOSE DELIVERED: 1,425.94mGy.cm Total DLP DATA REPOSITORY: All CT scans at this facility are submitted to the National Radiology Data Registry (NRDR) Dose Index Registry (DIR) with the [employer] (ACR). RADIATION OPTIMIZATION: All CT scans at this facility use at least one of these dose optimization te chniques: automated exposure control; mA and/or kV adjustment per patient size (includes targeted exa ms where dose is matched to clinical indication); or iterative reconstruction.
[2024-02-29] MEDS: Lactated Ringers 1,000 ML 1000 ML IV (17:34)
[2024-02-29 17:40] LABS: Abs Immature Grans 0.04 10^3/uL (0.0-0.06); Absolute Basophil Count 0.07 10^3/uL (0.0-0.2); Absolute Eosinophil Count 0.23 10^3/uL (0.0-0.7); Absolute Lymphocyte Count 2.08 10^3/uL (1.2-3.4); Absolute Neutrophil Count 4.82 10^3/uL (1.2-6.7); Basophils % 0.9 %; HCT 38.4 % (36.0-46.0); HGB 13.3 g/dL (11.2-15.7); Immature Grans % 0.5 %; Lymphocytes % 27.2 %; MCH 29.8 pg (27.0-33.0); MCHC 34.6 % (32.0-36.0); MCV 86 fL (80-95); MPV 10.2 fL (8.0-11.0); Monocytes % 5.2 %; Neutrophils % 63.2 %; Platelet Count 285 10^3/uL (130-400); RBC 4.47 10^6/uL (3.93-5.22); RDW 13.5 % (11.7-14.6); RDW-SD 42.2 fL; WBC 7.64 10^3/uL (4.4-10.8)
[2024-02-29 17:50] LABS: Prothrombin Time 21.1 sec (9.1-11.1)
[2024-02-29 17:51] LABS: INR 2.2 (0.9-1.1)
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
[2024-02-29 17:55] LABS: ALT 35 U/L (14-59); AST 53 U/L (15-37); Albumin 3.6 g/dL (3.4-5.0); Alkaline Phosphatase 132 U/L (46-116); Anion Gap 10.6 mmol/L (3-11); BUN 17 mg/dL (7-18); Bilirubin, Total 0.88 mg/dL (0.2-1.0); CO2 23.4 mmol/L (21.0-32.0); CREATININE 1.3 mg/dL (0.55-1.02); Calcium 9.3 mg/dL (8.5-10.1); Chloride 107 mmol/L (98-107); Estimated GFR 44.79 (mL/min/1.73m2); Glucose 129 mg/dL (74-106); Potassium 3.6 mmol/L (3.5-5.1); Sodium 141 mmol/L (136-145); Total Protein 7.6 g/dL (6.4-8.2)
[2024-02-29 18:56] LABS: Bilirubin Small (Negative); Blood Large (Negative); Clarity Cloudy (Clear); Glucose Negative (Negative); Ketones Negative (Negative); Leukocyte Esterase Negative (Negative); Nitrite Negative (Negative); Specific Gravity >= 1.030 (1.005-1.025); Urobilinogen 0.2 mg/dL (Up to 0.2); pH 5.5 (5-8)
[2024-02-29] MEDS: Normal Saline - Diluent 50 ML VIAL IJ (19:04)
[2024-02-29] MEDS: Omnipaque 350 MG/ML 100 ML BTL IJ (19:05)
[2024-02-29 19:17] LABS: C & S Indicated? No; RBC >50 HPF (0-2)
--- NOTE | 2024-02-29 20:15 | DI.VRAD_ITS ---
PROCEDURE INFORMATION: Exam: CT Abdomen And Pelvis With Contrast Exam date and time: 02/29/2024 7:07 PM Age: 69 years old Clinical indication: Abdominal pain and other: B/l flank pain, stent, eval stone, diverticulitis TECHNIQUE: Imaging protocol: Computed tomography of the abdomen and pelvis with contrast. Contrast material: OMNI 350; Contrast volume: 100 ml; Contrast route: INTRAVENOUS (IV); COMPARISON: CT RENAL COLIC WO 02/25/2024 2:22 PM FINDINGS: Lungs: Lung bases clear Liver: Normal appearing liver. Gallbladder and biliary ducts: Prior cholecystectomy. No biliary dilatation. Pancreas: Normal appearing pancreas. Spleen: Normal appearing spleen. Adrenal glands: Normal appearing adrenal glands. Kidneys and ureters: Double pigtail ureteral stent in-situ on the right extending from the renal pelvis into the urinary bladder. 5 mm x 5 mm x 9 mm stone in the distal right ureter adjacent to the stent, images 85-86 of series 9. No hydronephrosis to suggest stent malfunction or obstructive physiology. Nonobstructing right renal calcifications with the largest measuring approximately 3 mm. Renal cortical scarring demonstrated bilaterally.Small indeterminate hypoattenuating right renal lesion, not well characterized but statistically most likely a small renal cyst. No left-sided hydronephrosis. Stomach and bowel: No oral contrast. Stomach partially decompressed. No small bowel dilatation to suggest obstruction. Fluid and fecal material throughout the colon suspicious for diarrhea. Sigmoid diverticulosis but no evidence of diverticulitis or colitis. Appendix: Normal appendix. Intraperitoneal space: No gross ascites or free air. Vasculature: Normal caliber abdominal aorta. Lymph nodes: No pathologically enlarged mesenteric, retroperitoneal, or pelvic sidewall lymph nodes. Urinary bladder: Urinary bladder largely decompressed. Reproductive: Prior hysterectomy. Ovaries not identified, obscured if present. Correlation with surgical history recommended. Bones/joints: Spinal degenerative change with anterior osteophytes at several levels. Large Schmorl's node in the superior endplate at L1. Soft tissues: Small fat containing ventral hernia at the umbilicus. Small subcutaneous densities in the lower anterior abdominal wall, nonspecific. Recent subcutaneous injections? IMPRESSION: 1. Double pigtail ureteral stent in-situ on the right in good position. No right-sided hydronephrosis. 2. 5 mm x 5 mm x 9 mm distal right ureteral calculus adjacent to the stent, unchanged in position compared with the recent exam from February 25, 2024 but located approximately 2 cm more proximal in the distal ureter compared with the prior exam from January 17, 2024 before the stent was placed. 3. Nonobstructing right renal calculi with the largest measuring 3 mm. Dictated and Authenticated by: Car Silva MD. Ordering:NEHAL Sheffield MD
[2024-02-29] MEDS: Ketorolac 15 MG/ML VIAL IVP (20:27)
== END 2024-02-29 21:07 | disposition home or self-care (01) ==
PROVIDERS: Emergency Provider Emergency Medicine; PCP Physician Assistant
DX: R10.32 Left lower quadrant pain (principal); R10.31 Right lower quadrant pain; N20.0 Calculus of kidney; Z96.0 Presence of urogenital implants; Z79.01 Long term (current) use of anticoagulants; R31.9 Hematuria, unspecified
CPT/HCPCS: 80053; 96374; 99285; 74177; 81003; 81015; 85025; 85610; 99283; J1885; J3490

== ENCOUNTER 2024-03-01 18:23 | Outpatient (REF) | payer MEDICARE, MEDICAID, SELFPAY ==
[2024-03-01 21:26] LABS: Abs Immature Grans 0.03 10^3/uL (0.0-0.06); Absolute Basophil Count 0.08 10^3/uL (0.0-0.2); Absolute Eosinophil Count 0.24 10^3/uL (0.0-0.7); Absolute Lymphocyte Count 1.99 10^3/uL (1.2-3.4); Absolute Monocyte Count 0.45 10^3/uL (0.1-0.8); Absolute Neutrophil Count 4.39 10^3/uL (1.2-6.7); Basophils % 1.1 %; Eosinophils % 3.3 %; Immature Grans % 0.4 %; Lymphocytes % 27.7 %; MCH 29.7 pg (27.0-33.0); MCHC 34.2 % (32.0-36.0); MCV 87 fL (80-95); MPV 10.8 fL (8.0-11.0); Monocytes % 6.3 %; Neutrophils % 61.2 %; Platelet Count 289 10^3/uL (130-400); RBC 4.37 10^6/uL (3.93-5.22); RDW 13.4 % (11.7-14.6); RDW-SD 42.2 fL; WBC 7.18 10^3/uL (4.4-10.8)
== END 2024-03-01 18:24 | disposition home or self-care (01) ==
LOC: LBN 18:23
PROVIDERS: PCP Physician Assistant; Visit Provider Physician Assistant Medical
DX: N20.0 Calculus of kidney (principal)
CPT/HCPCS: 85025

== ENCOUNTER 2024-03-08 15:47 | Outpatient (REF) | payer MEDICARE, MEDICAID, SELFPAY | END 2024-03-08 15:48 | disposition home or self-care (01) | LOC: NCHCN 15:47 | PROVIDERS: PCP Physician Assistant; Visit Provider Physician Assistant | DX: N20.0 Calculus of kidney (principal); R39.89 Other symptoms and signs involving the genitourinary system | CPT/HCPCS: 85610; 87086 ==

== ENCOUNTER 2024-03-09 19:27 | Outpatient (REF) | payer MEDICARE, MEDICAID, SELFPAY ==
[2024-03-09 16:45] LABS: INR 2.7 (0.9-1.1); Prothrombin Time 25.2 sec (9.1-11.1)
== END 2024-03-09 19:28 | disposition home or self-care (01) ==
LOC: LBN 19:27
PROVIDERS: PCP Physician Assistant; Visit Provider Physician Assistant Medical
DX: Z79.01 Long term (current) use of anticoagulants (principal)
CPT/HCPCS: 85610

== ENCOUNTER 2024-05-15 13:03 | Outpatient (REF) | payer MEDICARE, MEDICAID, SELFPAY ==
[2024-05-15 15:41] LABS: HCT 42.2 % (36.0-46.0); HGB 14.3 g/dL (11.2-15.7); MCHC 33.9 % (32.0-36.0); MCV 89 fL (80-95); MPV 11.4 fL (8.0-11.0); Platelet Count 282 10^3/uL (130-400); RBC 4.77 10^6/uL (3.93-5.22); RDW 13.6 % (11.7-14.6); WBC 8.84 10^3/uL (4.4-10.8)
[2024-05-15 16:23] LABS: Anion Gap 15.1 mmol/L (3-11); BUN 15 mg/dL (7-18); CO2 21.9 mmol/L (21.0-32.0); CREATININE 1.1 mg/dL (0.55-1.02); Calcium 8.9 mg/dL (8.5-10.1); Calculated LDL 77 mg/dL (<100); Chloride 105 mmol/L (98-107); Cholesterol 193 mg/dL (<200); Estimated GFR 54.73 (mL/min/1.73m2); Glucose 150 mg/dL (74-106); HDL Cholesterol 42 mg/dL (40-60); Potassium 3.5 mmol/L (3.5-5.1); Sodium 142 mmol/L (136-145); Triglyceride 372 mg/dL (<150); Vitamin B12 193 pg/mL (193-986)
[2024-05-15 17:41] LABS: Hemoglobin A1C 5.9 % (<5.7)
== END 2024-05-15 13:04 | disposition home or self-care (01) ==
LOC: NCHCN 13:03
PROVIDERS: PCP Physician Assistant; Visit Provider Physician Assistant
DX: E11.9 Type 2 diabetes mellitus without complications (principal); E53.8 Deficiency of other specified B group vitamins
CPT/HCPCS: 80048; 80061; 85027; 82607; 83036

== ENCOUNTER 2024-06-15 15:17 | Outpatient (REF) | payer MEDICARE, MEDICAID, SELFPAY ==
[2024-06-15 17:52] LABS: Abs Immature Grans 0.02 10^3/uL (0.0-0.06); Absolute Basophil Count 0.09 10^3/uL (0.0-0.2); Absolute Eosinophil Count 0.24 10^3/uL (0.0-0.7); Absolute Lymphocyte Count 2.55 10^3/uL (1.2-3.4); Absolute Monocyte Count 0.41 10^3/uL (0.1-0.8); Absolute Neutrophil Count 5.75 10^3/uL (1.2-6.7); Eosinophils % 2.6 %; HCT 40.9 % (36.0-46.0); HGB 13.9 g/dL (11.2-15.7); Immature Grans % 0.2 %; Lymphocytes % 28.1 %; MCV 88 fL (80-95); MPV 11.5 fL (8.0-11.0); Monocytes % 4.5 %; Neutrophils % 63.6 %; Platelet Count 312 10^3/uL (130-400); RBC 4.64 10^6/uL (3.93-5.22); RDW 13.7 % (11.7-14.6); WBC 9.06 10^3/uL (4.4-10.8)
[2024-06-15 17:56] LABS: ALT 17 U/L (14-59); AST 21 U/L (15-37); Albumin 3.5 g/dL (3.4-5.0); Alkaline Phosphatase 149 U/L (46-116); BUN 19 mg/dL (7-18); Bilirubin, Total 0.82 mg/dL (0.2-1.0); C-Reactive Protein 3.03 mg/dL (<or=0.5); CREATININE 1.2 mg/dL (0.55-1.02); Calcium 8.9 mg/dL (8.5-10.1); Chloride 107 mmol/L (98-107); Estimated GFR 49.31 (mL/min/1.73m2); Glucose 163 mg/dL (74-106); Potassium 3.4 mmol/L (3.5-5.1); Sodium 143 mmol/L (136-145); Total Protein 7.3 g/dL (6.4-8.2)
== END 2024-06-15 15:18 | disposition home or self-care (01) ==
LOC: LBN 15:17
PROVIDERS: PCP Physician Assistant; Visit Provider Physician Assistant Medical
DX: R10.32 Left lower quadrant pain (principal)
CPT/HCPCS: 80053; 85025; 86140

== ENCOUNTER 2024-07-14 11:58 | Emergency (ER) | payer MEDICARE, MEDICAID, SELFPAY ==
[2024-07-14] VITALS (10 sets, daily range): BP systolic 150–179; BP diastolic 92–104; PULSE 90–124; RESP 15–27; TEMP 37–38.2; O2SAT 95–97
--- NOTE | 2024-07-14 11:45 | RT.EKG_ITS ---
APPROVED REPORT Exam: Resting ECG Reason for Exam: Dyspnea Patient Location: E HR:94 bpm ECG Measurements Heart Rate 94 AXIS SD 192 P 16 QRSd 99 QRS -27 QT 363 T 60 QTc 454 Conclusion Sinus rhythm...normal P axis, V-rate 60- 99 Left ventricular hypertrophy...multiple voltage criteria
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
--- NOTE | 2024-07-14 12:45 | DI.RAD_ITS ---
Exam(s) XR CHEST 2V PA LATERAL EXAM: XR CHEST 2V PA LATERAL CLINICAL HISTORY: sob TECHNIQUE: 2D digital imaging was performed of the chest. Two images were obtained. PA and lateral views were obtained. COMPARISON: CR XR PORTABLE CHEST AP from 12/08/2023 FINDINGS: MEDIASTINUM: Normal. HEART: Normal. PULMONARY VASCULATURE: Normal. LUNGS: Clear. PLEURAL SPACE: No pleural effusion or pneumothorax. BONE:Within normal limits for the patient's age. OTHER FINDINGS:Normal. IMPRESSION: No acute pulmonary findings. DATA REPOSITORY: RADIATION DOSE DELIVERED:
[2024-07-14 12:53] LABS: COVID-19 PCR Negative (Negative); Influenza A PCR Negative (Negative); Influenza B PCR Negative (Negative); RSV PCR Negative (Negative); Source Nasopharynx
[2024-07-14 14:39] LABS: Abs Immature Grans 0.02 10^3/uL (0.0-0.06); Absolute Basophil Count 0.08 10^3/uL (0.0-0.2); Absolute Eosinophil Count 0.12 10^3/uL (0.0-0.7); Absolute Lymphocyte Count 1.11 10^3/uL (1.2-3.4); Absolute Monocyte Count 0.48 10^3/uL (0.1-0.8); Absolute Neutrophil Count 6.27 10^3/uL (1.2-6.7); Eosinophils % 1.5 %; HCT 41.1 % (36.0-46.0); HGB 14.2 g/dL (11.2-15.7); Immature Grans % 0.2 %; Lymphocytes % 13.7 %; MCH 30.3 pg (27.0-33.0); MCHC 34.5 % (32.0-36.0); MCV 88 fL (80-95); MPV 10.3 fL (8.0-11.0); Monocytes % 5.9 %; Neutrophils % 77.7 %; Platelet Count 187 10^3/uL (130-400); RBC 4.68 10^6/uL (3.93-5.22); RDW 13.4 % (11.7-14.6); RDW-SD 43.1 fL; WBC 8.08 10^3/uL (4.4-10.8)
[2024-07-14 14:56] LABS: ALT 22 U/L (14-59); AST 34 U/L (15-37); Albumin 3.4 g/dL (3.4-5.0); Alkaline Phosphatase 133 U/L (46-116); BUN 14 mg/dL (7-18); Bilirubin, Total 0.85 mg/dL (0.2-1.0); Calcium 9.2 mg/dL (8.5-10.1); Chloride 105 mmol/L (98-107); Estimated GFR 61.36 (mL/min/1.73m2); Glucose 139 mg/dL (74-106); Magnesium 1.6 mg/dL (1.8-2.4); Potassium 3.3 mmol/L (3.5-5.1); Sodium 141 mmol/L (136-145); Total Protein 7.3 g/dL (6.4-8.2); Troponin I 7 ng/L (<or=51)
== END 2024-07-14 15:58 | disposition home or self-care (01) ==
PROVIDERS: Emergency Provider Emergency Medicine Emergency Medical Services; PCP Physician Assistant
DX: R06.02 Shortness of breath (principal); R07.9 Chest pain, unspecified; Z59.82 Transportation insecurity
CPT/HCPCS: 80053; 87637; 93005; 99285; 71046; 83735; 84484; 85025; 93010; 99283; J7620

== ENCOUNTER 2024-07-24 01:48 | Outpatient (CLI) | payer MEDICARE, MEDICAID, SELFPAY ==
--- NOTE | 2024-07-24 07:30 | DI.RAD_ITS ---
Exam(s) XR FOOT LT COMPLETE EXAM: XR FOOT LT COMPLETE CLINICAL HISTORY: Left foot pain,m79.672. TECHNIQUE: 2D digital imaging was performed of the left foot. Three images were obtained. AP, obli que and lateral views were obtained. COMPARISON: CR LEFT FOOT COMPLETE from 12/20/2017 FINDINGS: BONES: No acute fracture is present. There is a stable deformity involving the 5th metatarsal bone. There are hammertoe deformities of the 4th and 5th toes. There is a plantar calcaneal spur. No bon y destructive lesion is seen. JOINTS: No dislocation present. Mild degenerative changes are seen in the foot. SOFT TISSUE: Normal. IMPRESSION: No acute abnormality. Chronic changes in the left foot as described above. DATA REPOSITORY: RADIATION DOSE DELIVERED:
--- NOTE | 2024-07-24 07:30 | DI.RAD_ITS ---
Exam(s) XR FOOT RT COMPLETE EXAM: XR FOOT RT COMPLETE CLINICAL HISTORY: Right foot pain,m69.671. TECHNIQUE: 2D digital imaging was performed of the right foot. Three images were obtained. AP, obl ique and lateral views were obtained. COMPARISON: CR RIGHT FOOT COMPLETE from 12/20/2017 FINDINGS: BONES: No acute fracture is present. There is an old fracture deformity of the 5th metatarsal. Bony productive changes are seen associated with the 2nd metatarsal bone which may reflect old injury. Th ere is a plantar calcaneal spur. JOINTS: There are dislocations involving the tarsometatarsal joints. There is some fragmentation inv olving the medial cuneiform. There is medial subluxation of the medial cuneiform. There also appear s to be fracture fragments at the tarsometatarsal joints. The findings are suspicious for a Charcot foot. SOFT TISSUE: There is diffuse soft tissue swelling of the foot. IMPRESSION: Distal again is a newton and fragmentation of the tarsal bones and the tarsometatarsal joints suggestiv e of a Charcot foot. A CT scan of the foot should be considered for better characterization. This m ay also reflect old trauma. DATA REPOSITORY: RADIATION DOSE DELIVERED:
== END 2024-07-24 02:08 ==
LOC: DI 01:48
PROVIDERS: PCP Physician Assistant; Visit Provider Podiatrist
DX: M79.672 Pain in left foot (principal); M79.671 Pain in right foot
CPT/HCPCS: 11719; 73630

== ENCOUNTER 2024-09-21 03:16 | Outpatient (CLI) | payer MEDICARE, MEDICAID, SELFPAY ==
--- NOTE | 2024-09-21 11:51 | W.NUTRFU ---
Date of service: 09/21/24 Time of Service: 09:00 Nutrition Note NOTE: I was able to have some time to be on the phone with Shani today as we have struggled to get together in person due to transportation issues with [facility] not providing rides to her for appointments anymore (missed her B12 shot yesterday) and she is upset about this and generally voices frustration with being limited and poor. Communicating with Shani can be difficult as she frequently will interrupt/talk over during conversation and it is difficult to stay focus on the reason for the call and centering the talk around the nutrition part of her referral and issues with chronic GI symptoms/diarrhea associated with IBS and diabetic-related gastroparesis. She frequently skips meals, especially breakfast, and is unsure about what to eat. Encouraged small frequent meals and consistent eating pattern with times that are goals for her to remind herself to eat. She does have a tobacco blender and is open to trying to get protein this way and maybe some veggies as she states she cannot eat any veggies. I reviewed some ideas with her and agreed to mail out a copy of items she can try to put together smoothies with as well as some other sample menus for eating frequently. Time Spent in Nutritional Counseling and Treatment: 25 min
== END 2024-09-21 03:17 | disposition home or self-care (01) ==
LOC: DS 03:16
PROVIDERS: PCP Physician Assistant; Visit Provider Dietitian, Registered
DX: K52.9 Noninfective gastroenteritis and colitis, unspecified (principal)
CPT/HCPCS: 00123; 97802

== ENCOUNTER 2025-01-22 21:24 | Emergency (ER) | payer MEDICARE, MEDICAID, SELFPAY ==
[2025-01-22 21:28] VITALS: BP 140/109; PULSE 81; RESP 18; TEMP 36.6; O2SAT 97
--- NOTE | 2025-01-22 23:11 | NUR.NOTE ---
pt informed that we contacted [facility] and they are not able to arrange for a ride until 529. Nursing Note:
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
[2025-01-23 00:37] VITALS: BP 129/94; PULSE 74; RESP 18; O2SAT 96
[2025-01-23 06:40] VITALS: PULSE 81; RESP 18; O2SAT 97
== END 2025-01-23 06:40 | disposition home or self-care (01) ==
PROVIDERS: Emergency Provider Physician Assistant; PCP Physician Assistant
DX: S46.912A Strain of unspecified muscle, fascia and tendon at shoulder and upper arm level, left arm, initial encounter (principal); X58.XXXA Exposure to other specified factors, initial encounter; Z79.01 Long term (current) use of anticoagulants; Z91.81 History of falling; Z59.82 Transportation insecurity
CPT/HCPCS: 99283; 99282

== ENCOUNTER 2025-03-09 12:16 | Outpatient (REF) | payer MEDICARE, MEDICAID, SELFPAY ==
[2025-03-09 16:46] LABS: ALT 23 U/L (14-59); AST 31 U/L (15-37); Albumin 3.6 g/dL (3.4-5.0); Alkaline Phosphatase 114 U/L (46-116); Anion Gap 15.6 mmol/L (3-11); BUN 13 mg/dL (7-18); Bilirubin, Total 1.1 mg/dL (0.2-1.0); CO2 23.4 mmol/L (21.0-32.0); Calcium 9.1 mg/dL (8.5-10.1); Calculated LDL 69 mg/dL (<100); Chloride 103 mmol/L (98-107); Cholesterol 148 mg/dL (<200); Estimated GFR 49.00 (mL/min/1.73m2); Glucose 148 mg/dL (74-106); HDL Cholesterol 33 mg/dL (>or=50); Potassium 3.1 mmol/L (3.5-5.1); Sodium 142 mmol/L (136-145); Total Protein 7.8 g/dL (6.4-8.2); Triglyceride 230 mg/dL (<150); Vitamin B12 305 pg/mL (193-986)
[2025-03-09 16:49] LABS: Hemoglobin A1C 5.9 % (<5.7)
== END 2025-03-09 12:17 | disposition home or self-care (01) ==
LOC: NCHCN 12:16
PROVIDERS: PCP Physician Assistant; Visit Provider Physician Assistant
DX: E11.9 Type 2 diabetes mellitus without complications (principal)
CPT/HCPCS: 80053; 80061; 82607; 83036

== ENCOUNTER 2025-05-24 23:43 | Observation (INO) | payer MEDICARE, MEDICAID, SELFPAY ==
[2025-05-24 23:37] VITALS: BP 185/95; PULSE 84; RESP 18; TEMP 36.9; O2SAT 97
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
[2025-05-24 23:46] VITALS: PULSE 83; O2SAT 96
[2025-05-24 23:47] VITALS: BP 181/86; PULSE 80; O2SAT 97
[2025-05-24 23:50] VITALS: PULSE 76; PULSE 77; O2SAT 97
[2025-05-25] VITALS (52 sets, daily range): BP systolic 143–211; BP diastolic 79–122; PULSE 62–87; RESP 12–27; TEMP 35.8–37; O2SAT 96–99
--- NOTE | 2025-05-25 | RT.EKG_ITS ---
APPROVED REPORT Exam: Resting ECG Reason for Exam: HTN Patient Location: E HR:75 bpm ECG Measurements Heart Rate 75 AXIS VT 240 P 1 QRSd 105 QRS 4 QT 443 T 43 QTc 495 Conclusion Sinus rhythm...normal P axis, V-rate 60- 99 Prolonged VT interval...VT >220, V-rate 50- 90 [address] [place] Nonspecific ST-T changes There are no significant changes compared to prior EKG performed on 07/14/2024 at 12:10.
[2025-05-25 00:28] LABS: Abs Immature Grans 0.03 10^3/uL (0.0-0.06); HCT 38.5 % (36.0-46.0); HGB 13.2 g/dL (11.2-15.7); Immature Grans % 0.4 %; MCH 29.9 pg (27.0-33.0); MCHC 34.3 % (32.0-36.0); MCV 87 fL (80-95); MPV 10.6 fL (8.0-11.0); Platelet Count 222 10^3/uL (130-400); RBC 4.42 10^6/uL (3.93-5.22); RDW 12.9 % (11.7-14.6); RDW-SD 40.7 fL; WBC 8.29 10^3/uL (4.4-10.8)
[2025-05-25 00:31] LABS: ESR 18 mm/hr (0-30)
[2025-05-25 00:40] LABS: Prothrombin Time 47.0 sec (9.1-11.1)
[2025-05-25 00:48] LABS: Troponin I 4 ng/L (<35)
[2025-05-25 00:54] LABS: Magnesium 1.7 mg/dL (1.6-2.6)
[2025-05-25 00:55] LABS: INR 5.3 (0.9-1.1)
[2025-05-25 00:56] LABS: ALT 20 U/L (10-49); AST 33 U/L (<34); Albumin 4.2 g/dL (3.2-5.0); Alkaline Phosphatase 123 U/L (46-116); Anion Gap 14.1 mmol/L (3-11); BUN 19 mg/dL (9-23); Bilirubin, Total 0.60 mg/dL (0.2-1.2); CO2 24.9 mmol/L (20.0-31.0); Calcium 8.6 mg/dL (8.3-10.6); Chloride 105 mmol/L (98-107); Glucose 201 mg/dL (74-106); Potassium 2.8 mmol/L (3.5-5.1); Sodium 144 mmol/L (136-145); Total Protein 7.2 g/dL (5.7-8.2)
[2025-05-25] MEDS: Normal Saline 500 ML IV (01:23)
[2025-05-25] MEDS: POTASSIUM CHLORIDE 20 MEQ/100 ML BAG 50 MEQ IV_INF ×2 (01:24→06:08)
[2025-05-25] MEDS: Potassium Chloride Liquid 20 MEQ PKT 40 MEQ PO (01:32)
[2025-05-25] MEDS: Omnipaque 350 MG/ML 100 ML BTL IJ (02:04)
[2025-05-25] MEDS: Normal Saline Flush 10 ML SYR IVP ×3 (02:05→20:01)
[2025-05-25] MEDS: Normal Saline - Diluent 50 ML VIAL IJ (02:05)
--- NOTE | 2025-05-25 02:06 | DI.CT_ITS ---
Exam(s) CT BRAIN NECK CTA EXAM: CT BRAIN NECK CTA CLINICAL HISTORY: right sided headaches; vision change. TECHNIQUE: Imaging Protocol: Axial CT angiography was performed with multi- slice acquisition and multi-planar and MIP reconstructions. CONTRAST MATERIAL: Intravenous: Omnipaque 350 Contrast volume:70 ml COMPARISON: CT CT CERVICAL SPINE WO from 08/18/2023 FINDINGS: CT Head W/O and W contrast: Ventricles and Extra axial spaces: Normal in size and morphology for the patient's age. Hemorrhage: None. Cerebral parenchyma: No evidence of acute infarct or mass. Bilateral anterior temporal fossa arachnoid cysts again noted. Midline shift: None. Brainstem/Cerebellum: No acute findings.. Calvarium: Normal hyperostosis frontalis interna. Visualized Paranasal sinuses/Mastoids: Mild sinus mucosal thickening. Soft Tissues: Unremarkable. Enhancement: Normal. Venous sinuses are patent. CTA Brain W: Internal Carotid Arteries: Mural calcification. Right: No aneurysm, occlusion or significant stenosis. Left: No aneurysm, occlusion or significant stenosis. Middle Cerebral Arteries: Right: No aneurysm, occlusion or significant stenosis. Left: No aneurysm, occlusion or significant stenosis. Anterior Cerebral Arteries: Right: No aneurysm, occlusion or significant stenosis. Left: No aneurysm, occlusion or significant stenosis. Posterior cerebral Arteries: Right: No aneurysm, occlusion or significant stenosis. Left: No aneurysm, occlusion or significant stenosis. Vertebral Arteries: Right: No aneurysm, occlusion or significant stenosis. Left: No aneurysm, occlusion or significant stenosis. Basilar Artery: No aneurysm, occlusion or significant stenosis. CTA Neck W: Visualized aorta: Unremarkable. Visualized pulmonary arteries: Unremarkable. Subclavian arteries: Unremarkable. Common Carotid: Mild calcification at the bulbs. Right: No dissection, occlusion or significant stenosis. Left: No dissection, occlusion or significant stenosis. External Carotid: Right: No dissection, occlusion or significant stenosis. Left: No dissection, occlusion or significant stenosis. Internal Carotid: Right: No dissection, occlusion or significant stenosis. Left: No dissection, occlusion or significant stenosis. Vertebral Artery: Right: No dissection, occlusion or significant stenosis. Left: Dominant. Focal heavy calcification in the V4 segment causing moderate stenosis. No dissection or occlusion. Lung Apices: No acute findings. Bones: Degenerative changes in the cervical spine. No acute abnormality. Soft Tissues: Normal. IMPRESSION: 1. CTA brain: Focal calcific plaque in the V4 segment causing moderate stenosis. 2. Head CT: No acute abnormality. 3. CTA neck: Calcification at the common carotid bulbs. No evidence of occlusion, significant stenosis or dissection. The preliminary [facility] report was reviewed. RADIATION DOSE DELIVERED: 2,195.14mGy.cm Total DLP DATA REPOSITORY: All CT scans at this facility are submitted to the National Radiology Data Registry (NRDR) Dose Index Registry (DIR) with the [employer] ([employer]). RADIATION OPTIMIZATION: All CT scans at this facility use at least one of these dose optimization techniques: automated exposure control; mA and/or kV adjustment per patient size (includes targeted exams where dose is matched to clinical indication); or iterative reconstruction.
--- NOTE | 2025-05-25 02:56 | DI.[facility]_ITS ---
PROCEDURE INFORMATION: Exam: CTA Head Without And With Contrast, Arteriography Exam date and time: 05/25/2025 1:28 AM Age: 70 years old Clinical indication: Pain; Visual disturbance; Type not specified; Right sided headaches; Vision change TECHNIQUE: Imaging protocol: Computed tomographic angiography of the head without and with contrast. Exam focused on the arteries. 3D rendering (Not supervised by radiologist): MIP and/or 3D reconstructed images were created by the technologist. Radiation optimization: All CT scans at this facility use at least one of these dose optimization techniques: automated exposure control; mA and/or kV adjustment per patient size (includes targeted exams where dose is matched to clinical indication); or iterative reconstruction. Contrast material: [id number]; Contrast volume: 70 ml; Contrast route: INTRAVENOUS (IV); COMPARISON: CT HEAD WO 02/16/2022 11:42 AM FINDINGS: ANTERIOR CIRCULATION: Right internal carotid artery: Intracranial segment is patent with no significant stenosis or occlusion. No aneurysm. Right middle cerebral artery: No occlusion or significant stenosis. No aneurysm. Right anterior cerebral artery: No occlusion or significant stenosis. No aneurysm. Left internal carotid artery: Intracranial segment is patent with no significant stenosis. No aneurysm. Left middle cerebral artery: No occlusion or significant stenosis. No aneurysm. Left anterior cerebral artery: No occlusion or significant stenosis. No aneurysm. POSTERIOR CIRCULATION: Right vertebral artery: No occlusion or significant stenosis. No aneurysm. Left vertebral artery: Moderate stenosis of the left V4 segment. The. No aneurysm. Basilar artery: No occlusion or significant stenosis. No aneurysm. Right posterior cerebral artery: No occlusion or significant stenosis. No aneurysm. Patent right posterior communicating artery. Left posterior cerebral artery: No occlusion or significant stenosis. No aneurysm. HEAD: Brain: No hemorrhage.No mass effect. There are mild confluent periventricular hypodensities consistent with chronic microischemic changes of white matter. Bilateral anterior temporal arachnoid cysts. Cerebral ventricles: Normal. No ventriculomegaly. Bones: Hyperostosis frontalis interna. No acute fracture. Paranasal sinuses: Visualized sinuses show an air-fluid level in the right maxillary sinus. Mastoid air cells: Visualized mastoids are normal. No mastoid effusion. Soft tissues: Unremarkable. Other findings: There is atheromatous calcification of the intracranial internal carotid and vertebral arteries. IMPRESSION: 1. No large vessel occlusion. 2. 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 3. An air-fluid level in the right maxillary sinus. 4. Bilateral anterior temporal arachnoid cysts, larger on the right. PROCEDURE INFORMATION: Exam: CTA Neck Without And With Contrast Exam date and time: 05/25/2025 1:28 AM Age: 70 years old Clinical indication: Pain; Visual disturbance; Type not specified; Right sided headaches; Vision change TECHNIQUE: Imaging protocol: Computed tomographic angiography of the neck without and with contrast. Exam focused on the cervical segments of the vasculature. 3D rendering (Not supervised by radiologist): MIP and/or 3D reconstructed images were created by the technologist. Radiation optimization: All CT scans at this facility use at least one of these dose optimization techniques: automated exposure control; mA and/or kV adjustment per patient size (includes targeted exams where dose is matched to clinical indication); or iterative reconstruction. Contrast material: [id number]; Contrast volume: 70 ml; Contrast route: INTRAVENOUS (IV); COMPARISON: CT HEAD WO 02/16/2022 11:42 AM FINDINGS: Limitations: Streak and motion artifacts limit evaluation. Right common carotid artery: No significant stenosis. No dissection or occlusion. Right internal carotid artery: Atheromatous calcification at the origin of the extracranial internal carotid artery with no significant stenosis. No dissection or occlusion. Right external carotid artery: No occlusion or significant stenosis of the origin. Left common carotid artery: No significant stenosis. No dissection or occlusion. Left internal carotid artery: Atheromatous calcification at the origin of the extracranial internal carotid artery with no significant stenosis. No dissection or occlusion. Left external carotid artery: No occlusion or significant stenosis of the origin. Right vertebral artery: No significant stenosis. No dissection or occlusion. Left vertebral artery: Moderate stenosis of the distal, dominant left vertebral artery. No dissection or occlusion. Soft tissues: No significant soft tissue swelling. Bones/joints: No acute fracture. Multilevel degenerative disc disease without significant central spinal canal stenosis. Multilevel facet arthrosis and posterior hypertrophic changes of the uncovertebral joints with moderate bilateral foraminal narrowing at C5-C6 and C6-C7. IMPRESSION: 1. Normal right and left extracranial internal carotid arteries by NASCET criteria. 2. Moderate stenosis of the distal, dominant left vertebral artery. 3. Widely patent right vertebral artery. REFERENCES: NASCET CRITERIA. The degree of stenosis in the cervical segment of the internal carotid artery is based on NASCET criteria. Normal is no stenosis. Mild is less than 50% stenosis. Moderate is 50-69% stenosis. Severe is 70% to 99% stenosis. Total occlusion is no detectable patent lumen. Dictated and Authenticated by: Bradley Tatum MD. Orderin Isai Ramirez MD
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
[2025-05-25 07:38] LABS: COVID-19 PCR Negative (Negative); RSV PCR Negative (Negative)
[2025-05-25 07:45] LABS: Anion Gap 10.5 mmol/L (3-11); BUN 15 mg/dL (9-23); CO2 23.5 mmol/L (20.0-31.0); Calcium 8.3 mg/dL (8.3-10.6); Chloride 109 mmol/L (98-107); Glucose 117 mg/dL (74-106); Potassium 3.5 mmol/L (3.5-5.1); Sodium 143 mmol/L (136-145)
[2025-05-25 07:48] LABS: TSH (W/Ref FT4) 2.81 uIU/mL (0.55-4.78)
--- NOTE | 2025-05-25 08:00 | DI.MRI_ITS ---
Exam(s) MR BRAIN WO EXAM: MR BRAIN WO CLINICAL HISTORY: Headache, visual changes, left vertebral stenosis TECHNIQUE: Multiplanar multisequence MRI of the brain was performed. COMPARISON: MR MR BRAIN WO from 09/07/[address] BRAIN NECK CTA from 05/25/2025 FINDINGS: VENTRICLES AND EXTRA AXIAL SPACES: Normal in size and morphology for the patient's age. A bilateral anterior temporal fossa arachnoid cysts. MIDLINE SHIFT: None. CEREBRAL PARENCHYMA: No focus of restricted diffusion to suggest acute infarct. No space-occupying lesion identified. Mild atrophy consistent with the patient's age. Mild to moderate scattered foci of high signal in the white matter consistent with sequela of chronic microvascular disease. BRAINSTEM/CEREBELLUM: Normal. VISUALIZED PARANASAL SINUSES: Clear. MASTOIDS:Clear. Vasculature: Normal flow void. PITUITARY GLAND: Unremarkable. ORBITS: Unremarkable. IMPRESSION: No acute abnormality. DATA REPOSITORY:
[2025-05-25] MEDS: Normal Saline 1,000 ML 125 ML IV ×2 (09:27→16:47)
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
[2025-05-25 15:12] LABS: Prothrombin Time 49.2 sec (9.1-11.1)
[2025-05-25 15:18] LABS: INR 5.5 (0.9-1.1)
--- NOTE | 2025-05-25 16:22 | W.PM.PROGNOT ---
Date of Service Date of service: 05/25/25 Time of Service: 08:00 Assessment and Plan Assessment and plan (1) Supratherapeutic INR: Status: Acute Assessment and plan: INR 5.3 on arrival, 5.5 after 14 hours with warfarin held Monitor for improvement prior to discharge (2) Stenosis of left vertebral artery: Start date: 05/25/25 Status: Acute Assessment and plan: This is a 70-year-old lady who presents with hypoprothrombinemia but was complaining of accelerated, variable neurological complaints in the ED. She was found to have stenosis of the left vertebral artery but no evidence of other large vessel occlusion by CTA of the head and neck with symptoms stuttering over the last 3 days at least. Teleneurology advised observation with MRI of the brain in the morning and the usual TIA workup with echocardiogram will be performed. 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 Patient will be initiated on lipid treatment if she allows, having many allergies and hesitant to take new medications. Permissive hypertension with systolic blood pressure up to 160 will be allowed for now. She will be evaluated by PT and OT. With her right lower extremity difficulty, she may need an assistive device for ambulation and her home situation needs to be reevaluated before discharge with care management. She is a full code. May 25: MRI and echocardiogram without indication of current stroke. 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 For now hold Coumadin and reinitiate at lower dose adjusting at home as needed. She may need closer supervision of her medical therapy. Consider aspirin therapy with Coumadin if appropriate especially with narrowing of her left vertebral artery. (4) Hypokalemia: Start date: 05/25/25 Status: Resolved Assessment and plan: Patient has had this problem in the past and this appears to be nutritional with patient having difficulty eating and tolerating meals. She has lost 100 pounds as mentioned under HPI. May 25: repleted, resolved. (5) Essential hypertension: Assessment and plan: Patient is not on therapy for this and is hesitant to initiate therapy. She needs to follow-up closely with her PCP. For now permissive hypertension with her neurological complaints. (6) Type 2 diabetes mellitus with diabetic neuropathy: Status: Chronic Assessment and plan: Glucometer measurements before meals and at bedtime with moderate sliding scale insulin therapy. Long-term she is on Ozempic and is to follow-up with her PCP with hemoglobin A1c and adjustment of therapy as needed. This has improved with her recent weight loss. (7) Trigeminal neuralgia: Status: Chronic Assessment and plan: Patient does have neuropathy with her diabetes but this appears to be untreated and could be contributing to her stabbing headaches upon presentation. Her sed rate was negative reassuring that she does not have giant cell arteritis. (8) Hypomagnesemia: Status: Chronic Assessment and plan: This is a chronic problem as well but not needing treatment at this time. This also may be nutritional. (9) Pulmonary embolus, right: Status: Chronic Assessment and plan: Patient had multiple thromboembolic events eventually diagnosed with lupus but not on treatment for lupus. This is not on her problem list and may be only the lupus abstention rather than the disease. (10) Depression: Status: Chronic Assessment and plan: Not on therapy and slightly manic at this time with a question of bipolar mood disorder. (11) Morbid obesity: Status: Chronic Assessment and plan: Patient has lost 100 pounds but is still overweight. Continue healthy weight loss if possible. (12) AURELIA on CPAP: Status: Chronic Assessment and plan: Patient is now off CPAP because of negative testing recently but should reinvestigate this with her PCP. Subjective Subjective Interval history since last seen: Mrs. Morrison is talkative and expansive. Very difficult to follow her line of thinking. She monitors her own INR and says she did not take too much warfarin. She is worried about a bump on her right newton. She has numerous concerns about her health and the world. Exam Narrative Exam Narrative: General: This is an expansively talkative, obese woman in no distress HEENT: Normocephalic, atraumatic CV: RRR Resp: CTAB Abd: soft, NTND MSK: voluntary motion x4. Right anterior newton with firm lesion under developing ecchymosis. Neuro: awake, alert, no focal deficits Objective Last Vital Signs Temp 36.9 C 05/25/25 15:27 Pulse 73 05/25/25 15:27 Resp 18 05/25/25 15:27 BP 163/87 H 05/25/25 15:27 Pulse Ox 97 05/25/25 15:27 Laboratory Results - last 24 hr 05/25/25 05/25/25 05/25/25 00:10 06:00 07:15 WBC 8.29 RBC 4.42 Hgb 13.2 Hct 38.5 MCV 87 MCH 29.9 MCHC 34.3 RDW 12.9 Plt Count 222 MPV 10.6 Immature Gran % 0.4 Neutrophils % 51.3 Lymphocytes % 39.2 Monocytes % 5.3 Eosinophils % 2.8 Basophils % 1.0 Nucleated RBC % 0.0 Absolute Neutrophils 4.26 Absolute Lymphocytes 3.25 Absolute Monocytes 0.44 Absolute Eosinophils 0.23 Absolute Basophils 0.08 ESR 18 PT 47.0 H INR 5.3 H* Sodium 144 143 Potassium 2.8 L* 3.5 Chloride 105 109 H Carbon Dioxide 24.9 23.5 Anion Gap 14.1 H 10.5 BUN 19 15 Creatinine 0.92 0.78 Est GFR (CKD-EPI 2020) 60.46 73.15 Glucose 201 H 117 H Calcium 8.6 8.3 Magnesium 1.7 Total Bilirubin 0.60 AST 33 ALT 20 Alkaline Phosphatase 123 H Troponin I 4 Total Protein 7.2 Albumin 4.2 TSH 2.81 COVID-19 Source Nasopharynx SARS-CoV-2 (PCR) Negative Influenza Type A (PCR) Negative Influenza Type B (PCR) Negative RSV (PCR) Negative 05/25/25 05/25/25 07:15 14:15 WBC RBC Hgb Hct MCV MCH MCHC RDW Plt Count MPV Immature Gran % Neutrophils % Lymphocytes % Monocytes % Eosinophils % Basophils % Nucleated RBC % Absolute Neutrophils Absolute Lymphocytes Absolute Monocytes Absolute Eosinophils Absolute Basophils ESR PT 49.2 H INR 5.5 H* Sodium Potassium Chloride Carbon Dioxide Anion Gap BUN Creatinine Est GFR (CKD-EPI 2020) Glucose Calcium Magnesium Total Bilirubin AST ALT Alkaline Phosphatase Troponin I Total Protein Albumin TSH Cancelled COVID-19 Source SARS-CoV-2 (PCR) Influenza Type A (PCR) Influenza Type B (PCR) RSV (PCR) VTE Prohylaxis Risk Level: Moderate/High Risk Contraindications: Medical contrainidcation Prophylaxis: Patient ambulatory Time Spent with Patient Time Spent with Patient: 25-34 minutes Time was spent: preparing to see the patient(eg.review tests), obtaining and/or reviewing separately [facility], ordering medications,tests, procedures, referring, communicating with other health career services representative, indepentently interpreting results, counseling the patient and care coordination
[2025-05-25] MEDS: Lisinopril 5 MG TAB PO (16:48)
[2025-05-25 23:01] LABS: Glucose Negative (Negative)
[2025-05-25 23:07] LABS: C & S Indicated? Yes; RBC 0-2 HPF (0-2)
[2025-05-26] MEDS: Normal Saline 1,000 ML 125 ML IV (00:30)
[2025-05-26 02:31] VITALS: BP 135/80; PULSE 65; RESP 20; TEMP 37.1; O2SAT 94
[2025-05-26 07:02] LABS: HCT 37.7 % (36.0-46.0); HGB 13.2 g/dL (11.2-15.7); MCH 30.7 pg (27.0-33.0); MCHC 35.0 % (32.0-36.0); MCV 88 fL (80-95); MPV 10.4 fL (8.0-11.0); Platelet Count 217 10^3/uL (130-400); RBC 4.30 10^6/uL (3.93-5.22); RDW 13.2 % (11.7-14.6); RDW-SD 42.0 fL; WBC 7.76 10^3/uL (4.4-10.8)
[2025-05-26 07:29] LABS: ALT 21 U/L (10-49); AST 37 U/L (<34); Albumin 3.7 g/dL (3.2-5.0); Alkaline Phosphatase 113 U/L (46-116); Anion Gap 11.9 mmol/L (3-11); BUN 12 mg/dL (9-23); Bilirubin, Total 1.00 mg/dL (0.2-1.2); CO2 21.1 mmol/L (20.0-31.0); Calcium 8.6 mg/dL (8.3-10.6); Chloride 110 mmol/L (98-107); Glucose 155 mg/dL (74-106); Potassium 3.2 mmol/L (3.5-5.1); Sodium 143 mmol/L (136-145); Total Protein 6.8 g/dL (5.7-8.2)
[2025-05-26 07:40] VITALS: BP 121/89; PULSE 74; RESP 16; TEMP 35.9; O2SAT 96
[2025-05-26 07:54] LABS: Prothrombin Time 37.8 sec (9.1-11.1)
[2025-05-26 07:55] LABS: INR 4.2 (0.9-1.1)
[2025-05-26] MEDS: Lisinopril 5 MG TAB 2.5 MG PO (08:14)
[2025-05-26] MEDS: Normal Saline Flush 10 ML SYR IVP (08:14)
--- NOTE | 2025-05-26 11:34 | PTTR_ITS ---
Date of service: 05/26/25 Time of Service: 10:52 PT Notes Visit Reasons: Hypoprothrombinemia, Left vertebral stenosis... SUBJECTIVE: I am not supposed to walk because of my shackle (charcot) foot....the doctor told me not to walk...I am not supposed to walk....I only walk in my apartment. I use a w/c if I leave my apartment. I have only been to the doctor's once in the last year. Reports she has bilateral AFO's at home that she reported to this therapist that she normally does wear them. Uses her lift chair to perform sit to stand. Reports she has been dragging her right LE since a fall in September. OBJECTIVE:? Patient very chatty and did not wish to be redirected to activity. Treatment: sit to stand 2x with cg/min assist with 2 attempts each time. amb 13 feet 2x with rolling walker, dragging her right LE behind her in IR. Reports she has been doing this since her fall in September. Reports she saw Dr. Best who told she she tore ligaments and tendons. Assessment: Patient is a 70 yo female adm 05/25/25 with stenosis of left vertebral artery and hypoprothrombinemia due to Coumadin therapy. Poor mobility, but expect this is near patient's baseline per her report. Plan: Continue PT until discharge. Billing Charges: Treatment Units Time Duration Manual Therapy (64559) Hands-on techniques to modulate pain increase joint range of motion reduce or eliminate soft tissue swelling, inflammation, or restriction facilitate relaxation and improve contractile and non-contractile tissue extensibility Therapeutic Procedures (92679) Instruction in therapeutic exercises to develop strength and endurance, range of motion and flexibility. HEP instruction and review: Provided skilled instruction in proper exercise performance: Provided skilled manual cues to facilitate proper muscle recruitment and/or movement?pattern: Neurological Re-Education (17513) to improve balance, coordination, kinesthetic and proprioceptive sensations. Ultrasound (33401) to promote healing Gait Training (38170) Therapeutic Activity (67893) instruction in dynamic activitie s with one on one patient contact by the provider to improve functional performance as follows: 3 41 Self Care Training (80357) Time Coded Treatment Minutes: 41 Total Treatment Time: 41
[2025-05-26 11:35] VITALS: BP 146/91; PULSE 67; RESP 16; TEMP 36.9; O2SAT 97
--- NOTE | 2025-05-26 13:45 | PDOC.HHF2F ---
Date of service: 05/26/25 Time of Service: 13:45 Home Health Referral Registered Nurse: Check all that apply Instruct on new or changed medication(s)/assess compliance: Ordered Assess for exacerbation of medical condition, instruct patient/caregivers on signs and symptoms to report for early detection: Ordered Physical Therapist: Check all that apply Increase strength & endurance for safe mobility at home: Ordered To design/establish home maintenance program: Ordered Fall reduction therapy program for patient with history of frequent falls: Ordered Home safety evaluation and teaching/gait training including stair management (if applicable): Ordered Occupational Therapist: Evaluate and treat for patient unable to perform ADL/IADL/self-care: Ordered Upper extremity strengthening, range and motion: Ordered Encounter Date and Reason: I certify that a FTF encounter for this patient was performed on May 26, 2025 and that such encounter was related to the primary reason the patient requires home health services. The encounter was conducted in the following manner: By me as the certifying physician, STUDIO CAMERA OPERATOR, PA or By an inpatient physician, STUDIO CAMERA OPERATOR or PA during an inpatient stay who communicated findings to me, Certification And Authentication I certify that I composed the above information based on my clinical judgment relating to this patient's medical condition and, if applicable, clinical findings communicated to me by the NPP or inpatient physician who performed the FTF encounter. Name of Provider that will be monitoring home health services: Jose Luis Santillan
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
--- NOTE | 2025-05-26 13:54 | PDOC.CMDIS ---
Date of service: 05/26/25 Time of Service: 13:54 LACE Index Scoring Tool Questions: Length of Stay (in days): 1 Was the patient admitted via the E.D.?: Yes Comorbidities: Cerebrovascular Disease, Diabetes w/o Complication, Chronic Pulmonary Disease and Any Tumor E.D. Visits: 2 Answers: Total Score: 11 Risk of Readmission: High Risk Care Management Discharge Plan Reason for Hospitalization: increased INR. Stroke w/u Discharge Plan: Jennifer is discharged home with new [facility] services of SN, PT and OT. She will f/u with her PCP and continue per her plan of care. Jennifer will transport home in an RCT private vehicle ride. CM will coordinate a lift assist to meet her at her home and retrieve her wheel chair from her apartment, and help her into the chair. Jennifer is also being sent home with 2 doses of her new medication - Lisinopril 2.5mg. Patient/Family Education Needs: Review of discharge instructions, activity, limitations, and discuss Ask me three. Services Needed at Discharge: Home Health Care Services (new SN, PT/OT) SDOH Health Related Social Needs: Health related social needs transpo insecurity
== END 2025-05-26 15:27 | disposition home health service (06) ==
LOC: ER 05-25 04:04 → MS 05-25 05:38
PROVIDERS: Admitting Provider Family Medicine; Emergency Provider Emergency Medicine; PCP Physician Assistant; Responsible Provider Family Medicine; Visit Provider Family Medicine
DX: I65.02 Occlusion and stenosis of left vertebral artery (principal); T45.515A Adverse effect of anticoagulants, initial encounter; D68.4 Acquired coagulation factor deficiency; S80.11XA Contusion of right lower leg, initial encounter; I10 Essential (primary) hypertension; E87.6 Hypokalemia; Z79.4 Long term (current) use of insulin; G50.0 Trigeminal neuralgia; E83.42 Hypomagnesemia; F33.42 Major depressive disorder, recurrent, in full remission; E66.01 Morbid (severe) obesity due to excess calories; Z68.1 Body mass index [BMI] 19.9 or less, adult; G47.33 Obstructive sleep apnea (adult) (pediatric); G44.85 Primary stabbing headache; H53.8 Other visual disturbances; W19.XXXA Unspecified fall, initial encounter; Z86.73 Personal history of transient ischemic attack (TIA), and cerebral infarction without residual deficits; E11.42 Type 2 diabetes mellitus with diabetic polyneuropathy; E78.1 Pure hyperglyceridemia; J45.20 Mild intermittent asthma, uncomplicated; M21.372 Foot drop, left foot; M47.816 Spondylosis without myelopathy or radiculopathy, lumbar region; I27.82 Chronic pulmonary embolism; Z79.01 Long term (current) use of anticoagulants
CPT/HCPCS: 00123; 36415; 70496; 70498; 80048; 80053; 85027; 85652; 87077; 87637; 93005; 96360; 97162; 97530; 99285; 70551; 81003; 81015; 83735; 84443; 84484; 85025; 85610; 87086; 87186; 93010; 93306; 99223; 99238; G0378; J1815; J3480; J3490

== ENCOUNTER 2025-06-26 14:55 | Outpatient (REF) | payer MEDICARE, MEDICAID, SELFPAY ==
[2025-06-26 16:06] LABS: Glucose Negative (Negative)
[2025-06-26 16:12] LABS: WBC >50 HPF (0-5)
[2025-06-26 16:13] LABS: C & S Indicated? Yes
== END 2025-06-26 14:56 | disposition home or self-care (01) ==
LOC: NCHCN 14:55
PROVIDERS: PCP Physician Assistant; Visit Provider Physician Assistant
DX: R82.90 Unspecified abnormal findings in urine (principal); N39.0 Urinary tract infection, site not specified
CPT/HCPCS: 87077; 81003; 81015; 87086; 87186